=== PATIENT | female | born 1960 | race African-American/Black ===

== ENCOUNTER 2016-06-13 17:14 | Emergency (ER) | payer OTHER ==
[~2016-06-13] VITALS: Ht 172.7 cm; Wt 104.3 kg
[~2016-06-13 17:14] MED LIST: LEVE100020 PO; MECL25TA PO; PHEN100C PO; SULF1TAB24 PO
[2016-06-13 17:42] VITALS: BP 180/91
[2016-06-13] MEDS ORDERED: LEVE500T6 PO (17:45)
--- NOTE | 2016-06-13 17:45 | PHYS DOC ---
Past Medical History Past Medical History: Cancer, Seizure Additional Past Medical Histor: RENAL CELL Past Surgical History: No Surgical History Alcohol Use: None Drug Use: None Adult General Chief Complaint Chief Complaint: SEIZURE HPI HPI Patient is a 55 year old female brought to the ED by her daughter with the complaint of a seizure. Patient states she had a seizure at about 3:00 this morning which lasted about 2 minutes. Before this, her last seizure was May 07 and she states was secondary to stress, she had had a in the family. Today, she also is under stress, she recently had the of her brother. The patient does have a diagnoses her disorder and she is prescribed Levetiracetam 500 mg, she takes 2-1/2 twice a day for a total of 5 pills daily. She has been taking this for about 4 or 5 years. She's had before that she had been tried on phenobarbital and on Dilantin, both of those had some side effects for her. Patient has not run out of her medication but she states that when she takes her dose tonight that we'll be her last dose. She had been seeing a doctor at [facility] who was prescribing the medication for her but that doctor left and the patient was told that she needs to go see a neurologist. She had an appointment at neurology but she missed it being out of town with a in the family. Also, she can go to , she doesn't have transportation. She wants to know if she can see a neurologist here at [place]. Typically she does have a seizure about every 2 or [address] months[address] not drive and she does not work. She feels that her seizures are stable and have not been worsening. At this time, she has no complaints. She believe she is back to normal and has no headache. Patient denies other medical problems including hypertension or diabetes. Review of Systems Review of Systems Constitutional: Denies fever or chills [] Eyes: Denies change in visual acuity, redness, or eye pain [] HENT: Denies nasal congestion or sore throat [] Respiratory: Denies cough or shortness of breath [] Cardiovascular: Denies chest pain GI: Denies abdominal pain, nausea, vomiting, bloody stools or diarrhea [] : Denies dysuria or hematuria [] Musculoskeletal: Denies back pain or joint pain [] Integument: Denies rash or skin lesions [] Neurologic: As in history of present illness Allergies Allergies Allergies Coded Allergies Type Severity Reaction Last Updated Verified Penicillins Allergy Severe ANAPHYLAXIS 03/21/13 Yes aspirin Allergy Severe SEIZURES 03/21/13 Yes Physical Exam Physical Exam Constitutional: Well developed, well nourished, no acute distress, non-toxic appearance. Alert, mentating normally, normal speech. HENT: Normocephalic, atraumatic, bilateral external ears normal, nose normal. [ ] Eyes: PERRLA, EOMI, conjunctiva normal, no discharge. [] Neck: Normal range of motion, no stridor. [] Cardiovascular:Heart rate regular rhythm, no murmur [] Lungs & Thorax: Bilateral breath sounds clear to auscultation [] Abdomen: Bowel sounds normal, soft, no tenderness, no masses, no pulsatile masses. [] Skin: Warm, dry, no erythema, no rash. [] Extremities: No tenderness, no cyanosis, no clubbing, ROM intact, no edema. [] Neurologic: Alert and oriented X 3, normal motor function, normal sensory function, no focal deficits noted. Normal speech. No facial asymmetry. Hand Trucker 5 over 5 and equal bilaterally. Lower extremity strength 5 over 5 and equal bilaterally. Current Patient Data Vital Signs Vital Signs Date Time Temp Pulse Resp B/P Pulse Ox O2 Delivery O2 Flow Rate FiO2 06/13/16 17:42 97.8 84 18 180/91 98 Room Air 97.8 EKG EKG [] Radiology/Procedures Radiology/Procedures [] Course & Med Decision Making Course & Med Decision Making Pertinent Labs and Imaging studies reviewed. (See chart for details) 55-year-old female who reports a history of a seizure disorder, presents with the report of a brief seizure several hours prior to ED arrival which was brief and short-lived. Her concern at this time is that she has only one dose of her Levetiracetam remaining and she needs a refill. I gave the patient a referral to neurology here at [place] and I gave her prescription for a 10 day supply and urged her to call tomorrow for an appointment as soon as possible. She is stable for discharge. [] Dragon Disclaimer Dragon Disclaimer This electronic medical record was generated, in whole or in part, using a voice recognition dictation system. Departure Departure Impression: Primary Impression: Seizure Disposition: 01 HOME, SELF-CARE Condition: STABLE Referrals: NO PCP (PCP) DAVIAN WAITE MD Patient Instructions: Seizure, Adult Additional Instructions: As we discussed, call tomorrow to make an appointment with the neurology clinic. I gave you the name and phone number. As we discussed, be sure that you are taking your seizure medicine as directed on time every day. Scripts Levetiracetam 500 Mg Tablet2.5 Tab PO BID #60 TAB Ref 0 Take as directed for prevention of seizures Prov:ADITHYA CUELLO MD 06/13/16 ADITHYA CUELLO MD June 13, 2016 17:45
== END 2016-06-13 17:55 | disposition home or self-care (01) ==
LOC: ER 17:14
DX: G40.909 Epilepsy, unspecified, not intractable, without status epilepticus (principal); Z88.0 Allergy status to penicillin; Z88.6 Allergy status to analgesic agent
CPT/HCPCS: 99283

== ENCOUNTER 2016-06-26 14:36 | Emergency (ER) | payer OTHER ==
[~2016-06-26] VITALS: Ht 172.7 cm; Wt 108.9 kg
[~2016-06-26 14:36] MED LIST changes: +LEVE500T6 PO
[2016-06-26 14:45] VITALS: BP 175/97
[2016-06-26] MEDS ORDERED: LEVE500T56 PO (14:56)
--- NOTE | 2016-06-26 14:57 | PHYS DOC ---
Past Medical History Past Medical History: Cancer, Seizure Additional Past Medical Histor: RENAL CELL Past Surgical History: No Surgical History Alcohol Use: None Drug Use: None Adult General Chief Complaint Chief Complaint: MEDICATION REFILL [facility] HPI Patient is a 55 year old female who presents with questor medication refill. She reports that she takes 1250 mg a Keppra twice a day. She states she took her elastosis morning. She is an appointment scheduled with neurology in August but her current medicine clinic will not refill her Keppra pending appointment. Patient reports that she has been using Keppra for "a really long time". Patient states she's had no seizure, she has no headache. Review of Systems Review of Systems Constitutional: Denies fever or chills Eyes: Denies change in visual acuity, redness, or eye pain HENT: Denies nasal congestion or sore throat Respiratory: Denies cough or shortness of breath [] Cardiovascular: No additional information not addressed in HPI [] GI: Denies abdominal pain, nausea, vomiting, bloody stools or diarrhea [] : Denies dysuria or hematuria [] Musculoskeletal: Denies back pain or joint pain [] Integument: Denies rash or skin lesions [] Neurologic: Denies headache, focal weakness or sensory changes [] Endocrine: Denies polyuria or polydipsia [] Allergies Allergies Allergies Coded Allergies Type Severity Reaction Last Updated Verified Penicillins Allergy Severe ANAPHYLAXIS 03/21/13 Yes aspirin Allergy Severe SEIZURES 03/21/13 Yes Physical Exam Physical Exam Constitutional: Well developed, well nourished, no acute distress, non-toxic appearance. [] HENT: Normocephalic, atraumatic, bilateral external ears normal, oropharynx moist, no oral exudates, nose normal. [] Eyes: PERRLA, EOMI, conjunctiva normal, no discharge. [] Neck: Normal range of motion, no tenderness, supple, no stridor. [] Cardiovascular:Heart rate regular rhythm, no murmur [] Lungs & Thorax: Bilateral breath sounds clear to auscultation [] Skin: Warm, dry, no erythema, no rash. [] Neurologic: Alert and oriented X 3, normal motor function, normal sensory function, no focal deficits noted. [] Psychologic: Affect normal, judgement normal, mood normal. [] Current Patient Data Vital Signs Vital Signs Date Time Temp Pulse Resp B/P (MAP) Pulse Ox O2 Delivery O2 Flow Rate FiO2 06/26/16 14:45 97.7 90 20 96 Room Air 97.7 EKG EKG [] Radiology/Procedures Radiology/Procedures [] Course & Med Decision Making Course & Med Decision Making Pertinent Labs and Imaging studies reviewed. (See chart for details) [] Dragon Disclaimer Dragon Disclaimer This electronic medical record was generated, in whole or in part, using a voice recognition dictation system. Departure Departure Impression: Primary Impression: Medication refill Disposition: HOME, SELF-CARE Condition: STABLE Referrals: UNKNOWN PCP NAME (PCP) Patient Instructions: Medication Refill, Emergency Department Scripts Levetiracetam (KEPPRA) 500 Mg Tablet 2.5 TAB PO BID for 30 Days, #150 TAB 1 Refill Prov: PARVIZ PAINTING APRN 06/26/16 PARVIZ PAINTING APRN June 26, 2016 14:57
== END 2016-06-26 15:03 | disposition home or self-care (01) ==
LOC: ER 14:39
DX: Z76.0 Encounter for issue of repeat prescription (principal); Z88.0 Allergy status to penicillin; Z88.6 Allergy status to analgesic agent
CPT/HCPCS: 99283

== ENCOUNTER 2016-11-03 12:06 | Emergency (ER) | payer OTHER ==
[~2016-11-03] VITALS: Ht 172.7 cm; Wt 117.9 kg
[~2016-11-03 12:06] MED LIST changes: +LEVE500T56 PO
--- NOTE | 2016-11-03 13:08 | PHYS DOC ---
Past Medical History Past Medical History: Cancer, Seizure Additional Past Medical Histor: RENAL CELL Past Surgical History: No Surgical History Alcohol Use: None Drug Use: None Adult General Chief Complaint Chief Complaint: ABDOMINAL PAIN HPI HPI Patient is a 55 year old F who presents with abdominal pain. Patient states she started having abdominal pain and burning with urination this morning. Patient complains the pain radiates to her back. Patient states she is nauseous with no vomiting. Patient denies any vaginal discharge. Patient denies any fevers. Patient has no other complaints. Review of Systems Review of Systems GEN: Denies fevers, chills, sweats HEENT: Denies blurred vision, sore throat CV: Denies chest pain RESP: Denies shortness of air, cough GI: Suprapubic pain NEURO: Denies confusion, dizziness MSK: Denies weakness, joint pain/swelling Current Medications Current Medications Current Medications Medications (Trade) Dose Ordered Sig/Vania Start Time Stop Time Status Last Admin Dose Admin Ceftriaxone Sodium 50 ml @ 100 mls/hr 1X ONCE 11/03/16 16:00 11/03/16 16:00 DC Iohexol (Omnipaque 300 Mg/ml) 75 ml 1X ONCE 11/03/16 13:30 11/03/16 13:31 DC 11/03/16 14:26 75 ML Ketorolac Tromethamine (Toradol) 30 mg 1X ONCE 11/03/16 13:30 11/03/16 13:31 DC 11/03/16 13:27 30 MG Levofloxacin/ Dextrose 150 ml @ 100 mls/hr 1X ONCE 11/03/16 16:00 11/03/16 17:29 Sodium Chloride 1,000 ml @ 1,000 mls/hr 1X ONCE 11/03/16 13:30 11/03/16 14:29 DC 11/03/16 13:27 1,000 MLS/HR Allergies Allergies Allergies Coded Allergies Type Severity Reaction Last Updated Verified Penicillins Allergy Severe ANAPHYLAXIS 03/21/13 Yes aspirin Allergy Severe SEIZURES, TORADOL OK 11/03/16 Yes Physical Exam Physical Exam GEN.: No apparent distress. Alert and oriented. HEENT: Head is normocephalic, atraumatic NECK: Supple. LUNGS: CTAB. HEART: RRR, S1, S2 present. Peripheral pulses intact ABDOMEN: Soft, tenderness palpation to the suprapubic area, rebound tenderness, no abdominal distention. Positive bowel sounds. EXTREMITIES: Without any cyanosis. NEUROLOGIC: Normal speech, normal tone PSYCHIATRIC: Normal affect, normal mood. SKIN: No ulcerations Current Patient Data Vital Signs Vital Signs Date Time Temp Pulse Resp B/P (MAP) Pulse Ox O2 Delivery O2 Flow Rate FiO2 11/03/16 12:42 97.7 105 18 184/106 (132) 97 Room Air 97.7 Lab Values Laboratory Tests Test 11/03/16 12:41 11/03/16 13:50 Urine Collection Type Void Urine Color Red Urine Clarity Turbid Urine pH 6.0 Urine Specific [place] >=1.030 Urine Protein >=300 mg/dL (NEG-TRACE) Urine Glucose (UA) Negative mg/dL (NEG) Urine Ketones (Stick) Negative mg/dL (NEG) Urine Blood Large (NEG) Urine Nitrite Negative (NEG) Urine Bilirubin Negative (NEG) Urine Urobilinogen Dipstick 0.2 mg/dL (0.2 mg/dL) Urine Leukocyte Esterase Large (NEG) Urine RBC >40 /HPF (0-2) Urine WBC Tntc /HPF (0-4) Urine Squamous Epithelial Cells Many /LPF Urine Bacteria Many /HPF (0-FEW) Urine Mucus Mod /LPF White Blood Count 4.8 x10^3/uL (4.0-11.0) Red Blood Count 3.55 x10^6/uL (3.50-5.40) Hemoglobin 11.0 g/dL (12.0-15.5) L Hematocrit 33.1 % (36.0-47.0) L Mean Corpuscular Volume 93 fL (79-100) Mean Corpuscular Hemoglobin 31 pg (25-35) Mean Corpuscular Hemoglobin Concent 33 g/dL (31-37) Red Cell Distribution Width 15.1 % (11.5-14.5) H Platelet Count 169 x10^3/uL (140-400) Neutrophils (%) (Auto) 73 % (31-73) Lymphocytes (%) (Auto) 13 % (24-48) L Monocytes (%) (Auto) 11 % (0-9) H Eosinophils (%) (Auto) 2 % (0-3) Basophils (%) (Auto) 1 % (0-3) Neutrophils # (Auto) 3.5 x10^3uL (1.8-7.7) Lymphocytes # (Auto) 0.6 x10^3/uL (1.0-4.8) L Monocytes # (Auto) 0.5 x10^3/uL (0.0-1.1) Eosinophils # (Auto) 0.1 x10^3/uL (0.0-0.7) Basophils # (Auto) 0.0 x10^3/uL (0.0-0.2) Sodium Level 143 mmol/L (136-145) Potassium Level 3.7 mmol/L (3.5-5.1) Chloride Level 109 mmol/L (98-107) H Carbon Dioxide Level 24 mmol/L (21-32) Anion Gap 10 (6-14) Blood Urea Nitrogen 23 mg/dL (7-20) H Creatinine 1.3 mg/dL (0.6-1.0) H Estimated GFR (Cockcroft-Gault) 51.6 BUN/Creatinine Ratio 18 (6-20) Glucose Level 119 mg/dL (70-99) H Calcium Level 8.5 mg/dL (8.5-10.1) Total Bilirubin 0.4 mg/dL (0.2-1.0) Aspartate Amino Transferase (AST) 16 U/L (15-37) Alanine Aminotransferase (ALT) 20 U/L (14-59) Alkaline Phosphatase 103 U/L (46-116) Total Protein 7.0 g/dL (6.4-8.2) Albumin 3.1 g/dL (3.4-5.0) L Albumin/Globulin Ratio 0.8 (1.0-1.7) L Lipase 63 U/L (73-393) L Laboratory Tests 11/03/16 13:50 Laboratory Tests 11/03/16 13:50 EKG EKG [] Radiology/Procedures Radiology/Procedures CT: IMPRESSION: Bilateral ureteral stents are noted. The right ureteral stent is located within the mid right ureter and is coiled more inferiorly within the urinary bladder. Mild to moderate hydronephrosis and hydroureter is seen which could reflect stent malfunction. Clinical correlation is recommended.[] Course & Med Decision Making Course & Med Decision Making Pertinent Labs and Imaging studies reviewed. (See chart for details) Patient seen and evaluated abdominal workup with a CT scan abdomen pelvis was ordered 1558: Patient was updated on CT findings and she stated that the stents replaced approximately [address] [facility] for an unknown reason. Patient states she has been on dialysis before. Patient has not followed up with urologist since the stent placement. 1625: Discussed CC/HP/PMH with Dr. Leblanc who will talk to urologist and see the patient needs to be admitted or can follow up as an outpatient 1640: Dr. Leblanc called back and patient can follow up urology as an outpatient with Dr. Martinez an [facility] faxed over the office information for the urologist and will see her next week. Patient will be discharged on antibiotics. Patient would also like a prescription for her Keppra she takes 1500 mg twice a day MDM: After reviewing the chart, CC/HPI/PMH, physical exam, [lab results], [ radiological results], I do not believe the patient has emergent medical condition warranting further workup and/or admission at this time. I do not believe the patient is septic and has a non-Ma stated UTI that we treated with oral antibiotics as an outpatient. Patient has ureteral stents in place that are malfunctioned and will follow-up with urologist from [facility]. Patient was provided with the follow-up information and told to call and make an appointment. Patient is stable for discharge. Additional verbal discharge instructions were provided to the patient and that if symptoms get worse or any new symptoms arise that are worrisome to the patient [he/she] is to return to the emergency room immediately [] Dragon Disclaimer Dragon Disclaimer This electronic medical record was generated, in whole or in part, using a voice recognition dictation system. Departure Departure Impression: Primary Impression: UTI (urinary tract infection) Additional Impression: History of seizures Disposition: 01 HOME, SELF-CARE Condition: IMPROVED Referrals: UNKNOWN PCP NAME (PCP) Patient Instructions: Urinary Tract Infection Additional Instructions: Please follow up with urology at [facility] and noted to call and make an appointment Scripts Levetiracetam (KEPPRA) 750 Mg Tablet 1500 MG PO BID for 30 Days, #120 TAB Prov: SHANEL SHILREY DO 11/03/16 Levofloxacin (LEVAQUIN) 750 Mg Tablet 1 TAB PO DAILY, #7 TAB Prov: SHANEL SHIRLEY DO 11/03/16 Problem Qualifiers SHANEL SHIRLEY DO Nov 03, 2016 13:08
[2016-11-03 13:28] LABS: GLUCOSE,URINE NEGATIVE (NEG); UROBILINOGEN,URINE 0.2 mg/dL (0.2 mg/dL)
[2016-11-03] MEDS ORDERED: IOHEXOL 300 MG/ML 75 ML VIAL IV ONE (13:30)
[2016-11-03] MEDS ORDERED: KETOROLAC 30 MG/ML INJ. IV ONE (13:30)
[2016-11-03] MEDS ORDERED: IV NORMAL SALINE 1000ML BAG 1,000 ML IV ONE (13:30)
[2016-11-03 13:42] LABS: BILIRUBIN,URINE NEGATIVE (NEG)
[2016-11-03 13:43] LABS: NITRITE,URINE NEGATIVE (NEG); PROTEIN,URINE >=300 mg/dL (NEG-TRACE)
[2016-11-03 13:47] LABS: RBC,URINE >40 /HPF (0-2); WBC,URINE TNTC /HPF (0-4)
[2016-11-03 13:49] LABS: BACTERIA,URINE MANY /HPF (0-FEW)
[2016-11-03 13:50] LABS: SQUAMOUS EPITHELIAL CELL,UR MANY /LPF
[2016-11-03 13:58] LABS: BASO % 1 % (0-3); EOS % 2 % (0-3); HEMATOCRIT 33.1 % (36.0-47.0); LYMPH # 0.6 x10^3/uL (1.0-4.8); LYMPH % 13 % (24-48); MEAN CORPUSCULAR HEMOGLOBIN 31 pg (25-35); MEAN CORPUSCULAR HGB CONC 33 g/dL (31-37); MEAN CORPUSCULAR VOLUME 93 fL (79-100); MONO % 11 % (0-9); NEUT % 73 % (31-73); PLATELET COUNT 169 x10^3/uL (140-400); RED BLOOD COUNT 3.55 x10^6/uL (3.50-5.40); RED CELL DISTRIBUTION WIDTH 15.1 % (11.5-14.5); WHITE BLOOD COUNT 4.8 x10^3/uL (4.0-11.0)
[2016-11-03 14:05] LABS: CALCIUM 8.5 mg/dL (8.5-10.1); CREATININE 1.3 mg/dL (0.6-1.0); GFR 51.6; POTASSIUM 3.7 mmol/L (3.5-5.1)
[2016-11-03 14:11] LABS: ALBUMIN 3.1 g/dL (3.4-5.0); ALBUMIN/GLOBULIN RATIO 0.8 (1.0-1.7); TOTAL BILIRUBIN 0.4 mg/dL (0.2-1.0)
--- NOTE | 2016-11-03 15:19 | RAD ---
CT scan of the abdomen and pelvis with contrast 11/03/2016 CLINICAL HISTORY: Suprapubic abdominal pain. TECHNIQUE: After the intravenous administration of 60 cc of Omnipaque 300, contiguous, 5 mm axial sections were obtained through the abdomen and pelvis. One or more of the following individualized dose reduction techniques were utilized for this study: 1. Automated exposure control. 2. Adjustment of the mA and/or kV according to patient size. 3. Use of iterative reconstruction technique. FINDINGS: No previous imaging studies are available for comparison. Images through the lung bases demonstrate minimal dependent subsegmental atelectasis bilaterally. The liver, spleen, pancreas and adrenal glands are within normal limits. A double-J ureteral stent is seen extending from the left renal pelvis to the left urinary bladder. A double-J ureteral stent is seen extending from the mid right ureter into the urinary bladder. Mild to moderate hydronephrosis and hydroureter is seen bilaterally. Nonobstructing calculi are seen within the lower pole of the left kidney. These measure 3 to 8 mm in size. Moderate atherosclerotic calcification of the abdominal aorta is seen. The abdominal aorta tapers normally. The gallbladder is well-distended. No free fluid or free air is abdomen. The appendix is well-visualized and is within normal limits. Air and stool is seen throughout the colon. There is no evidence of bowel obstruction. Images through the pelvis demonstrate the urinary bladder distended with urine. The inferior aspect of the right ureteral stent is coiled multiple times within the urinary bladder. Calcifications are seen within the pelvis consistent with phleboliths. No free fluid is seen. No adnexal mass is noted. Degenerative changes are seen involving the lower thoracic and throughout the lumbar spine and both hips. IMPRESSION: Bilateral ureteral stents are noted. The right ureteral stent is located within the mid right ureter and is coiled more inferiorly within the urinary bladder. Mild to moderate hydronephrosis and hydroureter is seen which could reflect stent malfunction. Clinical correlation is recommended. Electronically signed by: Ton Ndiaye MD (11/03/2016 3:16 PM) [facility]
[2016-11-03] MEDS ORDERED: LEVO750T31 PO (16:58)
[2016-11-03] MEDS ORDERED: LEVE750T41 PO (16:58)
[2016-11-03 17:18] VITALS: BP 135/76
== END 2016-11-03 18:40 | disposition home or self-care (01) ==
LOC: ER 12:06
DX: N39.0 Urinary tract infection, site not specified (principal); Z88.0 Allergy status to penicillin; Z88.6 Allergy status to analgesic agent; Z99.2 Dependence on renal dialysis; Z96.0 Presence of urogenital implants
CPT/HCPCS: 36415; 74177; 80053; 81001; 83690; 85025; 87086; 96361; 96365; 96375; 99285; J1885; J1956; J7030; Q9967

== ENCOUNTER 2017-03-26 03:17 | Emergency (ER) | payer OTHER ==
[2017-03-26 04:46] LABS: ADD MAN DIFF? NO
[2017-03-26 04:49] LABS: BASO % 1 % (0-3); EOS % 1 % (0-3); HEMATOCRIT 36.1 % (36.0-47.0); HEMOGLOBIN 11.9 g/dL (12.0-15.5); LYMPH # 0.5 x10^3/uL (1.0-4.8); LYMPH % 10 % (24-48); MEAN CORPUSCULAR HEMOGLOBIN 29 pg (25-35); MEAN CORPUSCULAR HGB CONC 33 g/dL (31-37); MEAN CORPUSCULAR VOLUME 89 fL (79-100); MONO # 0.5 x10^3/uL (0.0-1.1); MONO % 10 % (0-9); NEUT % 78 % (31-73); PLATELET COUNT 209 x10^3/uL (140-400); RED BLOOD COUNT 4.04 x10^6/uL (3.50-5.40); RED CELL DISTRIBUTION WIDTH 14.6 % (11.5-14.5); WHITE BLOOD COUNT 5.1 x10^3/uL (4.0-11.0)
[2017-03-26 05:02] LABS: ANION GAP 9 (6-14); BLOOD UREA NITROGEN 13 mg/dL (7-20); BUN/CREATININE RATIO 11 (6-20); CALCIUM 9.4 mg/dL (8.5-10.1); CARBON DIOXIDE 30 mmol/L (21-32); CHLORIDE 101 mmol/L (98-107); CREATININE 1.2 mg/dL (0.6-1.0); GFR 56.4; GLUCOSE 124 mg/dL (70-99); POTASSIUM 3.1 mmol/L (3.5-5.1); SODIUM 140 mmol/L (136-145)
[2017-03-26 05:04] LABS: ETHANOL < 10 mg/dL (0-10)
[2017-03-26 05:07] LABS: ALBUMIN 3.1 g/dL (3.4-5.0); ALBUMIN/GLOBULIN RATIO 0.6 (1.0-1.7); ALK PHOS 136 U/L (46-116); ALT (SGPT) 23 U/L (14-59); AST (SGOT) 20 U/L (15-37); LIPASE 55 U/L (73-393); TOTAL BILIRUBIN 0.4 mg/dL (0.2-1.0); TOTAL PROTEIN 8.2 g/dL (6.4-8.2)
[2017-03-26 05:11] LABS: TROPONINI < 0.017 ng/mL (0.000-0.055)
[2017-03-26] MEDS: POTASSIUM CHLORIDE 20 MEQ TABLET.ER. PO ×2 (05:30)
[2017-03-26] MEDS: levETIRAcetam 1,000 MG in IV DEXTROSE 5% 100 ML IV (05:31)
[2017-03-29 10:24] LABS: LEVETIRACETAM 49.2 ug/mL (10.0-40.0)
== END 2017-03-26 06:31 | disposition home or self-care (01) ==
LOC: ER 06:31
DX: R56.9 Unspecified convulsions (principal); E87.6 Hypokalemia; Z88.0 Allergy status to penicillin; Z88.6 Allergy status to analgesic agent; Z85.41 Personal history of malignant neoplasm of cervix uteri
CPT/HCPCS: 36415; 70450; 72125; 80053; 80177; 83690; 83735; 84484; 85025; 93005; 96365; 96375; 99285-25; G0480; J1953; J2060

== ENCOUNTER 2017-05-24 09:43 | Emergency (ER) | payer OTHER ==
[2017-05-24 10:14] LABS: POC GLUCOSE 119 mg/dL (70-99)
== END 2017-05-24 10:45 | disposition home or self-care (01) ==
LOC: ER 09:43
DX: R56.9 Unspecified convulsions (principal); G47.00 Insomnia, unspecified; I10 Essential (primary) hypertension; G40.909 Epilepsy, unspecified, not intractable, without status epilepticus; Z88.0 Allergy status to penicillin; Z88.6 Allergy status to analgesic agent
CPT/HCPCS: 82962; 99284

== ENCOUNTER 2017-07-01 15:19 | Emergency (ER) | payer OTHER | END 2017-07-01 16:20 | disposition home or self-care (01) | LOC: ER 16:20 | DX: R56.9 Unspecified convulsions (principal); Z76.0 Encounter for issue of repeat prescription; Z88.0 Allergy status to penicillin; Z88.6 Allergy status to analgesic agent | CPT/HCPCS: 99283 ==

== ENCOUNTER 2017-07-19 16:13 | Emergency (ER) | payer OTHER ==
[2017-07-19] MEDS: IV NORMAL SALINE 1000ML BAG 1,000 ML IV (17:13)
[2017-07-19 17:16] LABS: ADD MAN DIFF? NO
[2017-07-19 17:18] LABS: BASO % 0 % (0-3); EOS % 1 % (0-3); HEMATOCRIT 37.5 % (36.0-47.0); HEMOGLOBIN 12.6 g/dL (12.0-15.5); LYMPH # 0.4 x10^3/uL (1.0-4.8); LYMPH % 10 % (24-48); MEAN CORPUSCULAR HEMOGLOBIN 31 pg (25-35); MEAN CORPUSCULAR HGB CONC 34 g/dL (31-37); MEAN CORPUSCULAR VOLUME 91 fL (79-100); MONO # 0.3 x10^3/uL (0.0-1.1); MONO % 6 % (0-9); NEUT # 3.9 x10^3uL (1.8-7.7); NEUT % 83 % (31-73); PLATELET COUNT 197 x10^3/uL (140-400); RED CELL DISTRIBUTION WIDTH 14.4 % (11.5-14.5); WHITE BLOOD COUNT 4.7 x10^3/uL (4.0-11.0)
[2017-07-19 17:20] LABS: BILIRUBIN,URINE NEGATIVE (NEG); CLARITY,URINE CLEAR; COLOR,URINE YELLOW; GLUCOSE,URINE NEGATIVE (NEG); NITRITE,URINE NEGATIVE (NEG); PH,URINE 6.5; PROTEIN,URINE 30 mg/dL (NEG-TRACE); UROBILINOGEN,URINE 0.2 mg/dL (0.2 mg/dL)
[2017-07-19 17:31] LABS: ANION GAP 11 (6-14); BLOOD UREA NITROGEN 13 mg/dL (7-20); CALCIUM 9.1 mg/dL (8.5-10.1); CARBON DIOXIDE 27 mmol/L (21-32); CHLORIDE 104 mmol/L (98-107); GFR 69.7; GLUCOSE 136 mg/dL (70-99); MAGNESIUM 2.1 mg/dL (1.8-2.4); POTASSIUM 3.1 mmol/L (3.5-5.1); SODIUM 142 mmol/L (136-145)
[2017-07-19 17:41] LABS: BACTERIA,URINE MANY /HPF (0-FEW); SQUAMOUS EPITHELIAL CELL,UR FEW /LPF; TRICHOMONAS,URINE PRESENT; WBC,URINE >40 /HPF (0-4)
[2017-07-19] MEDS: NITROFURANTOIN MONOHYD/M-CRYST 100 MG CAPSULE. PO (18:51)
[2017-07-19] MEDS: POTASSIUM CHLORIDE 20 MEQ/15 ML ORAL LIQUID. PO (18:52)
[2017-07-23 02:17] LABS: LEVETIRACETAM 43.8 ug/mL (10.0-40.0)
== END 2017-07-19 19:01 | disposition home or self-care (01) ==
LOC: ER 16:13
DX: R56.9 Unspecified convulsions (principal); N39.0 Urinary tract infection, site not specified; G40.909 Epilepsy, unspecified, not intractable, without status epilepticus; Z85.41 Personal history of malignant neoplasm of cervix uteri; Z88.0 Allergy status to penicillin; Z88.6 Allergy status to analgesic agent
CPT/HCPCS: 70450; 80048; 81001; 83735; 85025; 93005; 99285-25; J7030

== ENCOUNTER 2017-12-12 23:50 | Emergency (ER) | payer OTHER ==
[~2017-12-12] VITALS: Ht 172.7 cm; Wt 108.9 kg
[~2017-12-12 23:50] MED LIST changes: +ERGO500027 PO; +LEVE750T41 PO; +LEVO750T31 PO; +NITR100C62 PO; +ZOLP5TAB PO
[2017-12-13] MEDS ORDERED: IV NORMAL SALINE 1000ML BAG 1,000 ML IV ONE (00:15)
[2017-12-13] MEDS ORDERED: levETIRAcetam 1,000 MG in IV DEXTROSE 5% 100ML 100 ML IV ONE (00:30)
[2017-12-13 00:40] LABS: BASO # 0.1 x10^3/uL (0.0-0.2); BASO % 1 % (0-3); EOS # 0.1 x10^3/uL (0.0-0.7); EOS % 1 % (0-3); HEMATOCRIT 30.7 % (36.0-47.0); HEMOGLOBIN 10.5 g/dL (12.0-15.5); LYMPH # 0.7 x10^3/uL (1.0-4.8); LYMPH % 11 % (24-48); MEAN CORPUSCULAR HEMOGLOBIN 32 pg (25-35); MEAN CORPUSCULAR HGB CONC 34 g/dL (31-37); MEAN CORPUSCULAR VOLUME 94 fL (79-100); MONO # 0.4 x10^3/uL (0.0-1.1); MONO % 6 % (0-9); NEUT # 5.1 x10^3uL (1.8-7.7); NEUT % 81 % (31-73); PLATELET COUNT 256 x10^3/uL (140-400); RED BLOOD COUNT 3.27 x10^6/uL (3.50-5.40); RED CELL DISTRIBUTION WIDTH 15.1 % (11.5-14.5); WHITE BLOOD COUNT 6.3 x10^3/uL (4.0-11.0)
[2017-12-13 00:52] LABS: CREATININE 1.3 mg/dL (0.6-1.0); GFR 51.3; MAGNESIUM 1.7 mg/dL (1.8-2.4); POTASSIUM 3.4 mmol/L (3.5-5.1)
[2017-12-13 01:23] VITALS: BP 181/84
--- NOTE | 2017-12-13 01:24 | PHYS DOC ---
Past Medical History Past Medical History: Cancer, High Cholesterol, Renal Disease, Seizure Additional Past Medical Histor: BORDERLINE DIABETIC Past Surgical History: No Surgical History Additional Past Surgical Histo: RENAL STENT Alcohol Use: None Drug Use: None Adult General Chief Complaint Chief Complaint: SEIZURE HPI HPI Patient is a 57 year old female who presents with seizure disorder. Patient has known history of seizure disorder. She states she ran out of her medications yesterday morning. Her normal medicines are Keppra 750 mg twice daily. This evening, she presents to the ER primarily requesting a refill but she did have a witnessed tonic-clonic seizure in the waiting room as she was checking in. The seizure lasted about 1 minute. She was assisted to the floor and did not sustain any injury. The patient had a brief postictal period and awoke to her baseline mental status. She is accompanied by her son who states she is at baseline mental status as well. After awakening, the patient states she just needs a refill of her medicine. She denies recent illness. No fever or chills or cough. No chest pain or palpitations. She does not currently have a neurologist and is asking for referral Review of Systems Review of Systems Constitutional: Denies fever or chills Eyes: Denies change in visual acuity HENT: Denies Respiratory: Denies cough or shortness of breath Cardiovascular: No additional information GI: Denies abdominal pain, nausea : Denies dysuria Musculoskeletal: Denies back pain Integument: Denies rash Neurologic: Denies headache, or focal neuro complaints Endocrine: Denies polyuria All other systems were reviewed and found to be within normal limits, except as documented in this note. Current Medications Current Medications Current Medications Medications (Trade) Dose Ordered Sig/Vania Start Time Stop Time Status Last Admin Dose Admin Levetiracetam 1000 mg/Dextrose 110 ml @ 440 mls/hr 1X ONCE 12/13/17 00:30 12/13/17 00:44 DC 12/13/17 00:47 440 MLS/HR Lorazepam (Ativan) 0.5 mg 1X ONCE 12/13/17 01:00 12/13/17 01:01 DC 12/13/17 01:12 0.5 MG Sodium Chloride 1,000 ml @ 1,000 mls/hr 1X ONCE 12/13/17 00:15 12/13/17 01:14 DC 12/13/17 00:47 1,000 MLS/HR Allergies Allergies Allergies Coded Allergies Type Severity Reaction Last Updated Verified Penicillins Allergy Severe ANAPHYLAXIS 06/02/17 Yes aspirin Allergy Severe SEIZURES, TORADOL OK 11/03/16 Yes Physical Exam Physical Exam Constitutional: Well developed, well nourished, no acute distress HENT: Normocephalic, atraumatic, bilateral external ears normal, oropharynx moist Eyes: PERRLA, EOMI, conjunctiva normal Neck: Normal range of motion Cardiovascular:Heart rate regular rhythm Lungs & Thorax: Bilateral breath sounds clear Abdomen: Bowel sounds normal, soft, no tenderness Skin: Warm, dry, no erythema Extremities: No edema Neurologic: Alert and oriented X 3 Psychologic: Affect normal Current Patient Data Vital Signs Vital Signs Date Time Temp Pulse Resp B/P (MAP) Pulse Ox O2 Delivery O2 Flow Rate FiO2 12/12/17 23:55 98.2 99 16 187/93 (124) 94 Room Air 98.2 Lab Values Laboratory Tests Test 12/13/17 00:20 White Blood Count 6.3 x10^3/uL (4.0-11.0) Red Blood Count 3.27 x10^6/uL (3.50-5.40) L Hemoglobin 10.5 g/dL (12.0-15.5) L Hematocrit 30.7 % (36.0-47.0) L Mean Corpuscular Volume 94 fL (79-100) Mean Corpuscular Hemoglobin 32 pg (25-35) Mean Corpuscular Hemoglobin Concent 34 g/dL (31-37) Red Cell Distribution Width 15.1 % (11.5-14.5) H Platelet Count 256 x10^3/uL (140-400) Neutrophils (%) (Auto) 81 % (31-73) H Lymphocytes (%) (Auto) 11 % (24-48) L Monocytes (%) (Auto) 6 % (0-9) Eosinophils (%) (Auto) 1 % (0-3) Basophils (%) (Auto) 1 % (0-3) Neutrophils # (Auto) 5.1 x10^3uL (1.8-7.7) Lymphocytes # (Auto) 0.7 x10^3/uL (1.0-4.8) L Monocytes # (Auto) 0.4 x10^3/uL (0.0-1.1) Eosinophils # (Auto) 0.1 x10^3/uL (0.0-0.7) Basophils # (Auto) 0.1 x10^3/uL (0.0-0.2) Sodium Level 140 mmol/L (136-145) Potassium Level 3.4 mmol/L (3.5-5.1) L Chloride Level 102 mmol/L (98-107) Carbon Dioxide Level 28 mmol/L (21-32) Anion Gap 10 (6-14) Blood Urea Nitrogen 12 mg/dL (7-20) Creatinine 1.3 mg/dL (0.6-1.0) H Estimated GFR (Cockcroft-Gault) 51.3 Glucose Level 171 mg/dL (70-99) H Calcium Level 9.0 mg/dL (8.5-10.1) Magnesium Level 1.7 mg/dL (1.8-2.4) L Laboratory Tests 12/13/17 00:20 Laboratory Tests 12/13/17 00:20 EKG EKG [] Radiology/Procedures Radiology/Procedures [] Course & Med Decision Making Course & Med Decision Making Pertinent Labs and Imaging studies reviewed. (See chart for details) It is evaluated in the emergency department after a seizure. She does have some medication noncompliance, primarily because she does not have a neurologist. She does have insurance and the means to afford her medications. In the emergency department, she was given a half milligram of Ativan. She was given a Keppra load by IV along with some IV fluids. Her labs were normal except for very mild elevation of creatinine which was collected prior to IV fluid hydration. Patient is discharged to home. Her son is present and driving her home. She is provided a refill of her medications. She is also provided a referral to Dr. Sierra for routine surveillance of seizure disorder. Dragon Disclaimer Dragon Disclaimer This electronic medical record was generated, in whole or in part, using a voice recognition dictation system. Departure Departure Referrals: UNKNOWN PCP NAME (PCP) CLAUS CHARLES DO Dec 13, 2017 01:24
[2017-12-13] MEDS ORDERED: LEVE100020 PO (01:28)
[2017-12-13] MEDS ORDERED: LEVE500T56 PO (01:28)
== END 2017-12-13 01:50 | disposition home or self-care (01) ==
LOC: ER 23:50
DX: G40.909 Epilepsy, unspecified, not intractable, without status epilepticus (principal); E78.00 Pure hypercholesterolemia, unspecified; Z88.0 Allergy status to penicillin; Z88.6 Allergy status to analgesic agent
CPT/HCPCS: 36415; 80048; 83735; 85025; 96365; 96375; 99284; J1953; J2060; J7030

== ENCOUNTER 2018-01-16 05:04 | Emergency (ER) | payer OTHER ==
[~2018-01-16] VITALS: Ht 167.6 cm; Wt 108.9 kg
--- NOTE | 2018-01-16 05:28 | PHYS DOC ---
Past Medical History Past Medical History: Cancer, High Cholesterol, Renal Disease, Seizure Additional Past Medical Histor: BORDERLINE DIABETIC Past Surgical History: No Surgical History Additional Past Surgical Histo: RENAL STENT Alcohol Use: None Drug Use: None Adult General Chief Complaint Chief Complaint: SEIZURE HPI HPI Patient is a 57-year-old female who presents with report of having had a total of 5 seizures over the last 24 hours. Patient has had seizures ever since her 20s. She indicates that she is on Keppra intakes 1500 mg twice daily. She does admit to a headache that she rates as moderate. She denies any chest pain, shortness of breath, fever, nausea or vomiting. Review of Systems Review of Systems Constitutional: Denies fever or chills [] Respiratory: Denies cough or shortness of breath [] Cardiovascular: No additional information not addressed in HPI [] Musculoskeletal: Denies back pain or joint pain [] Integument: Denies rash or skin lesions [] Neurologic: Positive seizure and headache[] All other systems were reviewed and found to be within normal limits, except as documented in this note. Current Medications Current Medications Current Medications Medications (Trade) Dose Ordered Sig/Vania Start Time Stop Time Status Last Admin Dose Admin Ketorolac Tromethamine (Toradol 15mg Vial) 15 mg 1X ONCE 01/16/18 06:00 01/16/18 06:01 DC 01/16/18 06:45 15 MG Levetiracetam (Keppra) 1,500 mg 1X ONCE 01/16/18 07:45 01/16/18 07:50 DC 01/16/18 07:58 1,500 MG Lorazepam (Ativan) 1 mg 1X ONCE 01/16/18 06:00 01/16/18 06:01 DC 01/16/18 06:45 1 MG Potassium Chloride (Klor-Con) 40 meq 1X ONCE 01/16/18 07:45 01/16/18 07:50 DC 01/16/18 07:56 40 MEQ Trimethoprim/ Sulfamethoxazole (Bactrim Ds) 1 tab 1X ONCE 01/16/18 08:00 01/16/18 08:01 DC 01/16/18 07:56 1 TAB Allergies Allergies Allergies Coded Allergies Type Severity Reaction Last Updated Verified Penicillins Allergy Severe ANAPHYLAXIS 06/02/17 Yes aspirin Allergy Severe SEIZURES, TORADOL OK 11/03/16 Yes Physical Exam Physical Exam Constitutional: Well developed, well nourished, no acute distress, non-toxic appearance. [] HENT: Normocephalic, atraumatic, bilateral external ears normal, oropharynx moist, no oral exudates, nose normal. [] Eyes: PERRLA, EOMI, conjunctiva normal, no discharge. [] Neck: Normal range of motion, no tenderness, supple, no stridor. [] Cardiovascular: Regular rate and rhythm[] Lungs & Thorax: Bilateral breath sounds clear to auscultation [] Abdomen: Bowel sounds normal, soft, no tenderness. [] Skin: Warm, dry, no erythema, no rash. [] Extremities: No tenderness, no cyanosis, no clubbing, ROM intact, no edema. [] Neurologic: Alert and oriented X 3, normal motor function, normal sensory function, no focal deficits noted. [] Current Patient Data Vital Signs Vital Signs Date Time Temp Pulse Resp B/P (MAP) Pulse Ox O2 Delivery O2 Flow Rate FiO2 01/16/18 08:00 84 18 97 01/16/18 05:05 98.8 161/81 (107) 98.8 Lab Values Laboratory Tests Test 01/16/18 06:38 01/16/18 07:13 White Blood Count 4.4 x10^3/uL (4.0-11.0) Red Blood Count 3.60 x10^6/uL (3.50-5.40) Hemoglobin 11.4 g/dL (12.0-15.5) L Hematocrit 33.7 % (36.0-47.0) L Mean Corpuscular Volume 94 fL (79-100) Mean Corpuscular Hemoglobin 32 pg (25-35) Mean Corpuscular Hemoglobin Concent 34 g/dL (31-37) Red Cell Distribution Width 13.7 % (11.5-14.5) Platelet Count 249 x10^3/uL (140-400) Neutrophils (%) (Auto) 75 % (31-73) H Lymphocytes (%) (Auto) 16 % (24-48) L Monocytes (%) (Auto) 8 % (0-9) Eosinophils (%) (Auto) 1 % (0-3) Basophils (%) (Auto) 1 % (0-3) Neutrophils # (Auto) 3.3 x10^3uL (1.8-7.7) Lymphocytes # (Auto) 0.7 x10^3/uL (1.0-4.8) L Monocytes # (Auto) 0.3 x10^3/uL (0.0-1.1) Eosinophils # (Auto) 0.0 x10^3/uL (0.0-0.7) Basophils # (Auto) 0.1 x10^3/uL (0.0-0.2) Sodium Level 143 mmol/L (136-145) Potassium Level 3.1 mmol/L (3.5-5.1) L Chloride Level 103 mmol/L (98-107) Carbon Dioxide Level 31 mmol/L (21-32) Anion Gap 9 (6-14) Blood Urea Nitrogen 7 mg/dL (7-20) Creatinine 1.4 mg/dL (0.6-1.0) H Estimated GFR (Cockcroft-Gault) 47.1 BUN/Creatinine Ratio 5 (6-20) L Glucose Level 120 mg/dL (70-99) H Calcium Level 9.1 mg/dL (8.5-10.1) Magnesium Level 1.8 mg/dL (1.8-2.4) Total Bilirubin 0.3 mg/dL (0.2-1.0) Aspartate Amino Transferase (AST) 15 U/L (15-37) Alanine Aminotransferase (ALT) 12 U/L (14-59) L Alkaline Phosphatase 127 U/L (46-116) H Total Protein 8.6 g/dL (6.4-8.2) H Albumin 3.2 g/dL (3.4-5.0) L Albumin/Globulin Ratio 0.6 (1.0-1.7) L Urine Collection Type Unknown Urine Color Yellow Urine Clarity Cloudy Urine pH 7.0 Urine Specific [place] 1.010 Urine Protein 30 mg/dL (NEG-TRACE) Urine Glucose (UA) Negative mg/dL (NEG) Urine Ketones (Stick) Negative mg/dL (NEG) Urine Blood Large (NEG) Urine Nitrite Negative (NEG) Urine Bilirubin Negative (NEG) Urine Urobilinogen Dipstick 0.2 mg/dL (0.2 mg/dL) Urine Leukocyte Esterase Large (NEG) Urine RBC Tntc /HPF (0-2) Urine WBC Tntc /HPF (0-4) Urine Squamous Epithelial Cells Mod /LPF Urine Bacteria Many /HPF (0-FEW) Urine Mucus Mod /LPF Laboratory Tests 01/16/18 06:38 Laboratory Tests 01/16/18 06:38 EKG EKG [] Radiology/Procedures Radiology/Procedures [] Course & Med Decision Making Course & Med Decision Making Pertinent Labs and Imaging studies reviewed. (See chart for details) Patient moved to room upon arrival was evaluated by your medical staff after where she a workup has been initiated to include blood work and a UA. Patient has been given an IV dose of lorazepam as well as Toradol for headache. At this time, workup is pending and patient is being signed out to Dr. Almaguer at 6: 00 AM. 8:20 AM: The patient's care was assumed from Dr. Corea at 6 AM shift change. Patient has a seizure history, and states that she has had several partial seizures, primarily resulting in contractures of her right arm, and difficulty swallowing, over the past 24 hours. She has not had a generalized tonic-clonic seizure and has not lost consciousness. She states that she is not currently under the care of a neurologist, but faithfully takes her Keppra 1500 mg twice daily. She states that she gets her prescriptions prescribed from emergency departments around the city. She does admit to having some dysuria, and her urine reflects a urinary tract infection. The patient's labs have been reviewed and they're not significantly different than prior value she has had. I had an extensive discussion with the patient about the need for establishing care with a neurologist, something she expresses her intention to do. I also spoke with Dr. Deutsch, neurologist data control clerk, who recommended no medication changes, at this time, but will follow-up with the patient in the office for further evaluation. The patient has not yet taken her morning Keppra and will be given a dose prior to leaving. She states she is almost out of her medication will be given a refill until she can see neurology. I discussed test results with the patient in detail, the need for close follow-up and return precautions. Dragon Disclaimer Dragon Disclaimer This electronic medical record was generated, in whole or in part, using a voice recognition dictation system. Departure Departure Impression: Primary Impression: Seizure Additional Impression: UTI (urinary tract infection) Disposition: 01 HOME, SELF-CARE Condition: STABLE Referrals: ESTHER DEUTSCH MD Patient Instructions: Seizure, Adult, Urinary Tract Infection Scripts Levetiracetam (KEPPRA) 1,000 Mg Tablet 1500 MG PO BID for 30 Days, TAB Prov: ARLYN ALMAGUER MD 01/16/18 Sulfamethoxazole/Trimethoprim (BACTRIM DS TABLET) 1 Each Tablet 1 TAB PO BID, #14 TAB Prov: ARLYN ALMAGUER MD 01/16/18 Problem Qualifiers PRANAV COREA Jr., DO Jan 16, 2018 05:28 ARLYN ALMAGUER MD Jan 16, 2018 08:26
[2018-01-16] MEDS ORDERED: KETOROLAC 15 MG/ML VIAL. IV ONE (06:00)
[2018-01-16 06:54] LABS: BASO # 0.1 x10^3/uL (0.0-0.2); BASO % 1 % (0-3); EOS % 1 % (0-3); HEMATOCRIT 33.7 % (36.0-47.0); HEMOGLOBIN 11.4 g/dL (12.0-15.5); LYMPH # 0.7 x10^3/uL (1.0-4.8); LYMPH % 16 % (24-48); MEAN CORPUSCULAR HEMOGLOBIN 32 pg (25-35); MEAN CORPUSCULAR HGB CONC 34 g/dL (31-37); MEAN CORPUSCULAR VOLUME 94 fL (79-100); MONO # 0.3 x10^3/uL (0.0-1.1); MONO % 8 % (0-9); NEUT # 3.3 x10^3uL (1.8-7.7); NEUT % 75 % (31-73); PLATELET COUNT 249 x10^3/uL (140-400); RED CELL DISTRIBUTION WIDTH 13.7 % (11.5-14.5); WHITE BLOOD COUNT 4.4 x10^3/uL (4.0-11.0)
[2018-01-16 07:05] LABS: CALCIUM 9.1 mg/dL (8.5-10.1); CREATININE 1.4 mg/dL (0.6-1.0); GFR 47.1; POTASSIUM 3.1 mmol/L (3.5-5.1)
[2018-01-16 07:11] LABS: ALBUMIN 3.2 g/dL (3.4-5.0); ALBUMIN/GLOBULIN RATIO 0.6 (1.0-1.7); MAGNESIUM 1.8 mg/dL (1.8-2.4); TOTAL BILIRUBIN 0.3 mg/dL (0.2-1.0); TOTAL PROTEIN 8.6 g/dL (6.4-8.2)
[2018-01-16 07:23] LABS: BILIRUBIN,URINE NEGATIVE (NEG); CLARITY,URINE CLOUDY; COLOR,URINE YELLOW; NITRITE,URINE NEGATIVE (NEG); PROTEIN,URINE 30 mg/dL (NEG-TRACE); UROBILINOGEN,URINE 0.2 mg/dL (0.2 mg/dL)
[2018-01-16 07:45] LABS: SQUAMOUS EPITHELIAL CELL,UR MOD /LPF
[2018-01-16] MEDS ORDERED: POTASSIUM CHLORIDE 20 MEQ TABLET.ER. PO ONE (07:45)
[2018-01-16] MEDS ORDERED: levETIRAcetam 500 MG TABLET PO ONE (07:45)
[2018-01-16 07:46] LABS: BACTERIA,URINE MANY /HPF (0-FEW); RBC,URINE TNTC /HPF (0-2); WBC,URINE TNTC /HPF (0-4)
[2018-01-16 08:00] VITALS: BP 162/75
[2018-01-16] MEDS ORDERED: SMZ/TMP 800/160MG TABLET. PO ONE (08:00)
[2018-01-16] MEDS ORDERED: SULF1TAB24 PO (08:26)
[2018-01-16] MEDS ORDERED: LEVE100020 PO (08:26)
[2018-03-09] MEDS ORDERED: LEVE100020 PO (08:41)
[2018-03-09] MEDS ORDERED: POTA20TA4 PO (08:41)
== END 2018-01-16 08:44 | disposition home or self-care (01) ==
LOC: ER 05:04
DX: R56.9 Unspecified convulsions (principal); N39.0 Urinary tract infection, site not specified; R51 Headache; E78.00 Pure hypercholesterolemia, unspecified; Z88.0 Allergy status to penicillin; Z88.6 Allergy status to analgesic agent
CPT/HCPCS: 36415; 80053; 80177; 81001; 83735; 85025; 87086; 96374; 96375; 99284; J1885; J2060; 99283

== ENCOUNTER 2018-04-09 17:53 | Emergency (ER) | payer OTHER ==
[~2018-04-09] VITALS: Ht 172.7 cm; Wt 121.6 kg
[~2018-04-09 17:53] MED LIST changes: +POTA20TA4 PO
[2018-04-09 17:59] VITALS: BP 163/104
[2018-04-09] MEDS ORDERED: LEVE500T56 PO (18:25)
--- NOTE | 2018-04-09 18:26 | PHYS DOC ---
Past Medical History Past Medical History: Cancer, High Cholesterol, Renal Disease, Seizure Additional Past Medical Histor: BORDERLINE DIABETIC Past Surgical History: No Surgical History Additional Past Surgical Histo: RENAL STENT Alcohol Use: None Drug Use: None Adult General Chief Complaint Chief Complaint: MEDICATION REFILL [facility] HPI Patient is a 57 year old female who presents with a need for a refill on her Keppra. The patient states that due to the bad weather she was unable to get to her appointment. She states that she has run out of her Keppra and will not be seeing her provider for another month. The patient states that she takes 3000 mg of Keppra daily. She denies any current seizure activity. Review of Systems Review of Systems Constitutional: Denies fever or chills [] Eyes: Denies change in visual acuity, redness, or eye pain [] HENT: Denies nasal congestion or sore throat [] Respiratory: Denies cough or shortness of breath [] Cardiovascular: No additional information not addressed in HPI [] GI: Denies abdominal pain, nausea, vomiting, bloody stools or diarrhea [] : Denies dysuria or hematuria [] Musculoskeletal: Denies back pain or joint pain [] Integument: Denies rash or skin lesions [] Neurologic: Denies headache, focal weakness or sensory changes [] Endocrine: Denies polyuria or polydipsia [] All other systems were reviewed and found to be within normal limits, except as documented in this note. Allergies Allergies Allergies Coded Allergies Type Severity Reaction Last Updated Verified Penicillins Allergy Severe ANAPHYLAXIS 06/02/17 Yes aspirin Allergy Severe SEIZURES, TORADOL OK 11/03/16 Yes Physical Exam Physical Exam Constitutional: Well developed, well nourished, no acute distress, non-toxic appearance. [] HENT: Normocephalic, atraumatic, bilateral external ears normal, oropharynx moist, no oral exudates, nose normal. [] Eyes: PERRLA, EOMI, conjunctiva normal, no discharge. [] Neck: Normal range of motion, no tenderness, supple, no stridor. [] Cardiovascular:Heart rate regular rhythm, no murmur [] Lungs & Thorax: Bilateral breath sounds clear to auscultation [] Abdomen: Bowel sounds normal, soft, no tenderness, no masses, no pulsatile masses. [] Skin: Warm, dry, no erythema, no rash. [] Back: No tenderness, no CVA tenderness. [] Extremities: No tenderness, no cyanosis, no clubbing, ROM intact, no edema. [] Neurologic: Alert and oriented X 3, normal motor function, normal sensory function, no focal deficits noted. [] Psychologic: Affect normal, judgement normal, mood normal. [] Current Patient Data Vital Signs Vital Signs Date Time Temp Pulse Resp B/P (MAP) Pulse Ox O2 Delivery O2 Flow Rate FiO2 04/09/18 17:59 97.7 70 16 163/104 (123) 97 Room Air 97.7 EKG EKG [] Radiology/Procedures Radiology/Procedures [] Course & Med Decision Making Course & Med Decision Making Pertinent Labs and Imaging studies reviewed. (See chart for details) [] Dragon Disclaimer Dragon Disclaimer This electronic medical record was generated, in whole or in part, using a voice recognition dictation system. Departure Departure Impression: Primary Impression: Medication refill Disposition: HOME, SELF-CARE Condition: STABLE Referrals: UNKNOWN PCP NAME (PCP) Patient Instructions: Medication Refill, Emergency Department Additional Instructions: Take the medication as directed. Follow-up with your primary care provider if her next scheduled appointment for refills of your medication. Scripts Levetiracetam (KEPPRA) 500 Mg Tablet 1500 MG PO BID for seiure for 30 Days, #180 TAB Prov: SIVAN DALAL APRN 04/09/18 SIVAN DALAL APRN Apr 09, 2018 18:26
== END 2018-04-09 18:30 | disposition home or self-care (01) ==
LOC: ER 17:53
DX: R56.9 Unspecified convulsions (principal); Z76.0 Encounter for issue of repeat prescription; E78.00 Pure hypercholesterolemia, unspecified; Z88.0 Allergy status to penicillin; Z88.6 Allergy status to analgesic agent
CPT/HCPCS: 99283

== ENCOUNTER 2018-05-05 02:37 | Emergency (ER) | payer OTHER ==
[~2018-05-05] VITALS: Ht 172.7 cm; Wt 127.0 kg
[2018-05-05 02:40] VITALS: BP 155/96
--- NOTE | 2018-05-05 03:14 | PHYS DOC ---
Past Medical History Past Medical History: Seizure Additional Past Medical Histor: BORDERLINE DIABETIC Past Surgical History: No Surgical History Additional Past Surgical Histo: RENAL STENT Alcohol Use: None Drug Use: None Adult General Chief Complaint Chief Complaint: HEADACHE HPI HPI Patient is a 57 year old female who presents with a headache for the past 2 days. No significant relief with Tylenol. Notes that she's had decreased sleep. Denies worse headache of life. With the decreased sleep she has had several seizures, she does have a history of seizure disorder for which she takes Keppra. No recent adjustments in Her dosage. Patient is unable to take NSAIDs due to an aspirin allergy where her lips swell. Patient does have photophobia, no nausea or vomiting. No fever. Pain is moderate in intensity. Nothing really seems to make the headache better or worse.[] Review of Systems Review of Systems Constitutional: Denies fever or chills [] Eyes: Denies change in visual acuity, redness, or eye pain [] HENT: Denies nasal congestion or sore throat [] Respiratory: Denies cough or shortness of breath [] Cardiovascular: No chest pain or palpitations[] GI: Denies abdominal pain, nausea, vomiting, bloody stools or diarrhea [] : Denies dysuria or hematuria [] Musculoskeletal: Denies back pain or joint pain [] Integument: Denies rash or skin lesions [] Neurologic: Denies focal weakness or sensory changes, see history of present illness [] Endocrine: Denies polyuria or polydipsia [] All other systems were reviewed and found to be within normal limits, except as documented in this note. Current Medications Current Medications Current Medications Medications (Trade) Dose Ordered Sig/Vania Start Time Stop Time Status Last Admin Dose Admin Diphenhydramine HCl (Benadryl) 50 mg 1X ONCE 05/05/18 03:15 05/05/18 03:16 DC 05/05/18 03:29 50 MG Metoclopramide HCl (Reglan Vial) 10 mg 1X ONCE 05/05/18 03:15 05/05/18 03:16 DC 05/05/18 03:28 10 MG Allergies Allergies Allergies Coded Allergies Type Severity Reaction Last Updated Verified Penicillins Allergy Severe ANAPHYLAXIS 06/02/17 Yes aspirin Allergy Severe SEIZURES, TORADOL OK 11/03/16 Yes Physical Exam Physical Exam Constitutional: Well developed, well nourished, no acute distress, non-toxic appearance. [] HENT: Normocephalic, atraumatic, bilateral external ears normal, oropharynx moist, no oral exudates, nose normal. [] Eyes: PERRLA, EOMI, conjunctiva normal, no discharge. [] Neck: Normal range of motion, no tenderness, supple, no stridor. [] Cardiovascular:Heart rate regular rhythm, no murmur [] Lungs & Thorax: Bilateral breath sounds clear to auscultation [] Abdomen: Bowel sounds normal, soft, no tenderness, no masses, no pulsatile masses. [] Skin: Warm, dry, no erythema, no rash. [] Back: No tenderness, no CVA tenderness. [] Extremities: No tenderness, no cyanosis, no clubbing, ROM intact, no edema. [] Neurologic: Alert and oriented X 3, normal motor function, normal sensory function, no focal deficits noted. [] Psychologic: Affect normal, judgement normal, mood normal. [] Current Patient Data Vital Signs Vital Signs Date Time Temp Pulse Resp B/P (MAP) Pulse Ox O2 Delivery O2 Flow Rate FiO2 05/05/18 02:40 98.3 94 20 155/96 (115) Room Air 98.3 EKG EKG [] Radiology/Procedures Radiology/Procedures [] Course & Med Decision Making Course & Med Decision Making Pertinent Labs and Imaging studies reviewed. (See chart for details) ED course: Patient arrived, was placed in bed, and tolerated exam well. She was given IV medication which significantly improved her discomfort. She was discharged in improved condition. Medical decision making: Patient does not appear to have a stroke syndrome, no intractable headache, no meningitis or encephalitis, no evidence of intracranial bleeding.[] Dragon Disclaimer Dragon Disclaimer This electronic medical record was generated, in whole or in part, using a voice recognition dictation system. Departure Departure Impression: Primary Impression: Headache Condition: IMPROVED Referrals: UNKNOWN PCP NAME (PCP) Patient Instructions: General Headache Without Cause Additional Instructions: Follow-up with your regular doctor in 2 days and keep your currently scheduled appointment. Return to the ER if worsening headache or any other concerns. Scripts Levetiracetam (KEPPRA) 500 Mg Tablet 3 TAB PO BID, #90 TAB 0 Refills Prov: DANIELLE GRULLON DO 05/05/18 Diphenhydramine Hcl (BENADRYL) 25 Mg Capsule 25-50 MG PO Q6HRS, #40 CAP Prov: DANIELLE GRULLON DO 05/05/18 Metoclopramide Hcl (REGLAN) 10 Mg Tablet 10 MG PO QIDACHS, #30 TAB 0 Refills Prov: DANIELLE GRULLON DO 05/05/18 Problem Qualifiers Primary Impression: Headache Headache type: unspecified Headache chronicity pattern: unspecified pattern Intractability: not intractable Qualified Codes: R51 - Headache DANIELLE GRULLON DO May 05, 2018 03:14
[2018-05-05] MEDS ORDERED: diphenhydrAMINE 50 MG/ML VIAL IVP ONE (03:15)
[2018-05-05] MEDS ORDERED: METOCLOPRAMIDE HCL 10 MG/2 ML VIAL. IV ONE (03:15)
[2018-05-05] MEDS ORDERED: DIPH25CA58 PO (04:17)
[2018-05-05] MEDS ORDERED: LEVE500T56 PO (04:17)
[2018-05-05] MEDS ORDERED: METO10TA81 PO (04:17)
== END 2018-05-05 04:22 | disposition home or self-care (01) ==
LOC: ER 02:37
DX: R51 Headache (principal); G40.909 Epilepsy, unspecified, not intractable, without status epilepticus; Z88.0 Allergy status to penicillin; Z88.6 Allergy status to analgesic agent
CPT/HCPCS: 36415; 80177; 96374; 96375; 99283; J1200; J2765

== ENCOUNTER 2018-05-14 04:59 | Emergency (ER) | payer OTHER ==
[~2018-05-14] VITALS: Ht 172.7 cm; Wt 99.8 kg
[~2018-05-14 04:59] MED LIST changes: +DIPH25CA58 PO; +METO10TA81 PO
--- NOTE | 2018-05-14 05:28 | PHYS DOC ---
Past Medical History Past Medical History: Seizure Additional Past Medical Histor: BORDERLINE DIABETIC (BHARATH MABRY DO) Past Surgical History: No Surgical History Additional Past Surgical Histo: RENAL STENT (BHARATH MABRY DO) Alcohol Use: None Drug Use: None (BHARATH MABRY DO) Adult General Chief Complaint Chief Complaint: SEIZURE HPI HPI Patient is a 57 year old female who presented today via EMS for seizures. Patient states at 3:30 this morning she woke up due to having a seizure of her right arm and right leg. Seizure was so intense that she fell out of bed and hit her head on the table and lost consciousness. Patient then proceeded to have 5 other similar seizure events until she finally called EMS. Patient reports a history of previous seizure and she says she has been taking her Keppra as prescribed. Patient is experiencing sharp stabbing pain in her right arm and right leg. Pain does not radiate from either extremity. Pain is a 10 out of 10 and nothing has helped improve her pain. No specific movement makes her pain worse. Denies any chest pain, shortness of breath, nausea, vomiting, lightheadedness, or dizziness. (BHARATH MABRY DO) Review of Systems Review of Systems Constitutional: Denies fever or chills [] Eyes: Denies redness, or eye pain [] HENT: Denies nasal congestion or sore throat [] Respiratory: Denies cough or shortness of breath [] Cardiovascular: Denies chest pain or palpitations.[] GI: Denies abdominal pain, nausea, vomiting [] : Denies dysuria or hematuria [] Musculoskeletal: Reports right arm and right leg pain, denies back pain [] Integument: Denies rash or skin lesions [] Neurologic: Reports 6 seizures, denies headache [] Complete systems were reviewed and found to be within normal limits, except as documented in this note. (BHARATH MABRY DO) Current Medications Current Medications Current Medications Medications (Trade) Dose Ordered Sig/Vania Start Time Stop Time Status Last Admin Dose Admin Lorazepam (Ativan) 1 mg 1X ONCE 05/14/18 05:30 05/14/18 05:31 DC 05/14/18 05:25 1 MG Potassium Chloride (KCl Oral Soln) 40 meq 1X ONCE 05/14/18 07:00 05/14/18 07:01 Sodium Chloride 1,000 ml @ 1,000 mls/hr 1X ONCE 05/14/18 05:30 05/14/18 06:29 DC 05/14/18 05:25 1,000 MLS/HR (MARCY LORENZ MD) Allergies Allergies Allergies Coded Allergies Type Severity Reaction Last Updated Verified Penicillins Allergy Severe ANAPHYLAXIS 06/02/17 Yes aspirin Allergy Severe SEIZURES, TORADOL OK 11/03/16 Yes (MARCY LORENZ MD) Physical Exam Physical Exam Constitutional: No acute distress, non-toxic appearance. [] HENT: Normocephalic, atraumatic [] Eyes: PERRL, EOMI, no nystagmus Neck: Normal range of motion, no midline tenderness, supple [] Cardiovascular: Heart rate regular rhythm, no murmur [] Lungs & Thorax: Bilateral breath sounds clear to auscultation [] Abdomen: Soft, no tenderness. [] Skin: Warm, dry, no erythema, no rash. [] Back: No tenderness, no CVA tenderness. [] Extremities: No tenderness, no deformity, ROM intact, no edema. [] Neurologic: Alert and oriented X 3, no focal deficits noted. [] Psychologic: Affect normal, mood normal. [] (BHARATH MABRY DO) Current Patient Data Vital Signs Vital Signs Date Time Temp Pulse Resp B/P (MAP) Pulse Ox O2 Delivery O2 Flow Rate FiO2 05/14/18 05:09 97.9 108 20 218/109 (145) 94 Room Air 97.9 (MARCY LORENZ MD) Lab Values Laboratory Tests Test 05/14/18 05:25 White Blood Count 4.0 x10^3/uL (4.0-11.0) Red Blood Count 3.18 x10^6/uL (3.50-5.40) L Hemoglobin 9.9 g/dL (12.0-15.5) L Hematocrit 29.9 % (36.0-47.0) L Mean Corpuscular Volume 94 fL (79-100) Mean Corpuscular Hemoglobin 31 pg (25-35) Mean Corpuscular Hemoglobin Concent 33 g/dL (31-37) Red Cell Distribution Width 16.5 % (11.5-14.5) H Platelet Count 196 x10^3/uL (140-400) Neutrophils (%) (Auto) 75 % (31-73) H Lymphocytes (%) (Auto) 15 % (24-48) L Monocytes (%) (Auto) 6 % (0-9) Eosinophils (%) (Auto) 2 % (0-3) Basophils (%) (Auto) 1 % (0-3) Neutrophils # (Auto) 3.0 x10^3uL (1.8-7.7) Lymphocytes # (Auto) 0.6 x10^3/uL (1.0-4.8) L Monocytes # (Auto) 0.3 x10^3/uL (0.0-1.1) Eosinophils # (Auto) 0.1 x10^3/uL (0.0-0.7) Basophils # (Auto) 0.0 x10^3/uL (0.0-0.2) Sodium Level 143 mmol/L (136-145) Potassium Level 2.8 mmol/L (3.5-5.1) *L Chloride Level 104 mmol/L (98-107) Carbon Dioxide Level 24 mmol/L (21-32) Anion Gap 15 (6-14) H Blood Urea Nitrogen 16 mg/dL (7-20) Creatinine 1.5 mg/dL (0.6-1.0) H Estimated GFR (Cockcroft-Gault) 43.5 BUN/Creatinine Ratio 11 (6-20) Glucose Level 125 mg/dL (70-99) H Lactic Acid Level 1.9 mmol/L (0.4-2.0) Calcium Level 8.9 mg/dL (8.5-10.1) Magnesium Level 1.9 mg/dL (1.8-2.4) Total Bilirubin 0.3 mg/dL (0.2-1.0) Aspartate Amino Transferase (AST) 16 U/L (15-37) Alanine Aminotransferase (ALT) 13 U/L (14-59) L Alkaline Phosphatase 129 U/L (46-116) H Creatine Kinase 108 U/L (26-192) Total Protein 7.9 g/dL (6.4-8.2) Albumin 3.0 g/dL (3.4-5.0) L Albumin/Globulin Ratio 0.6 (1.0-1.7) L Laboratory Tests 05/14/18 05:25 Laboratory Tests 05/14/18 05:25 (MARCY LORENZ MD) Lab Values Laboratory Tests Test 05/14/18 05:25 White Blood Count 4.0 x10^3/uL (4.0-11.0) Red Blood Count 3.18 x10^6/uL (3.50-5.40) L Hemoglobin 9.9 g/dL (12.0-15.5) L Hematocrit 29.9 % (36.0-47.0) L Mean Corpuscular Volume 94 fL (79-100) Mean Corpuscular Hemoglobin 31 pg (25-35) Mean Corpuscular Hemoglobin Concent 33 g/dL (31-37) Red Cell Distribution Width 16.5 % (11.5-14.5) H Platelet Count 196 x10^3/uL (140-400) Neutrophils (%) (Auto) 75 % (31-73) H Lymphocytes (%) (Auto) 15 % (24-48) L Monocytes (%) (Auto) 6 % (0-9) Eosinophils (%) (Auto) 2 % (0-3) Basophils (%) (Auto) 1 % (0-3) Neutrophils # (Auto) 3.0 x10^3uL (1.8-7.7) Lymphocytes # (Auto) 0.6 x10^3/uL (1.0-4.8) L Monocytes # (Auto) 0.3 x10^3/uL (0.0-1.1) Eosinophils # (Auto) 0.1 x10^3/uL (0.0-0.7) Basophils # (Auto) 0.0 x10^3/uL (0.0-0.2) Sodium Level 143 mmol/L (136-145) Potassium Level 2.8 mmol/L (3.5-5.1) *L Chloride Level 104 mmol/L (98-107) Carbon Dioxide Level 24 mmol/L (21-32) Anion Gap 15 (6-14) H Blood Urea Nitrogen 16 mg/dL (7-20) Creatinine 1.5 mg/dL (0.6-1.0) H Estimated GFR (Cockcroft-Gault) 43.5 BUN/Creatinine Ratio 11 (6-20) Glucose Level 125 mg/dL (70-99) H Calcium Level 8.9 mg/dL (8.5-10.1) Magnesium Level 1.9 mg/dL (1.8-2.4) Total Bilirubin 0.3 mg/dL (0.2-1.0) Aspartate Amino Transferase (AST) 16 U/L (15-37) Alanine Aminotransferase (ALT) 13 U/L (14-59) L Alkaline Phosphatase 129 U/L (46-116) H Creatine Kinase 108 U/L (26-192) Total Protein 7.9 g/dL (6.4-8.2) Albumin 3.0 g/dL (3.4-5.0) L Albumin/Globulin Ratio 0.6 (1.0-1.7) L Laboratory Tests 05/14/18 05:25 Laboratory Tests 05/14/18 05:25 (BHARATH MABRY DO) EKG EKG [] (BHARATH MABRY DO) Radiology/Procedures Radiology/Procedures [] (BHARATH MABRY DO) Course & Med Decision Making Course & Med Decision Making Patient presented to the ER for unwitnessed seizures. Patient does has a seizure disorder for which she reports compliance with Keppra. Labs obtained and pending at this time. CT head and neck pending. Symptomatic treatment provided with interval improvement. Sign out given to Dr. Lorenz for further evaluation and final disposition. Discussed current findings and plan with patient, who acknowledges understanding and agreement. [] (BHARATH MABRY DO) Course & Med Decision Making shavon: Noted signout from Dr. Mabry at [address] head and C-spine were negative acute labs did show potassium 2.8 I gave her supplementation in the ER and advised increased dietary potassium at home. Refill of her Keppra as well as follow-up instructions for primary care were provided. Blood pressure on repeat was 152/77 patient's feeling much better and will be discharged in stable condition (MARCY LORENZ MD) Dragon Disclaimer Dragon Disclaimer This electronic medical record was generated, in whole or in part, using a voice recognition dictation system. (BHARATH MABRY DO) Departure Departure Impression: Primary Impression: Seizure disorder Disposition: HOME, SELF-CARE Condition: STABLE Referrals: UNKNOWN PCP NAME (PCP) Scripts Levetiracetam (KEPPRA) 500 Mg Tablet 3 TAB PO BID, #90 TAB 3 Refills Prov: MARCY LORENZ MD 05/14/18 BHARATH MABRY DO May 14, 2018 05:28 MARCY LORENZ MD May 14, 2018 06:50
[2018-05-14] MEDS ORDERED: IV NORMAL SALINE 1000ML BAG 1,000 ML IV ONE (05:30)
[2018-05-14 05:49] LABS: BASO % 1 % (0-3); EOS # 0.1 x10^3/uL (0.0-0.7); EOS % 2 % (0-3); HEMATOCRIT 29.9 % (36.0-47.0); HEMOGLOBIN 9.9 g/dL (12.0-15.5); LYMPH # 0.6 x10^3/uL (1.0-4.8); LYMPH % 15 % (24-48); MEAN CORPUSCULAR HEMOGLOBIN 31 pg (25-35); MEAN CORPUSCULAR HGB CONC 33 g/dL (31-37); MEAN CORPUSCULAR VOLUME 94 fL (79-100); MONO # 0.3 x10^3/uL (0.0-1.1); MONO % 6 % (0-9); NEUT % 75 % (31-73); PLATELET COUNT 196 x10^3/uL (140-400); RED BLOOD COUNT 3.18 x10^6/uL (3.50-5.40); RED CELL DISTRIBUTION WIDTH 16.5 % (11.5-14.5)
[2018-05-14 06:15] LABS: ALBUMIN/GLOBULIN RATIO 0.6 (1.0-1.7); CALCIUM 8.9 mg/dL (8.5-10.1); CREATININE 1.5 mg/dL (0.6-1.0); GFR 43.5; MAGNESIUM 1.9 mg/dL (1.8-2.4); TOTAL BILIRUBIN 0.3 mg/dL (0.2-1.0); TOTAL PROTEIN 7.9 g/dL (6.4-8.2)
--- NOTE | 2018-05-14 06:15 | RAD ---
CT Head W/O Contrast: History: seizure; head injury and pain Comparison: none Axial images were obtained without contrast. The iqbal and white matter appears normal and symmetrical for the patients age. There is no mass effect, extraaxial fluid collections or hydrocephalus. There is no gross bleed. There is no focal loss of iqbal-white matter distinction to suggest acute ischemia, i.e. stroke. Impression: No acute findings. End impression CT C-Spine without contrast: Clinical History: seizure; head injury and pain Technique: Axial helical images of the cervical spine were obtained without contrast, axial coronal and sagittal reconstruction was performed. Findings: There is no loss of vertebral body stature. There is no prevertebral soft tissue swelling. The vertebral bodies are well aligned. The C1-C2 relationship is normal. The visualized osseous structures appear normal. Impression: No acute findings. Clinical correlation suggested. PQRS Compliance Statement: One or more of the following individualized dose reduction techniques were utilized for this examination: 1. Automated exposure control 2. Adjustment of the mA and/or kV according to patient size 3. Use of iterative reconstruction technique Electronically signed by: Dino Meza III, MD (05/14/2018 6:12 AM) [facility]
[2018-05-14 06:17] LABS: POTASSIUM 2.8 mmol/L (3.5-5.1)
[2018-05-14 06:22] VITALS: BP 152/77
[2018-05-14] MEDS ORDERED: LEVE500T56 PO (06:26)
[2018-05-14] MEDS ORDERED: POTASSIUM CHLORIDE 20 MEQ/15 ML ORAL LIQUID. PO ONE (07:00)
== END 2018-05-14 07:15 | disposition home or self-care (01) ==
LOC: ER 04:59
DX: G40.909 Epilepsy, unspecified, not intractable, without status epilepticus (principal); Z88.0 Allergy status to penicillin; Z88.6 Allergy status to analgesic agent
CPT/HCPCS: 36415; 70450; 72125; 80053; 82550; 83605; 83735; 85025; 96374; 99284; J2060; J7030; 96361

== ENCOUNTER 2018-05-20 05:55 | Emergency (ER) | payer OTHER ==
[~2018-05-20] VITALS: Ht 172.7 cm; Wt 99.8 kg
--- NOTE | 2018-05-20 06:23 | PHYS DOC ---
Past Medical History Past Medical History: Seizure Additional Past Medical Histor: BORDERLINE DIABETIC Past Surgical History: No Surgical History Additional Past Surgical Histo: RENAL STENT Smoking: Quit Greater Than 1 Year Alcohol Use: None Drug Use: None Adult General Chief Complaint Chief Complaint: MUSCLE SPASM/[facility] HPI Patient is a 57 year old female who brought in by EMS because of muscle spasm. Patient complaining of right upper and lower extremity muscle spasm since 0200 today as a constant pain and rated her pain 10 over 10. Patient states she was seen in this emergency room one week ago with the same problem after she seizure but did not have any seizures today. Patient states she had low potassium in her previous emergency room visit and it started potassium supplement couple days ago. Patient denies nausea and vomiting, diarrhea, urinary symptoms, chest pain, shortness of breath, new focal neuro deficit, fever and chills. Review of Systems Review of Systems Constitutional: Denies fever or chills [] Eyes: Denies change in visual acuity, redness, or eye pain [] HENT: Denies nasal congestion or sore throat [] Respiratory: Denies cough or shortness of breath [] Cardiovascular: No additional information not addressed in HPI [] GI: Denies abdominal pain, nausea, vomiting, bloody stools or diarrhea [] : Denies dysuria or hematuria [] Musculoskeletal: Denies back pain or joint pain [] Integument: Denies rash or skin lesions [] Neurologic: Denies headache, focal weakness or sensory changes [] Endocrine: Denies polyuria or polydipsia [] All other systems were reviewed and found to be within normal limits, except as documented in this note. Current Medications Current Medications Current Medications Medications (Trade) Dose Ordered Sig/Vania Start Time Stop Time Status Last Admin Dose Admin Acetaminophen/ Hydrocodone Bitart (Lortab 5/325) 1 tab 1X ONCE 05/20/18 07:15 05/20/18 07:16 DC Cyclobenzaprine HCl (Flexeril) 10 mg 1X ONCE 05/20/18 06:45 05/20/18 06:46 DC 05/20/18 06:39 10 MG Sodium Chloride 500 ml @ 500 mls/hr 1X ONCE 05/20/18 06:45 05/20/18 07:44 05/20/18 06:40 500 MLS/HR Allergies Allergies Allergies Coded Allergies Type Severity Reaction Last Updated Verified Penicillins Allergy Severe ANAPHYLAXIS 06/02/17 Yes aspirin Allergy Severe SEIZURES, TORADOL OK 11/03/16 Yes Physical Exam Physical Exam Constitutional: Well developed, well nourished, mild distress, non-toxic appearance. [] HENT: Normocephalic, atraumatic, oropharynx moist. Eyes: PERRLA, EOMI, conjunctiva normal, no discharge. [] Neck: Normal range of motion, no tenderness, supple, no stridor. [] Cardiovascular:Heart rate regular rhythm, no murmur [] Lungs & Thorax: Bilateral breath sounds clear to auscultation [] Abdomen: Bowel sounds normal, soft, no tenderness, no masses, no pulsatile masses. [] Skin: Warm, dry, no erythema, no rash. [] Back: No tenderness, no CVA tenderness. [] Extremities: No tenderness, no cyanosis, no clubbing, ROM intact, no edema. [] Neurologic: Alert and oriented X 3, normal motor function, subjective decreased sensation of right upper and lower extremity as a chronic problem for years, no focal deficits noted. [] Psychologic: Affect normal, judgement normal, mood normal. [] Current Patient Data Vital Signs Vital Signs Date Time Temp Pulse Resp B/P (MAP) Pulse Ox O2 Delivery O2 Flow Rate FiO2 05/20/18 06:00 98.7 95 19 174/89 (117) 100 Room Air 98.7 Lab Values Laboratory Tests Test 05/20/18 06:12 05/20/18 06:24 Urine Collection Type Unknown Urine Color [place] Urine Clarity Turbid Urine pH 7.0 Urine Specific [place] 1.015 Urine Protein 100 mg/dL (NEG-TRACE) Urine Glucose (UA) Negative mg/dL (NEG) Urine Ketones (Stick) Negative mg/dL (NEG) Urine Blood Large (NEG) Urine Nitrite Negative (NEG) Urine Bilirubin Negative (NEG) Urine Urobilinogen Dipstick 0.2 mg/dL (0.2 mg/dL) Urine Leukocyte Esterase Large (NEG) Urine RBC Tntc /HPF (0-2) Urine WBC Tntc /HPF (0-4) Urine Squamous Epithelial Cells Occ /LPF Urine Transitional Epithelial Cells Occ /LPF Urine Bacteria Many /HPF (0-FEW) Urine Opiates Screen Neg (NEG) Urine Methadone Screen Neg (NEG) Urine Barbiturates Neg (NEG) Urine Phencyclidine Screen Neg (NEG) Urine Amphetamine/Methamphetamine Neg (NEG) Urine Benzodiazepines Screen Neg (NEG) Urine Cocaine Screen Neg (NEG) Urine Cannabinoids Screen Neg (NEG) Urine Ethyl Alcohol Neg (NEG) White Blood Count 5.8 x10^3/uL (4.0-11.0) Red Blood Count 3.15 x10^6/uL (3.50-5.40) L Hemoglobin 9.8 g/dL (12.0-15.5) L Hematocrit 29.8 % (36.0-47.0) L Mean Corpuscular Volume 95 fL (79-100) Mean Corpuscular Hemoglobin 31 pg (25-35) Mean Corpuscular Hemoglobin Concent 33 g/dL (31-37) Red Cell Distribution Width 15.7 % (11.5-14.5) H Platelet Count 196 x10^3/uL (140-400) Neutrophils (%) (Auto) 80 % (31-73) H Lymphocytes (%) (Auto) 10 % (24-48) L Monocytes (%) (Auto) 7 % (0-9) Eosinophils (%) (Auto) 2 % (0-3) Basophils (%) (Auto) 1 % (0-3) Neutrophils # (Auto) 4.6 x10^3uL (1.8-7.7) Lymphocytes # (Auto) 0.6 x10^3/uL (1.0-4.8) L Monocytes # (Auto) 0.4 x10^3/uL (0.0-1.1) Eosinophils # (Auto) 0.1 x10^3/uL (0.0-0.7) Basophils # (Auto) 0.0 x10^3/uL (0.0-0.2) Sodium Level 138 mmol/L (136-145) Potassium Level 3.7 mmol/L (3.5-5.1) Chloride Level 101 mmol/L (98-107) Carbon Dioxide Level 25 mmol/L (21-32) Anion Gap 12 (6-14) Blood Urea Nitrogen 15 mg/dL (7-20) Creatinine 1.5 mg/dL (0.6-1.0) H Estimated GFR (Cockcroft-Gault) 43.5 BUN/Creatinine Ratio 10 (6-20) Glucose Level 147 mg/dL (70-99) H Calcium Level 8.7 mg/dL (8.5-10.1) Magnesium Level 1.8 mg/dL (1.8-2.4) Total Bilirubin 0.2 mg/dL (0.2-1.0) Aspartate Amino Transferase (AST) 21 U/L (15-37) Alanine Aminotransferase (ALT) 13 U/L (14-59) L Alkaline Phosphatase 111 U/L (46-116) Creatine Kinase 193 U/L (26-192) H Total Protein 8.0 g/dL (6.4-8.2) Albumin 2.9 g/dL (3.4-5.0) L Albumin/Globulin Ratio 0.6 (1.0-1.7) L Laboratory Tests 05/20/18 06:24 Laboratory Tests 05/20/18 06:24 EKG EKG [] Radiology/Procedures Radiology/Procedures [] Course & Med Decision Making Course & Med Decision Making Pertinent Labs reviewed. (See chart for details) Evaluation of patient in ER showed 57-year-old female patient with history of frequent emergency room visits brought in by EMS because of right upper and lower extremity muscle spasm for several hours. Patient had unremarkable physical exam. Labs showed chronic renal insufficiency and anemia and electrolyte problem. Patient treated with Flexeril, IV fluid and hydrocodone and felt better. UA showed UTI. Plan to discharge patient home with instruction to drink plenty of fluids and continue her home medication. Dragon Disclaimer Dragon Disclaimer This electronic medical record was generated, in whole or in part, using a voice recognition dictation system. Departure Departure Impression: Primary Impression: Muscle spasm Additional Impressions: UTI (urinary tract infection) CKD (chronic kidney disease) Anemia History of seizures Disposition: HOME, SELF-CARE (at 0723) Condition: IMPROVED Referrals: UNKNOWN PCP NAME (PCP) Patient Instructions: Muscle Cramps, [id number], Urinary Tract Infection Additional Instructions: Drink plenty of liquids Follow-up with your primary care physician in 3-5 days Return to ER if not getting better Scripts Cyclobenzaprine Hcl (CYCLOBENZAPRINE HCL) 10 Mg Tablet 1 TAB PO TID for muscle pain, #30 TAB Prov: ASHER JUAN MD 05/20/18 Sulfamethoxazole/Trimethoprim (BACTRIM DS TABLET) 1 Each Tablet 1 TAB PO BID for infection, #14 TAB Prov: ASHER JUAN MD 05/20/18 Problem Qualifiers Additional Impressions: UTI (urinary tract infection) Urinary tract infection type: acute cystitis Hematuria presence: with hematuria Qualified Codes: N30.01 - Acute cystitis with hematuria CKD (chronic kidney disease) Chronic kidney disease stage: unspecified stage Qualified Codes: N18.9 - Chronic kidney disease, unspecified Anemia Anemia type: unspecified type Qualified Codes: D64.9 - Anemia, unspecified ASHER JUAN MD May 20, 2018 06:23
[2018-05-20 06:39] LABS: BILIRUBIN,URINE NEGATIVE (NEG); CLARITY,URINE TURBID; NITRITE,URINE NEGATIVE (NEG); PROTEIN,URINE 100 mg/dL (NEG-TRACE); UROBILINOGEN,URINE 0.2 mg/dL (0.2 mg/dL)
[2018-05-20 06:40] LABS: BASO % 1 % (0-3); EOS # 0.1 x10^3/uL (0.0-0.7); EOS % 2 % (0-3); HEMATOCRIT 29.8 % (36.0-47.0); HEMOGLOBIN 9.8 g/dL (12.0-15.5); LYMPH # 0.6 x10^3/uL (1.0-4.8); LYMPH % 10 % (24-48); MEAN CORPUSCULAR HEMOGLOBIN 31 pg (25-35); MEAN CORPUSCULAR HGB CONC 33 g/dL (31-37); MEAN CORPUSCULAR VOLUME 95 fL (79-100); MONO # 0.4 x10^3/uL (0.0-1.1); MONO % 7 % (0-9); NEUT # 4.6 x10^3uL (1.8-7.7); NEUT % 80 % (31-73); PLATELET COUNT 196 x10^3/uL (140-400); RED BLOOD COUNT 3.15 x10^6/uL (3.50-5.40); RED CELL DISTRIBUTION WIDTH 15.7 % (11.5-14.5); WHITE BLOOD COUNT 5.8 x10^3/uL (4.0-11.0)
[2018-05-20] MEDS ORDERED: IV NORMAL SALINE 500ML BAG 500 ML IV ONE (06:45)
[2018-05-20] MEDS ORDERED: CYCLOBENZAPRINE 10 MG TABLET. PO ONE (06:45)
[2018-05-20 06:46] LABS: BARBITURATES NEG (NEG); BENZODIAZEPINES NEG (NEG); CANNABINOIDS NEG (NEG); COCAINE NEG (NEG); METHADONE NEG (NEG); OPIATES NEG (NEG); PHENCYCLIDINE NEG (NEG)
[2018-05-20 06:53] LABS: ALBUMIN 2.9 g/dL (3.4-5.0); ALBUMIN/GLOBULIN RATIO 0.6 (1.0-1.7); CALCIUM 8.7 mg/dL (8.5-10.1); CREATININE 1.5 mg/dL (0.6-1.0); GFR 43.5; MAGNESIUM 1.8 mg/dL (1.8-2.4); TOTAL BILIRUBIN 0.2 mg/dL (0.2-1.0)
[2018-05-20 06:53] LABS: AMPHETAMINE/METHAMPHETAMINE NEG (NEG)
[2018-05-20 07:01] LABS: POTASSIUM 3.7 mmol/L (3.5-5.1)
[2018-05-20 07:10] LABS: COLOR,URINE PINK
[2018-05-20 07:12] LABS: BACTERIA,URINE MANY /HPF (0-FEW); RBC,URINE TNTC /HPF (0-2); SQUAMOUS EPITHELIAL CELL,UR OCC /LPF; WBC,URINE TNTC /HPF (0-4)
[2018-05-20] MEDS ORDERED: HYDROcodone/APAP 5/325MG 1 TAB TABLET PO ONE (07:15)
[2018-05-20] MEDS ORDERED: CYCL10TA2 PO (07:25)
[2018-05-20] MEDS ORDERED: SULF1TAB24 PO (07:25)
[2018-05-20 08:57] VITALS: BP 181/84
== END 2018-05-20 07:40 | disposition home or self-care (01) ==
LOC: ER 05:55
DX: N30.01 Acute cystitis with hematuria (principal); M62.838 Other muscle spasm; N18.9 Chronic kidney disease, unspecified; D63.1 Anemia in chronic kidney disease; Z87.891 Personal history of nicotine dependence; Z88.0 Allergy status to penicillin; Z88.6 Allergy status to analgesic agent
CPT/HCPCS: 36415; 80053; 80307; 81001; 82550; 83735; 85025; 87086; 99283; J7040

== ENCOUNTER 2018-07-13 09:23 | Emergency (ER) | payer OTHER ==
[~2018-07-13] VITALS: Ht 172.7 cm; Wt 108.9 kg
[~2018-07-13 09:23] MED LIST changes: +CYCL10TA2 PO
--- NOTE | 2018-07-13 09:43 | PHYS DOC ---
Past Medical History Past Medical History: Seizure Additional Past Medical Histor: BORDERLINE DIABETIC Past Surgical History: No Surgical History Additional Past Surgical Histo: RENAL STENT Alcohol Use: None Drug Use: None Adult General Chief Complaint Chief Complaint: SEIZURE HPI HPI Patient is a 57 year old female with history of seizures who presents today stating she had a seizure. Patient stated this was unwitnessed. She states she woke up this morning around 8 AM and she had spasms on the right upper and lower extremity. Patient states she believes this happens whenever she has is she has a seizure. Patient denies voiding on herself when she woke up. Denies any chest pain or shortness of breath. She states she has a slight headache. She states she is on Trileptal for her seizures though i looked back in the chart, it is documented she is on Keppra. Review of Systems Review of Systems Constitutional: Denies fever or chills [] Eyes: Denies change in visual acuity, redness, or eye pain [] HENT: Denies nasal congestion or sore throat [] Respiratory: Denies cough or shortness of breath [] Cardiovascular: No additional information not addressed in HPI [] GI: Denies abdominal pain, nausea, vomiting, bloody stools or diarrhea [] : Denies dysuria or hematuria [] Musculoskeletal: Reports muscle spasms of the right upper and right lower extremity. Denies back pain or joint pain [] Integument: Denies rash or skin lesions [] Neurologic: Reports seizure. Reports headache, denies focal weakness or sensory changes [] All other systems were reviewed and found to be within normal limits, except as documented in this note. Current Medications Current Medications Current Medications Medications (Trade) Dose Ordered Sig/[facility] Start Time Stop Time Status Last Admin Dose Admin Acetaminophen (Tylenol) 1,000 mg 1X ONCE 07/13/18 09:45 07/13/18 09:46 DC 07/13/18 09:45 1,000 MG Ciprofloxacin/ Dextrose 200 ml @ 200 mls/hr 1X ONCE 07/13/18 11:15 07/13/18 12:14 07/13/18 11:37 200 MLS/HR Cyclobenzaprine HCl (Flexeril) 10 mg 1X ONCE 07/13/18 09:45 07/13/18 09:46 DC 07/13/18 10:06 10 MG Dexamethasone Sodium Phosphate (Decadron) 10 mg 1X ONCE 07/13/18 11:15 07/13/18 11:19 DC 07/13/18 11:35 10 MG Ketorolac Tromethamine (Toradol 30mg Vial) 30 mg 1X ONCE 07/13/18 11:15 07/13/18 11:19 DC 07/13/18 11:32 30 MG Sodium Chloride 1,000 ml @ 1,000 mls/hr 1X ONCE 07/13/18 09:45 07/13/18 10:44 DC 07/13/18 10:22 1,000 MLS/HR Allergies Allergies Allergies Coded Allergies Type Severity Reaction Last Updated Verified Penicillins Allergy Severe ANAPHYLAXIS 06/02/17 Yes aspirin Allergy Severe SEIZURES, TORADOL OK 11/03/16 Yes Physical Exam Physical Exam Constitutional: Well developed, well nourished, no acute distress, non-toxic appearance. [] HENT: Normocephalic, atraumatic, bilateral external ears normal, oropharynx moist, no oral exudates, nose normal. [] Eyes: PERRLA, EOMI, conjunctiva normal, no discharge. [] Neck: Normal range of motion, no tenderness, supple, no stridor. [] Cardiovascular:Heart rate regular rhythm, no murmur [] Lungs & Thorax: Bilateral breath sounds clear to auscultation [] Abdomen: Bowel sounds normal, soft, no tenderness, no masses, no pulsatile masses. [] Skin: Warm, dry, no erythema, no rash. [] Back: No tenderness, no CVA tenderness. [] Extremities: No tenderness, no cyanosis, no clubbing, ROM intact, no edema. [] Neurologic: Alert and oriented X 3, normal motor function, normal sensory function, no focal deficits noted. Cranial nerves II through XII intact Psychologic: Affect normal, judgement normal, mood normal. [] Current Patient Data Vital Signs Vital Signs Date Time Temp Pulse Resp B/P (MAP) Pulse Ox O2 Delivery O2 Flow Rate FiO2 07/13/18 09:30 98.4 80 16 120/83 (95) 96 Room Air 98.4 Lab Values Laboratory Tests Test 07/13/18 09:45 07/13/18 10:16 07/13/18 10:55 Urine Collection Type Unknown Urine Color Yellow Urine Clarity Cloudy Urine pH 7.0 Urine Specific [place] <=1.005 Urine Protein Negative mg/dL (NEG-TRACE) Urine Glucose (UA) Negative mg/dL (NEG) Urine Ketones (Stick) Negative mg/dL (NEG) Urine Blood Large (NEG) Urine Nitrite Negative (NEG) Urine Bilirubin Negative (NEG) Urine Urobilinogen Dipstick 0.2 mg/dL (0.2 mg/dL) Urine Leukocyte Esterase Large (NEG) Urine RBC 11-20 /HPF (0-2) Urine WBC >40 /HPF (0-4) Urine Bacteria Many /HPF (0-FEW) Urine Opiates Screen Neg (NEG) Urine Methadone Screen Neg (NEG) Urine Barbiturates Neg (NEG) Urine Phencyclidine Screen Neg (NEG) Urine Amphetamine/Methamphetamine Neg (NEG) Urine Benzodiazepines Screen Neg (NEG) Urine Cocaine Screen Neg (NEG) Urine Cannabinoids Screen Neg (NEG) Urine Ethyl Alcohol Neg (NEG) White Blood Count 5.6 x10^3/uL (4.0-11.0) Red Blood Count 3.57 x10^6/uL (3.50-5.40) Hemoglobin 10.7 g/dL (12.0-15.5) L Hematocrit 32.9 % (36.0-47.0) L Mean Corpuscular Volume 92 fL (79-100) Mean Corpuscular Hemoglobin 30 pg (25-35) Mean Corpuscular Hemoglobin Concent 33 g/dL (31-37) Red Cell Distribution Width 13.8 % (11.5-14.5) Platelet Count 221 x10^3/uL (140-400) Neutrophils (%) (Auto) 80 % (31-73) H Lymphocytes (%) (Auto) 11 % (24-48) L Monocytes (%) (Auto) 7 % (0-9) Eosinophils (%) (Auto) 2 % (0-3) Basophils (%) (Auto) 1 % (0-3) Neutrophils # (Auto) 4.5 x10^3uL (1.8-7.7) Lymphocytes # (Auto) 0.6 x10^3/uL (1.0-4.8) L Monocytes # (Auto) 0.4 x10^3/uL (0.0-1.1) Eosinophils # (Auto) 0.1 x10^3/uL (0.0-0.7) Basophils # (Auto) 0.0 x10^3/uL (0.0-0.2) Sodium Level 145 mmol/L (136-145) Potassium Level 3.5 mmol/L (3.5-5.1) Chloride Level 106 mmol/L (98-107) Carbon Dioxide Level 29 mmol/L (21-32) Anion Gap 10 (6-14) Blood Urea Nitrogen 10 mg/dL (7-20) Creatinine 1.5 mg/dL (0.6-1.0) H Estimated GFR (Cockcroft-Gault) 43.5 BUN/Creatinine Ratio 7 (6-20) Glucose Level 146 mg/dL (70-99) H Calcium Level 9.1 mg/dL (8.5-10.1) Total Bilirubin 0.2 mg/dL (0.2-1.0) Aspartate Amino Transferase (AST) 21 U/L (15-37) Alanine Aminotransferase (ALT) 18 U/L (14-59) Alkaline Phosphatase 137 U/L (46-116) H Total Protein 7.9 g/dL (6.4-8.2) Albumin 3.0 g/dL (3.4-5.0) L Albumin/Globulin Ratio 0.6 (1.0-1.7) L Ethyl Alcohol Level < 10 mg/dL (0-10) Lactic Acid Level 1.3 mmol/L (0.4-2.0) Laboratory Tests 07/13/18 10:16 Laboratory Tests 07/13/18 10:16 EKG EKG [] Radiology/Procedures Radiology/Procedures [] Course & Med Decision Making Course & Med Decision Making Pertinent Labs and Imaging studies reviewed. (See chart for details) This is a 57-year-old female patient with history of seizures presenting this morning stating she had a seizure. This was unwitnessed. She states she woke up with muscle spasm on the right upper and right lower extremity and this occurs whenever she has a seizure. She has been seen in the ED before for muscle spasms. She has also been seen for seizures in the Ed several times. Currently on Keppra 1500 mg BID. CBC with normal WBC, hemoglobin 10.7, hematocrit 32.9, CMP with creatinine of 1.5, BUN is normal. Lactic 1.3, informed patient she did not have a seizure, this is her normal spasms. Urine analysis is noted for large amount of leukocytes and WBCs. Patient seemed to have UTI whenever she comes to the ED, we inquired whether she takes her medications, she states she does not usually complete any of the antibiotics she is given. She is allergic to penicillin. We gave her Cipro in the ED. Send her home with Cipro. I also gave her a refill for Keppra which she stated she is running low. Follow up with her own PCP in the course of this week or next week. Also e ncouraged that follow-up with neurologist. Lois Disclaimer Dragon Disclaimer This electronic medical record was generated, in whole or in part, using a voice recognition dictation system. Departure Departure Impression: Primary Impression: History of seizures Additional Impressions: UTI (urinary tract infection) CKD (chronic kidney disease) Disposition: HOME, SELF-CARE Condition: STABLE Referrals: UNKNOWN PCP NAME (PCP) WING PORTER MD follow up in the next 7 days Patient Instructions: Seizure, Adult, Urinary Tract Infection Additional Instructions: You were evaluated in the emergency room, and noted to have spasms. Keep taking your seizure medications as prescribed. You also have urinary tract infection, ensure you complete the prescribed antibiotics. Scripts Levetiracetam (LEVETIRACETAM) 500 Mg Tablet 3 TAB PO BID, #540 TAB 0 Refills Prov: LAKISHA EMMANUEL APRN 07/13/18 Ciprofloxacin Hcl (CIPRO) 500 Mg Tablet 1 TAB PO BID, #14 TAB Prov: LAKISHA EMMANUEL APRN 07/13/18 Problem Qualifiers Additional Impressions: UTI (urinary tract infection) Urinary tract infection type: site unspecified Hematuria presence: without hematuria Qualified Codes: N39.0 - Urinary tract infection, site not specified CKD (chronic kidney disease) Chronic kidney disease stage: unspecified stage Qualified Codes: N18.9 - Chronic kidney disease, unspecified LAKISHA EMMANUEL APRN Jul 13, 2018 09:43
[2018-07-13] MEDS ORDERED: CYCLOBENZAPRINE 10 MG TABLET. PO ONE (09:45)
[2018-07-13] MEDS ORDERED: IV NORMAL SALINE 1000ML BAG 1,000 ML IV ONE (09:45)
[2018-07-13] MEDS ORDERED: ACETAMINOPHEN 500 MG TABLET PO ONE (09:45)
[2018-07-13 10:12] LABS: BILIRUBIN,URINE NEGATIVE (NEG); CLARITY,URINE CLOUDY; COLOR,URINE YELLOW; NITRITE,URINE NEGATIVE (NEG); PROTEIN,URINE NEGATIVE (NEG-TRACE); UROBILINOGEN,URINE 0.2 mg/dL (0.2 mg/dL)
[2018-07-13 10:20] LABS: BARBITURATES NEG (NEG); BENZODIAZEPINES NEG (NEG); CANNABINOIDS NEG (NEG); COCAINE NEG (NEG); METHADONE NEG (NEG); OPIATES NEG (NEG); PHENCYCLIDINE NEG (NEG)
[2018-07-13 10:27] LABS: AMPHETAMINE/METHAMPHETAMINE NEG (NEG)
[2018-07-13 10:43] LABS: CALCIUM 9.1 mg/dL (8.5-10.1); CREATININE 1.5 mg/dL (0.6-1.0); GFR 43.5; POTASSIUM 3.5 mmol/L (3.5-5.1)
[2018-07-13 10:45] LABS: BASO % 1 % (0-3); EOS # 0.1 x10^3/uL (0.0-0.7); EOS % 2 % (0-3); HEMATOCRIT 32.9 % (36.0-47.0); HEMOGLOBIN 10.7 g/dL (12.0-15.5); LYMPH # 0.6 x10^3/uL (1.0-4.8); LYMPH % 11 % (24-48); MEAN CORPUSCULAR HEMOGLOBIN 30 pg (25-35); MEAN CORPUSCULAR HGB CONC 33 g/dL (31-37); MEAN CORPUSCULAR VOLUME 92 fL (79-100); MONO # 0.4 x10^3/uL (0.0-1.1); MONO % 7 % (0-9); NEUT # 4.5 x10^3uL (1.8-7.7); NEUT % 80 % (31-73); PLATELET COUNT 221 x10^3/uL (140-400); RED BLOOD COUNT 3.57 x10^6/uL (3.50-5.40); RED CELL DISTRIBUTION WIDTH 13.8 % (11.5-14.5); WHITE BLOOD COUNT 5.6 x10^3/uL (4.0-11.0)
[2018-07-13 10:49] LABS: ALBUMIN/GLOBULIN RATIO 0.6 (1.0-1.7); TOTAL BILIRUBIN 0.2 mg/dL (0.2-1.0); TOTAL PROTEIN 7.9 g/dL (6.4-8.2)
[2018-07-13 10:49] LABS: BACTERIA,URINE MANY /HPF (0-FEW); WBC,URINE >40 /HPF (0-4)
[2018-07-13] MEDS ORDERED: CIPROFLOXACIN 400MG PREMIX 200 ML IV ONE (11:15)
[2018-07-13] MEDS ORDERED: DEXAMETHASONE SOD PHOS 20 MG/5 ML VIAL. IV ONE (11:15)
[2018-07-13] MEDS ORDERED: KETOROLAC 30 MG/ML VIAL. IV ONE (11:15)
[2018-07-13] MEDS ORDERED: CIPR500T94 PO (11:54)
[2018-07-13] MEDS ORDERED: LEVE500T6 PO (11:54)
[2018-07-13 12:00] VITALS: BP 162/74
== END 2018-07-13 12:44 | disposition home or self-care (01) ==
LOC: ER 09:23
DX: N18.9 Chronic kidney disease, unspecified (principal); N39.0 Urinary tract infection, site not specified; R56.9 Unspecified convulsions; R51 Headache; Z88.0 Allergy status to penicillin; Z88.6 Allergy status to analgesic agent
CPT/HCPCS: 36415; 80053; 80177; 80307; 81001; 83605; 85025; 96365; 96375; 99284; G0480; J0744; J1100; J1885; J7030; 96361

== ENCOUNTER 2018-10-18 08:07 | Emergency (ER) | payer OTHER ==
[~2018-10-18] VITALS: Ht 172.7 cm; Wt 111.1 kg
[~2018-10-18 08:07] MED LIST changes: +CIPR500T94 PO
[2018-10-18 08:15] VITALS: BP 151/73
[2018-10-18] MEDS ORDERED: LEVE500T6 PO ×3 (08:28→08:34)
--- NOTE | 2018-10-18 08:33 | PHYS DOC ---
Past Medical History Past Medical History: Seizure Additional Past Medical Histor: BORDERLINE DIABETIC Past Surgical History: No Surgical History Additional Past Surgical Histo: RENAL STENT Alcohol Use: None Drug Use: None Adult General Chief Complaint Chief Complaint: MEDICATION REFILL [facility] HPI Patient is a 57 year old female that presents for medication refill. The patient has a history of seizures. The patient had a seizure at 3 AM this morning. She states she ran out of her seizure medicine yesterday. No other complaints at this time. She states that she is switching doctors and has a new doctor that she is supposed to see on November 24. Review of Systems Review of Systems Constitutional: Denies fever or chills [] Eyes: Denies change in visual acuity, redness, or eye pain [] HENT: Denies nasal congestion or sore throat [] Respiratory: Denies cough or shortness of breath [] Cardiovascular: No additional information not addressed in HPI [] GI: Denies abdominal pain, nausea, vomiting, bloody stools or diarrhea [] : Denies dysuria or hematuria [] Musculoskeletal: Denies back pain or joint pain [] Integument: Denies rash or skin lesions [] Neurologic: Mild headache Denies focal weakness or sensory changes [] Endocrine: Denies polyuria or polydipsia [] Complete systems were reviewed and found to be within normal limits, except as documented in this note. Allergies Allergies Allergies Coded Allergies Type Severity Reaction Last Updated Verified Penicillins Allergy Severe ANAPHYLAXIS 06/02/17 Yes aspirin Allergy Severe SEIZURES, TORADOL OK 11/03/16 Yes Physical Exam Physical Exam Constitutional: Well developed, well nourished, no acute distress, non-toxic appearance. [] HENT: Normocephalic, atraumatic, bilateral external ears normal, oropharynx moist, no oral exudates, nose normal. [] Eyes: PERRLA, EOMI, conjunctiva normal, no discharge. [] Neck: Normal range of motion Skin: Warm, dry, no erythema, no rash. [] Back: No tenderness, no CVA tenderness. [] Extremities: No tenderness, no cyanosis, no clubbing, ROM intact, no edema. [] Neurologic: Alert and oriented X 3, normal motor function, normal sensory function, no focal deficits noted. [] Psychologic: Affect normal, judgement normal, mood normal. [] Current Patient Data Vital Signs Vital Signs Date Time Temp Pulse Resp B/P (MAP) Pulse Ox O2 Delivery O2 Flow Rate FiO2 10/18/18 08:15 98.4 83 16 151/73 (99) 97 Room Air 98.4 EKG EKG [] Radiology/Procedures Radiology/Procedures [] Course & Med Decision Making Course & Med Decision Making Pertinent Labs and Imaging studies reviewed. (See chart for details) Discussed with patient the importance of going to her appointment as using the ED to get seizure medicine is not a good half-way plan. She agreed and states she will go to appointment on November 24. Will give her seizure medication until that point. Her seizure last night appears to be related to not taking her medication. The patient denies falling or trauma with the seizure. She states it happened on her couch. Dragon Disclaimer Dragon Disclaimer This electronic medical record was generated, in whole or in part, using a voice recognition dictation system. Departure Departure Impression: Primary Impression: Medication refill Disposition: HOME, SELF-CARE Condition: STABLE Referrals: UNKNOWN PCP NAME (PCP) Patient Instructions: Medication Refill, Emergency Department Additional Instructions: Thank you for visiting [facility]. We appreciate you trusting us with your care. If any additional problems come up don't hesitate to return to visit us. Please follow up with your primary care provider so they can plan additional care if needed and know about the problem that you had. If symptoms worsen come back to the Emergency Department. Any concerning symptoms that start such as chest pain, shortness of air, weakness or numbness on one side of the body, running high fevers or any other concerning symptoms return to the ER. Scripts Levetiracetam (LEVETIRACETAM) 500 Mg Tablet 3 TAB PO BID for 45 Days, #270 TAB 0 Refills Prov: BHARATH MATTHEW APRN 10/18/18 BHARATH MATTHEW APRN Oct 18, 2018 08:33
== END 2018-10-18 08:43 | disposition home or self-care (01) ==
LOC: ER 08:07
DX: R56.9 Unspecified convulsions (principal); Z76.0 Encounter for issue of repeat prescription; Z88.0 Allergy status to penicillin; Z88.6 Allergy status to analgesic agent
CPT/HCPCS: 99283

== ENCOUNTER 2018-12-02 18:16 | Emergency (ER) | payer OTHER ==
[~2018-12-02] VITALS: Ht 172.7 cm; Wt 108.9 kg
[2018-12-02 18:58] VITALS: BP 163/77
--- NOTE | 2018-12-02 19:24 | PHYS DOC ---
Past Medical History Past Medical History: Seizure Additional Past Medical Histor: BORDERLINE DIABETIC Past Surgical History: No Surgical History Additional Past Surgical Histo: RENAL STENT Alcohol Use: None Drug Use: None Adult General Chief Complaint Chief Complaint: MEDICATION REFILL HPI HPI Patient is a 58 year old female who presents to the ED with the chief complaint of medication refill. Patient states that she missed her appointment today with week. Patient states that she is out of her medication for seizures. Patient states that she takes Keppra 1500 mg twice a day. Patient states she called her doctor's office today and was told that the next appointment available would be January. Patient has no other complaints currently. Review of Systems Review of Systems Constitutional: Denies fever or chills [] Eyes: Denies change in visual acuity, redness, or eye pain [] HENT: Denies nasal congestion or sore throat [] Respiratory: Denies cough or shortness of breath [] Cardiovascular: No additional information not addressed in HPI [] GI: Denies abdominal pain, nausea, vomiting, bloody stools or diarrhea [] : Denies dysuria or hematuria [] Musculoskeletal: Denies back pain or joint pain [] Integument: Denies rash or skin lesions [] Neurologic: Denies headache, focal weakness or sensory changes [] All other systems were reviewed and found to be within normal limits, except as documented in this note. Allergies Allergies Allergies Coded Allergies Type Severity Reaction Last Updated Verified Penicillins Allergy Severe ANAPHYLAXIS 06/02/17 Yes aspirin Allergy Severe SEIZURES, TORADOL OK 11/03/16 Yes Physical Exam Physical Exam Constitutional: Well developed, well nourished, no acute distress, non-toxic appearance. [] HENT: Normocephalic, atraumatic Eyes: PERRLA, EOMI, conjunctiva normal, no discharge. [] Neck: Normal range of motion, no tenderness, supple, Lungs & Thorax: No respiratory distress Extremities: No tenderness, ROM intact Neurologic: Alert and oriented X 3 Current Patient Data Vital Signs Vital Signs Date Time Temp Pulse Resp B/P (MAP) Pulse Ox O2 Delivery O2 Flow Rate FiO2 12/02/18 18:58 97.8 90 20 163/77 (105) 96 Room Air 97.8 EKG EKG [] Radiology/Procedures Radiology/Procedures [] Course & Med Decision Making Course & Med Decision Making Prescription for Keppra as given. Patient has no other complaints and so will be discharged home. Patient is instructed to follow up with PCP in one to 2 days. Appropriate discharge instructions given to patient to return to the ED or to seek immediate medical evaluation. Lois Disclaimer Lois Disclaimer This electronic medical record was generated, in whole or in part, using a voice recognition dictation system. Departure Departure Impression: Primary Impression: Medication refill Disposition: HOME, SELF-CARE Condition: STABLE Referrals: UNKNOWN PCP NAME (PCP) Patient Instructions: Seizure, Adult Scripts Levetiracetam (KEPPRA) 1,000 Mg Tablet 1500 MG PO BID for 60 Days, #180 TAB Prov: ROMARIO ALSTON DO 12/02/18 ROMARIO ASLTON DO Dec 02, 2018 19:24
[2018-12-02] MEDS ORDERED: LEVE100020 PO (19:30)
== END 2018-12-02 19:35 | disposition home or self-care (01) ==
LOC: ER 18:16
DX: R56.9 Unspecified convulsions (principal); Z76.0 Encounter for issue of repeat prescription; Z88.0 Allergy status to penicillin; Z88.6 Allergy status to analgesic agent
CPT/HCPCS: 99283

== ENCOUNTER 2019-01-31 19:54 | Emergency (ER) | payer OTHER ==
[~2019-01-31] VITALS: Ht 172.7 cm; Wt 108.9 kg
[2019-01-31 20:00] VITALS: BP 155/70
[2019-01-31] MEDS ORDERED: levETIRAcetam 500 MG TABLET PO STA (20:34)
--- NOTE | 2019-01-31 20:34 | PHYS DOC ---
Past Medical History Past Medical History: Seizure Additional Past Medical Histor: BORDERLINE DIABETIC Past Surgical History: No Surgical History Additional Past Surgical Histo: RENAL STENT Alcohol Use: None Drug Use: None Adult General Chief Complaint Chief Complaint: MEDICATION REFILL [facility] HPI Patient is a 58-year-old female with a history of a seizure disorder who is out of her Keppra. She states she missed her doctor's appointment recently and has not had her Keppra in a day or so. She is very worried that she's can have a seizure. She has not had a seizure since she stopped taking her medicine. She denies any headache. She's had no aura. She denies any fever or neck pain. She states her typical doses 1500 mg of Keppra twice daily.[] Review of Systems Review of Systems Constitutional: Denies fever or chills [] Eyes: Denies change in visual acuity, redness, or eye pain [] HENT: Denies nasal congestion or sore throat [] Respiratory: Denies cough or shortness of breath [] Cardiovascular: No additional information not addressed in HPI [] GI: Denies abdominal pain, nausea, vomiting, bloody stools or diarrhea [] : Denies dysuria or hematuria [] Musculoskeletal: Denies back pain or joint pain [] Integument: Denies rash or skin lesions [] Neurologic: Denies headache, focal weakness or sensory changes [] Endocrine: Denies polyuria or polydipsia [] All other systems were reviewed and found to be within normal limits, except as documented in this note. Allergies Allergies Allergies Coded Allergies Type Severity Reaction Last Updated Verified Penicillins Allergy Severe ANAPHYLAXIS 06/02/17 Yes aspirin Allergy Severe SEIZURES, TORADOL OK 11/03/16 Yes Physical Exam Physical Exam Constitutional: Well developed, well nourished, no acute distress, non-toxic appearance. [] HENT: Normocephalic, atraumatic, bilateral external ears normal, oropharynx moist, no oral exudates, nose normal. [] Eyes: PERRLA, EOMI, conjunctiva normal, no discharge. [] Neck: Normal range of motion, no tenderness, supple, no stridor. [] Cardiovascular:Heart rate regular rhythm, no murmur [] Lungs & Thorax: Bilateral breath sounds clear to auscultation [] Abdomen: Bowel sounds normal, soft, no tenderness, no masses, no pulsatile masses. [] Skin: Warm, dry, no erythema, no rash. [] Back: No tenderness, no CVA tenderness. [] Extremities: No tenderness, no cyanosis, no clubbing, ROM intact, no edema. [] Neurologic: Alert and oriented X 3, normal motor function, normal sensory function, no focal deficits noted. [] Psychologic: Anxious. [] Current Patient Data Vital Signs Vital Signs Date Time Temp Pulse Resp B/P (MAP) Pulse Ox O2 Delivery O2 Flow Rate FiO2 01/31/19 20:00 98.6 90 16 155/70 (98) 96 Room Air 98.6 EKG EKG [] Radiology/Procedures Radiology/Procedures [] Course & Med Decision Making Course & Med Decision Making Pertinent Labs and Imaging studies reviewed. (See chart for details) [] Dragon Disclaimer Dragon Disclaimer This electronic medical record was generated, in whole or in part, using a voice recognition dictation system. Departure Departure Impression: Primary Impression: Seizure Additional Impression: Medication refill Disposition: 01 HOME, SELF-CARE Condition: STABLE Referrals: UNKNOWN PCP NAME (PCP) Patient Instructions: Seizure, Adult Scripts Levetiracetam (KEPPRA) 750 Mg Tablet 2 TAB PO BID for 30 Days, #120 TAB 2 Refills Prov: KEIRA FUNG DO 01/31/19 Problem Qualifiers KEIRA FUNG DO Jan 31, 2019 20:34
[2019-01-31] MEDS ORDERED: LEVE750T41 PO (20:38)
== END 2019-01-31 20:50 | disposition home or self-care (01) ==
LOC: ER 19:54
DX: G40.909 Epilepsy, unspecified, not intractable, without status epilepticus (principal); Z76.0 Encounter for issue of repeat prescription; Z88.0 Allergy status to penicillin; Z88.6 Allergy status to analgesic agent
CPT/HCPCS: 99283

== ENCOUNTER 2019-04-30 13:19 | Emergency (ER) | payer OTHER ==
[~2019-04-30] VITALS: Ht 172.7 cm; Wt 100.0 kg
[2019-04-30 13:20] VITALS: BP 152/82
[2019-04-30] MEDS ORDERED: LEVE250T30 PO (14:28)
--- NOTE | 2019-04-30 14:29 | PHYS DOC ---
Past Medical History Past Medical History: Seizure Additional Past Medical Histor: BORDERLINE DIABETIC (LAKISHA EMMANUEL APRN) Past Surgical History: No Surgical History Additional Past Surgical Histo: RENAL STENT (LAKISHA EMMANUEL APRN) Smoking Status: Former Smoker Alcohol Use: None Drug Use: None (LAKISHA EMMANUEL APRN) Adult General Chief Complaint Chief Complaint: MEDICATION REFILL [facility] HPI Patient is a 58 year old female with history of seizure presenting to the ED today requesting medication refill for Keppra, she ran out of the medications this morning. She states she has plans to see her doctor at some point for refills. Denies any recent seizures. (LAKISHA EMMANUEL APRN) Review of Systems Review of Systems Constitutional: Denies fever or chills [] Eyes: Denies change in visual acuity, redness, or eye pain [] HENT: Denies nasal congestion or sore throat [] Respiratory: Denies cough or shortness of breath [] Cardiovascular: No additional information not addressed in HPI [] GI: Denies abdominal pain, nausea, vomiting, bloody stools or diarrhea [] : Denies dysuria or hematuria [] Musculoskeletal: Denies back pain or joint pain [] Integument: Denies rash or skin lesions [] Neurologic: Request for seizure medication refill. Denies headache, focal weakness or sensory changes [] All other systems were reviewed and found to be within normal limits, except as documented in this note. (LAKISHA EMMANUEL APRN) Allergies Allergies Allergies Coded Allergies Type Severity Reaction Last Updated Verified Penicillins Allergy Severe ANAPHYLAXIS 06/02/17 Yes aspirin Allergy Severe SEIZURES, TORADOL OK 11/03/16 Yes (MARCY LORENZ MD) Physical Exam Physical Exam Constitutional: Well developed, well nourished, no acute distress, non-toxic arlene earance. [] HENT: Normocephalic, atraumatic, bilateral external ears normal, oropharynx moist, no oral exudates, nose normal. [] Eyes: PERRLA, EOMI, conjunctiva normal, no discharge. [] Neck: Normal range of motion, no tenderness, supple, no stridor. [] Cardiovascular:Heart rate regular rhythm, no murmur [] Lungs & Thorax: Bilateral breath sounds clear to auscultation [] Abdomen: Bowel sounds normal, soft, no tenderness, no masses, no pulsatile masses. [] Skin: Warm, dry, no erythema, no rash. [] Back: No tenderness, no CVA tenderness. [] Extremities: No tenderness, no cyanosis, no clubbing, ROM intact, no edema. [] Neurologic: Alert and oriented X 3, normal motor function, normal sensory function, no focal deficits noted. [] Psychologic: Affect normal, judgement normal, mood normal. [] (LAKISHA EMMANUEL APRN) Current Patient Data Vital Signs Vital Signs Date Time Temp Pulse Resp B/P (MAP) Pulse Ox O2 Delivery O2 Flow Rate FiO2 04/30/19 13:20 97.9 88 17 152/82 (105) 95 Room Air 97.9 (MARCY LORENZ MD) EKG EKG [] (LAKISHA EMMANUEL APRN) Radiology/Procedures Radiology/Procedures [] (LAKISHA EMMANUEL APRN) Course & Med Decision Making Course & Med Decision Making Pertinent Labs and Imaging studies reviewed. (See chart for details) This is a 58-year-old female patient presenting to the ED today requesting a refill for Keppra for her seizures. Prescription given. Patient will follow-up with her own PCP or neurologist in the next 1 to 2 weeks. (LAKISHA EMMANUEL APRN) Course & Med Decision Making Staff Physician Addendum: I was working in the ER during the course of this patient's visit. I was available for consultation as needed, but I was not directly involved in the care of this patient. (MARCY LORENZ MD) Dragon Disclaimer Dragon Disclaimer This electronic medical record was generated, in whole or in part, using a voice recognition dictation system. (LAKISHA EMMANUEL APRN) Departure Departure Impression: Primary Impression: Medication refill Disposition: HOME, SELF-CARE Condition: STABLE Referrals: UNKNOWN PCP NAME (PCP) DAVIAN WAITE MD Follow-up with your own doctor in 1 to 2 weeks Patient Instructions: Medication Refill, Emergency Department Additional Instructions: Please take the medication as prescribed and follow-up with your own doctor as soon as you can Scripts Levetiracetam (KEPPRA) 250 Mg Tablet 6 TAB PO BID for 30 Days, #360 TAB 0 Refills Prov: LAKISHA EMMANUEL APRN 04/30/19 LAKISHA EMMANUEL APRN Apr 30, 2019 14:29 MARCY LORENZ MD May 01, 2019 06:37
== END 2019-04-30 14:49 | disposition home or self-care (01) ==
LOC: ER 13:19
DX: R56.9 Unspecified convulsions (principal); Z87.891 Personal history of nicotine dependence; Z98.890 Other specified postprocedural states; Z88.0 Allergy status to penicillin; Z88.6 Allergy status to analgesic agent; Z76.0 Encounter for issue of repeat prescription
CPT/HCPCS: 99281

== ENCOUNTER 2019-06-05 08:55 | Emergency (ER) | payer OTHER ==
[~2019-06-05] VITALS: Ht 172.7 cm; Wt 104.5 kg
[~2019-06-05 08:55] MED LIST changes: +LEVE250T30 PO
--- NOTE | 2019-06-05 09:27 | PHYS DOC ---
Past Medical History Past Medical History: Seizure Additional Past Medical Histor: BORDERLINE DIABETIC Past Surgical History: Other Additional Past Surgical Histo: RENAL STENT Smoking Status: Former Smoker Alcohol Use: None Drug Use: None General Adult EDM: Chief Complaint: SEIZURE HPI: HPI: 58-year-old female presenting to the emergency department today with a history of seizure for about 30 years. She takes Keppra 1.5 g twice daily, but ran out and hasnt had keppra for about 48 hour. Today she had 2 seizures this morning at 4 AM. They were brief and lasted about a minute each, and has returned back to normal neurologic function. She denies head injury. She denies any symptoms at this time. Review of systems negative for chest pain shortness of breath vomiting fevers chills vision changes focal neurologic deficits neck stiffness dysuria. All other review of systems negative. ED course: 58-year-old female with known chronic seizure disorder who was unable to take her medications for the past 2 days because she ran out. Here the patient is neurologically intact with a normal neurologic exam. Urine analysis shows probable urinary tract infection. Patient's creatinine is elevated mildly approximately at baseline. She was monitored here in the emergency department without any symptoms. She was given a loading dose of Keppra and oral Keppra to go home with along with Macrobid for treatment for urinary tract infection.. She should follow-up with her doctor in 1 to 2 days. The patient has been examined and was not found to have an emergency medical condition. The patient was then discharged home in stable condition to follow up with their primary care physician over the next 1-2 days. They were to return if their symptoms worsened or if they were concerned for any reason. They were also instructed to return to the emergency department if they were unable to get the recommended and appropriate follow-up. [id number] discharge instructions and return precautions were given. Patient's questions were answered to their satisfaction. Patient is comfortable with plan. Heart Score: Risk Factors: Risk Factors: DM, Current or recent (<one month) smoker, HTN, HLP, family history of CAD, obesity. Risk Scores: Score 0 - 3: 2.5% MACE over next 6 weeks - Discharge Home Score 4 - 6: 20.3% MACE over next 6 weeks - Admit for Clinical Observation Score 7 - 10: 72.7% MACE over next 6 weeks - Early Invasive Strategies Allergies: Allergies: Allergies Coded Allergies Type Severity Reaction Last Updated Verified Penicillins Allergy Severe ANAPHYLAXIS 06/02/17 Yes aspirin Allergy Severe SEIZURES, TORADOL OK 11/03/16 Yes Physical Exam: PE: Constitutional: Well developed, well nourished, no acute distress, non-toxic appearance. [] HENT: Normocephalic, atraumatic, bilateral external ears normal, oropharynx moist, no oral exudates, nose normal. [] Eyes: PERRLA, EOMI, conjunctiva normal, no discharge. [] Neck: Normal range of motion, no tenderness, supple, no stridor. [] Cardiovascular:Heart rate regular rhythm, no murmur [] Lungs & Thorax: Bilateral breath sounds clear to auscultation [] Abdomen: Bowel sounds normal, soft, no tenderness, no masses, no pulsatile masses. [] Skin: Warm, dry, no erythema, no rash. [] Back: No tenderness, no CVA tenderness. [] Extremities: No tenderness, no cyanosis, no clubbing, ROM intact, no edema. [] Neurologic: Mental status: Awake oriented and alert x3 Cranial nerves: Extraocular movements intact, eyebrows ludin bilaterally, smile symmetric, uvula elevation nl, shoulder shrug intact bilaterally, tongue protrusion normal DTRs: 2+ Sensation: equal and normal in all extremities Strength: 5/5 in upper and lower extremities bilaterally Psychologic: Affect normal, judgement normal, mood normal. [] Current Patient Data: Vital Signs: Vital Signs Date Time Temp Pulse Resp B/P (MAP) Pulse Ox O2 Delivery O2 Flow Rate FiO2 06/05/19 09:02 98.0 92 20 145/88 (107) 98 Room Air 98.0 EKG: EKG: [] Radiology/Procedures: Radiology/Procedures: [] Course & Med Decision Making: Course & Med Decision Making Pertinent Labs and Imaging studies reviewed. (See chart for details) [] Dragon Disclaimer: Lois Disclaimer: This electronic medical record was generated, in whole or in part, using a voice recognition dictation system. Departure Departure Impression: Primary Impression: Seizure Additional Impression: UTI (urinary tract infection) Disposition: 01 HOME, SELF-CARE Condition: STABLE Referrals: UNKNOWN PCP NAME (PCP) DAVIAN WAITE MD Patient Instructions: Seizure, Adult, Urinary Tract Infection Scripts Levetiracetam (KEPPRA) 500 Mg Tablet 1500 MG PO BID for 7 Days, #42 TAB Prov: JANA PICKERING MD 06/05/19 Nitrofurantoin Monohyd/M-Cryst (MACROBID 100 MG CAPSULE) 100 Mg Capsule 1 CAP PO BID, #10 CAP Prov: JANA PICKERING MD 06/05/19 JANA PICKERING MD Jun 05, 2019 09:26
[2019-06-05] MEDS: levETIRAcetam 1,000 MG in IV DEXTROSE 5% 100ML 100 ML IV ONE (09:32)
[2019-06-05 09:36] LABS: BASO # 0.1 x10^3/uL (0.0-0.2); BASO % 1 % (0-3); EOS # 0.3 x10^3/uL (0.0-0.7); EOS % 7 % (0-3); HEMATOCRIT 31.1 % (36.0-47.0); HEMOGLOBIN 10.3 g/dL (12.0-15.5); LYMPH # 1.2 x10^3/uL (1.0-4.8); LYMPH % 27 % (24-48); MEAN CORPUSCULAR HEMOGLOBIN 30 pg (25-35); MEAN CORPUSCULAR HGB CONC 33 g/dL (31-37); MEAN CORPUSCULAR VOLUME 92 fL (79-100); MONO # 0.6 x10^3/uL (0.0-1.1); MONO % 13 % (0-9); NEUT # 2.2 x10^3/uL (1.8-7.7); NEUT % 52 % (31-73); PLATELET COUNT 196 x10^3/uL (140-400); RED BLOOD COUNT 3.38 x10^6/uL (3.50-5.40); WHITE BLOOD COUNT 4.3 x10^3/uL (4.0-11.0)
[2019-06-05 09:38] LABS: CALCIUM 8.4 mg/dL (8.5-10.1); CREATININE 1.9 mg/dL (0.6-1.0); POTASSIUM 3.7 mmol/L (3.5-5.1)
[2019-06-05 09:44] LABS: ALBUMIN 3.2 g/dL (3.4-5.0); ALBUMIN/GLOBULIN RATIO 0.8 (1.0-1.7); TOTAL BILIRUBIN 0.2 mg/dL (0.2-1.0); TOTAL PROTEIN 7.2 g/dL (6.4-8.2)
[2019-06-05 09:51] LABS: BILIRUBIN,URINE NEGATIVE (NEG); CLARITY,URINE TURBID; COLOR,URINE YELLOW; NITRITE,URINE NEGATIVE (NEG); PROTEIN,URINE 100 mg/dL (NEG-TRACE); UROBILINOGEN,URINE 0.2 mg/dL (0.2 mg/dL)
[2019-06-05 10:07] LABS: BACTERIA,URINE MODERATE /HPF (0-FEW); SQUAMOUS EPITHELIAL CELL,UR MOD /LPF; WBC,URINE >40 /HPF (0-4)
[2019-06-05 10:08] LABS: AMORPHOUS SEDIMENT,UR PRESENT /HPF
--- NOTE | 2019-06-05 10:54 | RAD ---
CT HEAD WO CONTRAST Indication: Seizure. Exposure: One or more of the following individualized dose reduction techniques were utilized for this examination: 1. Automated exposure control 2. Adjustment of the mA and/or kV according to patient size 3. Use of iterative reconstruction technique. Technique: Standard imaging without intravenous contrast. Comparison: 05/14/2018 No evidence of acute intracranial hemorrhage, mass effect, midline shift or abnormal extra-axial fluid collection. Ventricles and sulci are symmetric. Mccallum-white matter distinction is intact. The visualized sinuses appear clear. No evidence of acute skull abnormality. The visualized orbits appear symmetric. No significant scalp swelling. IMPRESSION: No evidence of acute intracranial hemorrhage. Electronically signed by: Viktor Tran MD (06/05/2019 10:51 AM) [id number]
[2019-06-05 11:10] VITALS: BP 137/67
[2019-06-05] MEDS ORDERED: NITR100C62 PO (11:17)
[2019-06-05] MEDS ORDERED: LEVE500T56 PO (11:17)
--- NOTE | 2019-06-05 11:30 | EKG ---
[facility] [address] [place] [address] Test Date: 2019-06-05 Test Time: 09:37:47 Pat Name: LILO PALACIO Department: Room: Gender: F Clerk Of Scales: : 1960 Requested By: JANA PICKERING Order Number: [id number] Reading MD: Jhoan Ramos Measurements Intervals [place] Rate: 83 P: 43 CA: 128 QRS: 60 QRSD: 94 T: 20 QT: 372 QTc: 443 Interpretive Statements SINUS RHYTHM LEFT ATRIAL ABNORMALITY INCOMPLETE RIGHT BUNDLE BRANCH BLOCK SMALL Q WAVE IN LEAD III Electronically Signed On 06-05-2019 13:04:25 CDT by Jhoan Ramos
== END 2019-06-05 11:40 | disposition home or self-care (01) ==
LOC: ER 08:55
DX: R56.9 Unspecified convulsions (principal); N39.0 Urinary tract infection, site not specified; Z87.891 Personal history of nicotine dependence; Z88.0 Allergy status to penicillin; Z88.6 Allergy status to analgesic agent
CPT/HCPCS: 36415; 70450; 80053; 81001; 85025; 87086; 93005; 96365; 99285; J1953; J7060

== ENCOUNTER 2019-06-12 19:01 | Emergency (ER) | payer OTHER ==
[~2019-06-12] VITALS: Ht 172.7 cm; Wt 109.1 kg
[2019-06-12 19:07] VITALS: BP 170/77
[2019-06-12] MEDS ORDERED: LEVE750T41 PO (19:16)
--- NOTE | 2019-06-12 19:16 | PHYS DOC ---
Past Medical History Past Medical History: Seizure Additional Past Medical Histor: BORDERLINE DIABETIC Past Surgical History: Other Additional Past Surgical Histo: RENAL STENT Smoking Status: Former Smoker Alcohol Use: None Drug Use: None General Adult EDM: Chief Complaint: MEDICATION REFILL HPI: HPI: Patient is a 58 year old female who presents with request for refill of her Keppra. Patient states that she went to her doctor's clinic today for refill but she was informed that they no longer do neurology there. Patient states that her last seizure was about a week ago and she just took her last dose of Keppra this morning.[] Review of Systems: Review of Systems: Constitutional: Denies fever or chills. [] Respiratory: Denies cough or shortness of breath. [] Cardiovascular: Denies chest pain or edema. [] Integument: Denies rash. [] Neurologic: Denies headache, focal weakness or sensory changes. [] Heart Score: Risk Factors: Risk Factors: DM, Current or recent (<one month) smoker, HTN, HLP, family history of CAD, obesity. Risk Scores: Score 0 - 3: 2.5% MACE over next 6 weeks - Discharge Home Score 4 - 6: 20.3% MACE over next 6 weeks - Admit for Clinical Observation Score 7 - 10: 72.7% MACE over next 6 weeks - Early Invasive Strategies Allergies: Allergies: Allergies Coded Allergies Type Severity Reaction Last Updated Verified Penicillins Allergy Severe ANAPHYLAXIS 06/02/17 Yes aspirin Allergy Severe SEIZURES, TORADOL OK 11/03/16 Yes Physical Exam: PE: Constitutional: Well developed, well nourished, no acute distress, non-toxic appearance. [] Cardiovascular:Heart rate regular rhythm, no murmur [] Lungs & Thorax: Bilateral breath sounds clear to auscultation [] Skin: Warm, dry, no erythema, no rash. [] Neurologic: Alert and oriented X 3, no focal deficits noted. [] EKG: EKG: [] Radiology/Procedures: Radiology/Procedures: [] Course & Med Decision Making: Course & Med Decision Making Pertinent Labs and Imaging studies reviewed. (See chart for details) [] Dragon Disclaimer: Dragon Disclaimer: This electronic medical record was generated, in whole or in part, using a voice recognition dictation system. Departure Departure Impression: Primary Impression: Medication refill Disposition: 01 HOME, SELF-CARE Condition: STABLE Referrals: UNKNOWN PCP NAME (PCP) Patient Instructions: Medication Refill, Emergency Department Scripts Levetiracetam (KEPPRA) 750 Mg Tablet 2 TAB PO BID for 30 Days, #120 TAB 0 Refills Prov: PRANAV ARORA Jr., DO 06/12/19 PRANAV ARORA Jr. DO June 12, 2019 19:16
== END 2019-06-12 19:25 | disposition home or self-care (01) ==
LOC: ER 19:01
DX: R56.9 Unspecified convulsions (principal); Z76.0 Encounter for issue of repeat prescription; Z87.891 Personal history of nicotine dependence; Z88.0 Allergy status to penicillin; Z88.6 Allergy status to analgesic agent
CPT/HCPCS: 99281; 99283

== ENCOUNTER 2019-07-12 18:24 | Emergency (ER) | payer OTHER ==
[~2019-07-12] VITALS: Ht 167.6 cm; Wt 240.0 kg
[2019-07-12 18:48] LABS: BASO % 0 % (0-3); EOS # 0.2 x10^3/uL (0.0-0.7); EOS % 3 % (0-3); HEMATOCRIT 29.5 % (36.0-47.0); HEMOGLOBIN 9.9 g/dL (12.0-15.5); LYMPH # 0.8 x10^3/uL (1.0-4.8); LYMPH % 12 % (24-48); MEAN CORPUSCULAR HEMOGLOBIN 31 pg (25-35); MEAN CORPUSCULAR HGB CONC 33 g/dL (31-37); MEAN CORPUSCULAR VOLUME 92 fL (79-100); MONO # 0.6 x10^3/uL (0.0-1.1); MONO % 10 % (0-9); NEUT # 4.9 x10^3/uL (1.8-7.7); NEUT % 76 % (31-73); PLATELET COUNT 219 x10^3/uL (140-400); RED BLOOD COUNT 3.22 x10^6/uL (3.50-5.40); RED CELL DISTRIBUTION WIDTH 13.4 % (11.5-14.5); WHITE BLOOD COUNT 6.5 x10^3/uL (4.0-11.0)
--- NOTE | 2019-07-12 18:49 | PHYS DOC ---
Past Medical History Past Medical History: Seizure Additional Past Medical Histor: BORDERLINE DIABETIC Past Surgical History: Other Additional Past Surgical Histo: RENAL STENT Smoking Status: Former Smoker Alcohol Use: None Drug Use: None General Adult EDM: Chief Complaint: SEIZURE HPI: HPI: Patient is a 58 year old female who presents via EMS after reportedly having had multiple seizures. Patient states that she has had a total of 6 seizures in the last 24 hours. Patient is out of her Keppra and states that she takes 1500 mg twice daily. EMS reports that patient was a little bit postictal when they first arrived on the scene. Patient denies any headache or fever. She denies any chest pain or shortness of breath. [] Review of Systems: Review of Systems: Constitutional: Denies fever or chills. [] Respiratory: Denies cough or shortness of breath. [] Cardiovascular: Denies chest pain or edema. [] GI: Denies abdominal pain, nausea, vomiting or diarrhea. [] Neurologic: Denies headache, focal weakness or sensory changes. Positive seizures. [] A full 10 point review of systems has been reviewed and is otherwise negative. Heart Score: Risk Factors: Risk Factors: DM, Current or recent (<one month) smoker, HTN, HLP, family history of CAD, obesity. Risk Scores: Score 0 - 3: 2.5% MACE over next 6 weeks - Discharge Home Score 4 - 6: 20.3% MACE over next 6 weeks - Admit for Clinical Observation Score 7 - 10: 72.7% MACE over next 6 weeks - Early Invasive Strategies Current Medications: Current Medications Medications (Trade) Dose Ordered Sig/[facility] Start Time Stop Time Status Last Admin Dose Admin Levetiracetam 1000 mg/Dextrose 110 ml @ 440 mls/hr 1X ONCE 07/12/19 19:00 07/12/19 19:14 Allergies: Allergies: Allergies Coded Allergies Type Severity Reaction Last Updated Verified Penicillins Allergy Severe ANAPHYLAXIS 06/02/17 Yes aspirin Allergy Severe SEIZURES, TORADOL OK 11/03/16 Yes Physical Exam: PE: Constitutional: Well developed, well nourished, no acute distress, non-toxic appearance. [] HENT: Normocephalic, atraumatic, bilateral external ears normal, oropharynx moist, no oral exudates, nose normal. [] Eyes: PERRLA, EOMI, conjunctiva normal, no discharge. [] Neck: Normal range of motion, no tenderness, supple. [] Cardiovascular: Regular rate and rhythm [] Lungs & Thorax: Bilateral breath sounds clear to auscultation [] Abdomen: Bowel sounds normal, soft, no tenderness. [] Skin: Warm, dry, no erythema, no rash. [] Extremities: No tenderness, no cyanosis, no clubbing, ROM intact, no edema. [] Neurologic: Alert and oriented X 3, no focal deficits noted. [] EKG: EKG: [] Radiology/Procedures: Radiology/Procedures: [] Course & Med Decision Making: Course & Med Decision Making Pertinent Labs and Imaging studies reviewed. (See chart for details) [] Dragon Disclaimer: Dragon Disclaimer: This electronic medical record was generated, in whole or in part, using a voice recognition dictation system. Departure Departure Impression: Primary Impression: CKD (chronic kidney disease) Qualified Codes: N18.9 - Chronic kidney disease, unspecified Additional Impression: Seizure Disposition: 01 HOME, SELF-CARE Condition: STABLE Referrals: UNKNOWN PCP NAME (PCP) Patient Instructions: Kidney Failure, Seizure Disorder, Child, Generalized Tonic-Clonic Scripts Levetiracetam (KEPPRA) 750 Mg Tablet 2 TAB PO BID for 30 Days, #120 TAB 0 Refills Prov: PRANAV ARORA Jr. DO 07/12/19 PRANAV ARORA Jr. DO July 12, 2019 18:49
[2019-07-12 18:59] LABS: CALCIUM 8.4 mg/dL (8.5-10.1); CREATININE 2.5 mg/dL (0.6-1.0); POTASSIUM 3.3 mmol/L (3.5-5.1)
[2019-07-12] MEDS ORDERED: levETIRAcetam 1,000 MG in IV DEXTROSE 5% 100ML 100 ML IV ONE (19:00)
[2019-07-12 19:05] LABS: ALBUMIN 2.9 g/dL (3.4-5.0); ALBUMIN/GLOBULIN RATIO 0.6 (1.0-1.7); TOTAL BILIRUBIN 0.2 mg/dL (0.2-1.0); TOTAL PROTEIN 7.7 g/dL (6.4-8.2)
[2019-07-12] MEDS ORDERED: ACETAMINOPHEN 325 MG TABLET. PO ONE (19:15)
[2019-07-12] MEDS ORDERED: IV NORMAL SALINE 1000ML BAG 1,000 ML IV ONE (19:30)
[2019-07-12 19:51] VITALS: BP 152/77
[2019-07-12] MEDS ORDERED: LEVE750T41 PO (20:15)
== END 2019-07-12 20:23 | disposition home or self-care (01) ==
LOC: ER 18:24
DX: N18.9 Chronic kidney disease, unspecified (principal); R56.9 Unspecified convulsions; Z96.0 Presence of urogenital implants; F17.200 Nicotine dependence, unspecified, uncomplicated; Z88.0 Allergy status to penicillin; Z88.6 Allergy status to analgesic agent
CPT/HCPCS: 36415; 80053; 83605; 85025; 96365; 99284; J1953; J7030; J7060; 96361

== ENCOUNTER 2019-08-12 21:39 | Emergency (ER) | payer OTHER ==
[~2019-08-12] VITALS: Ht 172.7 cm; Wt 118.2 kg
[2019-08-12 21:42] VITALS: BP 158/69
[2019-08-12] MEDS ORDERED: LEVE500T56 PO (21:52)
--- NOTE | 2019-08-12 21:52 | PHYS DOC ---
Past Medical History Past Medical History: Seizure Additional Past Medical Histor: BORDERLINE DIABETIC Past Surgical History: Other Additional Past Surgical Histo: RENAL STENT Smoking Status: Former Smoker Alcohol Use: None Drug Use: None General Adult EDM: Chief Complaint: MEDICATION REFILL HPI: HPI: Patient is a 58 year old female presents requesting Rx refill for keppra. Last does this AM. Can not get into PCP. Patient has no complaints. Review of Systems: Review of Systems: Constitutional: Denies fever or chills. [] Eyes: Denies change in visual acuity. [] HENT: Denies nasal congestion or sore throat. [] Respiratory: Denies cough or shortness of breath. [] Cardiovascular: Denies chest pain or edema. [] GI: Denies abdominal pain, nausea, vomiting, bloody stools or diarrhea. [] : Denies dysuria. [] Musculoskeletal: Denies back pain or joint pain. [] Integument: Denies rash. [] Neurologic: Denies headache, focal weakness or sensory changes. [] Endocrine: Denies polyuria or polydipsia. [] Lymphatic: Denies swollen glands. [] Psychiatric: Denies depression or anxiety. [] Heart Score: Risk Factors: Risk Factors: DM, Current or recent (<one month) smoker, HTN, HLP, family history of CAD, obesity. Risk Scores: Score 0 - 3: 2.5% MACE over next 6 weeks - Discharge Home Score 4 - 6: 20.3% MACE over next 6 weeks - Admit for Clinical Observation Score 7 - 10: 72.7% MACE over next 6 weeks - Early Invasive Strategies Allergies: Allergies: Allergies Coded Allergies Type Severity Reaction Last Updated Verified Penicillins Allergy Severe ANAPHYLAXIS 06/02/17 Yes aspirin Allergy Severe SEIZURES, TORADOL OK 11/03/16 Yes Physical Exam: PE: Constitutional: Well developed, well nourished, no acute distress, non-toxic appearance. [] HENT: Normocephalic, atraumatic, bilateral external ears normal, oropharynx moist, no oral exudates, nose normal. [] Eyes: PERRLA, EOMI, conjunctiva normal, no discharge. [] Neck: Normal range of motion, no tenderness, supple, no stridor. [] Cardiovascular:Heart rate regular rhythm, no murmur [] Lungs & Thorax: Bilateral breath sounds clear to auscultation [] Abdomen: Bowel sounds normal, soft, no tenderness, no masses, no pulsatile masses. [] Skin: Warm, dry, no erythema, no rash. [] Back: No tenderness, no CVA tenderness. [] Extremities: No tenderness, no cyanosis, no clubbing, ROM intact, no edema. [] Neurologic: Alert and oriented X 3, normal motor function, normal sensory function, no focal deficits noted. [] Psychologic: Affect normal, judgement normal, mood normal. [] EKG: EKG: [] Radiology/Procedures: Radiology/Procedures: [] Course & Med Decision Making: Course & Med Decision Making Pertinent Labs and Imaging studies reviewed. (See chart for details) [] Dragon Disclaimer: Dragon Disclaimer: This electronic medical record was generated, in whole or in part, using a voice recognition dictation system. Departure Departure Impression: Primary Impression: Medication refill Disposition: HOME, SELF-CARE Condition: STABLE Referrals: GENOVEVA GONZALEZ RN, MS, FN (PCP) Patient Instructions: Medication Refill, Emergency Department Scripts Levetiracetam (KEPPRA) 500 Mg Tablet 3 TAB PO BID for 30 Days, #180 TAB 0 Refills Prov: WILLAM CUI DO 08/12/19 Justicifation of Admission Dx: Justifications for Admission: Justification of Admission Dx: N/A WILLAM CUI DO Aug 12, 2019 21:52
== END 2019-08-12 22:13 | disposition home or self-care (01) ==
LOC: ER 21:39
DX: R56.9 Unspecified convulsions (principal); Z76.0 Encounter for issue of repeat prescription; Z98.890 Other specified postprocedural states; Z87.891 Personal history of nicotine dependence; Z88.0 Allergy status to penicillin; Z88.6 Allergy status to analgesic agent
CPT/HCPCS: 99281

== ENCOUNTER 2019-09-12 21:11 | Emergency (ER) | payer OTHER ==
[~2019-09-12] VITALS: Ht 172.7 cm; Wt 109.1 kg
[2019-09-12] MEDS ORDERED: LEVE500T6 PO (22:45)
--- NOTE | 2019-09-12 22:46 | PHYS DOC ---
Past Medical History Past Medical History: Seizure Additional Past Medical Histor: BORDERLINE DIABETIC (LAKISHA EMMANUEL APRN) Past Surgical History: Other Additional Past Surgical Histo: RENAL STENT (LAKISHA EMMANUEL APRN) Smoking Status: Former Smoker Alcohol Use: None Drug Use: None (LAKISHA EMMANUEL APRN) General Adult EDM: Chief Complaint: MEDICATION REFILL HPI: HPI: Patient is a 58 year old female with history of seizures who presents to the ED today requesting medication refill for Keppra. Patient states she has been out of the medication for couple days. Denies any issues at today. (LAKISHA EMMANUEL APRN) Review of Systems: Review of Systems: Constitutional: Denies fever or chills. [] Musculoskeletal: Denies back pain or joint pain. [] Integument: Denies rash. [] Neurologic: Medication refill for Keppra. Denies headache, focal weakness or sensory changes. [] Endocrine: Denies polyuria or polydipsia. [] Lymphatic: Denies swollen glands. [] Psychiatric: Denies depression or anxiety. [] (LAKISHA EMMANUEL APRN) Heart Score: Risk Factors: Risk Factors: DM, Current or recent (<one month) smoker, HTN, HLP, family history of CAD, obesity. Risk Scores: Score 0 - 3: 2.5% MACE over next 6 weeks - Discharge Home Score 4 - 6: 20.3% MACE over next 6 weeks - Admit for Clinical Observation Score 7 - 10: 72.7% MACE over next 6 weeks - Early Invasive Strategies (LAKISHA EMMANUEL APRN) Allergies: Allergies: Allergies Coded Allergies Type Severity Reaction Last Updated Verified Penicillins Allergy Severe ANAPHYLAXIS 06/02/17 Yes aspirin Allergy Severe SEIZURES, TORADOL OK 11/03/16 Yes (LAKISHA EMMANUEL APRN) Physical Exam: PE: Constitutional: Well developed, well nourished, no acute distress, non-toxic appearance. [] Skin: Warm, dry, no erythema, no rash. [] Back: No tenderness, no CVA tenderness. [] Extremities: No tenderness, no cyanosis, no clubbing, ROM intact, no edema. [] Neurologic: Alert and oriented X 3, normal motor function, normal sensory function, no focal deficits noted. [] Psychologic: Affect normal, judgement normal, mood normal. [] (LAKISHA EMMANUEL APRN) EKG: EKG: [] (LAKISHA EMMANUEL APRN) Radiology/Procedures: Radiology/Procedures: [] (LAKISHA EMMANUEL APRN) Course & Med Decision Making: Course & Med Decision Making Pertinent Labs and Imaging studies reviewed. (See chart for details) This is a 58-year-old female patient presenting to the ED today for medication refill for Keppra. Prescription was given. Discharge to home. Follow-up with PCP/neurologist. (LAKISHA EMMANUEL APRN) Dragon Disclaimer: Dragon Disclaimer: This electronic medical record was generated, in whole or in part, using a voice recognition dictation system. (LAKISHA EMMANUEL APRN) Departure Departure Impression: Primary Impression: Medication refill Disposition: HOME, SELF-CARE Condition: STABLE Referrals: UNKNOWN PCP NAME (PCP) DAVIAN WAITE MD follow up in 1 week Patient Instructions: Medication Refill, Emergency Department Additional Instructions: Take the prescribed medication as ordered. Follow-up with your own doctor in the next 1 week Scripts Levetiracetam (LEVETIRACETAM) 500 Mg Tablet 3 TAB PO BID, #120 TAB Prov: LIENLAKISHA SPRINGER 09/12/19 Justicifation of Admission Dx: Justifications for Admission: Justification of Admission Dx: N/A (LAKISHA EMMANUEL APRN) Attending Signature Attending Signature I have reviewed the PA/STREET CAR INSPECTOR's note and plan of care. I was available for consultation as needed during the patient's visit in the emergency department. I agree with the clinical impression, plan, and disposition. (BHARATH MABRY DO) LAIKSHA EMMANUEL APRN Sep 12, 2019 22:46 BHARATH MABRY DO Sep 12, 2019 23:31
[2019-09-12 23:02] VITALS: BP 148/84
== END 2019-09-12 23:02 | disposition home or self-care (01) ==
LOC: ER 21:11
DX: R56.9 Unspecified convulsions (principal); Z76.0 Encounter for issue of repeat prescription; Z98.890 Other specified postprocedural states; Z87.891 Personal history of nicotine dependence; Z88.0 Allergy status to penicillin; Z88.6 Allergy status to analgesic agent
CPT/HCPCS: 99281

== ENCOUNTER 2019-10-07 23:30 | Emergency (ER) | payer OTHER ==
[~2019-10-07] VITALS: Ht 172.7 cm; Wt 109.9 kg
[2019-10-08 02:15] LABS: BILIRUBIN,URINE NEGATIVE (NEG); CLARITY,URINE TURBID; COLOR,URINE YELLOW; NITRITE,URINE NEGATIVE (NEG); PH,URINE 7.5 (<5.0-8.0); PROTEIN,URINE 100 mg/dL (NEG-TRACE); UROBILINOGEN,URINE 0.2 mg/dL (0.2 mg/dL)
[2019-10-08 02:24] LABS: BACTERIA,URINE MANY /HPF (0-FEW); SQUAMOUS EPITHELIAL CELL,UR FEW /LPF; WBC,URINE TNTC /HPF (0-4)
[2019-10-08] MEDS ORDERED: NITR100C62 PO (03:41)
[2019-10-08] MEDS ORDERED: LEVE500T56 PO (03:41)
--- NOTE | 2019-10-08 03:41 | PHYS DOC ---
Past Medical History Past Medical History: Seizure Additional Past Medical Histor: BORDERLINE DIABETIC Past Surgical History: Other Additional Past Surgical Histo: RENAL STENT Smoking Status: Former Smoker Alcohol Use: None Drug Use: None General Adult EDM: Chief Complaint: ABDOMINAL PAIN HPI: HPI: Patient is a 58 year old female who presents for evaluation of midline lower abdominal discomfort. Patient has significant urinary tract infection type symptoms. Symptoms have been progressing over the past couple of days. Patient has burning, urgency and frequency. Secondarily patient is out of her seizure medication. She normally takes Keppra 1500 mg p.o. twice daily. She is been off her meds for about a week. Patient has not had a recent seizure however. Patient is otherwise benign-appearing Review of Systems: Review of Systems: Constitutional: Denies fever or chills. [] Eyes: Denies change in visual acuity. [] HENT: Denies nasal congestion or sore throat. [] Respiratory: Denies cough or shortness of breath. [] Cardiovascular: Denies chest pain or edema. [] GI: lower abdominal pain, no nausea, vomiting, bloody stools or diarrhea. [] : has dysuria. [] Musculoskeletal: Denies back pain or joint pain. [] Integument: Denies rash. [] Neurologic: Denies headache, focal weakness or sensory changes. [] Endocrine: Denies polyuria or polydipsia. [] Lymphatic: Denies swollen glands. [] Psychiatric: Denies depression or anxiety. [] Heart Score: Risk Factors: Risk Factors: DM, Current or recent (<one month) smoker, HTN, HLP, family history of CAD, obesity. Risk Scores: Score 0 - 3: 2.5% MACE over next 6 weeks - Discharge Home Score 4 - 6: 20.3% MACE over next 6 weeks - Admit for Clinical Observation Score 7 - 10: 72.7% MACE over next 6 weeks - Early Invasive Strategies Allergies: Allergies: Allergies Coded Allergies Type Severity Reaction Last Updated Verified Penicillins Allergy Severe ANAPHYLAXIS 06/02/17 Yes aspirin Allergy Severe SEIZURES, TORADOL OK 11/03/16 Yes Physical Exam: PE: Constitutional: Well developed, well nourished, mild acute distress, non-toxic appearance. [] HENT: Normocephalic, atraumatic, bilateral external ears normal, oropharynx moist, no oral exudates, nose normal. [] Eyes: PERRL, EOMI, conjunctiva normal, no discharge. [] Neck: Normal range of motion, no tenderness. [] Cardiovascular:Heart rate regular rhythm, no murmur [] Lungs & Thorax: Bilateral breath sounds clear to auscultation [] Abdomen: Bowel sounds normal, soft, minimal suprapubic tenderness. [] Skin: Warm, dry, no erythema, no rash. [] Back: No tenderness, no CVA tenderness. [] Extremities: No tenderness, no cyanosis, ROM intact, no edema. [] Neurologic: Alert and oriented, normal motor function, normal sensory function, no focal deficits noted. [] Psychologic: Affect normal, judgement normal, mood normal. [] Current Patient Data: Labs: Laboratory Tests Test 10/08/19 00:21 Urine Collection Type Unknown Urine Color Yellow Urine Clarity Turbid Urine pH 7.5 (<5.0-8.0) Urine Specific [place] 1.015 (1.000-1.030) Urine Protein 100 mg/dL (NEG-TRACE) Urine Glucose (UA) Negative mg/dL (NEG) Urine Ketones (Stick) Negative mg/dL (NEG) Urine Blood Large (NEG) Urine Nitrite Negative (NEG) Urine Bilirubin Negative (NEG) Urine Urobilinogen Dipstick 0.2 mg/dL (0.2 mg/dL) Urine Leukocyte Esterase Large (NEG) Urine RBC 3-5 /HPF (0-2) Urine WBC Tntc /HPF (0-4) Urine Squamous Epithelial Cells Few /LPF Urine Bacteria Many /HPF (0-FEW) Urine Mucus Mod /LPF Vital Signs: Vital Signs Date Time Temp Pulse Resp B/P (MAP) Pulse Ox O2 Delivery O2 Flow Rate FiO2 10/08/19 00:22 98.7 75 18 132/88 (103) 98 Room Air 98.7 EKG: EKG: [] Radiology/Procedures: Radiology/Procedures: [] Course & Med Decision Making: Course & Med Decision Making Pertinent Labs and Imaging studies reviewed. (See chart for details) [] Dragon Disclaimer: Dragon Disclaimer: This electronic medical record was generated, in whole or in part, using a voice recognition dictation system. 0330 patient stable, reassessed. Patient has an obvious bladder infection. I checked patient's allergies and she has a strong allergy to penicillin so cephalosporin class antibiotics withheld. She has a prior history of low creatinine clearance so quinolone class held as well. Dose of Macrobid will be given as well as prescription. She also needs a refill on her Keppra 1500 mg p.o. twice daily. Patient is benign-appearing and stable for discharge Departure Departure Impression: Primary Impression: Acute UTI Additional Impression: Medication refill Disposition: HOME, SELF-CARE Condition: STABLE Referrals: UNKNOWN PCP NAME (PCP) Patient Instructions: Seizure, Adult, Urinary Tract Infection Additional Instructions: Drink plenty fluids, rest, take medication as directed. You have an obvious bladder infection. See your doctor right away and follow Scripts Levetiracetam (KEPPRA) 500 Mg Tablet 3 TAB PO BID for 15 Days, #90 TAB 0 Refills Prov: GRACIA SHARPE DO 10/08/19 Nitrofurantoin Monohyd/M-Cryst (MACROBID 100 MG CAPSULE) 100 Mg Capsule 1 CAP PO BID for 7 Days, #14 CAP 0 Refills Prov: GRACIA SHARPE DO 10/08/19 Justicifation of Admission Dx: Justifications for Admission: Justification of Admission Dx: N/A GRACIA SHARPE DO Oct 08, 2019 03:41
[2019-10-08 03:50] VITALS: BP 130/85
[2019-10-08] MEDS ORDERED: NITROFURANTOIN MONOHYD/M-CRYST 100 MG CAPSULE. PO ONE (04:00)
== END 2019-10-08 03:53 | disposition home or self-care (01) ==
LOC: ER 23:30
DX: N39.0 Urinary tract infection, site not specified (principal); Z76.0 Encounter for issue of repeat prescription; Z87.891 Personal history of nicotine dependence; Z96.0 Presence of urogenital implants; Z88.0 Allergy status to penicillin; Z88.6 Allergy status to analgesic agent
CPT/HCPCS: 81001; 87086; 99283

== ENCOUNTER 2019-10-15 20:27 | Inpatient (IN) | payer OTHER ==
[~2019-10-15] VITALS: Ht 172.7 cm; Wt 99.6 kg
[2019-10-15 21:25] LABS: BILIRUBIN,URINE NEGATIVE (NEG); CLARITY,URINE CLOUDY; COLOR,URINE YELLOW; NITRITE,URINE NEGATIVE (NEG); PROTEIN,URINE 30 mg/dL (NEG-TRACE); UROBILINOGEN,URINE 0.2 mg/dL (0.2 mg/dL)
[2019-10-15 21:31] LABS: BACTERIA,URINE MANY /HPF (0-FEW); RBC,URINE >40 /HPF (0-2); SQUAMOUS EPITHELIAL CELL,UR MANY /LPF; WBC,URINE >40 /HPF (0-4)
--- NOTE | 2019-10-15 21:38 | PHYS DOC ---
Past Medical History Past Medical History: Renal Disease, Seizure Additional Past Medical Histor: BORDERLINE DIABETIC, OVARIAN CA Past Surgical History: Other Additional Past Surgical Histo: RENAL STENT Smoking Status: Former Smoker Alcohol Use: None Drug Use: None General Adult EDM: Chief Complaint: SEIZURE HPI: HPI: Patient is a 58 year old AA female, brought to the emergency department by her daughter, who presents to the emergency room with multiple complaints this evening. Patient states that she has had multiple syncopal episodes today and has had at least 2 seizures. Patient states the first seizure happened at approximately 1300 this afternoon. She states since then every time she is tried to get up after she walks about 10 steps she passes out. Patient states she has passed out multiple times today. She reports that she had another seizure later this evening both seizures lasted less than 1 minute and were witnessed by her children. She denies any nausea, vomiting, diarrhea, chest pain, shortness of breath, sore throat, loss of smell/taste, fever, cough, abdominal pain, dysuria, or increased urinary frequency. Patient states she just finished a round of antibiotics for urinary tract infection that was diagnosed last week at this facility. Patient reports she has been taking her Keppra as prescribed and has not missed any doses. She denies any photosensitivity, she currently complains of a dull headache. She denies any dizziness. Currently she rates her pain a 8 out of 10 on the pain scale, she denies any alleviating or exacerbating factors she describes her headache as a throbbing sensation. Review of Systems: Review of Systems: Constitutional: Denies fever or chills. [] Eyes: Denies change in visual acuity. [] HENT: Denies nasal congestion or sore throat. [] Respiratory: Denies cough or shortness of breath. [] Cardiovascular: Denies chest pain or edema. [] GI: Denies abdominal pain, nausea, vomiting, bloody stools or diarrhea. [] : Denies dysuria. [] Musculoskeletal: Denies back pain or joint pain. [] Integument: Denies rash. [] Neurologic: Denies headache, focal weakness or sensory changes. [] Endocrine: Denies polyuria or polydipsia. [] Lymphatic: Denies swollen glands. [] Psychiatric: Denies depression or anxiety. [] Heart Score: Risk Factors: Risk Factors: DM, Current or recent (<one month) smoker, HTN, HLP, family history of CAD, obesity. Risk Scores: Score 0 - 3: 2.5% MACE over next 6 weeks - Discharge Home Score 4 - 6: 20.3% MACE over next 6 weeks - Admit for Clinical Observation Score 7 - 10: 72.7% MACE over next 6 weeks - Early Invasive Strategies Allergies: Allergies: Allergies Coded Allergies Type Severity Reaction Last Updated Verified Penicillins Allergy Severe ANAPHYLAXIS 06/02/17 Yes aspirin Allergy Severe SEIZURES, TORADOL OK 11/03/16 Yes Physical Exam: PE: Constitutional: Well developed, well nourished, no acute distress, non-toxic appearance. [] HENT: Normocephalic, atraumatic, bilateral external ears normal, oropharynx moist, no oral exudates, nose normal. [] Eyes: PERRLA, EOMI, conjunctiva normal, no discharge. [] Neck: Normal range of motion, no tenderness, supple, no stridor. [] Cardiovascular:Heart rate irregular rhythm, no murmur [] Lungs & Thorax: Bilateral breath sounds clear to auscultation, Respirations even and unlabored, no retractions, no respiratory distress[] Abdomen: soft, no tenderness, no masses, no pulsatile masses. [] Skin: Warm, dry, no erythema, no rash. [] Back: No tenderness, no CVA tenderness. [] Extremities: No cyanosis, ROM intact, no edema. [] Neurologic: Alert and oriented X 3, normal motor function, normal sensory function, no focal deficits noted. [] Psychologic: Affect normal, judgement normal, mood normal. [] Current Patient Data: Vital Signs: Vital Signs Date Time Temp Pulse Resp B/P (MAP) Pulse Ox O2 Delivery O2 Flow Rate FiO2 10/15/19 20:50 99.2 96 18 155/116 (129) 99 Room Air 99.2 EKG: EK: Sinus rhythm rate of 99 with PACs, trigeminy, no STEMI read by Dr. Zabala [] Radiology/Procedures: Radiology/Procedures: No acute findings on the chest x-ray as read by Dr. Zabala [] PROCEDURE: CT HEAD WO CONTRAST Exam: CT head INDICATION: Syncope and seizures TECHNIQUE: Sequential axial images through the head were obtained without the administration of IV contrast. Comparisons: 06/05/2019 FINDINGS: No focal parenchymal lesion or hemorrhage is identified. There is no midline shift or sulcal effacement. Mild patchy hypodensity in the periventricular white matter, not significant changed from prior exam. No acute vascular territory infarction is identified. Mccallum-white distinction is preserved. The ventricular system is within normal limits without compression hydrocephalus. The basal cisterns are well maintained. The visualized portions of the paranasal sinuses and mastoid air cells are well-pneumatized. No acute fractures. IMPRESSION: No acute intracranial abnormality. Exposure: One or more of the following in the visualized dose reduction techniques were utilized for this examination: 1. Automated exposure control 2. Adjustment of the MA and/or KV according to patient size Use of iterative of reconstructive technique Electronically signed by: Lionel Mccollum MD (10/15/2019 10:27 PM) [id number] Course & Med Decision Making: Course & Med Decision Making Pertinent Labs and Imaging studies reviewed. (See chart for details) [id number]-spoke with Dr. Garcia who is the admitting physician, and care was assumed following discussion of patient. Advised of pending labs and radiology reports. I will consult neurology per his request. Patient's vital signs stable. Patient remains afebrile, appears nontoxic, respirations even and unlabored. Patient will be admitted to the telemetry floor. Patient's case and plan of care also discussed with Dr. Zabala [] Lois Disclaimer: Lois Disclaimer: This electronic medical record was generated, in whole or in part, using a voice recognition dictation system. Departure Departure Impression: Primary Impression: Seizure Additional Impressions: Syncope Qualified Codes: R55 - Syncope and collapse Abnormal EKG Disposition: ADMITTED INPATIENT Admitting Physician: DIAMOND ocasio) Condition: STABLE Referrals: UNKNOWN PCP NAME (PCP) Justicifation of Admission Dx: Justifications for Admission: Justification of Admission Dx: N/A BLAYNE LONDONO [employer]BOUND TELEMARKETING REPRESENTATIVE Oct 15, 2019 21:38
[2019-10-15 21:47] LABS: BASO # 0.1 x10^3/uL (0.0-0.2); BASO % 1 % (0-3); EOS # 0.2 x10^3/uL (0.0-0.7); EOS % 3 % (0-3); HEMATOCRIT 32.1 % (36.0-47.0); HEMOGLOBIN 10.7 g/dL (12.0-15.5); LYMPH # 0.8 x10^3/uL (1.0-4.8); LYMPH % 10 % (24-48); MEAN CORPUSCULAR HEMOGLOBIN 32 pg (25-35); MEAN CORPUSCULAR HGB CONC 33 g/dL (31-37); MEAN CORPUSCULAR VOLUME 95 fL (79-100); MONO # 0.5 x10^3/uL (0.0-1.1); MONO % 7 % (0-9); NEUT % 79 % (31-73); PLATELET COUNT 279 x10^3/uL (140-400); RED BLOOD COUNT 3.36 x10^6/uL (3.50-5.40); RED CELL DISTRIBUTION WIDTH 15.1 % (11.5-14.5); WHITE BLOOD COUNT 7.6 x10^3/uL (4.0-11.0)
[2019-10-15 21:57] LABS: PROTHROMBIN TIME PATIENT 13.8 SEC (11.7-14.0)
[2019-10-15 21:59] LABS: CALCIUM 8.8 mg/dL (8.5-10.1); CREATININE 2.3 mg/dL (0.6-1.0); GFR 26.4; POTASSIUM 3.9 mmol/L (3.5-5.1)
[2019-10-15] MEDS ORDERED: hydrOXYzine 25 MG TABLET PO PRN (22:00)
[2019-10-15 22:03] LABS: BARBITURATES NEG (NEG); BENZODIAZEPINES NEG (NEG); CANNABINOIDS NEG (NEG); COCAINE NEG (NEG); METHADONE NEG (NEG); OPIATES NEG (NEG); PHENCYCLIDINE NEG (NEG)
[2019-10-15 22:03] LABS: ALBUMIN 3.2 g/dL (3.4-5.0); ALBUMIN/GLOBULIN RATIO 0.7 (1.0-1.7); MAGNESIUM 1.7 mg/dL (1.8-2.4); TOTAL BILIRUBIN 0.3 mg/dL (0.2-1.0); TOTAL PROTEIN 7.9 g/dL (6.4-8.2)
[2019-10-15] MEDS: HEPARIN for SUB-Q USE 5,000 UNIT/ML VIAL. SQ SCH (22:05)
[2019-10-15 22:07] LABS: AMPHETAMINE/METHAMPHETAMINE NEG (NEG)
[2019-10-15 22:13] LABS: CREATINE KINASE 40 U/L (26-192)
--- NOTE | 2019-10-15 22:30 | RAD ---
Exam: CT head INDICATION: Syncope and seizures TECHNIQUE: Sequential axial images through the head were obtained without the administration of IV contrast. Comparisons: 06/05/2019 FINDINGS: No focal parenchymal lesion or hemorrhage is identified. There is no midline shift or sulcal effacement. Mild patchy hypodensity in the periventricular white matter, not significant changed from prior exam. No acute vascular territory infarction is identified. Mccallum-white distinction is preserved. The ventricular system is within normal limits without compression hydrocephalus. The basal cisterns are well maintained. The visualized portions of the paranasal sinuses and mastoid air cells are well-pneumatized. No acute fractures. IMPRESSION: No acute intracranial abnormality. Exposure: One or more of the following in the visualized dose reduction techniques were utilized for this examination: 1. Automated exposure control 2. Adjustment of the MA and/or KV according to patient size Use of iterative of reconstructive technique Electronically signed by: Lionel Mccollum MD (10/15/2019 10:27 PM) [id number]
--- NOTE | 2019-10-15 22:43 | RAD ---
AP portable chest radiograph 10/15/2019 Clinical History: Chest pain. An AP erect portable digital radiograph of the chest was obtained. Comparison study is dated 02/20/2011. The cardiac silhouette is mildly enlarged. The thoracic aorta is tortuous. No acute pulmonary infiltrate is seen. No pleural effusion or pneumothorax is noted. Degenerative changes are seen involving the thoracic spine. Impression: No acute abnormality is seen. Electronically signed by: Ton Ndiaye MD (10/15/2019 10:40 PM) [id number]
[2019-10-15] MEDS ORDERED: ACET325T9 PO (23:43)
[2019-10-16] VITALS (7 sets, daily range): BP systolic 122–155; BP diastolic 63–81
[2019-10-16] MEDS: ACETAMINOPHEN 325 MG TABLET. PO PRN ×3 (00:42→14:28)
[2019-10-16 06:15] LABS: BASO % 0 % (0-3); EOS # 0.2 x10^3/uL (0.0-0.7); EOS % 3 % (0-3); HEMATOCRIT 30.4 % (36.0-47.0); LYMPH # 0.9 x10^3/uL (1.0-4.8); LYMPH % 11 % (24-48); MEAN CORPUSCULAR HEMOGLOBIN 31 pg (25-35); MEAN CORPUSCULAR HGB CONC 33 g/dL (31-37); MEAN CORPUSCULAR VOLUME 95 fL (79-100); MONO # 0.6 x10^3/uL (0.0-1.1); MONO % 8 % (0-9); NEUT # 5.9 x10^3/uL (1.8-7.7); NEUT % 77 % (31-73); PLATELET COUNT 241 x10^3/uL (140-400); RED BLOOD COUNT 3.19 x10^6/uL (3.50-5.40); WHITE BLOOD COUNT 7.7 x10^3/uL (4.0-11.0)
[2019-10-16 06:31] LABS: CALCIUM 8.1 mg/dL (8.5-10.1); CREATININE 2.5 mg/dL (0.6-1.0); POTASSIUM 3.8 mmol/L (3.5-5.1)
[2019-10-16] MEDS: HEPARIN for SUB-Q USE 5,000 UNIT/ML VIAL. SQ SCH ×3 (06:41→21:56)
--- NOTE | 2019-10-16 07:21 | EKG ---
[facility] [address] [place] [address] Test Date: 2019-10-15 Test Time: 21:01:01 Pat Name: LILO PALACIO Department: Room: Gender: F Bail Attacher: : [id number] Requested By: BLAYNE LONDONO Order Number: [id number] Reading MD: Measurements Intervals [place] Rate: 99 P: 90 TX: 126 QRS: 54 QRSD: 90 T: 22 QT: 336 QTc: 436 Interpretive Statements SINUS RHYTHM ATRIAL PREMATURE COMPLEX(ES), TRIGEMINY ABNORMAL ECG RI6.02 No previous ECG available for comparison
--- NOTE | 2019-10-16 07:53 | PDOC1 ---
History and Physical Date of Admission Date of Admission DATE: 10/16/19 TIME: 07:41 Identification/Chief Complaint Chief Complaint Seizures Source Source: Patient History of Present Illness History of Present Illness Ms Cardenas is a 58 year old AA female w/ PMHx CKD, prediabetes, ovarian ca, seizures who was brought to the emergency department by her daughter with multiple complaints. Patient states that she has had multiple syncopal episodes 10/15/2019 during the day and has had at least 2 seizures. Patient states the first seizure happened at approximately 1300 this afternoon. She states since then every time she is tried to get up after she walks about 10 steps she passes out. Patient states she has passed out multiple times today. She reports that she had another seizure later this evening both seizures lasted less than 1 minute and were witnessed by her children. She denies any nausea, vomiting, diarrhea, chest pain, shortness of breath, sore throat, loss of smell/taste, fever, cough, abdominal pain, dysuria, or increased urinary frequency. Patient states she just finished a round of antibiotics for urinary tract infection that was diagnosed last week at this facility, she was given Macrobid and on further review the microbiology showed normal genitourinary eevrton, incidentally at that same ED visit she also had come in for a Keppra refill and had been given 1500 mg twice daily at that appointment she tells me that she filled out as well and has been taking it, and has not missed any doses. She denies any photosensitivity, she currently complains of a dull headache. She denies any dizziness. Currently she rates her pain a 8 out of 10 on the pain scale, she denies any alleviating or exacerbating factors she describes her headache as a throbbing sensation. She tells nursing staff she is having "small seizures". When asked further she is actually describing is pain along her right side where she fell. She is also noting that she is only been sleeping 1 to 2 hours a night for the past 2 nights and just cannot seem to sleep, but after be admitted last night she slept all night. EKG appears sinus rhythm rate of 99 bpm, multiple PACs with trigeminy. No ST segment or T wave abnormalities. Head CT and CXR with no acute abnormalities WBC 7.7, Hb 10, platelets 241, BNP 485, INR 1.1, albumin 3.2, calcium 8.1, NA 139, K3.8, BUN 37, CR 2.5, glucose 122. Admitted for further care. Past Medical History Cardiovascular: HTN Pulmonary: Bronchitis CENTRAL NERVOUS SYSTEM: Seizure Heme/Onc: No pertinent hx, Cancer Hepatobiliary: No pertinent hx Psych: No pertinent hx Rheumatologic: No pertinent hx Infectious disease: No pertinent hx Renal/: Other Past Surgical History Past Surgical History: Other Family History Family History: Cancer Social History Smoke: No ALCOHOL: none Drugs: None Current Problem List Problem List Problems Medical Problems: (1) Abnormal EKG Status: Acute (2) Seizure Status: Acute (3) Syncope Status: Acute Current Medications Current Medications Current Medications Heparin Sodium (Porcine) (Heparin Sodium) 5,000 unit Q8HRS SQ Last administered on 10/16/19at 06:41; Start 10/15/19 at 22:00 Hydroxyzine HCl (Atarax) 25 mg PRN QHS PRN PO INSOMNIA Last administered on 10/15/19at 23:59; Start 10/15/19 at 22:00 Levetiracetam (Keppra) 1,500 mg BID PO ; Start 10/16/19 at 09:00 Levetiracetam (Keppra) 1,500 mg 1X ONCE PO Last administered on 10/15/19at 23:59; Start 10/16/19 at 00:00; Stop 10/16/19 at 00:01; Status DC Acetaminophen (Tylenol) 650 mg PRN Q6HRS PRN PO PAIN Last administered on 10/16/19at 00:42; Start 10/16/19 at 00:30 Active Scripts Active Keppra (Levetiracetam) 500 Mg Tablet 3 Tab PO BID Reported Tylenol (Acetaminophen) 325 Mg Tablet 650 Mg PO Q6HRS PRN Allergies Allergies: Coded Allergies: Penicillins (Verified Allergy, Severe, ANAPHYLAXIS, 06/02/17) Has taken keflex before aspirin (Verified Allergy, Severe, SEIZURES, TORADOL OK, 11/03/16) ROS General: YES: Fatigue, Malaise; No: Chills, Night Sweats, Appetite, Other PSYCHOLOGICAL ROS: No: Anxiety, Behavioral Disorder, Concentration difficultie, Decreased libido, Depression, Disorientation, Hallucinations, Hostility, Irritablity, Memory difficulties, Mood Swings, Obsessive thoughts, Physical abuse, Sexual abuse, Sleep disturbances, Suicidal ideation, Other Eyes: No Blurry vision, No Decreased vision, No Double vision, No Dry eyes, No Excessive tearing, No Eye Pain, No Itchy Eyes, No Loss of vision, No Photophobia, No Scotomata, No Uses contacts, No Uses glasses, No Other HEENT: No: Heacaches, Visual Changes, Hearing change, Nasal congestion, Nasal discharge, Oral lesions, Sinus pain, Sore Throat, Epistaxis, Sneezing, Snoring, Tinnitus, Vertigo, Vocal changes, Other ALLERGY AND IMMUNOLOGY: No: Hives, Insect Bite Sensitivity, Itchy/Watery Eyes, Nasal Congestion, Post Nasal Drip, Seasonal Allergies, Other Hematological and Lymphatic: No: Bleeding Problems, Blood Clots, Blood Transfusions, Brusing, Night Sweats, Pallor, Swollen Lymph Nodes, Other ENDOCRINE: No: Breast Changes, Galactorrhea, Hair Pattern Changes, Hot Flashes, Malaise/lethargy, Mood Swings, Palpitations, Polydipsia/polyuria, Skin Changes, Temperature Intolerance, Unexpected Weight Changes, Other Breast: No New/Changing Breast Lumps, No Nipple changes, No Nipple discharge, No Other Respiratory: No: Cough, Hemoptysis, Orthopnea, Pleuritic Pain, Shortness of breath, SOB with excertion, Sputum Changes, Stridor, Tachypnea, Wheezing, Other Cardiovascular: No Chest Pain, No Palpitations, No Orthopnea, No Paroxysmal Noc. Dyspnea, No Edema, No Lt Headedness, No Other Gastrointestinal: No Nausea, No Vomiting, No Abdominal Pain, No Diarrhea, No Constipation, No Melena, No Hematochezia, No Other Genitourinary: No Dysuria, No Frequency, No Incontinence, No Hematuria, No Retention, No Discharge, No Urgency, No Pain, No Flank Pain, No Other, No , No , No , No , No , No , No Musculoskeletal: Yes Gait Disturbance; No Joint Pain, No Joint Stiffness, No Joint Swelling, No Muscle Pain, No Muscular Weakness, No Pain In:, No Swelling In:, No Other Neurological: Yes Confusion, Yes Dizziness, Yes Gait Disturbance, Yes Headaches , Yes Memory Loss, Yes Tremors; No Behavorial Changes, No Bowel/Bladder ControlChng, No Impaired Coord/balance, No Numbness/Tingling, No Seizures, No Speech Problems, No Visual Changes, No Weakness, No Other Skin: No Dry Skin, No Eczema, No Hair Changes, No Lumps, No Mole Changes, No Mottling, No Nail Changes, No Pruritus, No Rash, No Skin Lesion Changes, No Other, No Acne Physical Exam General: Alert, Cooperative, No acute distress HEENT: Atraumatic, PERRLA, EOMI, Mucous membr. moist/pink Lungs: Clear to auscultation, Normal air movement Heart: S1S2, RRR, no thrills, no rubs, no gallops, no murmurs Abdomen: Normal bowel sounds, Soft, No tenderness, No hepatosplenomegaly, No masses Rectal Exam: not examined Extremities: No clubbing, No cyanosis, No edema, Normal pulses, No tenderness/swelling Skin: No rashes, No breakdown, No significant lesion Neuro: Normal speech, Strength at 5/5 X4 ext, Normal tone, Sensation intact, Cranial nerves 3-12 NL, Reflexes 2+ Psych/Mental Status: Mental status NL, Mood NL Vitals Vitals Vital Signs Date Time Temp Pulse Resp B/P (MAP) Pulse Ox O2 Delivery O2 Flow Rate FiO2 10/16/19 03:00 98.6 95 18 135/75 (95) 97 Room Air 98.6 Labs Labs Laboratory Tests Test 10/15/19 20:40 10/15/19 21:37 10/15/19 21:45 10/16/19 05:35 Urine Collection Type Unknown Urine Color Yellow Urine Clarity Cloudy Urine pH 6.0 (<5.0-8.0) Urine Specific Gulliver 1.010 (1.000-1.030) Urine Protein 30 mg/dL (NEG-TRACE) Urine Glucose (UA) Negative mg/dL (NEG) Urine Ketones (Stick) Negative mg/dL (NEG) Urine Blood Large (NEG) Urine Nitrite Negative (NEG) Urine Bilirubin Negative (NEG) Urine Urobilinogen Dipstick 0.2 mg/dL (0.2 mg/dL) Urine Leukocyte Esterase Large (NEG) Urine RBC >40 /HPF (0-2) Urine WBC >40 /HPF (0-4) Urine Squamous Epithelial Cells Many /LPF Urine Bacteria Many /HPF (0-FEW) White Blood Count 7.6 x10^3/uL (4.0-11.0) 7.7 x10^3/uL (4.0-11.0) Red Blood Count 3.36 x10^6/uL (3.50-5.40) 3.19 x10^6/uL (3.50-5.40) Hemoglobin 10.7 g/dL (12.0-15.5) 10.0 g/dL (12.0-15.5) Hematocrit 32.1 % (36.0-47.0) 30.4 % (36.0-47.0) Mean Corpuscular Volume 95 fL (79-100) 95 fL (79-100) Mean Corpuscular Hemoglobin 32 pg (25-35) 31 pg (25-35) Mean Corpuscular Hemoglobin Concent 33 g/dL (31-37) 33 g/dL (31-37) Red Cell Distribution Width 15.1 % (11.5-14.5) 15.0 % (11.5-14.5) Platelet Count 279 x10^3/uL (140-400) 241 x10^3/uL (140-400) Neutrophils (%) (Auto) 79 % (31-73) 77 % (31-73) Lymphocytes (%) (Auto) 10 % (24-48) 11 % (24-48) Monocytes (%) (Auto) 7 % (0-9) 8 % (0-9) Eosinophils (%) (Auto) 3 % (0-3) 3 % (0-3) Basophils (%) (Auto) 1 % (0-3) 0 % (0-3) Neutrophils # (Auto) 6.0 x10^3/uL (1.8-7.7) 5.9 x10^3/uL (1.8-7.7) Lymphocytes # (Auto) 0.8 x10^3/uL (1.0-4.8) 0.9 x10^3/uL (1.0-4.8) Monocytes # (Auto) 0.5 x10^3/uL (0.0-1.1) 0.6 x10^3/uL (0.0-1.1) Eosinophils # (Auto) 0.2 x10^3/uL (0.0-0.7) 0.2 x10^3/uL (0.0-0.7) Basophils # (Auto) 0.1 x10^3/uL (0.0-0.2) 0.0 x10^3/uL (0.0-0.2) Prothrombin Time 13.8 SEC (11.7-14.0) Prothromb Time International Ratio 1.1 (0.8-1.1) Activated Partial Thromboplast Time 27 SEC (24-38) Sodium Level 143 mmol/L (136-145) 139 mmol/L (136-145) Potassium Level 3.9 mmol/L (3.5-5.1) 3.8 mmol/L (3.5-5.1) Chloride Level 108 mmol/L (98-107) 106 mmol/L (98-107) Carbon Dioxide Level 22 mmol/L (21-32) 21 mmol/L (21-32) Anion Gap 13 (6-14) 12 (6-14) Blood Urea Nitrogen 37 mg/dL (7-20) 37 mg/dL (7-20) Creatinine 2.3 mg/dL (0.6-1.0) 2.5 mg/dL (0.6-1.0) Estimated GFR (Cockcroft-Gault) 26.4 24.0 BUN/Creatinine Ratio 16 (6-20) Glucose Level 114 mg/dL (70-99) 122 mg/dL (70-99) Calcium Level 8.8 mg/dL (8.5-10.1) 8.1 mg/dL (8.5-10.1) Magnesium Level 1.7 mg/dL (1.8-2.4) Total Bilirubin 0.3 mg/dL (0.2-1.0) Aspartate Amino Transf (AST/SGOT) 19 U/L (15-37) Alanine Aminotransferase (ALT/SGPT) 36 U/L (14-59) Alkaline Phosphatase 97 U/L (46-116) Creatine Kinase 40 U/L (26-192) Creatine Kinase MB (Mass) 0.6 ng/mL (0.0-3.6) Creatine Kinase MB Relative Index % (0-4) Troponin I Quantitative < 0.017 ng/mL (0.000-0.055) TN-Tau-Y-Type Natriuretic Peptide 485 pg/mL (0-124) Total Protein 7.9 g/dL (6.4-8.2) Albumin 3.2 g/dL (3.4-5.0) Albumin/Globulin Ratio 0.7 (1.0-1.7) Urine Opiates Screen Neg (NEG) Urine Methadone Screen Neg (NEG) Urine Barbiturates Neg (NEG) Urine Phencyclidine Screen Neg (NEG) Urine Amphetamine/Methamphetamine Neg (NEG) Urine Benzodiazepines Screen Neg (NEG) Urine Cocaine Screen Neg (NEG) Urine Cannabinoids Screen Neg (NEG) Urine Ethyl Alcohol Neg (NEG) Laboratory Tests Test 10/15/19 20:40 10/15/19 21:37 10/15/19 21:45 10/16/19 05:35 Urine Collection Type Unknown Urine Color Yellow Urine Clarity Cloudy Urine pH 6.0 (<5.0-8.0) Urine Specific Gulliver 1.010 (1.000-1.030) Urine Protein 30 mg/dL (NEG-TRACE) Urine Glucose (UA) Negative mg/dL (NEG) Urine Ketones (Stick) Negative mg/dL (NEG) Urine Blood Large (NEG) Urine Nitrite Negative (NEG) Urine Bilirubin Negative (NEG) Urine Urobilinogen Dipstick 0.2 mg/dL (0.2 mg/dL) Urine Leukocyte Esterase Large (NEG) Urine RBC >40 /HPF (0-2) Urine WBC >40 /HPF (0-4) Urine Squamous Epithelial Cells Many /LPF Urine Bacteria Many /HPF (0-FEW) White Blood Count 7.6 x10^3/uL (4.0-11.0) 7.7 x10^3/uL (4.0-11.0) Red Blood Count 3.36 x10^6/uL (3.50-5.40) 3.19 x10^6/uL (3.50-5.40) Hemoglobin 10.7 g/dL (12.0-15.5) 10.0 g/dL (12.0-15.5) Hematocrit 32.1 % (36.0-47.0) 30.4 % (36.0-47.0) Mean Corpuscular Volume 95 fL (79-100) 95 fL (79-100) Mean Corpuscular Hemoglobin 32 pg (25-35) 31 pg (25-35) Mean Corpuscular Hemoglobin Concent 33 g/dL (31-37) 33 g/dL (31-37) Red Cell Distribution Width 15.1 % (11.5-14.5) 15.0 % (11.5-14.5) Platelet Count 279 x10^3/uL (140-400) 241 x10^3/uL (140-400) Neutrophils (%) (Auto) 79 % (31-73) 77 % (31-73) Lymphocytes (%) (Auto) 10 % (24-48) 11 % (24-48) Monocytes (%) (Auto) 7 % (0-9) 8 % (0-9) Eosinophils (%) (Auto) 3 % (0-3) 3 % (0-3) Basophils (%) (Auto) 1 % (0-3) 0 % (0-3) Neutrophils # (Auto) 6.0 x10^3/uL (1.8-7.7) 5.9 x10^3/uL (1.8-7.7) Lymphocytes # (Auto) 0.8 x10^3/uL (1.0-4.8) 0.9 x10^3/uL (1.0-4.8) Monocytes # (Auto) 0.5 x10^3/uL (0.0-1.1) 0.6 x10^3/uL (0.0-1.1) Eosinophils # (Auto) 0.2 x10^3/uL (0.0-0.7) 0.2 x10^3/uL (0.0-0.7) Basophils # (Auto) 0.1 x10^3/uL (0.0-0.2) 0.0 x10^3/uL (0.0-0.2) Prothrombin Time 13.8 SEC (11.7-14.0) Prothromb Time International Ratio 1.1 (0.8-1.1) Activated Partial Thromboplast Time 27 SEC (24-38) Sodium Level 143 mmol/L (136-145) 139 mmol/L (136-145) Potassium Level 3.9 mmol/L (3.5-5.1) 3.8 mmol/L (3.5-5.1) Chloride Level 108 mmol/L (98-107) 106 mmol/L (98-107) Carbon Dioxide Level 22 mmol/L (21-32) 21 mmol/L (21-32) Anion Gap 13 (6-14) 12 (6-14) Blood Urea Nitrogen 37 mg/dL (7-20) 37 mg/dL (7-20) Creatinine 2.3 mg/dL (0.6-1.0) 2.5 mg/dL (0.6-1.0) Estimated GFR (Cockcroft-Gault) 26.4 24.0 BUN/Creatinine Ratio 16 (6-20) Glucose Level 114 mg/dL (70-99) 122 mg/dL (70-99) Calcium Level 8.8 mg/dL (8.5-10.1) 8.1 mg/dL (8.5-10.1) Magnesium Level 1.7 mg/dL (1.8-2.4) Total Bilirubin 0.3 mg/dL (0.2-1.0) Aspartate Amino Transf (AST/SGOT) 19 U/L (15-37) Alanine Aminotransferase (ALT/SGPT) 36 U/L (14-59) Alkaline Phosphatase 97 U/L (46-116) Creatine Kinase 40 U/L (26-192) Creatine Kinase MB (Mass) 0.6 ng/mL (0.0-3.6) Creatine Kinase MB Relative Index % (0-4) Troponin I Quantitative < 0.017 ng/mL (0.000-0.055) CT-Jhw-S-Type Natriuretic Peptide 485 pg/mL (0-124) Total Protein 7.9 g/dL (6.4-8.2) Albumin 3.2 g/dL (3.4-5.0) Albumin/Globulin Ratio 0.7 (1.0-1.7) Urine Opiates Screen Neg (NEG) Urine Methadone Screen Neg (NEG) Urine Barbiturates Neg (NEG) Urine Phencyclidine Screen Neg (NEG) Urine Amphetamine/Methamphetamine Neg (NEG) Urine Benzodiazepines Screen Neg (NEG) Urine Cocaine Screen Neg (NEG) Urine Cannabinoids Screen Neg (NEG) Urine Ethyl Alcohol Neg (NEG) Images Images CT Head: No focal parenchymal lesion or hemorrhage is identified. There is no midline shift or sulcal effacement. Mild patchy hypodensity in the periventricular white matter, not significant changed from prior exam. No acute vascular territory infarction is identified. Mccallum-white distinction is preserved. The ventricular system is within normal limits without compression hydrocephalus. The basal cisterns are well maintained. The visualized portions of the paranasal sinuses and mastoid air cells are well- pneumatized. No acute fractures. IMPRESSION: No acute intracranial abnormality. CXR: The cardiac silhouette is mildly enlarged. The thoracic aorta is tortuous. No acute pulmonary infiltrate is seen. No pleural effusion or pneumothorax is noted. Degenerative changes are seen involving the thoracic spine. Impression: No acute abnormality is seen. VTE Prophylaxis Ordered VTE Prophylaxis Devices: No VTE Pharmacological Prophylaxi: Yes Assessment/Plan Assessment/Plan A/P: Seizures -breakthrough seizures. Likely due to antibiotic exposure and insomnia. Neurology has been consulted. No immediate indication for EEG or MRI at this time. No further seizures inpatient. Seizure like episodes -seems to be related to right-sided pain likely from her fall Fall -sounds to be more seizure related, based on telemetry and EKG this does not seem to be a cardiogenic episode. No murmurs noted. HTN -continue meds Obesity -counseled on weight management Smoking -counseled on cessation Prediabetes -we will monitor blood glucose Insomnia -likely contributing to her seizures. Will ensure that she has good sleep hygiene. Anemia - likely of chronic disease, will check iron studies SANDHYA on CKD - likely vasomotor nephropathy, baseline Cr appears to be 1.5 FEN - General diet PPX - lovenox FULL CODE Dispo - cont inpatient for an additional day Justifications for Admission Other Justification GAGAN FINNEY MD Oct 16, 2019 07:53
--- NOTE | 2019-10-16 08:02 | NUR ---
Pt claimed she felt a whole lot better this AM during rounds. Noted no seizures last night. Afterwards, this RN noted her monitor heart rate to 140's, 150's. Checked on pt. No seizure activity noted but pt claimed she just had a seizure. When asked how long it lasted. Pt claimed it lasted for 5 minutes. v/s checked. Dr Hernandez repaged. JAK Vo informed.
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
[2019-10-16] MEDS ORDERED: levETIRAcetam 500 MG TABLET PO ONE ×2 (09:00)
[2019-10-16] MEDS ORDERED: levETIRAcetam 500 MG TABLET PO SCH (09:00)
--- NOTE | 2019-10-16 15:07 | NUR ---
SW following. Spoke with RN and reviewed chart. Pt on Heparin and room air. Pt has [employer] and follows up out-patient at [facility] per chart review. SW consulted to assist pt in finding a neurologist. REYES LVM for [facility] ([phone]) with [employer] and requested she follow up with pt to see about finding her a neurologist that takes [employer]. Pt will likely discharge over the weekend to home self-care. No further SW needs identified at this time.
--- NOTE | 2019-10-16 17:19 | CARD ---
MR#: [id number] Date of Study: 10/16/2019 Ordering Physician: MINERVA COLEMAN, Referring Physician: MINERVA COLEMAN, Tech: Yaquelin Ramos APPROVED REPORT EXAM: Two-dimensional and M-mode echocardiogram with Doppler and color Doppler. Other Information Quality : AverageHR: 101bpm INDICATION Syncope 2D DIMENSIONS RVDd3.3 (2.9-3.5cm)Left Atrium(2D)3.0 (1.6-4.0cm) IVSd1.1 (0.7-1.1cm)Aortic Root(2D)3.4 (2.0-3.7cm) LVDd5.4 (3.9-5.9cm)LVOT Diameter2.1 (1.8-2.4cm) PWd1.1 (0.7-1.1cm)LVDs3.2 (2.5-4.0cm) FS (%) 40.3 %SV98.6 ml LVEF(%)70.5 (>50%) Aortic Valve AoV Peak Jose.137.7cm/sAoV VTI23.3cm AO Peak GR.7.6mmHgLVOT Peak Jose.104.9cm/s LVOT VTI 18.62cmAO Mean GR.4mmHg ALEXX (VMAX)1.91sl1IAN (VTI)2.64cm2 Mitral Valve MV E Fporjisn42.6cm/sMV DECEL [id number] MV A Kjttickr06.6cm/sMV E Mean Gr.1mmHg MV [id number] Ratio0.9 MVA (PHT)3.22cm2 TDI E/Lateral E'5.1E/Medial E'5.6 Pulmonary Valve PV Peak Pnjndspm756.2cm/sPV Peak Grad.5mmHg Tricuspid Valve RAP [id number] Pulmonary Vein S1 Gpyxbigz02.2cm/sD2 Vymhvenp94.7cm/s PVa [id number] LEFT VENTRICLE The left ventricle is normal size. There is mild concentric left ventricular hypertrophy. The left ve ntricular systolic function is normal and the ejection fraction is within normal range. The Ejection Fraction is 55-60%. There is normal LV segmental wall motion. Transmitral Doppler flow pattern is Gra de I-abnormal relaxation pattern. RIGHT VENTRICLE The right ventricle is normal size. There is normal right ventricular wall thickness. The right ventr icular systolic function is normal. ATRIA The left atrium size is normal. The right atrium size is normal. The interatrial septum is intact wit h no evidence for an atrial septal defect or patent foramen ovale as noted on 2-D or Doppler imaging. AORTIC VALVE The aortic valve is thickened but opens well. Doppler and Color Flow revealed no significant aortic r egurgitation. There is no significant aortic valvular stenosis. Calculated aortic valve area is 2.67 cm2 with maximum pressure gradient of 8 mmHg and mean pressure gradient of 4 mmHg. MITRAL VALVE The mitral valve is normal in structure and function. There is no evidence of mitral valve prolapse. There is no mitral valve stenosis. Doppler and Color Flow revealed no mitral valve regurgitation note d. TRICUSPID VALVE The tricuspid valve is normal in structure and function. Doppler and Color Flow revealed no tricuspid valve regurgitation noted. There is no tricuspid valve stenosis. PULMONIC VALVE The pulmonic valve is not well visualized. Doppler and Color Flow revealed trace pulmonic valvular re gurgitation. GREAT VESSELS The aortic root is normal in size. The ascending aorta is normal in size. The IVC is normal in size a nd collapses >50% with inspiration. PERICARDIAL EFFUSION There is no evidence of significant pericardial effusion. Critical Notification Critical Value: No <Conclusion> The left ventricular systolic function is normal and the ejection fraction is within normal range. Th e Ejection Fraction is 55-60%. There is normal LV segmental wall motion. Signed by : Brice Shen, Electronically Approved : 10/16/2019 17:19:21
[2019-10-16] MEDS: levETIRAcetam 500 MG TABLET PO SCH (21:47)
[2019-10-17 03:00] VITALS: BP 138/65
[2019-10-17 04:23] LABS: BASO % 1 % (0-3); EOS # 0.2 x10^3/uL (0.0-0.7); EOS % 3 % (0-3); HEMATOCRIT 30.2 % (36.0-47.0); HEMOGLOBIN 9.8 g/dL (12.0-15.5); LYMPH # 1.1 x10^3/uL (1.0-4.8); LYMPH % 15 % (24-48); MEAN CORPUSCULAR HEMOGLOBIN 31 pg (25-35); MEAN CORPUSCULAR HGB CONC 32 g/dL (31-37); MEAN CORPUSCULAR VOLUME 96 fL (79-100); MONO # 0.7 x10^3/uL (0.0-1.1); MONO % 10 % (0-9); NEUT # 5.2 x10^3/uL (1.8-7.7); NEUT % 72 % (31-73); PLATELET COUNT 220 x10^3/uL (140-400); RED BLOOD COUNT 3.15 x10^6/uL (3.50-5.40); RED CELL DISTRIBUTION WIDTH 15.1 % (11.5-14.5); WHITE BLOOD COUNT 7.3 x10^3/uL (4.0-11.0)
[2019-10-17 04:40] LABS: CALCIUM 8.3 mg/dL (8.5-10.1); CREATININE 2.7 mg/dL (0.6-1.0); POTASSIUM 3.8 mmol/L (3.5-5.1)
[2019-10-17] MEDS: HEPARIN for SUB-Q USE 5,000 UNIT/ML VIAL. SQ SCH ×2 (05:55→15:20)
[2019-10-17 07:59] VITALS: BP 118/71
[2019-10-17] MEDS: levETIRAcetam 500 MG TABLET PO SCH (09:14)
[2019-10-17] MEDS: ACETAMINOPHEN 325 MG TABLET. PO PRN (09:14)
[2019-10-17 11:59] VITALS: BP 119/68
--- NOTE | 2019-10-17 13:43 | PDOC ---
[facility] PROGRESS NOTE Date of Service DOS: DATE: 10/17/19 TIME: 13:42 Chief Complaint Chief Complaint Seizure History of Present Illness History of Present Illness Patient evaluated bedside. She denies any further seizure-like activity. Discussed UA results, and increasing Keppra medication. I recommended to patient that she find a new primary care doctor, as she has been currently coming to the ER every so often to refill her medications. Patient states she is in the process of finding a new PCP, and feels comfortable discharging today. Vitals/I&O Vitals/I&O: Vital Signs Date Time Temp Pulse Resp B/P (MAP) Pulse Ox O2 Delivery O2 Flow Rate FiO2 10/17/19 11:59 98.6 92 16 119/68 (85) 99 Room Air 98.6 I & O 10/16/19 10/16/19 10/17/19 15:00 23:00 07:00 Intake Total 240 ml Balance 240 ml Physical Exam General: Alert, Cooperative, No acute distress Heart: Regular rate, Normal S1, Normal S2 Lungs: Clear Abdomen: Normal bowel sounds, Soft, No tenderness, No hepatosplenomegaly, No masses Extremities: No clubbing, No cyanosis, No edema, Normal pulses, No tenderne ss/swelling Skin: No rashes, No breakdown, No significant lesion Labs Labs: Laboratory Tests Test 10/17/19 03:30 White Blood Count 7.3 x10^3/uL (4.0-11.0) Red Blood Count 3.15 x10^6/uL (3.50-5.40) Hemoglobin 9.8 g/dL (12.0-15.5) Hematocrit 30.2 % (36.0-47.0) Mean Corpuscular Volume 96 fL (79-100) Mean Corpuscular Hemoglobin 31 pg (25-35) Mean Corpuscular Hemoglobin Concent 32 g/dL (31-37) Red Cell Distribution Width 15.1 % (11.5-14.5) Platelet Count 220 x10^3/uL (140-400) Neutrophils (%) (Auto) 72 % (31-73) Lymphocytes (%) (Auto) 15 % (24-48) Monocytes (%) (Auto) 10 % (0-9) Eosinophils (%) (Auto) 3 % (0-3) Basophils (%) (Auto) 1 % (0-3) Neutrophils # (Auto) 5.2 x10^3/uL (1.8-7.7) Lymphocytes # (Auto) 1.1 x10^3/uL (1.0-4.8) Monocytes # (Auto) 0.7 x10^3/uL (0.0-1.1) Eosinophils # (Auto) 0.2 x10^3/uL (0.0-0.7) Basophils # (Auto) 0.0 x10^3/uL (0.0-0.2) Sodium Level 142 mmol/L (136-145) Potassium Level 3.8 mmol/L (3.5-5.1) Chloride Level 108 mmol/L (98-107) Carbon Dioxide Level 23 mmol/L (21-32) Anion Gap 11 (6-14) Blood Urea Nitrogen 40 mg/dL (7-20) Creatinine 2.7 mg/dL (0.6-1.0) Estimated GFR (Cockcroft-Gault) 22.0 Glucose Level 114 mg/dL (70-99) Calcium Level 8.3 mg/dL (8.5-10.1) Assessment and Plan Assessmemt and Plan Problems Medical Problems: (1) Abnormal EKG Status: Acute (2) Seizure Status: Acute (3) Syncope Status: Acute Comment Review of Relevant I have reviewed the following items emilia (where applicable) has been applied. Medications: Current Medications Medications (Trade) Dose Ordered Sig/Vania Route PRN Reason Start Time Stop Time Status Last Admin Dose Admin Levetiracetam (Keppra) 2,000 mg BID PO 10/16/19 21:00 10/17/19 09:14 Justifications for Admission Other Justification MINERVA COLEMAN MD Oct 17, 2019 13:43
[2019-10-17] MEDS ORDERED: LEVE500T56 PO (13:46)
--- NOTE | 2019-10-17 13:49 | PDOC3 ---
Discharge Summary Visit Information Date of Admission: Oct 15, 2019 Date of Discharge: Oct 17, 2019 Final Diagnosis Problems Medical Problems: (1) Abnormal EKG Status: Acute (2) Seizure Status: Acute (3) Syncope Status: Acute Brief Hospital Course Allergies Allergies Coded Allergies Type Severity Reaction Last Updated Verified Penicillins Allergy Severe ANAPHYLAXIS 06/02/17 Yes aspirin Allergy Severe SEIZURES, TORADOL OK 11/03/16 Yes Vital Signs Vital Signs Date Time Temp Pulse Resp B/P (MAP) Pulse Ox O2 Delivery O2 Flow Rate FiO2 10/17/19 11:59 98.6 92 16 119/68 (85) 99 Room Air 98.6 Lab Results Laboratory Tests Test 10/15/19 20:40 10/15/19 21:37 10/15/19 21:45 10/16/19 05:35 Urine Collection Type Unknown Urine Color Yellow Urine Clarity Cloudy Urine pH 6.0 (<5.0-8.0) Urine Specific [place] 1.010 (1.000-1.030) Urine Protein 30 mg/dL (NEG-TRACE) Urine Glucose (UA) Negative mg/dL (NEG) Urine Ketones (Stick) Negative mg/dL (NEG) Urine Blood Large (NEG) Urine Nitrite Negative (NEG) Urine Bilirubin Negative (NEG) Urine Urobilinogen Dipstick 0.2 mg/dL (0.2 mg/dL) Urine Leukocyte Esterase Large (NEG) Urine RBC >40 /HPF (0-2) Urine WBC >40 /HPF (0-4) Urine Squamous Epithelial Cells Many /LPF Urine Bacteria Many /HPF (0-FEW) White Blood Count 7.6 x10^3/uL (4.0-11.0) 7.7 x10^3/uL (4.0-11.0) Red Blood Count 3.36 x10^6/uL (3.50-5.40) 3.19 x10^6/uL (3.50-5.40) Hemoglobin 10.7 g/dL (12.0-15.5) 10.0 g/dL (12.0-15.5) Hematocrit 32.1 % (36.0-47.0) 30.4 % (36.0-47.0) Mean Corpuscular Volume 95 fL (79-100) 95 fL (79-100) Mean Corpuscular Hemoglobin 32 pg (25-35) 31 pg (25-35) Mean Corpuscular Hemoglobin Concent 33 g/dL (31-37) 33 g/dL (31-37) Red Cell Distribution Width 15.1 % (11.5-14.5) 15.0 % (11.5-14.5) Platelet Count 279 x10^3/uL (140-400) 241 x10^3/uL (140-400) Neutrophils (%) (Auto) 79 % (31-73) 77 % (31-73) Lymphocytes (%) (Auto) 10 % (24-48) 11 % (24-48) Monocytes (%) (Auto) 7 % (0-9) 8 % (0-9) Eosinophils (%) (Auto) 3 % (0-3) 3 % (0-3) Basophils (%) (Auto) 1 % (0-3) 0 % (0-3) Neutrophils # (Auto) 6.0 x10^3/uL (1.8-7.7) 5.9 x10^3/uL (1.8-7.7) Lymphocytes # (Auto) 0.8 x10^3/uL (1.0-4.8) 0.9 x10^3/uL (1.0-4.8) Monocytes # (Auto) 0.5 x10^3/uL (0.0-1.1) 0.6 x10^3/uL (0.0-1.1) Eosinophils # (Auto) 0.2 x10^3/uL (0.0-0.7) 0.2 x10^3/uL (0.0-0.7) Basophils # (Auto) 0.1 x10^3/uL (0.0-0.2) 0.0 x10^3/uL (0.0-0.2) Prothrombin Time 13.8 SEC (11.7-14.0) Prothromb Time International Ratio 1.1 (0.8-1.1) Activated Partial Thromboplast Time 27 SEC (24-38) Sodium Level 143 mmol/L (136-145) 139 mmol/L (136-145) Potassium Level 3.9 mmol/L (3.5-5.1) 3.8 mmol/L (3.5-5.1) Chloride Level 108 mmol/L (98-107) 106 mmol/L (98-107) Carbon Dioxide Level 22 mmol/L (21-32) 21 mmol/L (21-32) Anion Gap 13 (6-14) 12 (6-14) Blood Urea Nitrogen 37 mg/dL (7-20) 37 mg/dL (7-20) Creatinine 2.3 mg/dL (0.6-1.0) 2.5 mg/dL (0.6-1.0) Estimated GFR (Cockcroft-Gault) 26.4 24.0 BUN/Creatinine Ratio 16 (6-20) Glucose Level 114 mg/dL (70-99) 122 mg/dL (70-99) Calcium Level 8.8 mg/dL (8.5-10.1) 8.1 mg/dL (8.5-10.1) Magnesium Level 1.7 mg/dL (1.8-2.4) Total Bilirubin 0.3 mg/dL (0.2-1.0) Aspartate Amino Transf (AST/SGOT) 19 U/L (15-37) Alanine Aminotransferase (ALT/SGPT) 36 U/L (14-59) Alkaline Phosphatase 97 U/L (46-116) Creatine Kinase 40 U/L (26-192) Creatine Kinase MB (Mass) 0.6 ng/mL (0.0-3.6) Creatine Kinase MB Relative Index % (0-4) Troponin I Quantitative < 0.017 ng/mL (0.000-0.055) ZO-Bij-Q-Type Natriuretic Peptide 485 pg/mL (0-124) Total Protein 7.9 g/dL (6.4-8.2) Albumin 3.2 g/dL (3.4-5.0) Albumin/Globulin Ratio 0.7 (1.0-1.7) Urine Opiates Screen Neg (NEG) Urine Methadone Screen Neg (NEG) Urine Barbiturates Neg (NEG) Urine Phencyclidine Screen Neg (NEG) Urine Amphetamine/Methamphetamine Neg (NEG) Urine Benzodiazepines Screen Neg (NEG) Urine Cocaine Screen Neg (NEG) Urine Cannabinoids Screen Neg (NEG) Urine Ethyl Alcohol Neg (NEG) Test 10/17/19 03:30 White Blood Count 7.3 x10^3/uL (4.0-11.0) Red Blood Count 3.15 x10^6/uL (3.50-5.40) Hemoglobin 9.8 g/dL (12.0-15.5) Hematocrit 30.2 % (36.0-47.0) Mean Corpuscular Volume 96 fL (79-100) Mean Corpuscular Hemoglobin 31 pg (25-35) Mean Corpuscular Hemoglobin Concent 32 g/dL (31-37) Red Cell Distribution Width 15.1 % (11.5-14.5) Platelet Count 220 x10^3/uL (140-400) Neutrophils (%) (Auto) 72 % (31-73) Lymphocytes (%) (Auto) 15 % (24-48) Monocytes (%) (Auto) 10 % (0-9) Eosinophils (%) (Auto) 3 % (0-3) Basophils (%) (Auto) 1 % (0-3) Neutrophils # (Auto) 5.2 x10^3/uL (1.8-7.7) Lymphocytes # (Auto) 1.1 x10^3/uL (1.0-4.8) Monocytes # (Auto) 0.7 x10^3/uL (0.0-1.1) Eosinophils # (Auto) 0.2 x10^3/uL (0.0-0.7) Basophils # (Auto) 0.0 x10^3/uL (0.0-0.2) Sodium Level 142 mmol/L (136-145) Potassium Level 3.8 mmol/L (3.5-5.1) Chloride Level 108 mmol/L (98-107) Carbon Dioxide Level 23 mmol/L (21-32) Anion Gap 11 (6-14) Blood Urea Nitrogen 40 mg/dL (7-20) Creatinine 2.7 mg/dL (0.6-1.0) Estimated GFR (Cockcroft-Gault) 22.0 Glucose Level 114 mg/dL (70-99) Calcium Level 8.3 mg/dL (8.5-10.1) Laboratory Tests Test 10/17/19 03:30 White Blood Count 7.3 x10^3/uL (4.0-11.0) Red Blood Count 3.15 x10^6/uL (3.50-5.40) Hemoglobin 9.8 g/dL (12.0-15.5) Hematocrit 30.2 % (36.0-47.0) Mean Corpuscular Volume 96 fL (79-100) Mean Corpuscular Hemoglobin 31 pg (25-35) Mean Corpuscular Hemoglobin Concent 32 g/dL (31-37) Red Cell Distribution Width 15.1 % (11.5-14.5) Platelet Count 220 x10^3/uL (140-400) Neutrophils (%) (Auto) 72 % (31-73) Lymphocytes (%) (Auto) 15 % (24-48) Monocytes (%) (Auto) 10 % (0-9) Eosinophils (%) (Auto) 3 % (0-3) Basophils (%) (Auto) 1 % (0-3) Neutrophils # (Auto) 5.2 x10^3/uL (1.8-7.7) Lymphocytes # (Auto) 1.1 x10^3/uL (1.0-4.8) Monocytes # (Auto) 0.7 x10^3/uL (0.0-1.1) Eosinophils # (Auto) 0.2 x10^3/uL (0.0-0.7) Basophils # (Auto) 0.0 x10^3/uL (0.0-0.2) Sodium Level 142 mmol/L (136-145) Potassium Level 3.8 mmol/L (3.5-5.1) Chloride Level 108 mmol/L (98-107) Carbon Dioxide Level 23 mmol/L (21-32) Anion Gap 11 (6-14) Blood Urea Nitrogen 40 mg/dL (7-20) Creatinine 2.7 mg/dL (0.6-1.0) Estimated GFR (Cockcroft-Gault) 22.0 Glucose Level 114 mg/dL (70-99) Calcium Level 8.3 mg/dL (8.5-10.1) Brief Hospital Course Ms. Cardenas is a 58 old female who presented with breakthrough seizures. Consults were placed to neurology. Seizures likely due to antibiotic exposure and insomnia. Neurology with no immediate indication for EEG or MRI at this time. Keppra increased to 2000 mg twice daily. Recommended establishing new PCP. Discharge Information Condition at Discharge: Improved Disposition/Orders: D/C to Home Scheduled Levetiracetam (Keppra) 500 Mg Tablet, 2,000 MG PO BID for Seizures, #60 Ref 2 Prescribed by: MINERVA COLEMAN MD on 10/17/19 1346 Scheduled PRN Acetaminophen (Tylenol) 325 Mg Tablet, 650 MG PO Q6HRS PRN for PAIN, (Reported) Entered as Reported by: SARMAD SANCHEZ on 10/15/192342 Last Action: Continued on 10/16/19 0026 by SARMAD SANCHEZ Discontinued Medications Levetiracetam (Keppra) 500 Mg Tablet, 3 TAB PO BID, #90 Ref 0 Prescribed by: DANIELLE GRULLON DO on 05/05/18 0417 Last Action: Continued on 10/15/192342 by SARMAD SANCHEZ Justicifation of Admission Dx: Justifications for Admission: Justification of Admission Dx: N/A MINERVA OCLEMAN MD Oct 17, 2019 13:49
[2019-10-17 15:45] VITALS: BP 105/63
--- NOTE | 2019-10-17 17:25 | NUR ---
DISCHARGE INSTRUCTIONS GIVEN, QUESTIONS AND CONCERNS ANSWERED, ALL PERSONAL BELONGINGS GATHERED AND PLACED IN BAGS PER THE PATIENT, SALINE LOCK REMOVED.
--- NOTE | 2019-10-17 17:30 | NUR ---
PATIENT LEAVES THE UNIT ALONGSIDE HER DAUGHTER AND THIS SECURITY TESTER, FOLLOW UP APPOINTMENTS ENCOURAGED, EMOTIONAL SUPPORT GIVEN.
== END 2019-10-17 17:30 | disposition home or self-care (01) | DRG 101 ==
LOC: ER 20:27 → 5 NORTH 21:22
PROVIDERS: ADMIT Family Medicine; ATTEND Family Medicine
DX: G40.89 Other seizures (principal); N39.0 Urinary tract infection, site not specified; N17.9 Acute kidney failure, unspecified; N18.9 Chronic kidney disease, unspecified; I12.9 Hypertensive chronic kidney disease with stage 1 through stage 4 chronic kidney disease, or unspecified chronic kidney disease; G47.00 Insomnia, unspecified; E11.22 Type 2 diabetes mellitus with diabetic chronic kidney disease; E66.9 Obesity, unspecified; D63.8 Anemia in other chronic diseases classified elsewhere; Z71.9 Counseling, unspecified; Z68.33 Body mass index [BMI] 33.0-33.9, adult; Z88.0 Allergy status to penicillin; Z88.2 Allergy status to sulfonamides; Z87.891 Personal history of nicotine dependence; Z91.410 Personal history of adult physical and sexual abuse; Z85.43 Personal history of malignant neoplasm of ovary; Z85.528 Personal history of other malignant neoplasm of kidney; Z79.899 Other long term (current) drug therapy; Z80.9 Family history of malignant neoplasm, unspecified; T36.95XA Adverse effect of unspecified systemic antibiotic, initial encounter
CPT/HCPCS: 36415; 70450; 71045; 80048; 80053; 80177; 80307; 81001; 82553; 83735; 83880; 84484; 85025; 85610; 85730; 87086; 93005; 93306; 99285; J1644; 97110-GP; 97116-GP; 97530-GP; G0378

== ENCOUNTER 2019-12-28 18:01 | Inpatient (IN) | payer OTHER ==
[~2019-12-28] VITALS: Ht 172.7 cm; Wt 99.4 kg
[~2019-12-28 18:01] MED LIST changes: +ACET325T9 PO
[2019-12-28 20:04] LABS: BILIRUBIN,URINE NEGATIVE (NEG); CLARITY,URINE TURBID; COLOR,URINE YELLOW; NITRITE,URINE NEGATIVE (NEG); PROTEIN,URINE >=300 mg/dL (NEG-TRACE); UROBILINOGEN,URINE 0.2 mg/dL (0.2 mg/dL)
[2019-12-28 20:07] LABS: BACTERIA,URINE MANY /HPF (0-FEW); RBC,URINE TNTC /HPF (0-2); WBC,URINE FIELD OBSCURED /HPF (0-4)
[2019-12-28 20:43] LABS: BASO # 0.1 x10^3/uL (0.0-0.2); BASO % 1 % (0-3); EOS # 0.2 x10^3/uL (0.0-0.7); EOS % 3 % (0-3); HEMATOCRIT 32.4 % (36.0-47.0); HEMOGLOBIN 10.4 g/dL (12.0-15.5); LYMPH % 14 % (24-48); MEAN CORPUSCULAR HEMOGLOBIN 32 pg (25-35); MEAN CORPUSCULAR HGB CONC 32 g/dL (31-37); MEAN CORPUSCULAR VOLUME 99 fL (79-100); MONO # 0.8 x10^3/uL (0.0-1.1); MONO % 11 % (0-9); NEUT # 5.1 x10^3/uL (1.8-7.7); NEUT % 72 % (31-73); PLATELET COUNT 264 x10^3/uL (140-400); RED BLOOD COUNT 3.28 x10^6/uL (3.50-5.40); RED CELL DISTRIBUTION WIDTH 15.5 % (11.5-14.5); WHITE BLOOD COUNT 7.1 x10^3/uL (4.0-11.0)
[2019-12-28 20:57] LABS: CALCIUM 8.8 mg/dL (8.5-10.1); CREATININE 2.8 mg/dL (0.6-1.0); POTASSIUM 4.1 mmol/L (3.5-5.1)
[2019-12-28 21:00] LABS: ALBUMIN 3.3 g/dL (3.4-5.0); ALBUMIN/GLOBULIN RATIO 0.7 (1.0-1.7); TOTAL BILIRUBIN 0.2 mg/dL (0.2-1.0); TOTAL PROTEIN 8.1 g/dL (6.4-8.2)
[2019-12-28] MEDS ORDERED: MORPHINE SULFATE 4 MG/ML VIAL. IV ONE ×2 (21:15→23:00)
[2019-12-28] MEDS ORDERED: ONDANSETRON PF 4 MG/2 ML VIAL. IVP ONE (21:15)
--- NOTE | 2019-12-28 21:17 | PHYS DOC ---
Past Medical History Past Medical History: Renal Disease, Seizure Additional Past Medical Histor: BORDERLINE DIABETIC, OVARIAN CA Past Surgical History: Other Additional Past Surgical Histo: RENAL STENT Smoking Status: Former Smoker Alcohol Use: None Drug Use: None General Adult EDM: Chief Complaint: ABDOMINAL PAIN HPI: HPI: Patient is a 59 year old female who presented to ER today for evaluation of abdominal pain for 8 days associated with frequent urination and burning sensation. Patient denies any fever, no cough, no nausea vomiting patient de nies any chest pain, no trouble breathing Review of Systems: Review of Systems: Constitutional: Denies fever or chills. [] Eyes: Denies change in visual acuity. [] HENT: Denies nasal congestion or sore throat. [] Respiratory: Denies cough or shortness of breath. [] Cardiovascular: Denies chest pain or edema. [] GI: Positive for abdominal pain : Positive for dysuria and frequency Musculoskeletal: Denies back pain or joint pain. [] Integument: Denies rash. [] Neurologic: Denies headache, focal weakness or sensory changes. [] Endocrine: Denies polyuria or polydipsia. [] Lymphatic: Denies swollen glands. [] Psychiatric: Denies depression or anxiety. [] Heart Score: Risk Factors: Risk Factors: DM, Current or recent (<one month) smoker, HTN, HLP, family history of CAD, obesity. Risk Scores: Score 0 - 3: 2.5% MACE over next 6 weeks - Discharge Home Score 4 - 6: 20.3% MACE over next 6 weeks - Admit for Clinical Observation Score 7 - 10: 72.7% MACE over next 6 weeks - Early Invasive Strategies Current Medications: Current Medications Medications (Trade) Dose Ordered Sig/Vania Start Time Stop Time Status Last Admin Dose Admin Morphine Sulfate (Morphine Sulfate) 4 mg 1X ONCE 12/28/19 21:15 12/28/19 21:16 Ondansetron HCl (Zofran) 4 mg 1X ONCE 12/28/19 21:15 12/28/19 21:16 Allergies: Allergies: Allergies Coded Allergies Type Severity Reaction Last Updated Verified Penicillins Allergy Severe ANAPHYLAXIS 06/02/17 Yes aspirin Allergy Severe SEIZURES, TORADOL OK 11/03/16 Yes Physical Exam: PE: Constitutional: Well developed, well nourished, no acute distress, non-toxic appearance. [] HENT: Normocephalic, atraumatic, bilateral external ears normal, oropharynx moist, no oral exudates, nose normal. [] Eyes: PERRLA, EOMI, conjunctiva normal, no discharge. [] Neck: Normal range of motion, no tenderness, supple, no stridor. [] Cardiovascular:Heart rate regular rhythm, no murmur [] Lungs & Thorax: Bilateral breath sounds clear to auscultation [] Abdomen: Bowel sounds normal, soft, There is LLQ tenderness TO PALPATION, no masses, no pulsatile masses. [] Skin: Warm, dry, no erythema, no rash. [] Back: No tenderness, no CVA tenderness. [] Extremities: No tenderness, no cyanosis, no clubbing, ROM intact, no edema. [] Neurologic: Alert and oriented X 3, normal motor function, normal sensory function, no focal deficits noted. [] Psychologic: Affect normal, judgement normal, mood normal. [] Current Patient Data: Labs: Laboratory Tests Test 12/28/19 19:49 12/28/19 20:30 Urine Collection Type Unknown Urine Color Yellow Urine Clarity Turbid Urine pH 8.0 (<5.0-8.0) Urine Specific [place] 1.015 (1.000-1.030) Urine Protein >=300 mg/dL (NEG-TRACE) Urine Glucose (UA) Negative mg/dL (NEG) Urine Ketones (Stick) Negative mg/dL (NEG) Urine Blood Large (NEG) Urine Nitrite Negative (NEG) Urine Bilirubin Negative (NEG) Urine Urobilinogen Dipstick 0.2 mg/dL (0.2 mg/dL) Urine Leukocyte Esterase Large (NEG) Urine RBC Tntc /HPF (0-2) Urine WBC Field obscured /HPF (0-4) Urine Bacteria Many /HPF (0-FEW) White Blood Count 7.1 x10^3/uL (4.0-11.0) Red Blood Count 3.28 x10^6/uL (3.50-5.40) L Hemoglobin 10.4 g/dL (12.0-15.5) L Hematocrit 32.4 % (36.0-47.0) L Mean Corpuscular Volume 99 fL (79-100) Mean Corpuscular Hemoglobin 32 pg (25-35) Mean Corpuscular Hemoglobin Concent 32 g/dL (31-37) Red Cell Distribution Width 15.5 % (11.5-14.5) H Platelet Count 264 x10^3/uL (140-400) Neutrophils (%) (Auto) 72 % (31-73) Lymphocytes (%) (Auto) 14 % (24-48) L Monocytes (%) (Auto) 11 % (0-9) H Eosinophils (%) (Auto) 3 % (0-3) Basophils (%) (Auto) 1 % (0-3) Neutrophils # (Auto) 5.1 x10^3/uL (1.8-7.7) Lymphocytes # (Auto) 1.0 x10^3/uL (1.0-4.8) Monocytes # (Auto) 0.8 x10^3/uL (0.0-1.1) Eosinophils # (Auto) 0.2 x10^3/uL (0.0-0.7) Basophils # (Auto) 0.1 x10^3/uL (0.0-0.2) Sodium Level 138 mmol/L (136-145) Potassium Level 4.1 mmol/L (3.5-5.1) Chloride Level 107 mmol/L (98-107) Carbon Dioxide Level 17 mmol/L (21-32) L Anion Gap 14 (6-14) Blood Urea Nitrogen 35 mg/dL (7-20) H Creatinine 2.8 mg/dL (0.6-1.0) H Estimated GFR (Cockcroft-Gault) 21.0 BUN/Creatinine Ratio 13 (6-20) Glucose Level 102 mg/dL (70-99) H Calcium Level 8.8 mg/dL (8.5-10.1) Total Bilirubin 0.2 mg/dL (0.2-1.0) Aspartate Amino Transferase (AST) 15 U/L (15-37) Alanine Aminotransferase (ALT) 14 U/L (14-59) Alkaline Phosphatase 98 U/L (46-116) Total Protein 8.1 g/dL (6.4-8.2) Albumin 3.3 g/dL (3.4-5.0) L Albumin/Globulin Ratio 0.7 (1.0-1.7) L Lipase 62 U/L (73-393) L Laboratory Tests 12/28/19 20:30 Laboratory Tests 12/28/19 20:30 Vital Signs: Vital Signs Date Time Temp Pulse Resp B/P (MAP) Pulse Ox O2 Delivery O2 Flow Rate FiO2 12/28/19 18:44 97.4 107 22 131/81 (98) 96 Room Air 97.4 EKG: EKG: [] Radiology/Procedures: Radiology/Procedures: [][facility] [address] [place] [address] IMAGING REPORT Signed PATIENT: LILO PALACIO ACCOUNT: [id number] : 1960 LOCATION: ER AGE: 59 SEX: F EXAM STATUS: REG ER ORD. PHYSICIAN: LEANDRA CHURCH DO REASON: LEFT SIDE ABDOMINAL PAIN FOR 8 DAYS-H/O RENAL STENT PROCEDURE: CT ABDOMEN PELVIS WO CONTRAST CT abdomen and pelvis without contrast PQRS statement: CT scans at this facility use dose reduction including either automated exposure control, iterative reconstructions, and /or weight based radiation dosing via mA and kV modification when appropriate to reduce radiation dose to as low as reasonably achievable. HISTORY: Left-sided abdominal pain. History of renal stent. Abdomen findings: Lung bases unremarkable. Lower lumbar disc bulges and facet spurring may contribute to spinal canal stenoses. Subcentimeter hypodensity liver gallbladder fossa stable to prior imaging most likely small cyst or hemangioma. No follow-up necessary. Mild atrophy of the pancreas. Calcified lymph node karely hepatis. Spleen, adrenals unremarkable. Moderate to severe bilateral chronic renal hydronephrosis again demonstrated associated with bilateral ureteral stents. The degree of dilation is stable. Left renal lower pole nonobstructing calculi again demonstrated. No obstructing ureteral calculi. Very mild perinephric edema has decreased since the prior exam. Moderate volume of stool. No bowel obstruction or inflammation. Appendix not visualized may be surgically absent or obscured by surrounding bowel loops. Aortoiliac calcified plaque. No abdominal fluid. Pelvis findings: Bilateral ureteral stents coiled in the bladder. No bladder calculi or distal ureteral calculi. There is mild edema surrounding the bladder as well as there is mild edema within the presacral and perirectal space although this is stable to prior imaging. Small calcified uterine fibroids stable. Ovaries, rectum and bones are unremarkable. IMPRESSION: 1. No acute process in the abdomen. 2. Moderate to severe chronic bilateral renal hydronephrosis with bilateral ureteral stents in place. This is stable to prior imaging. 3. Nonobstructing left renal lower pole calculi are stable. No obstructive urinary calculi evident. 4. There is mild edema within the deep pelvis as well as mild edema of the bladder wall. This could be due to changes of radiation treatment. Cystitis is also a possibility. This is stable to prior exam from 2018. Electronically signed by: Moise Laboy MD (12/28/2019 9:47 PM) [facility] [place] DICTATED and SIGNED BY: MOISE LABOY MD DATE: 12/28/192146 Course & Med Decision Making: Course & Med Decision Making Pertinent Labs and Imaging studies reviewed. (See chart for details) Patient is a 59-year-old female who presented to ER for evaluation of abdominal pain, with pain with urination for 8 days. Patient had chronic hydronephrosis with ureteral stent in place her lab work show evidence of clinical infection, patient still having abdominal pain despites of pain medication. We will get her admitted to the hospital. Dragon Disclaimer: Dragon Disclaimer: This electronic medical record was generated, in whole or in part, using a voice recognition dictation system. Departure Departure Impression: Primary Impression: UTI (urinary tract infection) Additional Impressions: Abdominal pain CKD (chronic kidney disease) Disposition: ADMITTED INPT THIS HOSP Admitting Physician: DIAMOND (Dr. Sanderson) Condition: IMPROVED Referrals: UNKNOWN PCP NAME (PCP) FOLLOW UP WITH YOUR DOCTOR IN 2 DAYS FOR REEVALUATION Patient Instructions: Urinary Tract Infection Scripts Sulfamethoxazole/Trimethoprim (BACTRIM DS TABLET) 1 Each Tablet 1 TAB PO BID for 10 Days, #20 TAB 0 Refills Prov: LEANDRA CHURCH DO 12/28/19 LEANDRA CHURCH DO Dec 28, 2019 21:17
--- NOTE | 2019-12-28 21:50 | RAD ---
CT abdomen and pelvis without contrast PQRS statement: CT scans at this facility use dose reduction including either automated exposure control, iterative reconstructions, and /or weight based radiation dosing via mA and kV modification when appropriate to reduce radiation dose to as low as reasonably achievable. HISTORY: Left-sided abdominal pain. History of renal stent. Abdomen findings: Lung bases unremarkable. Lower lumbar disc bulges and facet spurring may contribute to spinal canal stenoses. Subcentimeter hypodensity liver gallbladder fossa stable to prior imaging most likely small cyst or hemangioma. No follow-up necessary. Mild atrophy of the pancreas. Calcified lymph node karely hepatis. Spleen, adrenals unremarkable. Moderate to severe bilateral chronic renal hydronephrosis again demonstrated associated with bilateral ureteral stents. The degree of dilation is stable. Left renal lower pole nonobstructing calculi again demonstrated. No obstructing ureteral calculi. Very mild perinephric edema has decreased since the prior exam. Moderate volume of stool. No bowel obstruction or inflammation. Appendix not visualized may be surgically absent or obscured by surrounding bowel loops. Aortoiliac calcified plaque. No abdominal fluid. Pelvis findings: Bilateral ureteral stents coiled in the bladder. No bladder calculi or distal ureteral calculi. There is mild edema surrounding the bladder as well as there is mild edema within the presacral and perirectal space although this is stable to prior imaging. Small calcified uterine fibroids stable. Ovaries, rectum and bones are unremarkable. IMPRESSION: 1. No acute process in the abdomen. 2. Moderate to severe chronic bilateral renal hydronephrosis with bilateral ureteral stents in place. This is stable to prior imaging. 3. Nonobstructing left renal lower pole calculi are stable. No obstructive urinary calculi evident. 4. There is mild edema within the deep pelvis as well as mild edema of the bladder wall. This could be due to changes of radiation treatment. Cystitis is also a possibility. This is stable to prior exam from 2018. Electronically signed by: Aditya Laboy MD (12/28/2019 9:47 PM) [facility]
[2019-12-28] MEDS ORDERED: SULF1TAB24 PO (22:44)
[2019-12-29] VITALS (15 sets, daily range): BP systolic 90–127; BP diastolic 55–78
[2019-12-29] MEDS ORDERED: ACET500T33 PO (00:58)
[2019-12-29] MEDS ORDERED: levETIRAcetam 500 MG TABLET PO SCH ×2 (01:00→09:00)
[2019-12-29] MEDS: levETIRAcetam 500 MG TABLET PO SCH ×3 (01:13→20:33)
[2019-12-29] MEDS: fentaNYL PF VIAL 100 MCG/2 ML VIAL IVP PRN ×4 (01:14→21:14)
[2019-12-29] MEDS ORDERED: MORPHINE SULFATE 4 MG/ML VIAL. IV PRN (04:00)
[2019-12-29] MEDS ORDERED: FLU VACC QS 2020-21(6MOS+)/PF 0.5 ML SYRINGE. VAX IM ONE (09:00)
[2019-12-29] MEDS ORDERED: METOPROLOL TARTRATE 5 MG/5 ML VIAL. IVP ONE ×2 (09:15→09:30)
[2019-12-29] MEDS ORDERED: IV NORMAL SALINE 1000ML BAG 1,000 ML IV ONE (10:00)
--- NOTE | 2019-12-29 10:21 | PDOC ---
Infectious Disease Note Vital Sign Vital Signs Vital Signs Date Time Temp Pulse Resp B/P (MAP) Pulse Ox O2 Delivery O2 Flow Rate FiO2 12/29/19 09:55 148 114/70 (85) 12/29/19 07:00 98.1 20 97 Room Air 98.1 Labs Lab Laboratory Tests Test 12/28/19 19:49 12/28/19 20:30 Urine Collection Type Unknown Urine Color Yellow Urine Clarity Turbid Urine pH 8.0 (<5.0-8.0) Urine Specific [place] 1.015 (1.000-1.030) Urine Protein >=300 mg/dL (NEG-TRACE) Urine Glucose (UA) Negative mg/dL (NEG) Urine Ketones (Stick) Negative mg/dL (NEG) Urine Blood Large (NEG) Urine Nitrite Negative (NEG) Urine Bilirubin Negative (NEG) Urine Urobilinogen Dipstick 0.2 mg/dL (0.2 mg/dL) Urine Leukocyte Esterase Large (NEG) Urine RBC Tntc /HPF (0-2) Urine WBC Field obscured /HPF (0-4) Urine Bacteria Many /HPF (0-FEW) White Blood Count 7.1 x10^3/uL (4.0-11.0) Red Blood Count 3.28 x10^6/uL (3.50-5.40) Hemoglobin 10.4 g/dL (12.0-15.5) Hematocrit 32.4 % (36.0-47.0) Mean Corpuscular Volume 99 fL (79-100) Mean Corpuscular Hemoglobin 32 pg (25-35) Mean Corpuscular Hemoglobin Concent 32 g/dL (31-37) Red Cell Distribution Width 15.5 % (11.5-14.5) Platelet Count 264 x10^3/uL (140-400) Neutrophils (%) (Auto) 72 % (31-73) Lymphocytes (%) (Auto) 14 % (24-48) Monocytes (%) (Auto) 11 % (0-9) Eosinophils (%) (Auto) 3 % (0-3) Basophils (%) (Auto) 1 % (0-3) Neutrophils # (Auto) 5.1 x10^3/uL (1.8-7.7) Lymphocytes # (Auto) 1.0 x10^3/uL (1.0-4.8) Monocytes # (Auto) 0.8 x10^3/uL (0.0-1.1) Eosinophils # (Auto) 0.2 x10^3/uL (0.0-0.7) Basophils # (Auto) 0.1 x10^3/uL (0.0-0.2) Sodium Level 138 mmol/L (136-145) Potassium Level 4.1 mmol/L (3.5-5.1) Chloride Level 107 mmol/L (98-107) Carbon Dioxide Level 17 mmol/L (21-32) Anion Gap 14 (6-14) Blood Urea Nitrogen 35 mg/dL (7-20) Creatinine 2.8 mg/dL (0.6-1.0) Estimated GFR (Cockcroft-Gault) 21.0 BUN/Creatinine Ratio 13 (6-20) Glucose Level 102 mg/dL (70-99) Calcium Level 8.8 mg/dL (8.5-10.1) Total Bilirubin 0.2 mg/dL (0.2-1.0) Aspartate Amino Transf (AST/SGOT) 15 U/L (15-37) Alanine Aminotransferase (ALT/SGPT) 14 U/L (14-59) Alkaline Phosphatase 98 U/L (46-116) Total Protein 8.1 g/dL (6.4-8.2) Albumin 3.3 g/dL (3.4-5.0) Albumin/Globulin Ratio 0.7 (1.0-1.7) Lipase 62 U/L (73-393) Objective Assessment Patient seen consult dictated Plan Plan of Care / NICOLE ROBBINS MD Dec 29, 2019 10:21
--- NOTE | 2019-12-29 10:22 | PDOC2 ---
MAGALIS TEJADA TESTING MACHINE OPERATOR 12/29/19 1022: CARDIAC CONSULT DATE OF CONSULT Date of Consult DATE: 12/29/19 TIME: 10:12 REASON FOR CONSULT Reason for Consult: Tachycardia REFERRING PHYSICIAN Referring Physician: Kin SOURCE Source: Chart review, Patient HISTORY OF PRESENT ILLNESS HISTORY OF PRESENT ILLNESS This is a pleasant 59 yo female admitted for complains of abdominal pain. This is throbbing that radiates across her lower back. Had some chills at home. She has had hydronephrosis with known recurrent UTI, calculi and ureteral stent placement but has not seen a urologist for about 6 yrs now. Has some nausea but no diarrhea. Denies any chest pain, passing out or palpitations. No hx of CV disease. She was then noted with tachycardia hence the consult. Further check revealed Atrial flutter with RVR. No prior hx of this. PResently having abd pain and just received fentanyl. No prior hx of VTE, bleeding issues. PAST MEDICAL HISTORY Cardiovascular: HTN Pulmonary: Bronchitis CENTRAL NERVOUS SYSTEM: Seizure, Other (TBI) Heme/Onc: Anemia NOS, Cancer (cervical CA with radiation) Musculoskeletal: low back pain, Osteoarthritis Renal/: Chronic renal insuff, UTI, Other (nephrolithiasis) Endocrine: Diabetes (borderline) PAST SURGICAL HISTORY Past Surgical History: Other (wisdom tooth extraction) FAMILY HISTORY Family History noncontributory to CV SOCIAL HISTORY Smoke: Quit ALCOHOL: none Drugs: None Lives: with Family CURRENT MEDICATIONS CURRENT MEDICATIONS Current Medications Medications (Trade) Dose Ordered Sig/Vania Route PRN Reason Start Time Stop Time Status Last Admin Dose Admin Morphine Sulfate (Morphine Sulfate) 4 mg 1X ONCE IV 12/28/19 21:15 12/28/19 21:16 DC 12/28/19 22:22 Ondansetron HCl (Zofran) 4 mg 1X ONCE IVP 12/28/19 21:15 12/28/19 21:16 DC 12/28/19 22:22 Levofloxacin/ Dextrose 100 ml @ 100 mls/hr 1X ONCE IV 12/28/19 21:30 12/28/19 22:29 DC 12/28/19 22:22 Morphine Sulfate (Morphine Sulfate) 4 mg 1X ONCE IV 12/28/19 23:00 12/28/19 23:01 DC 12/28/19 23:03 Fentanyl Citrate (Fentanyl 2ml Vial) 50 mcg PRN Q2HR PRN IVP PAIN 12/29/19 00:45 12/29/19 10:05 Levetiracetam (Keppra) 2,000 mg BID PO 12/29/19 01:00 12/29/19 08:51 Influenza Virus Vaccine Quadrival (Fluzone Quad Syringe) 0.5 ml ONCE ONCE VAX IM 12/29/19 09:00 12/29/19 09:01 DC 12/29/19 08:52 Metoprolol Tartrate (Lopressor Vial) 5 mg 1X ONCE IVP 12/29/19 09:15 12/29/19 09:16 DC 12/29/19 09:15 Metoprolol Tartrate (Lopressor Vial) 5 mg 1X ONCE IVP 12/29/19 09:30 12/29/19 09:32 DC 12/29/19 09:46 Sodium Chloride 1,000 ml @ 1,000 mls/hr 1X ONCE IV 12/29/19 10:00 12/29/19 10:59 12/29/19 09:57 ALLERGIES ALLERGIES: Coded Allergies: Penicillins (Verified Allergy, Severe, Swelling, 12/28/19) Has taken keflex before aspirin (Verified Allergy, Severe, SEIZURES, TORADOL OK, 11/03/16) ROS Review of System 14 point ROS evaluated with pertinent positives noted per HPI PHYSICAL EXAM General: Alert, Oriented X3, Cooperative, No acute distress HEENT: Atraumatic, Mucous membr. moist/pink Lungs: Other (diminished bases) Heart: Regular rate (Atrial flutter 2:1 with RVR) Abdomen: Other (diffuse abd tenderness) Extremities: No cyanosis, No edema Skin: No breakdown, No significant lesion Neuro: Normal speech, Sensation intact Psych/Mental Status: Mental status NL, Mood NL MUSCULOSKELETAL: Osteoarthritic changes both hands VITALS/I&O VITALS/I&O: Vital Signs Date Time Temp Pulse Resp B/P (MAP) Pulse Ox O2 Delivery O2 Flow Rate FiO2 12/29/19 09:55 148 114/70 (85) 12/29/19 07:00 98.1 20 97 Room Air 98.1 l I & O 12/28/19 12/28/19 12/29/19 15:00 23:00 07:00 Intake Total 700 ml Balance 700 ml LABS Lab: Laboratory Tests Test 12/28/19 19:49 12/28/19 20:30 Urine Collection Type Unknown Urine Color Yellow Urine Clarity Turbid Urine pH 8.0 (<5.0-8.0) Urine Specific [place] 1.015 (1.000-1.030) Urine Protein >=300 mg/dL (NEG-TRACE) Urine Glucose (UA) Negative mg/dL (NEG) Urine Ketones (Stick) Negative mg/dL (NEG) Urine Blood Large (NEG) Urine Nitrite Negative (NEG) Urine Bilirubin Negative (NEG) Urine Urobilinogen Dipstick 0.2 mg/dL (0.2 mg/dL) Urine Leukocyte Esterase Large (NEG) Urine RBC Tntc /HPF (0-2) Urine WBC Field obscured /HPF (0-4) Urine Bacteria Many /HPF (0-FEW) White Blood Count 7.1 x10^3/uL (4.0-11.0) Red Blood Count 3.28 x10^6/uL (3.50-5.40) L Hemoglobin 10.4 g/dL (12.0-15.5) L Hematocrit 32.4 % (36.0-47.0) L Mean Corpuscular Volume 99 fL (79-100) Mean Corpuscular Hemoglobin 32 pg (25-35) Mean Corpuscular Hemoglobin Concent 32 g/dL (31-37) Red Cell Distribution Width 15.5 % (11.5-14.5) H Platelet Count 264 x10^3/uL (140-400) Neutrophils (%) (Auto) 72 % (31-73) Lymphocytes (%) (Auto) 14 % (24-48) L Monocytes (%) (Auto) 11 % (0-9) H Eosinophils (%) (Auto) 3 % (0-3) Basophils (%) (Auto) 1 % (0-3) Neutrophils # (Auto) 5.1 x10^3/uL (1.8-7.7) Lymphocytes # (Auto) 1.0 x10^3/uL (1.0-4.8) Monocytes # (Auto) 0.8 x10^3/uL (0.0-1.1) Eosinophils # (Auto) 0.2 x10^3/uL (0.0-0.7) Basophils # (Auto) 0.1 x10^3/uL (0.0-0.2) Sodium Level 138 mmol/L (136-145) Potassium Level 4.1 mmol/L (3.5-5.1) Chloride Level 107 mmol/L (98-107) Carbon Dioxide Level 17 mmol/L (21-32) L Anion Gap 14 (6-14) Blood Urea Nitrogen 35 mg/dL (7-20) H Creatinine 2.8 mg/dL (0.6-1.0) H Estimated GFR (Cockcroft-Gault) 21.0 BUN/Creatinine Ratio 13 (6-20) Glucose Level 102 mg/dL (70-99) H Calcium Level 8.8 mg/dL (8.5-10.1) Total Bilirubin 0.2 mg/dL (0.2-1.0) Aspartate Amino Transferase (AST) 15 U/L (15-37) Alanine Aminotransferase (ALT) 14 U/L (14-59) Alkaline Phosphatase 98 U/L (46-116) Total Protein 8.1 g/dL (6.4-8.2) Albumin 3.3 g/dL (3.4-5.0) L Albumin/Globulin Ratio 0.7 (1.0-1.7) L Lipase 62 U/L (73-393) L Laboratory Tests 12/28/19 20:30 Laboratory Tests 12/28/19 20:30 ECHOCARDIOGRAM ECHOCARDIOGRAM <Conclusion> The left ventricular systolic function is normal and the ejection fraction is within normal range. The Ejection Fraction is 55-60%. There is normal LV segmental wall motion. DATE: 10/16/19 1105 ASSESSMENT/PLAN ASSESSMENT/PLAN 1. Atrial flutter with RVR in the setting of metabolic issues and nociceptive pain 2. 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 Abdominal pain/UTI/pyuria with left renal pole calculi with moderate to severe chronic bilateral renal hydronephrosis with bilateral ureteral stents in place. per PCP 4. Hx of seizures: on keppra Recommendations 1. Metoprolol was given IV still on RVR. Dig IV x1. Will start on cardizem drip if BP allows. 2. BMP and Mg. TTE 3. Unable to place on ASA due to hx of seizure from it. OK lovenox for VTE prophylactic dosing for now. 4. Pending TTE and if pt remains refractory then will consider for antiarrhytmic therapy. CLAUDETTE PATTERSON MD 12/29/19 1832: CARDIAC CONSULT ASSESSMENT/PLAN ASSESSMENT/PLAN Patient seen and examined. Agree with ASSEMBLER DC FIELD YOKE's assessment and plan. Atrial flutter rate not controlled with metoprolol - HR still in 150's BP marginal and hence cannot start CZM Agree with starting amiodarone infusion per protocol 2D echo showed normal LVF Thank you for your consultation Continue management of UTI per ID and chr bilat renal HN per MAGALIS PANTOJA TESTING MACHINE OPERATOR Dec 29, 2019 10:22 CLAUDETTE PATTERSON MD Dec 29, 2019 18:32
[2019-12-29] MEDS ORDERED: DIGOXIN IV 500 MCG/2 ML AMPUL. IV ONE (10:45)
--- NOTE | 2019-12-29 11:11 | PDOC1 ---
History and Physical Date of Service: DOS: DATE: 12/29/19 TIME: 10:59 Chief Complaint: Chief Complain: Lower abdominal pain History of Present Illness: HPI: Patient is a 59-year-old female with past medical history of cervical cancer and kidney cancer status post radiation about 6 years ago and bilateral ureteral stent placement subsequently who presents with 8 days of frequent urination, dysuria, burning upon urination and lower abdominal pain. Denies any fevers, chest pain, cough, bloody urine. Patient states that since her stents were placed in 2013 she has not had her stents exchanged. She has been having recurrent UTIs for the past 3 to 4 months for the last 6 years. She has always been given antibiotics for treatment but and has never had further evaluation from urology. Patient was seen and examined in her room after nurse administered flu shot vaccine and patient went into atrial tachycardia. Metoprolol 10 mg was given with no improvement. Patient was asymptomatic at this time. Telemetry monitoring revealed that patient was in atrial flutter. Cardiology was consulted at this time and they started her on digoxin and Cardizem drip and aspirin. Past Medical/Surgical History: PMH/PSH: Past Medical History: Renal Disease, BORDERLINE DIABETIC, OVARIAN CA Past Surgical History: Bilateral ureteral STENT Allergies: Allergies: Coded Allergies: Penicillins (Verified Allergy, Severe, Swelling, 12/28/19) Has taken keflex before aspirin (Verified Allergy, Severe, SEIZURES, TORADOL OK, 11/03/16) Family History: Family History: Reviewed and no relevant findings Social History: Social History: Smoking Status: Former Smoker Alcohol Use: None Drug Use: None Current Medications: Current Medications Current Medications Morphine Sulfate (Morphine Sulfate) 4 mg 1X ONCE IV Last administered on 12/28/19at 22:22; Start 12/28/19 at 21:15; Stop 12/28/19 at 21:16; Status DC Ondansetron HCl (Zofran) 4 mg 1X ONCE IVP Last administered on 12/28/19at 22:22; Start 12/28/19 at 21:15; Stop 12/28/19 at 21:16; Status DC Levofloxacin/ Dextrose 100 ml @ 100 mls/hr 1X ONCE IV Last administered on 12/28/19at 22:22; Start 12/28/19 at 21:30; Stop 12/28/19 at 22:29; Status DC Morphine Sulfate (Morphine Sulfate) 4 mg 1X ONCE IV Last administered on 12/28/19at 23:03; Start 12/28/19 at 23:00; Stop 12/28/19 at 23:01; Status DC Fentanyl Citrate (Fentanyl 2ml Vial) 50 mcg PRN Q2HR PRN IVP PAIN Last administered on 12/29/19at 10:05; Start 12/29/19 at 00:45 Levetiracetam (Keppra) 2,000 mg BID PO ; Start 12/29/19 at 09:00; Stop 12/29/19 at 00:47; Status DC Levetiracetam (Keppra) 2,000 mg BID PO Last administered on 12/29/19at 08:51; Start 12/29/19 at 01:00 Levetiracetam (Keppra) 2,000 mg BID PO ; Start 12/29/19 at 01:00; Status UNV Influenza Virus Vaccine Quadrival (Fluzone Quad Syringe) 0.5 ml ONCE ONCE VAX IM Last administered on 12/29/19at 08:52; Start 12/29/19 at 09:00; Stop 12/29/19 at 09:01; Status DC Metoprolol Tartrate (Lopressor Vial) 5 mg 1X ONCE IVP Last administered on 02/27/19at 09:15; Start 12/29/19 at 09:15; Stop 12/29/19 at 09:16; Status DC Metoprolol Tartrate (Lopressor Vial) 5 mg 1X ONCE IVP Last administered on 12/29/19at 09:46; Start 12/29/19 at 09:30; Stop 12/29/19 at 09:32; Status DC Sodium Chloride 1,000 ml @ 1,000 mls/hr 1X ONCE IV Last administered on 12/29/19at 09:57; Start 12/29/19 at 10:00; Stop 12/29/19 at 10:59 Ceftriaxone Sodium (Rocephin) 2 gm Q24H IVP ; Start 12/29/19 at 11:00 Digoxin (Lanoxin) 500 mcg 1X ONCE IV Last administered on 12/29/19at 10:52; Start 12/29/19 at 10:45; Stop 12/29/19 at 10:46; Status DC Active Scripts Active Keppra (Levetiracetam) 500 Mg Tablet 2,000 Mg PO BID Reported Tylenol Extra Strength (Acetaminophen) 500 Mg Tablet 500 Mg PO Q6HRS ROS: Review of Systems Review of System REVIEW OF SYSTEMS: GENERAL: Denies weakness SKIN: No bruising, hair changes or rashes. EYES: No blurred, double or loss of vision. NOSE AND THROAT: No history of nosebleeds, hoarseness or sore throat. HEART: No history of palpitations, chest pain or shortness of breath on exertion. LUNGS: Denies cough, hemoptysis, wheezing or shortness of breath. GASTROINTESTINAL: Denies changes in appetite, nausea, vomiting, diarrhea or constipation. GENITOURINARY: No history of frequency, urgency, hesitancy or nocturia. NEUROLOGIC: Denies history of numbness, tingling, or tremor. PSYCHIATRIC: No history of panic, anxiety or depression. ENDOCRINE: No history of heat or cold intolerance, polyuria or polydipsia. EXTREMITIES: Denies joint pain, pain on walking or stiffness. Physical Exam: Vital Signs: Vital Signs Date Time Temp Pulse Resp B/P (MAP) Pulse Ox O2 Delivery O2 Flow Rate FiO2 12/29/19 10:52 146 104/63 12/29/19 07:00 98.1 20 97 Room Air 98.1 Physcial Exam: GEN: No apparent distress. Alert and oriented HEENT: Normal cephalic, atraumatic, external auditory canals are patent EYES: Extraocular muscles are intact, pupil are equally round and reactive to light and accommodation MUSCULOSKELETAL: Well developed , well nourished, good range of motion ENDOCRINE: No thyromegaly was palpated LYMPHATICS: No cervical chain or axillary nodes were noted HEMATOPOIETIC: No bruising NECK: Supple, no JVD, no thyromegaly was noted LUNGS: Clear to auscultation in all lung duarte without rhonchi or wheezing HEART: RRR, S!, S2 present. Peripheral pulses intact, no obvious murmurs noted ABDOMEN: Soft, nontender. Positive bowel sounds, no organomegaly, normal bowel sounds EXTREMITIES: Without clubbing, cyanosis, or edema. Pedal pulses intact. Negative Homans sign NEUROLOGIC: Normal speech and tone. A&O x 3, moves all extremities, no obvious focal deficits PSYCHIATRIC: Normal affect, normal mood. Stable SKIN: No ulcerations or rashes, good skin turgor, no jaundice VASCULAR: Good capillary refill, neurovascular bundle appears to be intact Labs: Labs: Laboratory Tests Test 12/28/19 19:49 12/28/19 20:30 Urine Collection Type Unknown Urine Color Yellow Urine Clarity Turbid Urine pH 8.0 (<5.0-8.0) Urine Specific [place] 1.015 (1.000-1.030) Urine Protein >=300 mg/dL (NEG-TRACE) Urine Glucose (UA) Negative mg/dL (NEG) Urine Ketones (Stick) Negative mg/dL (NEG) Urine Blood Large (NEG) Urine Nitrite Negative (NEG) Urine Bilirubin Negative (NEG) Urine Urobilinogen Dipstick 0.2 mg/dL (0.2 mg/dL) Urine Leukocyte Esterase Large (NEG) Urine RBC Tntc /HPF (0-2) Urine WBC Field obscured /HPF (0-4) Urine Bacteria Many /HPF (0-FEW) White Blood Count 7.1 x10^3/uL (4.0-11.0) Red Blood Count 3.28 x10^6/uL (3.50-5.40) Hemoglobin 10.4 g/dL (12.0-15.5) Hematocrit 32.4 % (36.0-47.0) Mean Corpuscular Volume 99 fL (79-100) Mean Corpuscular Hemoglobin 32 pg (25-35) Mean Corpuscular Hemoglobin Concent 32 g/dL (31-37) Red Cell Distribution Width 15.5 % (11.5-14.5) Platelet Count 264 x10^3/uL (140-400) Neutrophils (%) (Auto) 72 % (31-73) Lymphocytes (%) (Auto) 14 % (24-48) Monocytes (%) (Auto) 11 % (0-9) Eosinophils (%) (Auto) 3 % (0-3) Basophils (%) (Auto) 1 % (0-3) Neutrophils # (Auto) 5.1 x10^3/uL (1.8-7.7) Lymphocytes # (Auto) 1.0 x10^3/uL (1.0-4.8) Monocytes # (Auto) 0.8 x10^3/uL (0.0-1.1) Eosinophils # (Auto) 0.2 x10^3/uL (0.0-0.7) Basophils # (Auto) 0.1 x10^3/uL (0.0-0.2) Sodium Level 138 mmol/L (136-145) Potassium Level 4.1 mmol/L (3.5-5.1) Chloride Level 107 mmol/L (98-107) Carbon Dioxide Level 17 mmol/L (21-32) Anion Gap 14 (6-14) Blood Urea Nitrogen 35 mg/dL (7-20) Creatinine 2.8 mg/dL (0.6-1.0) Estimated GFR (Cockcroft-Gault) 21.0 BUN/Creatinine Ratio 13 (6-20) Glucose Level 102 mg/dL (70-99) Calcium Level 8.8 mg/dL (8.5-10.1) Total Bilirubin 0.2 mg/dL (0.2-1.0) Aspartate Amino Transf (AST/SGOT) 15 U/L (15-37) Alanine Aminotransferase (ALT/SGPT) 14 U/L (14-59) Alkaline Phosphatase 98 U/L (46-116) Total Protein 8.1 g/dL (6.4-8.2) Albumin 3.3 g/dL (3.4-5.0) Albumin/Globulin Ratio 0.7 (1.0-1.7) Lipase 62 U/L (73-393) Thyroid Stimulating Hormone (TSH) 1.538 uIU/mL (0.358-3.74) Laboratory Tests Test 12/28/19 19:49 12/28/19 20:30 Urine Collection Type Unknown Urine Color Yellow Urine Clarity Turbid Urine pH 8.0 (<5.0-8.0) Urine Specific [place] 1.015 (1.000-1.030) Urine Protein >=300 mg/dL (NEG-TRACE) Urine Glucose (UA) Negative mg/dL (NEG) Urine Ketones (Stick) Negative mg/dL (NEG) Urine Blood Large (NEG) Urine Nitrite Negative (NEG) Urine Bilirubin Negative (NEG) Urine Urobilinogen Dipstick 0.2 mg/dL (0.2 mg/dL) Urine Leukocyte Esterase Large (NEG) Urine RBC Tntc /HPF (0-2) Urine WBC Field obscured /HPF (0-4) Urine Bacteria Many /HPF (0-FEW) White Blood Count 7.1 x10^3/uL (4.0-11.0) Red Blood Count 3.28 x10^6/uL (3.50-5.40) Hemoglobin 10.4 g/dL (12.0-15.5) Hematocrit 32.4 % (36.0-47.0) Mean Corpuscular Volume 99 fL (79-100) Mean Corpuscular Hemoglobin 32 pg (25-35) Mean Corpuscular Hemoglobin Concent 32 g/dL (31-37) Red Cell Distribution Width 15.5 % (11.5-14.5) Platelet Count 264 x10^3/uL (140-400) Neutrophils (%) (Auto) 72 % (31-73) Lymphocytes (%) (Auto) 14 % (24-48) Monocytes (%) (Auto) 11 % (0-9) Eosinophils (%) (Auto) 3 % (0-3) Basophils (%) (Auto) 1 % (0-3) Neutrophils # (Auto) 5.1 x10^3/uL (1.8-7.7) Lymphocytes # (Auto) 1.0 x10^3/uL (1.0-4.8) Monocytes # (Auto) 0.8 x10^3/uL (0.0-1.1) Eosinophils # (Auto) 0.2 x10^3/uL (0.0-0.7) Basophils # (Auto) 0.1 x10^3/uL (0.0-0.2) Sodium Level 138 mmol/L (136-145) Potassium Level 4.1 mmol/L (3.5-5.1) Chloride Level 107 mmol/L (98-107) Carbon Dioxide Level 17 mmol/L (21-32) Anion Gap 14 (6-14) Blood Urea Nitrogen 35 mg/dL (7-20) Creatinine 2.8 mg/dL (0.6-1.0) Estimated GFR (Cockcroft-Gault) 21.0 BUN/Creatinine Ratio 13 (6-20) Glucose Level 102 mg/dL (70-99) Calcium Level 8.8 mg/dL (8.5-10.1) Total Bilirubin 0.2 mg/dL (0.2-1.0) Aspartate Amino Transf (AST/SGOT) 15 U/L (15-37) Alanine Aminotransferase (ALT/SGPT) 14 U/L (14-59) Alkaline Phosphatase 98 U/L (46-116) Total Protein 8.1 g/dL (6.4-8.2) Albumin 3.3 g/dL (3.4-5.0) Albumin/Globulin Ratio 0.7 (1.0-1.7) Lipase 62 U/L (73-393) Thyroid Stimulating Hormone (TSH) 1.538 uIU/mL (0.358-3.74) Images: Images CT ABD/PELVIS IMPRESSION: 1. No acute process in the abdomen. 2. Moderate to severe chronic bilateral renal hydronephrosis with bilateral ureteral stents in place. This is stable to prior imaging. 3. Nonobstructing left renal lower pole calculi are stable. No obstructive urinary calculi evident. 4. There is mild edema within the deep pelvis as well as mild edema of the bladder wall. This could be due to changes of radiation treatment. Cystitis is also a possibility. This is stable to prior exam from 2018. Assessment/Plan Assessment/Plan Acute complicated UTI with bilateral ureteral stents Bilateral hydronephrosis Atrial flutter SANDHYA due to vasomotor nephropathy Admit to medicine for further management Infectious disease consult Cardiology consult Continue empiric IV antibiotics Patient will need outpatient urology evaluation for stents after stabilization of current hospital course Pending urine and blood cultures Heparin for DVT prophylaxis ADA diet Full code Discussed with RN and SW Disposition pending ID evaluation Surrogate decision maker is the daughter Justifications for Admission Other Justification SHITAL SARGENT MD Dec 29, 2019 11:10
[2019-12-29] MEDS ORDERED: SENNOSIDES 8.6 MG TABLET PO PRN (11:15)
[2019-12-29] MEDS ORDERED: DILTIAZEM HCL 125 MG in IV NORMAL SALINE 100ML 100 ML IV PRN (11:15)
[2019-12-29] MEDS ORDERED: DEXTROSE 50% 25 GM / 50ML DISP.SYRIN. IV PRN (11:15)
[2019-12-29] MEDS ORDERED: ONDANSETRON PF 4 MG/2 ML VIAL. IVP PRN (11:15)
[2019-12-29] MEDS: IV NORMAL SALINE 1000ML BAG 1,000 ML IV SCH ×2 (11:15→20:35)
[2019-12-29] MEDS ORDERED: MORPHINE SULFATE 2 MG/ML VIAL. IV PRN (11:15)
[2019-12-29] MEDS ORDERED: DOCUSATE SODIUM 100 MG CAPSULE. PO PRN (11:15)
[2019-12-29] MEDS: cefTRIAXone IV Push 2 GM VIAL. IVP SCH (11:25)
--- NOTE | 2019-12-29 12:11 | CONS ---
DATE OF CONSULTATION: 12/29/2019 REQUESTING PHYSICIAN: Dr. Bishnu Sanderson. REASON FOR CONSULTATION: UTI with obstruction. HISTORY OF PRESENT ILLNESS: This is a 59-year-old -[place] female with a history of ovarian cancer with radiation causing bilateral hydronephrosis, bilateral ureteral stent for a long time, since 2012 or 2013, and has not been changed. The patient came in with painful urination. The patient denies any nausea, vomiting, diarrhea. Has some abdominal pain, suprapubic pain. Denies any fever or chills. The patient had a normal white count, normal temperature. Her creatinine is 2.[address] scan showed bilateral chronic hydronephrosis, bilateral ureteral stent, unchanged from before. The patient has received Levaquin. PAST MEDICAL HISTORY: Positive for, as I mentioned: 1. Cervical cancer with radiation causing bilateral hydronephrosis, bilateral ureteral stents. She has had recurrent UTI. She goes to ____ and gets some antibiotics, but she has not seen a urologist since 2012 or 2013. 2. The patient also had seizure disorder. 3. Traumatic brain injury. 4. Peripheral neuropathy. 5. Back problem. 6. Kidney cancer. SOCIAL HISTORY: Negative for smoking, alcohol or illicit drug use. ALLERGIES: Listed as allergic to PENICILLIN. CURRENT MEDICATIONS: Reviewed. REVIEW OF SYSTEMS: As per HPI, all other systems reviewed are negative. PHYSICAL EXAMINATION: GENERAL: Alert, oriented female, not in distress. VITAL SIGNS: Stable, afebrile. HEENT: NAD. NECK: Supple. No JVP, no lymphadenopathy. LUNGS: Clear. HEART: S1, S2 regular. ABDOMEN: Benign. EXTREMITIES: No edema or cyanosis. SKIN: Unremarkable. NEUROLOGIC: The patient is alert, awake and appropriate. No focal neurologic deficit. LABORATORY DATA: White count is normal at 7.1. BUN and creatinine are 35 and 2.8. Urinalysis showed large leukocyte esterase, nitrite negative, too numerous to count RBC, and they were not able to count WBC. CT, as I mentioned. IMPRESSION: 1. Urinary tract infection. 2. Bilateral chronic obstruction with ureteral stents. 3. Bilateral hydronephrosis. 4. History of cervical cancer and/or kidney cancer with radiation. RECOMMENDATIONS: We would use Rocephin. Soon to be able to change to p.o. for discharge. The patient should go and see a urologist for stent removal and/or replacement, although it is stable. Thank you very much, Dr. Sanderson, for giving me the opportunity to participate in this patient's care. NICOLE ROBBINS MD DR: ROOSEVELT/diamond JOB#: [id number] / [id number]
[2019-12-29] MEDS ORDERED: dilTIAZem IV PUSH 25 MG/5 ML VIAL IVP ONE (13:45)
[2019-12-29 14:36] LABS: CALCIUM 8.4 mg/dL (8.5-10.1); CREATININE 2.6 mg/dL (0.6-1.0); GFR 22.9; POTASSIUM 4.2 mmol/L (3.5-5.1)
[2019-12-29] MEDS ORDERED: HEPARIN for IV BOLUS 10,000 UNIT/10 ML VIAL. IV PRN (15:00)
[2019-12-29] MEDS ORDERED: HEPARIN 25,000UTS/250ML PREMIX 250 ML IV PRN (15:00)
--- NOTE | 2019-12-29 15:03 | EKG ---
[facility] [address] [place] [address] Test Date: 2019-12-29 Test Time: 15:01:23 Pat Name: LILO PALACIO Department: Room: 209 1 Gender: F Medical Records Library Professor: HARRIET : 1960 Requested By: MAGALIS TEJADA Order Number: [id number] Reading MD: Brice Shen MD Measurements Intervals [place] Rate: 153 P: NV: QRS: 80 QRSD: 84 T: -67 QT: 292 QTc: 471 Interpretive Statements svt probable atrial flutter with 2:1 conduction NON-SPECIFIC ST/T CHANGES Electronically Signed On 12-29-2019 15:45:13 SALES PROMOTION DIRECTOR by Brice Shen MD
[2019-12-29] MEDS ORDERED: AMIODARONE 150 MG in IV DEXTROSE 5% 100ML 100 ML IV ONE (15:30)
--- NOTE | 2019-12-29 15:43 | CARD ---
MR#: [id number] Date of Study: 12/29/2019 Ordering Physician: MAGALIS TEJADA, Referring Physician: MAGALIS TEJADA, Tech: Nani Lindsay [facility] APPROVED REPORT EXAM: Two-dimensional and M-mode echocardiogram with Doppler and color Doppler. Other Information Quality : AdequateHR: 150bpm Rhythm : Aflutter/SVT INDICATION Atrial Flutter with RVR. Heart rate in the 150s during exam. 2D DIMENSIONS RVDd3.4 (2.9-3.5cm)IVSd1.3 (0.7-1.1cm) Aortic Root(2D)3.3 (2.0-3.7cm)LVDd4.2 (3.9-5.9cm) LVOT Diameter2.0 (1.8-2.4cm)PWd1.2 (0.7-1.1cm) LVDs3.1 (2.5-4.0cm)FS (%) 27.7 % SV43.1 mlLVEF(%)54.2 (>50%) Aortic Valve AoV Peak Jose.119.2cm/Albertina Peak GR.5.7mmHg LVOT Peak Jose.102.7cm/sAVA (VMAX)2.74cm2 Pulmonary Valve PV Peak Focakqal35.7cm/s Tricuspid Valve TR P. [id number]/sRAP [id number] TR Peak Gr.[id number] LEFT VENTRICLE The left ventricle is normal size. There is mild concentric left ventricular hypertrophy. The left ve ntricular systolic function is normal. The ejection fraction is estimted at 55-60%. There is normal L V segmental wall motion. Not able to assess diastology due to rapid heart rate. RIGHT VENTRICLE The right ventricle is normal size. The right ventricular systolic function is normal. ATRIA The left atrium size is normal. The right atrium size is normal. The interatrial septum is intact wit h no evidence for an atrial septal defect or patent foramen ovale as noted on 2-D or Doppler imaging. AORTIC VALVE The aortic valve is normal in structure and function. No aortic regurgitation. There is no aortic dora vular stenosis. MITRAL VALVE The mitral valve is normal in structure and function. There is no mitral valve stenosis. No mitral va lve regurgitation noted. TRICUSPID VALVE The tricuspid valve is normal in structure and function. Trace tricuspid regurgitation. Estimated PAP is 35-40mmHg. There is no tricuspid valve stenosis. PULMONIC VALVE The pulmonary valve is normal in structure and function. Mild pulmonic regugitation. GREAT VESSELS The aortic root is normal in size. The ascending aorta is normal in size. The IVC is normal in size a nd collapses >50% with inspiration. PERICARDIAL EFFUSION There is no evidence of significant pericardial effusion. Critical Notification Critical Value: No <Conclusion> The left ventricular systolic function is normal. The ejection fraction is estimted at 55-60%. There is normal LV segmental wall motion. Trace tricuspid regurgitation. Estimated PAP is 35-40mmHg. There is no evidence of significant pericardial effusion. Signed by : Dalton Kim, Electronically Approved : 12/29/2019 15:43:22
[2019-12-29] MEDS: AMIODARONE 450 MG in IV DEXTROSE 5% 250 ML IV PRN (15:49)
[2019-12-29] MEDS: METOPROLOL TARTRATE 5 MG/5 ML VIAL. IVP SCH (17:19)
[2019-12-29] MEDS: LACTOBACILLUS RHAMNOSUS GG 1 CAPSULE. PO SCH (20:33)
[2019-12-30] VITALS (13 sets, daily range): BP systolic 91–131; BP diastolic 50–79
[2019-12-30] MEDS: METOPROLOL TARTRATE 5 MG/5 ML VIAL. IVP SCH ×2 (00:41→06:00)
[2019-12-30] MEDS: fentaNYL PF VIAL 100 MCG/2 ML VIAL IVP PRN ×3 (00:50→20:37)
[2019-12-30] MEDS: AMIODARONE 450 MG in IV DEXTROSE 5% 250 ML IV PRN (03:04)
[2019-12-30] MEDS ORDERED: ASPIRIN ENTERIC COATED 81 MG TABLET.DR. PO SCH (08:00)
[2019-12-30] MEDS ORDERED: ANTI-COAG MONITOR BY PHARMACY. MC PRN (08:30)
--- NOTE | 2019-12-30 08:34 | PDOC ---
Infectious Disease Note Subjective Subjective Patient is feeling much better ROS ROS No nausea vomiting diarrhea abdominal pain has improved Vital Sign Vital Signs Vital Signs Date Time Temp Pulse Resp B/P (MAP) Pulse Ox O2 Delivery O2 Flow Rate FiO2 12/30/19 07:00 97.7 80 18 108/52 (70) 100 Room Air 97.7 Physical Exam PHYSICAL EXAM GENERAL: Alert, oriented female, not in distress. VITAL SIGNS: Stable, afebrile. HEENT: NAD. NECK: Supple. No JVP, no lymphadenopathy. LUNGS: Clear. HEART: S1, S2 regular. ABDOMEN: Benign. EXTREMITIES: No edema or cyanosis. SKIN: Unremarkable. NEUROLOGIC: The patient is alert, awake and appropriate. No focal neurologic deficit. Labs Lab Laboratory Tests Test 12/29/19 13:55 12/29/19 21:55 12/30/19 04:15 Sodium Level 140 mmol/L (136-145) Potassium Level 4.2 mmol/L (3.5-5.1) Chloride Level 112 mmol/L (98-107) Carbon Dioxide Level 17 mmol/L (21-32) Anion Gap 11 (6-14) Blood Urea Nitrogen 35 mg/dL (7-20) Creatinine 2.6 mg/dL (0.6-1.0) Estimated GFR (Cockcroft-Gault) 22.9 Glucose Level 127 mg/dL (70-99) Calcium Level 8.4 mg/dL (8.5-10.1) Magnesium Level 1.9 mg/dL (1.8-2.4) Heparin Anti-Xa Act, Unfractionated 0.70 IU/mL (0.30-0.70) 0.62 IU/mL (0.30-0.70) Micro Culture pending Objective Assessment IMPRESSION: 1. Urinary tract infection. 2. Bilateral chronic obstruction with ureteral stents. 3. Bilateral hydronephrosis. 4. History of cervical cancer and/or kidney cancer with radiation. Plan Plan of Care Continue antibiotics Patient can be discharged on a p.o. cefdinir Follow-up with urology NICOLE ROBBINS MD Dec 30, 2019 08:34
[2019-12-30] MEDS ORDERED: ENOXAPARIN 30 MG/0.3 ML SYRINGE. SQ SCH (09:00)
[2019-12-30] MEDS: LACTOBACILLUS RHAMNOSUS GG 1 CAPSULE. PO SCH ×2 (09:34→20:33)
[2019-12-30] MEDS: levETIRAcetam 500 MG TABLET PO SCH ×2 (09:34→20:33)
[2019-12-30] MEDS: IV NORMAL SALINE 1000ML BAG 1,000 ML IV SCH (09:40)
[2019-12-30] MEDS: AMIODARONE HCL 200 MG TABLET. PO SCH (10:29)
[2019-12-30] MEDS: cefTRIAXone IV Push 2 GM VIAL. IVP SCH (10:30)
[2019-12-30] MEDS: APIXABAN 2.5 MG TABLET. PO SCH ×2 (10:52→20:33)
[2019-12-30] MEDS ORDERED: ACETAMINOPHEN 325 MG TABLET. PO PRN (11:00)
--- NOTE | 2019-12-30 12:13 | PDOC ---
[employer] PROGRESS NOTE Date of Service DOS: DATE: 12/30/19 TIME: 12:10 Chief Complaint Chief Complaint Acute complicated UTI with bilateral ureteral stents Bilateral hydronephrosis Atrial flutter SANDHYA due to vasomotor nephropathy Admit to medicine for further management Infectious disease consult Appreciate cardiology recommendationswe will continue with amiodarone likely transition to p.o. and start her on low-dose Eliquis at time of discharge Continue empiric IV antibiotics Patient will need outpatient urology evaluation for stents after stabilization of current hospital course Pending urine and blood cultures Heparin for DVT prophylaxis ADA diet Full code Discussed with RN and SW Disposition pending ID evaluation Surrogate decision maker is the daughter History of Present Illness History of Present Illness 12/30/2019 No acute events overnight. Afebrile, patient seen and examined bedside. Improved abdominal pain and dysuria. No acute telemetry monitoring events. Atrial flutter has converted to NSR. Patient's chart, labs, images were reviewed and discussed with RN 59-year-old female with past medical history of cervical cancer and kidney cancer status post radiation about 6 years ago and bilateral ureteral stent placement subsequently who presents with 8 days of frequent urination, dysuria, burning upon urination and lower abdominal pain. Denies any fevers, chest pain, cough, bloody urine. Patient states that since her stents were placed in 2013 she has not had her stents exchanged. She has been having recurrent UTIs for the past 3 to 4 months for the last 6 years. She has always been given antibiotics for treatment but and has never had further evaluation from urology. Patient was seen and examined in her room after nurse administered flu shot vaccine and patient went into atrial tachycardia. Metoprolol 10 mg was given with no improvement. Patient was asymptomatic at this time. Telemetry monitoring revealed that patient was in atrial flutter. Cardiology was consulted at this time and they started her on digoxin and Cardizem drip and aspirin. Vitals/I&O Vitals/I&O: Vital Signs Date Time Temp Pulse Resp B/P (MAP) Pulse Ox O2 Delivery O2 Flow Rate FiO2 12/30/19 10:29 80 108/52 12/30/19 07:00 97.7 18 100 Room Air 97.7 I & O 12/29/19 12/29/19 12/30/19 15:00 23:00 07:00 Intake Total 0 ml 300 ml 540 ml Output Total 550 ml 200 ml Balance 0 ml -250 ml 340 ml Physical Exam Physical Exam: GENERAL: Alert, oriented female, not in distress. VITAL SIGNS: Stable, afebrile. HEENT: NAD. NECK: Supple. No JVP, no lymphadenopathy. LUNGS: Clear. HEART: S1, S2 regular. ABDOMEN: Benign. EXTREMITIES: No edema or cyanosis. SKIN: Unremarkable. NEUROLOGIC: The patient is alert, awake and appropriate. No focal neurologic deficit. General: Alert, Oriented X3, Cooperative, No acute distress Heart: Regular rate (Atrial flutter 2:1 with RVR) Lungs: Clear Abdomen: Other (diffuse abd tenderness) Extremities: No cyanosis, No edema Skin: No breakdown, No significant lesion Labs Labs: Laboratory Tests Test 12/29/19 13:55 12/29/19 21:55 12/30/19 04:15 Sodium Level 140 mmol/L (136-145) Potassium Level 4.2 mmol/L (3.5-5.1) Chloride Level 112 mmol/L (98-107) Carbon Dioxide Level 17 mmol/L (21-32) Anion Gap 11 (6-14) Blood Urea Nitrogen 35 mg/dL (7-20) Creatinine 2.6 mg/dL (0.6-1.0) Estimated GFR (Cockcroft-Gault) 22.9 Glucose Level 127 mg/dL (70-99) Calcium Level 8.4 mg/dL (8.5-10.1) Magnesium Level 1.9 mg/dL (1.8-2.4) Heparin Anti-Xa Act, Unfractionated 0.70 IU/mL (0.30-0.70) 0.62 IU/mL (0.30-0.70) Assessment and Plan Assessmemt and Plan Problems Medical Problems: (1) Abdominal pain Status: Acute (2) UTI (urinary tract infection) Status: Acute Comment Review of Relevant I have reviewed the following items emilia (where applicable) has been applied. Medications: Current Medications Medications (Trade) Dose Ordered Sig/Vania Route PRN Reason Start Time Stop Time Status Last Admin Dose Admin Diltiazem HCl (Cardizem Iv Push) 10 mg 1X ONCE IVP 12/29/19 13:45 12/29/19 13:46 DC 12/29/19 14:36 Lactobacillus Rhamnosus (Culturelle) 1 cap BID PO 12/29/19 21:00 12/30/19 09:34 Heparin Sodium/ Dextrose 250 ml @ 0 mls/hr CONT PRN IV PER PROTOCOL 12/29/19 15:00 12/30/19 10:30 DC 12/29/19 15:48 Amiodarone HCl 150 mg/Dextrose 103 ml @ 600 mls/hr 1X ONCE IV 12/29/19 15:30 12/29/19 15:40 DC 12/29/19 15:50 Amiodarone HCl 450 mg/Dextrose 259 ml @ 0 mls/hr CONT PRN IV SEE I/O RECORD 12/29/19 15:30 12/30/19 15:29 12/30/19 03:04 Metoprolol Tartrate (Lopressor Vial) 5 mg Q6HRS IVP 12/29/19 17:00 12/30/19 10:54 DC 12/30/19 00:41 Amiodarone HCl (Cordarone) 200 mg DAILY PO 12/30/19 11:00 12/30/19 10:29 Apixaban (Eliquis) 2.5 mg BID PO 12/30/19 11:00 12/30/19 10:52 Justifications for Admission Abdominal Pain Indications Hemodynamically unstable?: Yes Justification for admission: Patient is hemodynamically unstable as indicated by persistent tachycardia (of.), or hypotension (of..) or orthostatic vitalsigns (of..) despite approapriate treatment. Is patient in severe pain?: Yes Justification for admission: Patient has severe pain that requires (parenteral analgesic-please state analgesics and route) at least every 4 hours necessitating inpatient level of care. Other Justification SHITAL SARGENT MD Dec 30, 2019 12:13
--- NOTE | 2019-12-30 12:21 | PDOC ---
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 12/30/19 1221: CARDIO Progress Notes Date and Time Date of Service 12/30/2019 Time of Evaluation 1120 Subjective Subjective: No Chest Pain, No shortness of breath, No Palpitations Vitals Vitals Vital Signs Date Time Temp Pulse Resp B/P (MAP) Pulse Ox O2 Delivery O2 Flow Rate FiO2 12/30/19 10:29 80 108/52 12/30/19 07:00 97.7 18 100 Room Air 97.7 Weight Weight [ ] Input and Output Intake and Output Intake and Output 12/30/19 07:00 Intake Total 840 ml Output Total 750 ml Balance 90 ml Intake Oral 840 ml Output Urine Total 750 ml Laboratory Labs Laboratory Tests Test 12/29/19 13:55 12/29/19 21:55 12/30/19 04:15 Sodium Level 140 mmol/L (136-145) Potassium Level 4.2 mmol/L (3.5-5.1) Chloride Level 112 mmol/L (98-107) Carbon Dioxide Level 17 mmol/L (21-32) Anion Gap 11 (6-14) Blood Urea Nitrogen 35 mg/dL (7-20) Creatinine 2.6 mg/dL (0.6-1.0) Estimated GFR (Cockcroft-Gault) 22.9 Glucose Level 127 mg/dL (70-99) Calcium Level 8.4 mg/dL (8.5-10.1) Magnesium Level 1.9 mg/dL (1.8-2.4) Heparin Anti-Xa Act, Unfractionated 0.70 IU/mL (0.30-0.70) 0.62 IU/mL (0.30-0.70) Microbiology Micro Microbiology 12/28/19 Urine Culture - Final, Complete Physical Exam HEENT: Neck Supple W Full Motion Chest: Symmetric LUNGS: Clear to Auscultation Heart: S1S2, RRR (SR) Abdomen: Soft N/T Extremities: No Calf Tenderness Neurology: alert, oriented, follow commands Assessment Assessment 1. Atrial flutter with RVR: new converted to SR with amiodarone. EF and WM nml 2. 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 Abdominal pain/UTI/pyuria with left renal pole calculi with moderate to severe chronic bilateral renal hydronephrosis with bilateral ureteral stents in place. per PCP 4. Hx of seizures: on keppra 5. Allergy to ASA: causes seizure Recommendations 1. Continue with low dose metoprolol. Convert to PO amiodarone. Unable to place on other antiarrhythmics due to renal dysfunction 2. Significant discussion in regards to stroke prevention as pt would not be able to take ASA. Discussed options, risks and benefits of anticoagulation and willing to proceed. CrCl at [address] on low dose. 3. DC heparin. MCOT and note burden. Follow up in office. Justicifation of Admission Dx: Justifications for Admission: Justification of Admission Dx: N/A CLAUDETTE PATTERSON MD 12/30/192032: CARDIO Progress Notes Assessment Assessment Patient seen and examined. Agree with WEIGHT YARDAGE CHECKER's assessment and plan. Atrial flutter presently back in SR - change amiodarone to PO for rhythm maintenance and start eliquis for stroke prophylaxis 2D echo showed normal LVF Continue management of UTI per ID and chr bilat renal HN per MAGALIS PANTOJA APRN Dec 30, 2019 12:21 CLAUDETTE PATTERSON MD Dec 30, 2019 20:33
--- NOTE | 2019-12-30 13:34 | NUR ---
SS following for discharge planning. SS reviewed pt chart and discussed with pt RN. Pt is from home and is currently on room air. Pt on IV Rocephin. PT/OT ordered. PT recommending home with assistance. SS will continue to follow for discharge planning.
[2019-12-30] MEDS: METOPROLOL TART IMMED RELEASE 25 MG TABLET. PO SCH (20:34)
[2019-12-31 03:00] VITALS: BP 112/53
[2019-12-31] MEDS: HYDROcodone/APAP 5/325MG 1 TAB TABLET PO PRN ×2 (03:05→22:47)
[2019-12-31 07:40] VITALS: BP 110/71
--- NOTE | 2019-12-31 08:31 | PDOC ---
PROGRESS NOTES Date of Service: DATE: 12/31/19 TIME: 08:29 Chief Complaint Chief Complaint impression Acute complicated UTI with bilateral ureteral stents Bilateral hydronephrosis Moderate to severe chronic bilateral renal hydronephrosis with bilateral ureteral stents in place. Atrial flutter SANDHYA due to vasomotor nephropathy UTI - 2/2 chronic stent with no follow up with Urology plan Admit to medicine Infectious disease consult Appreciate cardiology recommendationswe will continue with amiodarone likely transition to p.o. and start her on low-dose Eliquis at time of discharge Continue empiric IV antibiotics Patient will need outpatient urology evaluation for stents after stabilization of current hospital course Pending urine and blood cultures Heparin for DVT prophylaxis ADA diet NEPHROLOGY CONSULT Full code Discussed with RN and SW FOLLOWING ID Surrogate decision maker is the daughter 39 min pt exam, chart review, > 50% of time spent with exam, chart review, pt care coordination History of Present Illness History of Present Illness 12/31/2019 No acute events overnight. Afebrile, patient seen and examined bedside. Improved abdominal pain and dysuria. No acute telemetry monitoring events. Atrial flutter has converted to NSR. Patient's chart, labs, images were reviewed and discussed with RN 59-year-old female with past medical history of cervical cancer and kidney cancer status post radiation about 6 years ago and bilateral ureteral stent placement subsequently who presents with 8 days of frequent urination, dysuria, burning upon urination and lower abdominal pain. Denies any fevers, chest pain, cough, bloody urine. Patient states that since her stents were placed in 2013 she has not had her stents exchanged. She has been having recurrent UTIs for the past 3 to 4 months for the last 6 years. She has always been given antibiotics for treatment but and has never had further evaluation from urology. Patient was seen and examined in her room after nurse administered flu shot vaccine and patient went into atrial tachycardia. Metoprolol 10 mg was given with no improvement. Patient was asymptomatic at this time. Telemetry monitoring revealed that patient was in atrial flutter. Cardiology was consulted at this time and they started her on digoxin and Cardizem drip and aspirin. Vitals Vitals Vital Signs Date Time Temp Pulse Resp B/P (MAP) Pulse Ox O2 Delivery O2 Flow Rate FiO2 12/31/19 07:40 98.5 85 18 110/71 (84) 98 Room Air 98.5 Physical Exam Physical Exam GENERAL: Alert, oriented female, not in distress. VITAL SIGNS: Stable, afebrile. HEENT: NAD. NECK: Supple. No JVP, no lymphadenopathy. LUNGS: Clear. HEART: S1, S2 regular. ABDOMEN: Benign. EXTREMITIES: No edema or cyanosis. SKIN: Unremarkable. NEUROLOGIC: The patient is alert, awake and appropriate. No focal neurologic deficit. General: Alert, Oriented X3, Cooperative, No acute distress Heart: Regular rate (Atrial flutter 2:1 with RVR) Lungs: Clear Abdomen: Other (diffuse abd tenderness) Extremities: No cyanosis, No edema Skin: No breakdown, No significant lesion Labs LABS SPEC #: [id number] LIDA: 12/28/19 STATUS: COMP REQ #: [id number] RECD: 12/28/[address]: LEANDRA CHURCH DO SOURCE: VOID ENTR: 12/28/[address]: UNKNOWN PCP NAME [facility]: ORDERED: URINE CULTURE Procedure Result URINE CULTURE Final Final GREATER THAN 100,000 CFU/ML Normal genitourinary [place], not indicative of infection on 12/30/19 at 0849 Testing Performed by: [address] [address] For Inquires, the Physician may contact the Microbiology department at [phone] Unless otherwise specified, Testing Performed by: [address] [id number] For Inquires, the Physician may contact the Microbiology department at [phone] CT abdomen and pelvis without contrast PQRS statement: CT scans at this facility use dose reduction including either automated exposure control, iterative reconstructions, and /or weight based radiation dosing via mA and kV modification when appropriate to reduce radiation dose to as low as reasonably achievable. HISTORY: Left-sided abdominal pain. History of renal stent. Abdomen findings: Lung bases unremarkable. Lower lumbar disc bulges and facet spurring may contribute to spinal canal stenoses. Subcentimeter hypodensity liver gallbladder fossa stable to prior imaging most likely small cyst or hemangioma. No follow-up necessary. Mild atrophy of the pancreas. Calcified lymph node karely hepatis. Spleen, adrenals unremarkable. Moderate to severe bilateral chronic renal hydronephrosis again demonstrated associated with bilateral ureteral stents. The degree of dilation is stable. Left renal lower pole nonobstructing calculi again demonstrated. No obstructing ureteral calculi. Very mild perinephric edema has decreased since the prior exam. Moderate volume of stool. No bowel obstruction or inflammation. Appendix not visualized may be surgically absent or obscured by surrounding bowel loops. Aortoiliac calcified plaque. No abdominal fluid. Pelvis findings: Bilateral ureteral stents coiled in the bladder. No bladder calculi or distal ureteral calculi. There is mild edema surrounding the bladder as well as there is mild edema within the presacral and perirectal space although this is stable to prior imaging. Small calcified uterine fibroids stable. Ovaries, rectum and bones are unremarkable. IMPRESSION: 1. No acute process in the abdomen. 2. Moderate to severe chronic bilateral renal hydronephrosis with bilateral ureteral stents in place. This is stable to prior imaging. 3. Nonobstructing left renal lower pole calculi are stable. No obstructive urinary calculi evident. 4. There is mild edema within the deep pelvis as well as mild edema of the bladder wall. This could be due to changes of radiation treatment. Cystitis is also a possibility. This is stable to prior exam from 2018. Electronically signed by: Moise Laboy MD (12/28/2019 9:47 PM) [facility] [place]CTATED and SIGNED BY: MOISE LABOY MD Assessment and Plan Assessmemt and Plan Problems Medical Problems: (1) Abdominal pain Status: Acute (2) UTI (urinary tract infection) Status: Acute Counseling About Smoking Cessation A clinician can make a significant impact on a tobacco user. Clinicians can address the social, financial, and emotional issues surrounding tobacco use, in addition to the health impacts associated with use. Find information about why it's important to counseling specialist tobacco users, as well as when and how to do so. Get the why, when, and how of helping patients quit in this infographic. Supporting Youth who are Addicted to Nicotine: Advice for Pediatricians This factsheet provides information for pediatricians about how to support adolescents who are addicted to nicotine from cigarettes, vaping, or other tobacco products. The content includes tips for screening, counseling, and helping youth with a cessation attempt. This factsheet is also available in [place] Why Should You Cyber Reverse Engineer for Smoking Cessation? Parental smoking is the main source of children's secondhand smoke exposure. When parents quit smoking, adolescents are less likely to start. Pediatric clinicians have direct contact with roughly 25% of the nation's smokers through child health visits. Parental counseling by the child's physician increases rates of parents' attempts to quit. Most parents see their child's provider more frequently than their own, with an average of 10 visits in the first two years of a child's life. While many children are covered by Medicaid, their parents may be uninsured, so pediatric clinicians may be their only available source of counseling. If adolescents and/or parents are smoking, counseling specialist them to quit tobacco use. If parents or other family members are smoking, counseling specialist them to prevent and reduce children's exposure to secondhand smoke. If a new parent is a current or former smoker, assist them in their efforts to avoid relapse following . If a pre-adolescent or adolescent patient is not a smoker, counseling specialist them to prevent initiation of tobacco use. 7 min Focus on the child as a primary beneficiary of smoking cessation. Counseling Techniques Information on the 2 As + R strategy can be found in the presentations listed on the Downloadable PowerPoint Presentations page. 5 As The [place] Agency [employer] and Quality has developed five major steps to intervention (the "5 As") for clinicians to provide counseling to tobacco users who want to quit. Don't Be Silent About Smoking is a social marketing campaign to encourage clinicians to take an active role in helping their smoking patients quit. This site includes counseling tips and advice. Comment Review of Relevant I have reviewed the following items emilia (where applicable) has been applied. Labs Laboratory Tests Test 12/29/19 13:55 12/29/19 21:55 12/30/19 04:15 Sodium Level 140 mmol/L (136-145) Potassium Level 4.2 mmol/L (3.5-5.1) Chloride Level 112 mmol/L (98-107) Carbon Dioxide Level 17 mmol/L (21-32) Anion Gap 11 (6-14) Blood Urea Nitrogen 35 mg/dL (7-20) Creatinine 2.6 mg/dL (0.6-1.0) Estimated GFR (Cockcroft-Gault) 22.9 Glucose Level 127 mg/dL (70-99) Calcium Level 8.4 mg/dL (8.5-10.1) Magnesium Level 1.9 mg/dL (1.8-2.4) Heparin Anti-Xa Act, Unfractionated 0.70 IU/mL (0.30-0.70) 0.62 IU/mL (0.30-0.70) Microbiology 12/28/19 Urine Culture - Final, Complete Medications Current Medications Morphine Sulfate (Morphine Sulfate) 4 mg 1X ONCE IV Last administered on 12/28/19at 22:22; Start 12/28/19 at 21:15; Stop 12/28/19 at 21:16; Status DC Ondansetron HCl (Zofran) 4 mg 1X ONCE IVP Last administered on 12/28/19at 22:22; Start 12/28/19 at 21:15; Stop 12/28/19 at 21:16; Status DC Levofloxacin/ Dextrose 100 ml @ 100 mls/hr 1X ONCE IV Last administered on 12/28/19at 22:22; Start 12/28/19 at 21:30; Stop 12/28/19 at 22:29; Status DC Morphine Sulfate (Morphine Sulfate) 4 mg 1X ONCE IV Last administered on 12/28/19at 23:03; Start 12/28/19 at 23:00; Stop 12/28/19 at 23:01; Status DC Fentanyl Citrate (Fentanyl 2ml Vial) 50 mcg PRN Q2HR PRN IVP MODERATE-SEVERE PAIN Last administered on 12/30/19at 20:37; Start 12/29/19 at 00:45 Levetiracetam (Keppra) 2,000 mg BID PO ; Start 12/29/19 at 09:00; Stop 12/29/19 at 00:47; Status DC Levetiracetam (Keppra) 2,000 mg BID PO Last administered on 12/30/19at 20:33; Start 12/29/19 at 01:00 Levetiracetam (Keppra) 2,000 mg BID PO ; Start 12/29/19 at 01:00; Status UNV Influenza Virus Vaccine Quadrival (Fluzone Quad Syringe) 0.5 ml ONCE ONCE VAX IM Last administered on 12/29/19at 08:52; Start 12/29/19 at 09:00; Stop 12/29/19 at 09:01; Status DC Metoprolol Tartrate (Lopressor Vial) 5 mg 1X ONCE IVP Last administered on 12/29/19at 09:15; Start 12/29/19 at 09:15; Stop 12/29/19 at 09:16; Status DC Metoprolol Tartrate (Lopressor Vial) 5 mg 1X ONCE IVP Last administered on 12/29/19at 09:46; Start 12/29/19 at 09:30; Stop 12/29/19 at 09:32; Status DC Sodium Chloride 1,000 ml @ 1,000 mls/hr 1X ONCE IV Last administered on 12/29/19at 09:57; Start 12/29/19 at 10:00; Stop 12/29/19 at 10:59; Status DC Ceftriaxone Sodium (Rocephin) 2 gm Q24H IVP Last administered on 12/30/19at 10:30; Start 12/29/19 at 11:00 Digoxin (Lanoxin) 500 mcg 1X ONCE IV Last administered on 12/29/19at 10:52; Start 12/29/19 at 10:45; Stop 12/29/19 at 10:46; Status DC Sodium Chloride 1,000 ml @ 100 mls/hr Q10H IV Last administered on 12/29/19at 20:35; Start 12/29/19 at 11:15; Stop 12/30/19 at 09:44; Status DC Diltiazem HCl 125 mg/Sodium Chloride 125 ml @ 5 mls/hr CONT PRN IV SEE I/O RECORD Last administered on 12/29/19at 12:54; Start 12/29/19 at 11:15; Stop 12/29/19 at 14:54; Status DC Sennosides (Senna) 17.2 mg PRN BID PRN PO CONSTIPATION; Start 12/29/19 at 11:15 Docusate Sodium (Colace) 100 mg PRN DAILY PRN PO HARD STOOLS; Start 12/29/19 at 11:15 Ondansetron HCl (Zofran) 4 mg PRN Q6HRS PRN IVP NAUSEA/VOMITING; Start 12/29/19 at 11:15 Dextrose (Dextrose 50%-Water Syringe) 12.5 gm PRN Q15MIN PRN IV SEE COMMENTS; Start 12/29/19 at 11:15 Enoxaparin Sodium (Lovenox 60mg Syringe) 60 mg DAILY SQ Last administered on 12/29/19at 11:29; Start 12/29/19 at 12:00; Stop 12/29/19 at 14:14; Status DC Morphine Sulfate (Morphine Sulfate) 1 mg PRN Q1HR PRN IV MILD PAIN 1-3; Start 12/29/19 at 11:15 Morphine Sulfate (Morphine Sulfate) 2 mg PRN Q2HR PRN IV SEVERE PAIN 7-10; Start 12/29/19 at 04:00; Stop 12/30/19 at 03:59; Status DC Aspirin (Ecotrin) 81 mg DAILYWBKFT PO ; Start 12/30/19 at 08:00; Stop 12/29/19 at 13:34; Status DC Diltiazem HCl (Cardizem Iv Push) 10 mg 1X ONCE IVP Last administered on 12/29/19at 14:36; Start 12/29/19 at 13:45; Stop 12/29/19 at 13:46; Status DC Enoxaparin Sodium (Lovenox 30mg Syringe) 30 mg Q24H SQ ; Start 12/30/19 at 09:00; Stop 12/29/19 at 14:50; Status DC Lactobacillus Rhamnosus (Culturelle) 1 cap BID PO Last administered on 12/30/19at 20:33; Start 12/29/19 at 21:00 Heparin Sodium/ Dextrose 250 ml @ 0 mls/hr CONT PRN IV PER PROTOCOL Last administered on 12/29/19at 15:48; Start 12/29/19 at 15:00; Stop 12/30/19 at 10:30; Status DC Heparin Sodium (Porcine) (Heparin Sodium) 2,300 unit PRN Q6HRS PRN IV FOR UFH LEVEL LESS THAN 0.2; Start 12/29/19 at 15:00; Stop 12/30/19 at 10:30; Status DC Amiodarone HCl 150 mg/Dextrose 103 ml @ 600 mls/hr 1X ONCE IV Last administered on 12/29/19at 15:50; Start 12/29/19 at 15:30; Stop 12/29/19 at 15:40; Status DC Amiodarone HCl 450 mg/Dextrose 259 ml @ 0 mls/hr CONT PRN IV SEE I/O RECORD Last administered on 12/30/19at 03:04; Start 12/29/19 at 15:30; Stop 12/30/19 at 15:29; Status DC Metoprolol Tartrate (Lopressor Vial) 5 mg Q6HRS IVP Last administered on 12/30/19at 00:41; Start 12/29/19 at 17:00; Stop 12/30/19 at 10:54; Status DC Info (Anti-Coagulation Monitoring By Pharmacy) 1 each PRN DAILY PRN MC SEE COMMENTS; Start 12/30/19 at 08:30 Amiodarone HCl (Cordarone) 200 mg DAILY PO Last administered on 12/30/19at 10:29; Start 12/30/19 at 11:00 Apixaban (Eliquis) 2.5 mg BID PO Last administered on 12/30/19at 20:33; Start 12/30/19 at 11:00 Acetaminophen (Tylenol) 650 mg PRN Q6HRS PRN PO MILD PAIN / TEMP > 100.3'F Last administered on 12/30/19at 15:16; Start 12/30/19 at 11:00 Metoprolol Tartrate (Lopressor) 12.5 mg BID PO Last administered on 12/30/19at 20:34; Start 12/30/19 at 21:00 Acetaminophen/ Hydrocodone Bitart (Lortab 5/325) 1 tab PRN Q4HRS PRN PO PAIN Last administered on 12/31/19at 03:05; Start 12/30/19 at 21:00 Active Scripts Active Keppra (Levetiracetam) 500 Mg Tablet 2,000 Mg PO BID Reported Tylenol Extra Strength (Acetaminophen) 500 Mg Tablet 500 Mg PO Q6HRS Vitals/I & O Vital Sign - Last 24 Hours 12/30/19 12/30/19 12/30/19 12/30/19 10:29 11:00 15:00 19:00 Temp 98.9 98.3 98.4 98.9 98.3 98.4 Pulse 80 89 91 94 Resp 20 20 20 B/P (MAP) 108/52 127/59 (81) 112/55 (74) 131/79 (96) Pulse Ox 99 100 100 O2 Delivery Nasal Cannula Room Air 12/30/19 12/30/19 12/30/19 12/30/19 20:00 20:34 20:37 21:07 Pulse 91 Resp 18 20 B/P (MAP) 112/55 Pulse Ox 100 98 O2 Delivery Room Air Room Air Room Air 12/30/19 12/31/19 12/31/19 12/31/19 23:00 03:00 03:05 04:05 Temp 98.1 98.6 98.1 98.6 Pulse 82 66 Resp 18 16 18 20 B/P (MAP) 120/72 (88) 112/53 (72) Pulse Ox 98 97 98 98 O2 Delivery Room Air Room Air 12/31/19 07:40 Temp 98.5 98.5 Pulse 85 Resp 18 B/P (MAP) 110/71 (84) Pulse Ox 98 O2 Delivery Room Air Intake and Output 12/30/19 12/30/19 12/31/19 15:00 23:00 07:00 Intake Total 730 ml 260 ml Output Total 250 ml Balance 480 ml 260 ml Justicifation of Admission Dx: Justifications for Admission: Justification of Admission Dx: N/A CELESTINA KRAUSE MD Dec 31, 2019 08:31
[2019-12-31] MEDS: AMIODARONE HCL 200 MG TABLET. PO SCH (08:32)
[2019-12-31] MEDS: LACTOBACILLUS RHAMNOSUS GG 1 CAPSULE. PO SCH ×2 (08:32→22:42)
[2019-12-31] MEDS: METOPROLOL TART IMMED RELEASE 25 MG TABLET. PO SCH ×2 (08:32→22:42)
[2019-12-31] MEDS: APIXABAN 2.5 MG TABLET. PO SCH ×2 (08:32→22:42)
[2019-12-31] MEDS: levETIRAcetam 500 MG TABLET PO SCH ×2 (08:34→22:41)
--- NOTE | 2019-12-31 09:36 | PDOC2 ---
CONSULT Date of Consult Date of Consult DATE: 12/31/19 TIME: 09:35 Reason for Consult Reason for Consult: CKD Identification/Chief Complaint Chief Complaint mild pain during urination Source Source: Caregiver, Chart review, Patient History of Present Illness Reason for Visit: Patient is a 59-year-old -[place] female with a history of ovarian cancer with radiation causing bilateral hydronephrosis, bilateral ureteral stent present since 2012 . Patient reports she has not seen Urology or any other specialists . Stent has not been changed . She was admitted recently to [facility] for Seizures and Dx with UTI. Nephrology was not consulted She doesnt follow with Nephrology or Oncology. She was also Dx with Renal cancer as well. She states she was going to [facility] but they dont have specialist. She is in the process of making appt with Dr. Graf at [facility] She presented to the ER with c/o painful urination , she reports its better but still has some. Denies any hematuria. Denies nausea, vomiting, diarrhea. Had mild abdominal pain, suprapubic pain, currently feels better , No Flank pain . Reports good UOP Denies any fever or chills. No CP or SOB . Denies use of NSAIDs ot any other OTC supplements. She is only on prescription med for seizures. Denies Dx of HTN, DM, CAD or Kidney stones In ER creatinine 2.[address] scan showed bilateral chronic hydronephrosis, bilateral ureteral stent, unchanged from before. Past Medical History Past Medical History 1. Cervical cancer with radiation causing bilateral hydronephrosis, bilateral ureteral stents. She has had recurrent UTI. She goes to ____ and gets some antibiotics, but she has not seen a urologist since 2012 or 2013. 2. The patient also had seizure disorder. 3. Traumatic brain injury. 4. Peripheral neuropathy. 5. Back problem. 6. Kidney cancer. Cardiovascular: HTN Pulmonary: Bronchitis CENTRAL NERVOUS SYSTEM: Seizure, Other (TBI) Heme/Onc: Anemia NOS, Cancer (cervical CA with radiation) Hepatobiliary: No pertinent hx Psych: Other Musculoskeletal: low back pain, Osteoarthritis Rheumatologic: No pertinent hx Infectious disease: No pertinent hx Renal/: Chronic renal insuff, UTI, Other (nephrolithiasis) Endocrine: Diabetes (borderline) Past Surgical History Past Surgical History Bilateral ureteral stent placement in 2013 Past Surgical History: Other (wisdom tooth extraction) Family History Family History: Cancer Social History Social History Negative for smoking, alcohol or illicit drug use. Quit ALCOHOL: none Drugs: None Lives: with Family Current Problem List Problem List Problems Medical Problems: (1) Abdominal pain Status: Acute (2) UTI (urinary tract infection) Status: Acute Current Medications Current Medications Current Medications Morphine Sulfate (Morphine Sulfate) 4 mg 1X ONCE IV Last administered on 12/28/19at 22:22; Start 12/28/19 at 21:15; Stop 12/28/19 at 21:16; Status DC Ondansetron HCl (Zofran) 4 mg 1X ONCE IVP Last administered on 12/28/19at 22:22; Start 12/28/19 at 21:15; Stop 12/28/19 at 21:16; Status DC Levofloxacin/ Dextrose 100 ml @ 100 mls/hr 1X ONCE IV Last administered on 12/28/19at 22:22; Start 12/28/19 at 21:30; Stop 12/28/19 at 22:29; Status DC Morphine Sulfate (Morphine Sulfate) 4 mg 1X ONCE IV Last administered on 12/28/19at 23:03; Start 12/28/19 at 23:00; Stop 12/28/19 at 23:01; Status DC Fentanyl Citrate (Fentanyl 2ml Vial) 50 mcg PRN Q2HR PRN IVP MODERATE-SEVERE PAIN Last administered on 12/30/19at 20:37; Start 12/29/19 at 00:45 Levetiracetam (Keppra) 2,000 mg BID PO ; Start 12/29/19 at 09:00; Stop 12/29/19 at 00:47; Status DC Levetiracetam (Keppra) 2,000 mg BID PO Last administered on 12/31/19at 08:34; Start 12/29/19 at 01:00 Levetiracetam (Keppra) 2,000 mg BID PO ; Start 12/29/19 at 01:00; Status UNV Influenza Virus Vaccine Quadrival (Fluzone Quad Syringe) 0.5 ml ONCE ONCE VAX IM Last administered on 12/29/19at 08:52; Start 12/29/19 at 09:00; Stop 12/29/19 at 09:01; Status DC Metoprolol Tartrate (Lopressor Vial) 5 mg 1X ONCE IVP Last administered on 12/29/19at 09:15; Start 12/29/19 at 09:15; Stop 12/29/19 at 09:16; Status DC Metoprolol Tartrate (Lopressor Vial) 5 mg 1X ONCE IVP Last administered on 12/29/19at 09:46; Start 12/29/19 at 09:30; Stop 12/29/19 at 09:32; Status DC Sodium Chloride 1,000 ml @ 1,000 mls/hr 1X ONCE IV Last administered on 12/29/19at 09:57; Start 12/29/19 at 10:00; Stop 12/29/19 at 10:59; Status DC Ceftriaxone Sodium (Rocephin) 2 gm Q24H IVP Last administered on 12/30/19at 10:30; Start 12/29/19 at 11:00 Digoxin (Lanoxin) 500 mcg 1X ONCE IV Last administered on 12/29/19at 10:52; Start 12/29/19 at 10:45; Stop 12/29/19 at 10:46; Status DC Sodium Chloride 1,000 ml @ 100 mls/hr Q10H IV Last administered on 12/29/19at 20:35; Start 12/29/19 at 11:15; Stop 12/30/19 at 09:44; Status DC Diltiazem HCl 125 mg/Sodium Chloride 125 ml @ 5 mls/hr CONT PRN IV SEE I/O RECORD Last administered on 12/29/19at 12:54; Start 12/29/19 at 11:15; Stop 12/29/19 at 14:54; Status DC Sennosides (Senna) 17.2 mg PRN BID PRN PO CONSTIPATION; Start 12/29/19 at 11:15 Docusate Sodium (Colace) 100 mg PRN DAILY PRN PO HARD STOOLS; Start 12/29/19 at 11:15 Ondansetron HCl (Zofran) 4 mg PRN Q6HRS PRN IVP NAUSEA/VOMITING; Start 12/29/19 at 11:15 Dextrose (Dextrose 50%-Water Syringe) 12.5 gm PRN Q15MIN PRN IV SEE COMMENTS; Start 12/29/19 at 11:15 Enoxaparin Sodium (Lovenox 60mg Syringe) 60 mg DAILY SQ Last administered on 12/29/19at 11:29; Start 12/29/19 at 12:00; Stop 12/29/19 at 14:14; Status DC Morphine Sulfate (Morphine Sulfate) 1 mg PRN Q1HR PRN IV MILD PAIN 1-3; Start 12/29/19 at 11:15 Morphine Sulfate (Morphine Sulfate) 2 mg PRN Q2HR PRN IV SEVERE PAIN 7-10; Start 12/29/19 at 04:00; Stop 12/30/19 at 03:59; Status DC Aspirin (Ecotrin) 81 mg DAILYWBKFT PO ; Start 12/30/19 at 08:00; Stop 12/29/19 at 13:34; Status DC Diltiazem HCl (Cardizem Iv Push) 10 mg 1X ONCE IVP Last administered on 12/29/19at 14:36; Start 12/29/19 at 13:45; Stop 12/29/19 at 13:46; Status DC Enoxaparin Sodium (Lovenox 30mg Syringe) 30 mg Q24H SQ ; Start 12/30/19 at 09:00; Stop 12/29/19 at 14:50; Status DC Lactobacillus Rhamnosus (Culturelle) 1 cap BID PO Last administered on 12/31/19at 08:32; Start 12/29/19 at 21:00 Heparin Sodium/ Dextrose 250 ml @ 0 mls/hr CONT PRN IV PER PROTOCOL Last administered on 12/29/19at 15:48; Start 12/29/19 at 15:00; Stop 12/30/19 at 10:30; Status DC Heparin Sodium (Porcine) (Heparin Sodium) 2,300 unit PRN Q6HRS PRN IV FOR UFH LEVEL LESS THAN 0.2; Start 12/29/19 at 15:00; Stop 12/30/19 at 10:30; Status DC Amiodarone HCl 150 mg/Dextrose 103 ml @ 600 mls/hr 1X ONCE IV Last administered on 12/29/19at 15:50; Start 12/29/19 at 15:30; Stop 12/29/19 at 15:40; Status DC Amiodarone HCl 450 mg/Dextrose 259 ml @ 0 mls/hr CONT PRN IV SEE I/O RECORD Last administered on 12/30/19at 03:04; Start 12/29/19 at 15:30; Stop 12/30/19 at 15:29; Status DC Metoprolol Tartrate (Lopressor Vial) 5 mg Q6HRS IVP Last administered on 12/30/19at 00:41; Start 12/29/19 at 17:00; Stop 12/30/19 at 10:54; Status DC Info (Anti-Coagulation Monitoring By Pharmacy) 1 each PRN DAILY PRN MC SEE COMMENTS; Start 12/30/19 at 08:30 Amiodarone HCl (Cordarone) 200 mg DAILY PO Last administered on 12/31/19at 08:32; Start 12/30/19 at 11:00 Apixaban (Eliquis) 2.5 mg BID PO Last administered on 12/31/19at 08:32; Start 12/30/19 at 11:00 Acetaminophen (Tylenol) 650 mg PRN Q6HRS PRN PO MILD PAIN / TEMP > 100.3'F Last administered on 12/30/19at 15:16; Start 12/30/19 at 11:00 Metoprolol Tartrate (Lopressor) 12.5 mg BID PO Last administered on 12/31/19at 08:32; Start 12/30/19 at 21:00 Acetaminophen/ Hydrocodone Bitart (Lortab 5/325) 1 tab PRN Q4HRS PRN PO PAIN Last administered on 12/31/19at 03:05; Start 12/30/19 at 21:00 Active Scripts Active Keppra (Levetiracetam) 500 Mg Tablet 2,000 Mg PO BID Reported Tylenol Extra Strength (Acetaminophen) 500 Mg Tablet 500 Mg PO Q6HRS Allergies Allergies: Coded Allergies: Penicillins (Verified Allergy, Severe, Swelling, 12/28/19) Has taken keflex before aspirin (Verified Allergy, Severe, SEIZURES, TORADOL [place], 11/03/16) ROS Review of System As per HPI, rest of the ROS is negative Physical Exam Physical Exam GENERAL: Alert, oriented female, not in distress. HEENT: OM moist NECK: Supple. LUNGS: Clear.Non labored HEART: S1, S2 regular. ABDOMEN: soft, Not tender EXTREMITIES: No edema or cyanosis. SKIN: Unremarkable. NEUROLOGIC: The patient is alert, awake and appropriate. No focal neurologic deficit. No duran, No SP or flank tenderness Vital Signs Vital Signs Date Time Temp Pulse Resp B/P (MAP) Pulse Ox O2 Delivery O2 Flow Rate FiO2 12/31/19 08:32 85 110/71 12/31/19 08:00 Room Air 12/31/19 07:40 98.5 18 98 98.5 Assessment & Plan CKD stage 4 - 2/2 Bilat Hydronephrosis -Chronic , recurrent UTI Gradually worsening from stage 2 in 2014 , stage 3 in 2019, Creat in 2'since June of this year . Was hospitalized at [facility] recently CT scan Moderate to severe chronic bilateral renal hydronephrosis with bilateral ureteral stents in place. This is stable to prior imaging. Recommend to see Urology for removal or Replacement of stent , has not seen Urology seen stent placement in 2013 .Currently no emergent indication for Dialysis . Supportive care, I/O, Monitor UTI - 2/2 chronic stent with no follow up with Urology . Mild edema within the deep pelvis as well as mild edema of the bladder wall. This could be due to changes of radiation treatment. Cystitis is also a possibility. This is stable to prior exam from 2018. Metabolic acidosis 2/2 all the above Bilateral chronic obstruction with ureteral stents in 2013 Bilateral hydronephrosis as above 2/2 to radiation History of cervical cancer/? Ovarian and/or kidney cancer with radiation. Nonobstructing left renal lower pole calculi are stable. No obstructive urinary calculi evident. Labs Labs Laboratory Tests Test 12/29/19 13:55 12/29/19 21:55 12/30/19 04:15 Sodium Level 140 mmol/L (136-145) Potassium Level 4.2 mmol/L (3.5-5.1) Chloride Level 112 mmol/L (98-107) Carbon Dioxide Level 17 mmol/L (21-32) Anion Gap 11 (6-14) Blood Urea Nitrogen 35 mg/dL (7-20) Creatinine 2.6 mg/dL (0.6-1.0) Estimated GFR (Cockcroft-Gault) 22.9 Glucose Level 127 mg/dL (70-99) Calcium Level 8.4 mg/dL (8.5-10.1) Magnesium Level 1.9 mg/dL (1.8-2.4) Heparin Anti-Xa Act, Unfractionated 0.70 IU/mL (0.30-0.70) 0.62 IU/mL (0.30-0.70) Review All relevant outside records, renal labs, imaging studies, telemetry/EKG's were reviewed. Images Images CT abdomen 1. No acute process in the abdomen. 2. Moderate to severe chronic bilateral renal hydronephrosis with bilateral ureteral stents in place. This is stable to prior imaging. 3. Nonobstructing left renal lower pole calculi are stable. No obstructive urinary calculi evident. 4. There is mild edema within the deep pelvis as well as mild edema of the bladder wall. This could be due to changes of radiation treatment. Cystitis is also a possibility. This is stable to prior exam from 2018. DIANE IVERSON MD Dec 31, 2019 09:36
--- NOTE | 2019-12-31 10:50 | PDOC ---
Infectious Disease Note Subjective Subjective Patient is feeling much better ROS ROS No nausea vomiting diarrhea chest pain shortness of breath Vital Sign Vital Signs Vital Signs Date Time Temp Pulse Resp B/P (MAP) Pulse Ox O2 Delivery O2 Flow Rate FiO2 12/31/19 08:32 85 110/71 12/31/19 08:00 Room Air 12/31/19 07:40 98.5 18 98 98.5 Physical Exam PHYSICAL EXAM GENERAL: Alert, oriented female, not in distress. VITAL SIGNS: Stable, afebrile. HEENT: NAD. NECK: Supple. No JVP, no lymphadenopathy. LUNGS: Clear. HEART: S1, S2 regular. ABDOMEN: Benign. EXTREMITIES: No edema or cyanosis. SKIN: Unremarkable. NEUROLOGIC: The patient is alert, awake and appropriate. No focal neurologic deficit. Labs Micro Culture negative Objective Assessment IMPRESSION: 1. Urinary tract infection. 2. Bilateral chronic obstruction with ureteral stents. 3. Bilateral hydronephrosis. 4. History of cervical cancer and/or kidney cancer with radiation. Plan Plan of Care Continue antibiotics Patient can be discharged on a p.o. cefdinir Follow-up with urology NICOLE ROBBINS MD Dec 31, 2019 10:50
[2019-12-31 11:10] VITALS: BP 134/65
[2019-12-31 11:22] LABS: ALBUMIN 2.7 g/dL (3.4-5.0); CALCIUM 8.5 mg/dL (8.5-10.1); CREATININE 2.7 mg/dL (0.6-1.0); GFR 21.9; PHOSPHORUS 3.6 mg/dL (2.6-4.7); POTASSIUM 3.6 mmol/L (3.5-5.1)
--- NOTE | 2019-12-31 12:25 | PDOC ---
MAGALIS TEJADA SOIL ANALYST 12/31/19 1225: CARDIO Progress Notes Date and Time Date of Service 12/31/2019 Time of Evaluation 1130 Subjective Subjective: No Chest Pain, No shortness of breath, No Palpitations Vitals Vitals Vital Signs Date Time Temp Pulse Resp B/P (MAP) Pulse Ox O2 Delivery O2 Flow Rate FiO2 12/31/19 11:10 98.4 75 18 134/65 (88) 99 Room Air 98.4 Weight Weight [ ] Input and Output Intake and Output Intake and Output 12/31/19 07:00 Intake Total 990 ml Output Total 250 ml Balance 740 ml Intake Oral 690 ml IV Total 300 ml Output Urine Total 250 ml # Voids 2 Laboratory Labs Laboratory Tests Test 12/31/19 10:27 Sodium Level 140 mmol/L (136-145) Potassium Level 3.6 mmol/L (3.5-5.1) Chloride Level 110 mmol/L (98-107) Carbon Dioxide Level 15 mmol/L (21-32) Anion Gap 15 (6-14) Blood Urea Nitrogen 32 mg/dL (7-20) Creatinine 2.7 mg/dL (0.6-1.0) Estimated GFR (Cockcroft-Gault) 21.9 Glucose Level 107 mg/dL (70-99) Calcium Level 8.5 mg/dL (8.5-10.1) Phosphorus Level 3.6 mg/dL (2.6-4.7) Albumin 2.7 g/dL (3.4-5.0) Microbiology Micro Microbiology 12/28/19 Urine Culture - Final, Complete Physical Exam HEENT: Neck Supple W Full Motion Chest: Symmetric LUNGS: Clear to Auscultation Heart: S1S2, RRR (SR) Abdomen: Soft N/T Extremities: No Calf Tenderness Neurology: alert, oriented, follow commands Assessment Assessment 1. Atrial flutter with RVR: maintaining SR with rare bursts EF and WM nml 2. 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 Abdominal pain/UTI/pyuria with left renal pole calculi with moderate to severe chronic bilateral renal hydronephrosis with bilateral ureteral stents in place. per PCP 4. Hx of seizures: on keppra 5. Allergy to ASA: causes seizure Recommendations 1. Continue with low dose metoprolol. Amiodarone for rhythm maintenance. Unable to place on other antiarrhythmics due to renal dysfunction 2. Significant discussion in regards to stroke prevention as pt would not be able to take ASA. Low dose eliquis, [id number]. 1 month sample given and discount card 3. MCOT and note burden. Follow up in office. May DC per cardiac standpoint Justicifation of Admission Dx: Justifications for Admission: Justification of Admission Dx: N/A CLAUDETTE PATTERSON MD 01/01/20 0716: CARDIO Progress Notes Assessment Assessment Patient seen and examined 12/31/19. Agree with HEAD OF HUMAN RESOURCES's assessment and plan. Atrial flutter presently back in SR - continue amiodarone for rhythm maintenance and eliquis for stroke prophylaxis 2D echo showed normal LVF Continue management of UTI per ID and chr bilat renal HN per IM Plan outpatient event monitor MAGALIS TEJADA APRN Dec 31, 2019 12:25 CLAUDETTE PATTERSON MD Jan 01, 2020 07:16
[2019-12-31 15:33] VITALS: BP 107/51
--- NOTE | 2019-12-31 15:37 | NUR ---
SW following for discharge planning. Spoke with RN and reviewed chart. Pt transferred to . SW met with pt. Pt from home alone. PT recommendation is home with assistance. Pt refusing HH on discharge. Pt off IV Rocephin. Pt on room air and oral medications. Pt to discharge home, self-care. Pt will likely discharge tomorrow, 12/31. No anticipated SW needs at discharge.
[2019-12-31 19:00] VITALS: BP 127/77
[2019-12-31] MEDS: CEFDINIR 300 MG CAPSULE PO SCH (22:41)
[2019-12-31 23:00] VITALS: BP 99/44
[2020-01-01 03:00] VITALS: BP 112/59
[2020-01-01] MEDS: HYDROcodone/APAP 5/325MG 1 TAB TABLET PO PRN (03:35)
[2020-01-01 05:05] LABS: CALCIUM 8.5 mg/dL (8.5-10.1); CREATININE 3.1 mg/dL (0.6-1.0); GFR 18.7; POTASSIUM 4.2 mmol/L (3.5-5.1)
[2020-01-01 07:00] VITALS: BP 115/59
--- NOTE | 2020-01-01 09:13 | PDOC ---
Infectious Disease Note Subjective Subjective Patient is feeling much better ROS ROS no n/v/d/ Vital Sign Vital Signs Vital Signs Date Time Temp Pulse Resp B/P (MAP) Pulse Ox O2 Delivery O2 Flow Rate FiO2 01/01/20 07:00 98.0 79 18 115/59 (77) 97 Room Air 98.0 Physical Exam PHYSICAL EXAM GENERAL: Alert, oriented female, not in distress. VITAL SIGNS: Stable, afebrile. HEENT: NAD. NECK: Supple. No JVP, no lymphadenopathy. LUNGS: Clear. HEART: S1, S2 regular. ABDOMEN: Benign. EXTREMITIES: No edema or cyanosis. SKIN: Unremarkable. NEUROLOGIC: The patient is alert, awake and appropriate. No focal neurologic deficit. Labs Lab Laboratory Tests Test 12/31/19 10:27 01/01/20 04:00 Sodium Level 140 mmol/L (136-145) 141 mmol/L (136-145) Potassium Level 3.6 mmol/L (3.5-5.1) 4.2 mmol/L (3.5-5.1) Chloride Level 110 mmol/L (98-107) 108 mmol/L (98-107) Carbon Dioxide Level 15 mmol/L (21-32) 17 mmol/L (21-32) Anion Gap 15 (6-14) 16 (6-14) Blood Urea Nitrogen 32 mg/dL (7-20) 35 mg/dL (7-20) Creatinine 2.7 mg/dL (0.6-1.0) 3.1 mg/dL (0.6-1.0) Estimated GFR (Cockcroft-Gault) 21.9 18.7 Glucose Level 107 mg/dL (70-99) 104 mg/dL (70-99) Calcium Level 8.5 mg/dL (8.5-10.1) 8.5 mg/dL (8.5-10.1) Phosphorus Level 3.6 mg/dL (2.6-4.7) Albumin 2.7 g/dL (3.4-5.0) Micro Culture negative Objective Assessment IMPRESSION: 1. Urinary tract infection. 2. Bilateral chronic obstruction with ureteral stents. 3. Bilateral hydronephrosis. 4. History of cervical cancer and/or kidney cancer with radiation. Plan Plan of Care Patient can be discharged on a p.o. cefdinir Follow-up with urology NICOLE ROBBINS MD Jan 01, 2020 09:13
[2020-01-01] MEDS: APIXABAN 2.5 MG TABLET. PO SCH (09:32)
[2020-01-01] MEDS: LACTOBACILLUS RHAMNOSUS GG 1 CAPSULE. PO SCH (09:32)
[2020-01-01] MEDS: levETIRAcetam 500 MG TABLET PO SCH (09:33)
[2020-01-01] MEDS: AMIODARONE HCL 200 MG TABLET. PO SCH (09:33)
[2020-01-01] MEDS: CEFDINIR 300 MG CAPSULE PO SCH (09:33)
[2020-01-01] MEDS: METOPROLOL TART IMMED RELEASE 25 MG TABLET. PO SCH (09:34)
[2020-01-01 11:00] VITALS: BP 147/73
[2020-01-01] MEDS ORDERED: METO25TA4 PO (11:27)
[2020-01-01] MEDS ORDERED: APIX2.5T PO (11:27)
[2020-01-01] MEDS ORDERED: AMIO200T6 PO (11:27)
--- NOTE | 2020-01-01 11:27 | PDOC ---
[facility] PROGRESS NOTE Date of Service DOS: DATE: 01/01/20 TIME: 11:22 Chief Complaint Chief Complaint Acute complicated UTI with bilateral ureteral stents Bilateral hydronephrosis Atrial flutter SANDHYA due to vasomotor nephropathy History of Present Illness History of Present Illness 01/01/20 Pt seen and examined DEB BOYD case management Cardiology, pulm, and ID following Per cards - okay to d/c from their perspective ID is okay with discharge when she is on PO abx - cefdinir 12/31/2019 No acute events overnight. Afebrile, patient seen and examined bedside. Improved abdominal pain and dysuria. No acute telemetry monitoring events. Atrial flutter has converted to NSR. Patient's chart, labs, images were reviewed and discussed with RN 59-year-old female with past medical history of cervical cancer and kidney cancer status post radiation about 6 years ago and bilateral ureteral stent placement subsequently who presents with 8 days of frequent urination, dysuria, burning upon urination and lower abdominal pain. Denies any fevers, chest pain, cough, bloody urine. Patient states that since her stents were placed in 2013 she has not had her stents exchanged. She has been having recurrent UTIs for the past 3 to 4 months for the last 6 years. She has always been given antibiotics for treatment but and has never had further evaluation from urology. Patient was seen and examined in her room after nurse administered flu shot vaccine and patient went into atrial tachycardia. Metoprolol 10 mg was given with no improvement. Patient was asymptomatic at this time. Telemetry monitoring revealed that patient was in atrial flutter. Cardiology was consu lted at this time and they started her on digoxin and Cardizem drip and aspirin. Vitals/I&O Vitals/I&O: Vital Signs Date Time Temp Pulse Resp B/P (MAP) Pulse Ox O2 Delivery O2 Flow Rate FiO2 01/01/20 11:00 98.7 82 18 147/73 (97) 97 Room Air 98.7 I & O 12/31/19 12/31/19 01/01/20 15:00 23:00 07:00 Intake Total 320 ml 300 ml 400 ml Output Total 600 ml 375 ml Balance 320 ml -300 ml 25 ml Physical Exam Physical Exam: GENERAL: Alert, oriented female, not in distress. VITAL SIGNS: Stable, afebrile. HEENT: NAD. NECK: Supple. No JVP, no lymphadenopathy. LUNGS: Clear. HEART: S1, S2 regular. ABDOMEN: Benign. EXTREMITIES: No edema or cyanosis. SKIN: Unremarkable. NEUROLOGIC: The patient is alert, awake and appropriate. No focal neurologic deficit. General: Alert, Oriented X3, Cooperative, No acute distress Heart: Regular rate (Atrial flutter 2:1 with RVR) Lungs: Clear Abdomen: Normal bowel sounds, No tenderness, Other (diffuse abd tenderness) Extremities: No cyanosis, No edema Skin: No rashes, No significant lesion Labs Labs: Laboratory Tests Test 01/01/20 04:00 Sodium Level 141 mmol/L (136-145) Potassium Level 4.2 mmol/L (3.5-5.1) Chloride Level 108 mmol/L (98-107) Carbon Dioxide Level 17 mmol/L (21-32) Anion Gap 16 (6-14) Blood Urea Nitrogen 35 mg/dL (7-20) Creatinine 3.1 mg/dL (0.6-1.0) Estimated GFR (Cockcroft-Gault) 18.7 Glucose Level 104 mg/dL (70-99) Calcium Level 8.5 mg/dL (8.5-10.1) Review of Systems Review of Systems: Denies chest pain Denies shortness of breath Assessment and Plan Assessmemt and Plan Problems Medical Problems: (1) Abdominal pain Status: Acute (2) UTI (urinary tract infection) Status: Acute Assessment: Acute complicated UTI with bilateral ureteral stents Bilateral hydronephrosis Atrial flutter SANDHYA due to vasomotor nephropathy Plan: BP / Afib meds per cardio DVT ppx DC disposition home health? PO abx Comment Review of Relevant I have reviewed the following items emilia (where applicable) has been applied. Medications: Current Medications Medications (Trade) Dose Ordered Sig/Vania Route PRN Reason Start Time Stop Time Status Last Admin Dose Admin Cefdinir (Omnicef) 300 mg BID PO 12/31/19 21:00 01/01/20 09:33 Justifications for Admission Abdominal Pain Indications Hemodynamically unstable?: Yes Justification for admission: Patient is hemodynamically unstable as indicated by persistent tachycardia (of.), or hypotension (of..) or orthostatic vitalsigns (of..) despite approapriate treatment. Is patient in severe pain?: Yes Justification for admission: Patient has severe pain that requires (parenteral analgesic-please state analgesics and route) at least every 4 hours necessitating inpatient level of care. Other Justification CATHERINE DE SANTIAGO III DO Jan 01, 2020 11:27
--- NOTE | 2020-01-01 11:30 | SNU/HH DC ---
DISCHARGE WITH HOME HEALTH DISCHARGE INFORMATION: Final Diagnosis: Problems Medical Problems: (1) Abdominal pain Status: Acute (2) UTI (urinary tract infection) Status: Acute Condition on Discharge: Stable HOME HEALTH: Face to Face: I certify this patient is under my care and that I, or a nurse practitioner or physician's political science research assistant working with me, had a face to face encounter that meets the physician face to face encounter requirements with this patient on []. Medical Complications: Other (Recent UTI chronic kidney disease history of arrhythmias) RN For Eval/Treatment: Yes Physical Therapy For: Evalulation/Treatment Occupational Therapy For: Evaluation/Treatment Home Health Aide For: Self-care EMPLOYEE DEVELOPMENT DIRECTOR For: Community Resources Pt Meets Homebound Status: Extreme weakness w/ amb. POST DISCHARGE ORDERS: Activity Instructions for Disc: Activity as tolerated Weight Bearing Status after Di: Full weight bearing DIET AFTER DISCHARGE: Cardiac Wound/Incision Care: No wound care needed TREATMENT/EQUIPMENT ORDERS: Adaptive Equipment Issued: None CERTIFICATION STATEMENT: Certification Statement: Certification Statement: Based on the above finding, I certify that this patient is confined to the home and needs intermittent intermediate care, physical therapy and/or speech therapy, or continues to need occupational therapy.~ This patient is under my care, and I have initiated the establishment of the plan of care.~ This patient will be followed by myself or a community physician who will periodically review the plan of care. Home Meds Active Scripts Metoprolol Tartrate (METOPROLOL TARTRATE) 25 Mg Tablet, 12.5 MG PO BID for . for 30 Days, #30 TAB Prov:CASTLE,NIAL K III DO 01/01/20 Amiodarone Hcl (AMIODARONE HCL) 200 Mg Tablet, 200 MG PO DAILY for . for 30 Days, #30 TAB Prov:CASTLE,NIAL K III DO 01/01/20 Apixaban (ELIQUIS) 2.5 Mg Tablet, 2.5 MG PO BID for . for 30 Days, #60 TAB Prov:CASTLE,NIAL K III DO 01/01/20 Levetiracetam (KEPPRA) 500 Mg Tablet, 2000 MG PO BID for Seizures, #60 TAB 2 Refills Prov:MINERVA COLEMAN MD 10/17/19 Reported Medications Acetaminophen (TYLENOL EXTRA STRENGTH) 500 Mg Tablet, 500 MG PO Q6HRS for pain, TAB 12/29/19 CASTLE,NIAL K III DO Jan 01, 2020 11:30
--- NOTE | 2020-01-01 12:07 | DS ---
DATE OF DISCHARGE: 01/01/2020 ADMISSION DIAGNOSES: Urinary tract infection and atrial fibrillation. DISCHARGE DIAGNOSES: Resolving urinary tract infection, resolving atrial fibrillation. CONSULTATIONS: Cardiology, Nephrology and Infectious Disease. PROCEDURES: None. HOSPITAL COURSE: The patient is a pleasant elderly female who presented with UTI and AFib. She was admitted. We gave her negative chronotropic agents. We put her on Eliquis. We gave her IV antibiotics and fluids. The above consults were obtained. We did physical therapy, occupational therapy and basically over the past few days, the patient has returned to her baseline. I saw her and examined her this morning, she is doing well and wants to go home. Heart tones are normal. Lungs are clear. We plan to discharge. DISPOSITION: Home. ACTIVITY: As tolerated. DIET: Cardiac. MEDICATIONS: Please see the MRAD. TOTAL TIME: 32 minutes. CATHERINE DE SANTIAGO DO DR: LIZY/diamond JOB#: [id number] / [id number]
--- NOTE | 2020-01-01 12:52 | PDOC ---
DATE OF SERVICE DATE: 01/01/20 TIME: 12:47 SUBJECTIVE ROS stable, no complaints OBJECTIVE Vital Signs Vital Signs Date Time Temp Pulse Resp B/P (MAP) Pulse Ox O2 Delivery O2 Flow Rate FiO2 01/01/20 11:00 98.7 82 18 147/73 (97) 97 Room Air 98.7 I & 0 Intake and Output 01/01/20 07:00 Intake Total 1020 ml Output Total 975 ml Balance 45 ml Intake Oral 1020 ml Output Urine Total 975 ml PHYSICAL EXAM Physical Exam GENERAL: Alert, oriented female, not in distress. HEENT: OM moist NECK: Supple. LUNGS: Clear.Non labored HEART: S1, S2 regular. ABDOMEN: soft, Not tender EXTREMITIES: No edema or cyanosis. SKIN: Unremarkable. NEUROLOGIC: The patient is alert, awake and appropriate. No focal neurologic deficit. No duran, No SP or flank tenderness Vital Signs DIAGNOSIS/ASSESSMENT Assessment & Plan SANDHYA -2/2 UTI, worsening renal function Needs follow up with UROLOGY , r/o stent blockage CKD stage 4 - 2/2 Bilat Hydronephrosis -Chronic , recurrent UTI Gradually worsening from stage 2 in 2014 , stage 3 in 2018, Creat in 2'since June of this year . Was hospitalized at [facility] recently CT scan Moderate to severe chronic bilateral renal hydronephrosis with bilateral ureteral stents in place. This is stable to prior imaging. Recommend to see Urology for removal or Replacement of stent , has not seen Urology seen stent placement in 2013 .Currently no emergent indication for Dialysis . Supportive care, I/O, Monitor UTI - 2/2 chronic stent with no follow up with Urology . Mild edema within the deep pelvis as well as mild edema of the bladder wall. This could be due to changes of radiation treatment. Cystitis is also a possibility. This is stable to prior exam from 2018. Metabolic acidosis 2/2 all the above Bilateral chronic obstruction with ureteral stents in 2013 Bilateral hydronephrosis as above 2/2 to radiation History of cervical cancer/? Ovarian and/or kidney cancer with radiation. Nonobstructing left renal lower pole calculi are stable. No obstructive urinary calculi evident. FU with urology . Follow with Nephrology after primary issue addressed by Urology Plan to dc home per Primary COMMENT/RELEVANT DATA Meds Current Medications Medications (Trade) Dose Ordered Sig/Vania Start Time Stop Time Status Last Admin Dose Admin Acetaminophen (Tylenol) 650 mg PRN Q6HRS PRN 12/30/19 11:00 12/30/19 15:16 650 MG Acetaminophen/ Hydrocodone Bitart (Lortab 5/325) 1 tab PRN Q4HRS PRN 12/30/19 21:00 01/01/20 03:35 1 TAB Amiodarone HCl (Cordarone) 200 mg DAILY 12/30/19 11:00 01/01/20 09:33 200 MG Amiodarone HCl 150 mg/Dextrose 103 ml @ 600 mls/hr 1X ONCE 12/29/19 15:30 12/29/19 15:40 DC 12/29/19 15:50 600 MLS/HR Amiodarone HCl 450 mg/Dextrose 259 ml @ 0 mls/hr CONT PRN 12/29/19 15:30 12/30/19 15:29 DC 12/30/19 03:04 16.7 MLS/HR Apixaban (Eliquis) 2.5 mg BID 12/30/19 11:00 01/01/20 09:32 2.5 MG Aspirin (Ecotrin) 81 mg [id number] 12/30/19 08:00 12/29/19 13:34 DC Cefdinir (Omnicef) 300 mg BID 12/31/19 21:00 01/01/20 09:33 300 MG Ceftriaxone Sodium (Rocephin) 2 gm Q24H 12/29/19 11:00 12/31/19 10:51 DC 12/30/19 10:30 2 GM Dextrose (Dextrose 50%-Water Syringe) 12.5 gm PRN Q15MIN PRN 12/29/19 11:15 Digoxin (Lanoxin) 500 mcg 1X ONCE 12/29/19 10:45 12/29/19 10:46 DC 12/29/19 10:52 500 MCG Diltiazem HCl (Cardizem Iv Push) 10 mg 1X ONCE 12/29/19 13:45 12/29/19 13:46 DC 12/29/19 14:36 10 MG Diltiazem HCl 125 mg/Sodium Chloride 125 ml @ 5 mls/hr CONT PRN 12/29/19 11:15 12/29/19 14:54 DC 12/29/19 12:54 5 MLS/HR Docusate Sodium (Colace) 100 mg PRN DAILY PRN 12/29/19 11:15 Enoxaparin Sodium (Lovenox 30mg Syringe) 30 mg Q24H 12/30/19 09:00 12/29/19 14:50 DC Enoxaparin Sodium (Lovenox 60mg Syringe) 60 mg DAILY 12/29/19 12:00 12/29/19 14:14 DC 12/29/19 11:29 60 MG Fentanyl Citrate (Fentanyl 2ml Vial) 50 mcg PRN Q2HR PRN 12/29/19 00:45 12/30/19 20:37 50 MCG Heparin Sodium (Porcine) (Heparin Sodium) 2,300 unit PRN Q6HRS PRN 12/29/19 15:00 12/30/19 10:30 DC Heparin Sodium/ Dextrose 250 ml @ 0 mls/hr CONT PRN 12/29/19 15:00 12/30/19 10:30 DC 12/29/19 15:48 10 MLS/HR Influenza Virus Vaccine Quadrival (Fluzone Quad [id number] Syringe) 0.5 ml ONCE ONCE 12/29/19 09:00 12/29/19 09:01 DC 12/29/19 08:52 0.5 ML Info (Anti-Coagulation Monitoring By Pharmacy) 1 each PRN DAILY PRN 12/30/19 08:30 12/31/19 12:47 1 EACH Lactobacillus Rhamnosus (Culturelle) 1 cap BID 12/29/19 21:00 01/01/20 09:32 1 CAP Levetiracetam (Keppra) 2,000 mg BID 12/29/19 01:00 UNV Levofloxacin/ Dextrose 100 ml @ 100 mls/hr 1X ONCE 12/28/19 21:30 12/28/19 22:29 DC 12/28/19 22:22 100 MLS/HR Metoprolol Tartrate (Lopressor Vial) 5 mg Q6HRS 12/29/19 17:00 12/30/19 10:54 DC 12/30/19 00:41 5 MG Metoprolol Tartrate (Lopressor) 12.5 mg BID 12/30/19 21:00 01/01/20 09:34 12.5 MG Morphine Sulfate (Morphine Sulfate) 2 mg PRN Q2HR PRN 12/29/19 04:00 12/30/19 03:59 DC Ondansetron HCl (Zofran) 4 mg PRN Q6HRS PRN 12/29/19 11:15 Sennosides (Senna) 17.2 mg PRN BID PRN 12/29/19 11:15 Sodium Chloride 1,000 ml @ 100 mls/hr Q10H 12/29/19 11:15 12/30/19 09:44 DC 12/29/19 20:35 100 MLS/HR Lab Laboratory Tests Test 01/01/20 04:00 Sodium Level 141 mmol/L (136-145) Potassium Level 4.2 mmol/L (3.5-5.1) Chloride Level 108 mmol/L (98-107) Carbon Dioxide Level 17 mmol/L (21-32) Anion Gap 16 (6-14) Blood Urea Nitrogen 35 mg/dL (7-20) Creatinine 3.1 mg/dL (0.6-1.0) Estimated GFR (Cockcroft-Gault) 18.7 Glucose Level 104 mg/dL (70-99) Calcium Level 8.5 mg/dL (8.5-10.1) Results All relevant outside records, renal labs, imaging studies, telemetry/EKG's were reviewed. Justicifation of Admission Dx: Justifications for Admission: Justification of Admission Dx: N/A DIANE IVERSON MD Jan 01, 2020 12:52
--- NOTE | 2020-01-01 14:29 | NUR ---
SW following for discharge planning. Spoke with RN and reviewed chart. SW met with pt again today as HH orders were written and per RN pt requesting HH at discharge. SW met with pt who stated she lives with her dog and that her son is available as needed. Pt again refused the need for HH to this SW. Pt to discharge home today, self-care. Dr. Reed and RN notified of pt's refusal for HH. Pt informed to call her PCP if she changes her mind about HH services. No additional SW needs at this time.
--- NOTE | 2020-01-01 15:34 | NUR ---
Discharge Note: Patient was discharged home with self care. Patient agreed to home health at first and then refused when REYES Edwards went into her room to talk to her. Patients IV's were discontinued without any complications per CORRECTIONAL OFFICER SERGEANT. Patient was given discharge summary/instructions, follow-ups, prescriptions and educational material. Patient did not have any further questions or concerns. Patient was taken down to the main entrance accompanied by US Kay, via wheelchair with all personal belongings, where her daughter was waiting for her to take her home.
== END 2020-01-01 15:15 | disposition home or self-care (01) | DRG 690 ==
LOC: ER 18:01 → 2 NORTH 23:10 → UNDODISIN 12-29 16:21 → 5 NORTH 12-30 16:32
PROVIDERS: ADMIT Internal Medicine; ATTEND Internal Medicine
DX: N13.6 Pyonephrosis (principal); I48.92 Unspecified atrial flutter; N17.0 Acute kidney failure with tubular necrosis; N18.4 Chronic kidney disease, stage 4 (severe); Z85.41 Personal history of malignant neoplasm of cervix uteri; Z85.528 Personal history of other malignant neoplasm of kidney; Z92.3 Personal history of irradiation; Z85.43 Personal history of malignant neoplasm of ovary; Z88.6 Allergy status to analgesic agent; I12.9 Hypertensive chronic kidney disease with stage 1 through stage 4 chronic kidney disease, or unspecified chronic kidney disease; F17.200 Nicotine dependence, unspecified, uncomplicated; Z88.0 Allergy status to penicillin; I48.91 Unspecified atrial fibrillation
CPT/HCPCS: 36415; 74176; 80048; 80053; 80069; 81001; 83690; 83735; 84443; 85025; 85520; 87086; 90471; 90686; 93005; 93306; 96365; 96375; 96376; J0282; J0696; J1160; J1644; J1650; J1956; J2270; J2405; J3010; J3490; J7030; J7060; 97116-GP; 97530-GP; 97535-GO; 99285-25; G0378

== ENCOUNTER 2020-01-17 20:47 | Emergency (ER) | payer OTHER ==
[~2020-01-17] VITALS: Ht 165.1 cm; Wt 110.0 kg
[~2020-01-17 20:47] MED LIST changes: +ACET500T33 PO; +AMIO200T6 PO; +APIX2.5T PO; +METO25TA4 PO
[2020-01-17 21:23] LABS: BASO # 0.1 x10^3/uL (0.0-0.2); BASO % 2 % (0-3); EOS # 0.1 x10^3/uL (0.0-0.7); EOS % 3 % (0-3); HEMATOCRIT 26.4 % (36.0-47.0); HEMOGLOBIN 8.6 g/dL (12.0-15.5); LYMPH % 17 % (24-48); MEAN CORPUSCULAR HEMOGLOBIN 32 pg (25-35); MEAN CORPUSCULAR HGB CONC 33 g/dL (31-37); MEAN CORPUSCULAR VOLUME 98 fL (79-100); MONO # 0.5 x10^3/uL (0.0-1.1); MONO % 9 % (0-9); NEUT # 4.2 x10^3/uL (1.8-7.7); NEUT % 70 % (31-73); PLATELET COUNT 173 x10^3/uL (140-400); RED BLOOD COUNT 2.71 x10^6/uL (3.50-5.40); RED CELL DISTRIBUTION WIDTH 14.8 % (11.5-14.5); WHITE BLOOD COUNT 5.9 x10^3/uL (4.0-11.0)
[2020-01-17 21:32] LABS: CALCIUM 8.4 mg/dL (8.5-10.1); CREATININE 2.8 mg/dL (0.6-1.0); POTASSIUM 3.6 mmol/L (3.5-5.1)
[2020-01-17 21:38] LABS: ALBUMIN 2.9 g/dL (3.4-5.0); ALBUMIN/GLOBULIN RATIO 0.7 (1.0-1.7); TOTAL BILIRUBIN 0.3 mg/dL (0.2-1.0); TOTAL PROTEIN 7.1 g/dL (6.4-8.2)
[2020-01-17] MEDS ORDERED: levETIRAcetam 1,000 MG in IV DEXTROSE 5% 100ML 100 ML IV ONE (22:00)
--- NOTE | 2020-01-17 22:10 | PHYS DOC ---
Past Medical History Past Medical History: Kidney Stone, Renal Disease, Seizure Additional Past Medical Histor: BORDERLINE DIABETIC, OVARIAN CA (LAKISHA EMMANUEL APRN) Past Surgical History: Other Additional Past Surgical Histo: RENAL STENT (LAKISHA EMMANUEL APRN) Smoking Status: Former Smoker Alcohol Use: None Drug Use: None (LAKISHA EMMANUEL APRN) General Adult EDM: Chief Complaint: SEIZURE HPI: HPI: Patient is a 59 year old female with history of seizures, chronic kidney disease, who presents to the ED today stating she had a seizure today. The seizure was unwitnessed. She states it lasted maybe 1 minute. Denies any injury during the seizure. She states she is on Keppra 2000 mg twice daily. (LAKISHA EMMANUEL APRN) Review of Systems: Review of Systems: Constitutional: Denies fever or chills. [] Eyes: Denies change in visual acuity. [] HENT: Denies nasal congestion or sore throat. [] Respiratory: Denies cough or shortness of breath. [] Cardiovascular: Denies chest pain or edema. [] GI: Denies abdominal pain, nausea, vomiting, bloody stools or diarrhea. [] : Denies dysuria. [] Musculoskeletal: Denies back pain or joint pain. [] Integument: Denies rash. [] Neurologic: Reports seizure. Denies headache, focal weakness or sensory changes. [] Endocrine: Denies polyuria or polydipsia. [] Lymphatic: Denies swollen glands. [] Psychiatric: Denies depression or anxiety. [] (LAKISHA EMMANUEL APRN) Heart Score: Risk Factors: Risk Factors: DM, Current or recent (<one month) smoker, HTN, HLP, family history of CAD, obesity. Risk Scores: Score 0 - 3: 2.5% MACE over next 6 weeks - Discharge Home Score 4 - 6: 20.3% MACE over next 6 weeks - Admit for Clinical Observation Score 7 - 10: 72.7% MACE over next 6 weeks - Early Invasive Strategies (LAKISHA EMMANUEL APRN) Current Medications: Current Medications Medications (Trade) Dose Ordered Sig/Vania Start Time Stop Time Status Last Admin Dose Admin Levetiracetam 1000 mg/Dextrose 110 ml @ 440 mls/hr 1X ONCE 01/17/20 22:00 01/17/20 22:14 01/17/20 21:41 440 MLS/HR (LAKISHA EMMANUEL VIDEO PRODUCTION COORDINATOR) Allergies: Allergies: Allergies Coded Allergies Type Severity Reaction Last Updated Verified Penicillins Allergy Severe Swelling 12/28/19 Yes aspirin Allergy Severe SEIZURES, TORADOL OK 11/03/16 Yes (LAKISHA EMMANUEL APRN) Physical Exam: PE: Constitutional: Well developed, well nourished, no acute distress, non-toxic appearance. [] HENT: Normocephalic, atraumatic, bilateral external ears normal, oropharynx moist, no oral exudates, nose normal. [] Eyes: PERRLA, EOMI, conjunctiva normal, no discharge. [] Neck: Normal range of motion, no tenderness, supple, no stridor. [] Cardiovascular:Heart rate regular rhythm, no murmur [] Lungs & Thorax: Bilateral breath sounds clear to auscultation [] Abdomen: Bowel sounds normal, soft, no tenderness, no masses, no pulsatile masses. [] Skin: Warm, dry, no erythema, no rash. [] Back: No tenderness, no CVA tenderness. [] Extremities: No tenderness, no cyanosis, no clubbing, ROM intact, no edema. [] Neurologic: Alert and oriented X 3, normal motor function, normal sensory function, no focal deficits noted. [] Psychologic: Affect normal, judgement normal, mood normal. [] (LAKISHA EMMANUEL VIDEO PRODUCTION COORDINATOR) Current Patient Data: Labs: Laboratory Tests Test 01/17/20 21:16 01/17/20 21:42 White Blood Count 5.9 x10^3/uL (4.0-11.0) Red Blood Count 2.71 x10^6/uL (3.50-5.40) L Hemoglobin 8.6 g/dL (12.0-15.5) L Hematocrit 26.4 % (36.0-47.0) L Mean Corpuscular Volume 98 fL (79-100) Mean Corpuscular Hemoglobin 32 pg (25-35) Mean Corpuscular Hemoglobin Concent 33 g/dL (31-37) Red Cell Distribution Width 14.8 % (11.5-14.5) H Platelet Count 173 x10^3/uL (140-400) Neutrophils (%) (Auto) 70 % (31-73) Lymphocytes (%) (Auto) 17 % (24-48) L Monocytes (%) (Auto) 9 % (0-9) Eosinophils (%) (Auto) 3 % (0-3) Basophils (%) (Auto) 2 % (0-3) Neutrophils # (Auto) 4.2 x10^3/uL (1.8-7.7) Lymphocytes # (Auto) 1.0 x10^3/uL (1.0-4.8) Monocytes # (Auto) 0.5 x10^3/uL (0.0-1.1) Eosinophils # (Auto) 0.1 x10^3/uL (0.0-0.7) Basophils # (Auto) 0.1 x10^3/uL (0.0-0.2) Sodium Level 142 mmol/L (136-145) Potassium Level 3.6 mmol/L (3.5-5.1) Chloride Level 109 mmol/L (98-107) H Carbon Dioxide Level 22 mmol/L (21-32) Anion Gap 11 (6-14) Blood Urea Nitrogen 19 mg/dL (7-20) Creatinine 2.8 mg/dL (0.6-1.0) H Estimated GFR (Cockcroft-Gault) 21.0 BUN/Creatinine Ratio 7 (6-20) Glucose Level 140 mg/dL (70-99) H Calcium Level 8.4 mg/dL (8.5-10.1) L Total Bilirubin 0.3 mg/dL (0.2-1.0) Aspartate Amino Transferase (AST) 18 U/L (15-37) Alanine Aminotransferase (ALT) 14 U/L (14-59) Alkaline Phosphatase 99 U/L (46-116) Total Protein 7.1 g/dL (6.4-8.2) Albumin 2.9 g/dL (3.4-5.0) L Albumin/Globulin Ratio 0.7 (1.0-1.7) L Ethyl Alcohol Level < 10 mg/dL (0-10) Lactic Acid Level 2.4 mmol/L (0.4-2.0) H Laboratory Tests 01/17/20 21:16 Laboratory Tests 01/17/20 21:16 Vital Signs: Vital Signs Date Time Temp Pulse Resp B/P (MAP) Pulse Ox O2 Delivery O2 Flow Rate FiO2 01/17/20 21:14 97.9 79 18 146/67 (93) 100 Room Air 97.9 (LAKISHA EMMANUEL APRN) EKG: EKG: [] (LAKISHA EMMANUEL APRN) Radiology/Procedures: Radiology/Procedures: [] (LAKISHA EMMANUEL APRN) Course & Med Decision Making: Course & Med Decision Making Pertinent Labs and Imaging studies reviewed. (See chart for details) This is a 59-year-old female patient well-known to this ED presenting today stating she had a 1 minute unwitnessed seizure at home. She has history of seizures, she is on Keppra. CBC with normal WBC, hemoglobin 8.6, hematocrit 26.4, patient has history of chronic anemia from kidney disease, she is denying any bloody stools or hematemesis, CMP with creatinine of 2.8, BUN is normal, patient has history of chronic kidney disease, her creatinine is running around her baseline, lactic 2.4 Patient was discharged to home. Instructed to follow-up with her neurologist as well as primary care doctor. (LAKISHA EMMANUEL APRN) Dragon Disclaimer: Dragon Disclaimer: This electronic medical record was generated, in whole or in part, using a voice recognition dictation system. (LAKISHA EMMANUEL APRN) Departure Departure Impression: Primary Impression: Seizure Additional Impression: CKD (chronic kidney disease) Qualified Codes: N18.9 - Chronic kidney disease, unspecified Disposition: 01 DC HOME SELF CARE/HOMELESS Condition: STABLE Referrals: UNKNOWN PCP NAME (PCP) DAVIAN WAITE MD follow up in the course of this week Patient Instructions: Kidney Failure, [id number], Seizure, Adult Additional Instructions: You were evaluated in the emergency room. Please follow-up with your neurologist as well as primary care doctor in the course of this week. Come back to the ED at any point symptoms worsen. Attending Signature Attending Signature I have reviewed the PA[employer] MANAGER's note and plan of care. I was available for consultation as needed during the patient's visit in the emergency department. I agree with the clinical impression, plan, and disposition. (BHARATH MABRY DO) LAKISHA EMMANUEL APRN Jan 17, 2020 22:10 BHARATH MABRY DO Jan 18, 2020 01:03
[2020-01-17 22:31] VITALS: BP 149/94
[2020-01-17 22:52] LABS: BILIRUBIN,URINE NEGATIVE (NEG); CLARITY,URINE CLOUDY; COLOR,URINE YELLOW; NITRITE,URINE NEGATIVE (NEG); PROTEIN,URINE 30 mg/dL (NEG-TRACE); UROBILINOGEN,URINE 0.2 mg/dL (0.2 mg/dL)
[2020-01-17 22:56] LABS: BARBITURATES NEG (NEG); BENZODIAZEPINES NEG (NEG); CANNABINOIDS NEG (NEG); COCAINE NEG (NEG); METHADONE NEG (NEG); OPIATES NEG (NEG); PHENCYCLIDINE NEG (NEG)
[2020-01-17 23:06] LABS: AMPHETAMINE/METHAMPHETAMINE NEG (NEG)
[2020-01-17 23:07] LABS: BACTERIA,URINE MOD /HPF (0-FEW); WBC,URINE >40 /HPF (0-4)
== END 2020-01-17 22:56 | disposition home or self-care (01) ==
LOC: ER 20:47
DX: R56.9 Unspecified convulsions (principal); N18.9 Chronic kidney disease, unspecified; Z87.891 Personal history of nicotine dependence; Z95.5 Presence of coronary angioplasty implant and graft; Z88.0 Allergy status to penicillin; Z88.6 Allergy status to analgesic agent
CPT/HCPCS: 36415; 80053; 80307; 81001; 83605; 85025; 96365; 99284; G0480; J1953; J7060

== ENCOUNTER 2020-07-24 01:21 | Emergency (ER) | payer OTHER ==
[~2020-07-24] VITALS: Ht 172.7 cm; Wt 90.0 kg
[~2020-07-24 01:21] MED LIST changes: +CEFTRIAXONE SODIUM IVP; +LACT1CAP19 PO
[2020-07-24] MEDS ORDERED: PROCHLORPERAZINE 10 MG/2 ML VIAL. IV ONE (01:45)
[2020-07-24] MEDS ORDERED: IV NORMAL SALINE 1000ML BAG 1,000 ML IV SCH (01:45)
[2020-07-24] MEDS ORDERED: DEXAMETHASONE SOD PHOS 20 MG/5 ML VIAL. IV ONE (01:45)
[2020-07-24 01:58] LABS: BASO % 1 % (0-3); EOS # 0.1 x10^3/uL (0.0-0.7); EOS % 2 % (0-3); HEMATOCRIT 33.2 % (36.0-47.0); HEMOGLOBIN 10.7 g/dL (12.0-15.5); LYMPH # 0.9 x10^3/uL (1.0-4.8); LYMPH % 17 % (24-48); MEAN CORPUSCULAR HEMOGLOBIN 29 pg (25-35); MEAN CORPUSCULAR HGB CONC 32 g/dL (31-37); MEAN CORPUSCULAR VOLUME 90 fL (79-100); MONO # 0.4 x10^3/uL (0.0-1.1); MONO % 7 % (0-9); NEUT # 3.9 x10^3/uL (1.8-7.7); NEUT % 74 % (31-73); PLATELET COUNT 188 x10^3/uL (140-400); RED BLOOD COUNT 3.68 x10^6/uL (3.50-5.40); RED CELL DISTRIBUTION WIDTH 14.9 % (11.5-14.5); WHITE BLOOD COUNT 5.2 x10^3/uL (4.0-11.0)
[2020-07-24 02:06] LABS: CALCIUM 8.9 mg/dL (8.5-10.1); CREATININE 1.9 mg/dL (0.6-1.0); GFR 32.9; POTASSIUM 4.3 mmol/L (3.5-5.1)
[2020-07-24 02:11] LABS: ALBUMIN 3.8 g/dL (3.4-5.0); ALBUMIN/GLOBULIN RATIO 0.9 (1.0-1.7); TOTAL BILIRUBIN 0.3 mg/dL (0.2-1.0)
--- NOTE | 2020-07-24 02:58 | RAD ---
Right forearm 2 views: Reason for examination: Forearm pain. No fracture is seen. Bone density is normal. No abnormal periosteal reaction is seen. No gross abnorm alities of seen at the wrist or elbow. IMPRESSION: No acute bony abnormality in the right forearm. CT head without contrast: Comparison is made to previous study dated 10/15/2019. Helical images were obtained through the brain with no contrast administered. Reconstruction was perf ormed in coronal plane. Examination is compromised by patient motion. Exposure: One or more of the following individualized dose reduction techniques were utilized for thi s examination: 1. Automated exposure control 2. Adjustment of the mA and/or kV according to patient size 3. Use of iterative reconstruction technique. Ventricular systems are symmetric and not dilated. No midline shift is seen. There is no evidence of intracranial hemorrhage, infarct, mass or edema. No abnormalities of seen at the orbits. The paranasa l sinuses and mastoid air cells are clear. No acute skull abnormality is seen. IMPRESSION: No acute intracranial abnormality evident. Electronically signed by: Liza Flores MD (07/24/2020 2:55 AM) [facility]
[2020-07-24 03:30] VITALS: BP 161/74
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
== END 2020-07-24 04:00 | disposition home or self-care (01) ==
LOC: ER 01:21
DX: N18.9 Chronic kidney disease, unspecified (principal); R56.9 Unspecified convulsions; Z87.442 Personal history of urinary calculi; Z87.820 Personal history of traumatic brain injury; Z88.0 Allergy status to penicillin; Z88.6 Allergy status to analgesic agent
CPT/HCPCS: 36415; 70450; 73090; 80053; 82550; 85025; 96361; 96374; 96375; 99285; J0780; J1100; J7030

== ENCOUNTER 2021-02-22 21:54 | Emergency (ER) | payer OTHER ==
[~2021-02-22] VITALS: Ht 172.7 cm; Wt 113.6 kg
[~2021-02-22 21:54] MED LIST changes: +AMIO200T53 PO; -AMIO200T6 PO; +CYCL10TA19 PO; -CYCL10TA2 PO; +POTA-121 PO; -POTA20TA4 PO
[2021-02-22 23:34] VITALS: BP 140/75
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
[2021-02-23] MEDS ORDERED: ACETAMINOPHEN 500 MG TABLET PO ONE (00:30)
[2021-02-23 01:13] LABS: BILIRUBIN,URINE NEGATIVE (NEG); CLARITY,URINE TURBID; COLOR,URINE YELLOW; NITRITE,URINE NEGATIVE (NEG); PH,URINE 7.5 (<5.0-8.0); PROTEIN,URINE >=300 mg/dL (NEG-TRACE); UROBILINOGEN,URINE 0.2 mg/dL (0.2 mg/dL)
[2021-02-23 01:19] LABS: AMORPHOUS SEDIMENT,UR PRESENT /HPF; BACTERIA,URINE MODERATE /HPF (0-FEW); WBC,URINE TNTC /HPF (0-4)
[2021-02-23] MEDS ORDERED: PHEN-318 PO (01:32)
[2021-02-23] MEDS ORDERED: CEPH500T PO (01:32)
[2021-02-23] MEDS ORDERED: PHENAZOPYRIDINE 200 MG TABLET. PO ONE (02:00)
[2021-02-23] MEDS ORDERED: CEPHALEXIN 250 MG CAPSULE. PO ONE (02:00)
== END 2021-02-23 02:00 | disposition home or self-care (01) ==
LOC: ER 21:54
DX: N30.01 Acute cystitis with hematuria (principal); Z88.0 Allergy status to penicillin; Z88.6 Allergy status to analgesic agent
CPT/HCPCS: 81001; 87077; 87086; 99284

== ENCOUNTER 2021-03-05 21:41 | Emergency (ER) | payer OTHER ==
[~2021-03-05] VITALS: Ht 172.7 cm; Wt 109.1 kg
[~2021-03-05 21:41] MED LIST changes: +CEPH500T PO; +PHEN-318 PO
[2021-03-05 21:54] VITALS: BP 147/81
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
[2021-03-05] MEDS ORDERED: HYDR-2759 PO (22:34)
[2021-03-05] MEDS ORDERED: ACYC800T88 PO (22:34)
== END 2021-03-05 22:44 | disposition home or self-care (01) ==
LOC: ER 21:41
DX: B02.9 Zoster without complications (principal); Z87.440 Personal history of urinary (tract) infections; Z87.442 Personal history of urinary calculi; Z88.0 Allergy status to penicillin; Z88.6 Allergy status to analgesic agent
CPT/HCPCS: 99283

== ENCOUNTER 2021-05-10 18:20 | Inpatient (IN) | payer OTHER ==
[~2021-05-10] VITALS: Ht 172.7 cm; Wt 102.7 kg
[~2021-05-10 18:20] MED LIST changes: +ACYC800T88 PO; +HYDR-2759 PO
[2021-05-10] MEDS ORDERED: MORPHINE SULFATE 2 MG/ML INJ. IVP ONE ×2 (18:45→21:30)
--- NOTE | 2021-05-10 19:00 | RAD ---
Examination: 3 views of the right ankle HISTORY: History of fall, pain COMPARISON: None available. Findings/ impression: There is posterior lateral subluxation/dislocation of the talus in relation to the tibia performed wi th mildly displaced fracture of the lateral malleolus at the level of the ankle joint. There is quest ionable fracture of the posterior malleolus of the tibia. Widening of the medial clear space. Moderat e soft tissue swelling about the ankle joint. Tiny avulsion bone fragments identified from the medial talus. Electronically signed by: Garrett Augustin MD (05/10/2021 6:58 PM) [id number]
[2021-05-10 19:16] LABS: BASO # 0.1 x10^3/uL (0.0-0.2); BASO % 1 % (0-3); EOS # 0.2 x10^3/uL (0.0-0.7); EOS % 3 % (0-3); HEMATOCRIT 28.8 % (36.0-47.0); HEMOGLOBIN 9.2 g/dL (12.0-15.5); LYMPH # 0.8 x10^3/uL (1.0-4.8); LYMPH % 11 % (24-48); MEAN CORPUSCULAR HEMOGLOBIN 30 pg (25-35); MEAN CORPUSCULAR HGB CONC 32 g/dL (31-37); MEAN CORPUSCULAR VOLUME 96 fL (79-100); MONO # 0.4 x10^3/uL (0.0-1.1); MONO % 6 % (0-9); NEUT # 5.6 x10^3/uL (1.8-7.7); NEUT % 79 % (31-73); PLATELET COUNT 263 x10^3/uL (140-400); RED BLOOD COUNT 3.01 x10^6/uL (3.50-5.40); RED CELL DISTRIBUTION WIDTH 13.9 % (11.5-14.5); WHITE BLOOD COUNT 7.1 x10^3/uL (4.0-11.0)
[2021-05-10] MEDS ORDERED: MORPHINE SULFATE 4 MG/ML INJ. IVP ONE (20:00)
--- NOTE | 2021-05-10 21:17 | RAD ---
XR EXAM OF ANKLE_RIGHT 3VIEWS 05/10/2021 8:59 PM INDICATION: Postreduction COMPARISON: 05/10/2021 TECHNIQUE: 3 views of the right ankle are provided. FINDINGS/ IMPRESSION: Overlapping cast material limits evaluation of fine osseous detail. Similar degree of dislocation inv olving the distal fibular fracture. Talar dome is intact. Posterior tibial fracture similar. Tibiotal ar alignment appears similar to prior examination. Regional soft tissue swelling is present. Electronically signed by: Shoshana Richmond MD (05/10/2021 9:15 PM) JOANIE
[2021-05-10] MEDS ORDERED: levETIRAcetam 500 MG TABLET PO ONE (22:00)
[2021-05-10] MEDS: LACOSAMIDE 50 MG TABLET PO SCH (22:20)
--- NOTE | 2021-05-10 22:21 | RAD ---
XR EXAM OF ANKLE_RIGHT 3VIEWS 05/10/2021 10:02 PM INDICATION: Postreduction COMPARISON: 05/10/2021 TECHNIQUE: 3 views of the right ankle are provided. FINDINGS/ IMPRESSION: There is improved alignment of the tibiotalar joint with widening of the ankle mortise medially. Ther e is improved alignment of the lateral malleolus fracture with near-anatomic alignment. There is impr filippo alignment of the posterior tibial fractures compared to prior examination. Overlapping cast mate rial limits evaluation of fine osseous detail. Electronically signed by: Shoshana Richmond MD (05/10/2021 10:18 PM) JOANIE
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
[2021-05-10] MEDS ORDERED: ONDANSETRON PF 4 MG/2 ML VIAL. IVP PRN (23:30)
[2021-05-10] MEDS ORDERED: MORPHINE SULFATE 2 MG/ML INJ. IVP PRN (23:30)
[2021-05-11] VITALS (7 sets, daily range): BP systolic 105–165; BP diastolic 58–79
[2021-05-11] MEDS ORDERED: LACO50TA PO (01:06)
[2021-05-11 03:11] LABS: CALCIUM 8.9 mg/dL (8.5-10.1); CREATININE 2.4 mg/dL (0.6-1.0); POTASSIUM 3.3 mmol/L (3.5-5.1)
[2021-05-11 03:18] LABS: ALBUMIN 2.9 g/dL (3.4-5.0); ALBUMIN/GLOBULIN RATIO 0.5 (1.0-1.7); TOTAL BILIRUBIN 0.3 mg/dL (0.2-1.0); TOTAL PROTEIN 8.2 g/dL (6.4-8.2)
[2021-05-11] MEDS ORDERED: traMADol 50 MG TABLET PO PRN (07:45)
[2021-05-11] MEDS ORDERED: ACETAMINOPHEN 325 MG TABLET. PO PRN (07:45)
[2021-05-11] MEDS ORDERED: hydrALAZINE 20 MG/ML VIAL. IVP PRN (07:45)
[2021-05-11] MEDS: LACOSAMIDE 50 MG TABLET PO SCH ×3 (08:11→20:12)
--- NOTE | 2021-05-11 09:27 | PDOC2 ---
CONSULT Date of Consult Date of Consult DATE: 05/11/21 TIME: 09:15 Reason for Consult Reason for Consult: Right ankle fracture Referring Physician Referring Physician: Dr. Kinsey Identification/Chief Complaint Chief Complaint Right ankle pain Source Source: Patient History of Present Illness Reason for Visit: Patient is nondiabetic, non-smoker, who presents with an acute pain to the right ankle. Patient sustained a rotational ground-level fall and landed on the right foot, around 5:30 PM on 05/10. Subsequent ER evaluation remarked trimalleolar ankle fracture close reduced and protected in the splint. Otherwise, patient denied injury elsewhere or pain elsewhere. At bedside, patient relates upwards to 5 out of 10 throbbing pain to the right medial ankle. Patient has been elevating the right lower extremity since admission. She denies any numbness, tingling sensation to the right lower extremity. patient denies any history of delayed healing, nonhealing of the fracture in the past. Patient lives with the son in an apartment. There are no stairs getting into the apartment. Past Medical History Cardiovascular: HTN Pulmonary: Bronchitis CENTRAL NERVOUS SYSTEM: Seizure Heme/Onc: Anemia NOS, Cancer Hepatobiliary: No pertinent hx Psych: Other Musculoskeletal: low back pain, Osteoarthritis Rheumatologic: No pertinent hx Infectious disease: No pertinent hx Renal/: Chronic renal insuff, UTI, Renal Ca., Other Endocrine: Diabetes Past Surgical History Past Surgical History: No pertinent history Family History Family History: Cancer Social History ALCOHOL: none Drugs: None Lives: with Family Current Problem List Problem List Problems Medical Problems: (1) Ankle dislocation Status: Acute (2) Ankle fracture Status: Acute Current Medications Current Medications Current Medications Morphine Sulfate (Morphine Sulfate) 6 mg 1X ONCE IVP Last administered on 05/10/21at 20:13; Start 05/10/21 at 18:45; Stop 05/10/21 at 18:46; Status DC Morphine Sulfate (Morphine Sulfate) 6 mg 1X ONCE IVP Last administered on 05/10/21at 20:30; Start 05/10/21 at 20:00; Stop 05/10/21 at 20:01; Status DC Morphine Sulfate (Morphine Sulfate) 2 mg 1X ONCE IVP Last administered on 05/10/21at 21:47; Start 05/10/21 at 21:30; Stop 05/10/21 at 21:32; Status DC Levetiracetam (Keppra) 2,000 mg ONCE ONCE PO Last administered on 05/10/21at 22:19; Start 05/10/21 at 22:00; Stop 05/10/21 at 22:01; Status DC Lacosamide (Vimpat) 50 mg BID PO Last administered on 05/11/21at 08:11; Start 05/10/21 at 22:30 Ondansetron HCl (Zofran) 4 mg PRN Q8HRS PRN IVP NAUSEA/VOMITING; Start 05/10/21 at 23:30; Stop 05/12/21 at 23:29 Morphine Sulfate (Morphine Sulfate) 2 mg PRN Q2HR PRN IVP PAIN; Start 05/10/21 at 23:30; Stop 05/12/21 at 23:29 Tramadol HCl (Ultram) 50 mg PRN Q6HRS PRN PO PAIN; Start 05/11/21 at 07:45 Acetaminophen/ Hydrocodone Bitart (Lortab 5/325) 1 tab PRN Q6HRS PRN PO PAIN; Start 05/11/21 at 07:45 Acetaminophen (Tylenol) 650 mg PRN Q6HRS PRN PO MILD PAIN / TEMP > 100.3'F; Start 05/11/21 at 07:45 Psyllium Hydrophilic Mucilloid (Metamucil Fiber Packet) 1 pkt QHS PO ; Start 05/11/21 at 21:00 Hydralazine HCl (Apresoline Inj) 10 mg PRN Q4HRS PRN IVP ELEVATED BP, SEE COMMENTS; Start 05/11/21 at 07:45 Active Scripts Active Keppra (Levetiracetam) 500 Mg Tablet 2,000 Mg PO BID Reported Vimpat (Lacosamide) 50 Mg Tablet 50 Mg PO BID Allergies Allergies: Coded Allergies: Penicillins (Verified Allergy, Severe, Swelling, 05/10/21) Has taken keflex before aspirin (Verified Allergy, Severe, SEIZURES, TORADOL OK, 05/10/21) ROS Review of System CONSTITUTIONAL: No fever. No chills. No dizziness. No weakness. CARDIOVASCULAR: No chest pain. No palpitations. No lower extremity edema. RESPIRATORY: No shortness of breath, cough, pain with respiration. No hemoptysis. No dyspnea. GASTROINTESTINAL: Normal appetite. No nausea, vomiting, diarrhea. GENITOURINARY: No frequency, urgency, nocturia. No hematuria or dysuria. MUSCULOSKELETAL: Refer to HPI INTEGUMENTARY: No abrasions, lymphangitis. NEUROLOGIC: No numbness or tingling of the extremities. No weakness. PSYCHIATRIC: No confusion. ENDOCRINE: No fatigue. No weakness. HEMATOLOGICAL: No bleeding. No petechiae. No bruising. ALLERGIES: No asthma. No urticaria Physical Exam Physical Exam General: AOx3, pleasant without distress Right lower extremity exam: VASC: - Capillary refill <5 seconds - [-] Ecchymosis to the exposed forefoot NEURO: - Gross sensation intact via light touch to digits 1 through 5 DERM: -Splint is in place -There are no fracture blisters or ecchymosis to the forefoot MUSC: - Able to move digits x 5 - Muscle strength deferred - Calf is soft and nontender Vitals VITALS Vital Signs Date Time Temp Pulse Resp B/P (MAP) Pulse Ox O2 Delivery O2 Flow Rate FiO2 05/11/21 07:00 98.9 91 18 147/77 (100) 93 Room Air 98.9 Labs Labs Laboratory Tests Test 05/10/21 18:55 05/11/21 02:40 White Blood Count 7.1 x10^3/uL (4.0-11.0) Red Blood Count 3.01 x10^6/uL (3.50-5.40) Hemoglobin 9.2 g/dL (12.0-15.5) Hematocrit 28.8 % (36.0-47.0) Mean Corpuscular Volume 96 fL (79-100) Mean Corpuscular Hemoglobin 30 pg (25-35) Mean Corpuscular Hemoglobin Concent 32 g/dL (31-37) Red Cell Distribution Width 13.9 % (11.5-14.5) Platelet Count 263 x10^3/uL (140-400) Neutrophils (%) (Auto) 79 % (31-73) Lymphocytes (%) (Auto) 11 % (24-48) Monocytes (%) (Auto) 6 % (0-9) Eosinophils (%) (Auto) 3 % (0-3) Basophils (%) (Auto) 1 % (0-3) Neutrophils # (Auto) 5.6 x10^3/uL (1.8-7.7) Lymphocytes # (Auto) 0.8 x10^3/uL (1.0-4.8) Monocytes # (Auto) 0.4 x10^3/uL (0.0-1.1) Eosinophils # (Auto) 0.2 x10^3/uL (0.0-0.7) Basophils # (Auto) 0.1 x10^3/uL (0.0-0.2) Prothrombin Time 14.0 SEC (11.7-14.0) Prothromb Time International Ratio 1.1 (0.8-1.1) Activated Partial Thromboplast Time 35 SEC (24-38) Sodium Level 145 mmol/L (136-145) Potassium Level 3.3 mmol/L (3.5-5.1) Chloride Level 110 mmol/L (98-107) Carbon Dioxide Level 25 mmol/L (21-32) Anion Gap 10 (6-14) Blood Urea Nitrogen 27 mg/dL (7-20) Creatinine 2.4 mg/dL (0.6-1.0) Estimated GFR (Cockcroft-Gault) 25.0 BUN/Creatinine Ratio 11 (6-20) Glucose Level 110 mg/dL (70-99) Calcium Level 8.9 mg/dL (8.5-10.1) Total Bilirubin 0.3 mg/dL (0.2-1.0) Aspartate Amino Transf (AST/SGOT) 9 U/L (15-37) Alanine Aminotransferase (ALT/SGPT) 12 U/L (14-59) Alkaline Phosphatase 93 U/L (46-116) Total Protein 8.2 g/dL (6.4-8.2) Albumin 2.9 g/dL (3.4-5.0) Albumin/Globulin Ratio 0.5 (1.0-1.7) Laboratory Tests Test 05/10/21 18:55 05/11/21 02:40 White Blood Count 7.1 x10^3/uL (4.0-11.0) Red Blood Count 3.01 x10^6/uL (3.50-5.40) Hemoglobin 9.2 g/dL (12.0-15.5) Hematocrit 28.8 % (36.0-47.0) Mean Corpuscular Volume 96 fL (79-100) Mean Corpuscular Hemoglobin 30 pg (25-35) Mean Corpuscular Hemoglobin Concent 32 g/dL (31-37) Red Cell Distribution Width 13.9 % (11.5-14.5) Platelet Count 263 x10^3/uL (140-400) Neutrophils (%) (Auto) 79 % (31-73) Lymphocytes (%) (Auto) 11 % (24-48) Monocytes (%) (Auto) 6 % (0-9) Eosinophils (%) (Auto) 3 % (0-3) Basophils (%) (Auto) 1 % (0-3) Neutrophils # (Auto) 5.6 x10^3/uL (1.8-7.7) Lymphocytes # (Auto) 0.8 x10^3/uL (1.0-4.8) Monocytes # (Auto) 0.4 x10^3/uL (0.0-1.1) Eosinophils # (Auto) 0.2 x10^3/uL (0.0-0.7) Basophils # (Auto) 0.1 x10^3/uL (0.0-0.2) Prothrombin Time 14.0 SEC (11.7-14.0) Prothromb Time International Ratio 1.1 (0.8-1.1) Activated Partial Thromboplast Time 35 SEC (24-38) Sodium Level 145 mmol/L (136-145) Potassium Level 3.3 mmol/L (3.5-5.1) Chloride Level 110 mmol/L (98-107) Carbon Dioxide Level 25 mmol/L (21-32) Anion Gap 10 (6-14) Blood Urea Nitrogen 27 mg/dL (7-20) Creatinine 2.4 mg/dL (0.6-1.0) Estimated GFR (Cockcroft-Gault) 25.0 BUN/Creatinine Ratio 11 (6-20) Glucose Level 110 mg/dL (70-99) Calcium Level 8.9 mg/dL (8.5-10.1) Total Bilirubin 0.3 mg/dL (0.2-1.0) Aspartate Amino Transf (AST/SGOT) 9 U/L (15-37) Alanine Aminotransferase (ALT/SGPT) 12 U/L (14-59) Alkaline Phosphatase 93 U/L (46-116) Total Protein 8.2 g/dL (6.4-8.2) Albumin 2.9 g/dL (3.4-5.0) Albumin/Globulin Ratio 0.5 (1.0-1.7) Assessment/Plan Assessment/Plan Closed right displaced trimalleolar ankle fracture -Explained to patient that the unstable nature of the tri malleolus fracture warrants surgical intervention. However given the injury has been over 8 hours old the soft tissue envelope is too swollen to have surgery this week. We have to allow soft tissue optimization for a week and then reassess to skin envelope before scheduling for surgery. Patient verbalized understanding -The splint should be kept clean, dry and intact, and not to disturb the fracture -Strict nonweightbearing to the right lower extremity -Elevate right lower extremity with toes above the nose every hour on the hour -Pain management with elevation, ice behind the knee as needed -DVT prophylaxis with 81 mg aspirin daily and sustain hydration -PT: Pending PT eval and gait training well maintained strict nonweightbearing to the right lower extremity -Pending serum vitamin D3 and calcium test -Pending CT without contrast of right ankle to further evaluate the third malleolus fracture -Our office will call patient for outpatient skin check and the surgery next week. Dispo: Please dispense [place] for outpatient pain management. Strict nonweightbearing and elevation to the surgical limb to allow adequate soft tissue optimization. Pending PT eval and possible the home discharge afterwards. ARAVIND SEGURA DPM May 11, 2021 09:27
--- NOTE | 2021-05-11 10:02 | HP ---
DATE OF SERVICE: 05/11/2021 ADMIT DATE: 05/10/2021 CHIEF COMPLAINT: Fall with ankle pain. HISTORY OF PRESENT ILLNESS: The patient is a pleasant, relatively healthy 60-year-old female who slipped on her shoe while going to the bathroom. She states that the shoe slid out and then she fell. She complains of right ankle pain. We did some imaging, it showing a fracture. We have consulted Dr. Mclean. Dr. Mclean saw the patient this morning. He wants to do surgery in a couple of weeks because she is too swollen. He would like to go ahead and get physical therapy to see her. He is ordered a vitamin D level. He is ordered a physical therapy and calcium test. I suspect the patient will be going home tomorrow. PAST MEDICAL HISTORY: Seizures. ALLERGIES: PENICILLIN AND ASPIRIN. FAMILY HISTORY: Diabetes. SOCIAL HISTORY: She does not drink, smoke or take drugs. She stays at home. MEDICATIONS: Reviewed. She is on Vimpat and Keppra. REVIEW OF SYSTEMS: GENERAL: No history of weight change, weakness or fevers. SKIN: No bruising, hair changes or rashes. EYES: No blurred, double or loss of vision. NOSE AND THROAT: No history of nosebleeds, hoarseness or sore throat. HEART: No history of palpitations, chest pain or shortness of breath on exertion. LUNGS: Denies cough, hemoptysis, wheezing or shortness of breath. GASTROINTESTINAL: Denies changes in appetite, nausea, vomiting, diarrhea or constipation. GENITOURINARY: No history of frequency, urgency, hesitancy or nocturia. NEUROLOGIC: Denies history of numbness, tingling, tremor or weakness. PSYCHIATRIC: No history of panic, anxiety or depression. ENDOCRINE: No history of heat or cold intolerance, polyuria or polydipsia. EXTREMITIES: She complains of right ankle pain. PHYSICAL EXAMINATION: VITALS: Within normal limits and are stable. GENERAL: No apparent distress. Alert and oriented. HEENT: Normal cephalic atraumatic, external auditory canals are patent. EYES: Extraocular muscles are intact, pupils are equally round and reactive to light and accommodation. MUSCULOSKELETAL: Well developed, well nourished, good range of motion. ENDOCRINE: No thyromegaly was palpated. LYMPHATICS: No cervical chain or axillary nodes were noted. HEMATOPOIETIC: No bruising. NECK: Supple, no JVD, no thyromegaly was noted. LUNGS: Clear to auscultation in all lung duarte without rhonchi or wheezing. HEART: RRR, S1, S2 present. Peripheral pulses intact, no obvious murmurs were noted. ABDOMEN: Soft, nontender. Positive bowel sounds no organomegaly, normal bowel sounds. EXTREMITIES: She has a brace on the right ankle. NEUROLOGIC: Normal speech, normal tone. A and O x3, moves all extremities, no obvious focal deficits. PSYCHIATRIC: Normal affect, normal mood. Stable. SKIN: No ulcerations or rashes, good skin turgor, no jaundice. VASCULAR: Good capillary refill, neurovascular bundle appears to be intact. LABORATORY DATA: White count 7, hemoglobin 9.2, platelets 263. Electrolytes: Sodium 145, potassium 3.3, chloride 110, bicarbonate 25, BUN 27, creatinine 2.4, glucose 110. INR is 1.1. Ankle x-ray shows improved alignment of the tibiotalar joint with widening of the ankle mortise medially with an overlying cast. ASSESSMENT AND PLAN: Fall with ankle fracture. As previously stated, we did consult Dr. Mclean. He saw the patient, feels that she is too swollen for surgery today. He would like to have her followup in his office in a week or two. For now, we are going to get a calcium level, vitamin D level, physical therapy and occupational therapy, nonweightbearing. Home meds. Deep venous thrombosis prophylaxis. Full code. P.r.n. pain meds. Hope to discharge tomorrow if stable. ROMY DR: LIZY/diamond TID: [id number]
[2021-05-11] MEDS: levETIRAcetam 500 MG TABLET PO SCH ×2 (10:36→20:12)
--- NOTE | 2021-05-11 12:09 | RAD ---
CT LOWER RIGHT EXTREMITY WITHOUT CONTRAST History: Trimalleolar ankle fracture. Comparison: Ankle radiographs 05/10/2021 Technique: Noncontrast CT of the right ankle. Rotating 3-D surface rendering also provided. Findings: There is a trimalleolar fracture right ankle. Oblique distal fibular fracture with approximately 5 mm extending to the level of the syndesmosis. Posterior tibial fracture with approximately 5 mm displac ement at the articular surface. Small cortical avulsion fracture of the medial malleolar tip. The medial clear space is widened to approximately 9 mm. Achilles insertion enthesophyte. Soft tissue swelling about the ankle. The ankle extensors, peroneal tendons, flexors and Achilles tendon are grossly intact. Impression: 1. Trimalleolar fracture of the right ankle as above. ------ Exposure: One or more of the following individualized dose reduction techniques were utilized for thi s examination: 1. Automated exposure control 2. Adjustment of the mA and/or kV according to patient size 3. Use of iterative reconstruction technique. Electronically signed by: Darrian Quiroz MD (05/11/2021 12:07 PM) [id number]
[2021-05-11] MEDS: HYDROcodone/APAP 5/325MG 1 TAB TABLET PO PRN ×2 (12:26→18:31)
[2021-05-11] MEDS: ENOXAPARIN 30 MG/0.3 ML SYRINGE. SQ SCH (15:30)
[2021-05-11] MEDS: PSYLLIUM HUSK (SUGAR FREE) 1 PKT PACKET PO SCH (20:13)
[2021-05-11 22:14] LABS: BACTERIA,URINE MANY /HPF (0-FEW); WBC,URINE TNTC /HPF (0-4)
[2021-05-12 03:00] VITALS: BP 135/64
[2021-05-12 07:00] VITALS: BP 123/64
[2021-05-12] MEDS: LACOSAMIDE 50 MG TABLET PO SCH ×2 (07:38→20:21)
[2021-05-12] MEDS: levETIRAcetam 500 MG TABLET PO SCH ×2 (07:38→20:21)
[2021-05-12] MEDS: ENOXAPARIN 30 MG/0.3 ML SYRINGE. SQ SCH (07:40)
[2021-05-12 08:04] LABS: CALCIUM 8.7 mg/dL (8.5-10.1); CREATININE 2.5 mg/dL (0.6-1.0); GFR 23.9; POTASSIUM 3.4 mmol/L (3.5-5.1)
[2021-05-12] MEDS: HYDROcodone/APAP 5/325MG 1 TAB TABLET PO PRN ×2 (10:54→16:20)
[2021-05-12 11:00] VITALS: BP 143/76
--- NOTE | 2021-05-12 11:19 | PDOC2 ---
CONSULT Date of Consult Date of Consult DATE: 05/12/21 TIME: 11:09 History of Present Illness Reason for Visit: Patient says that 2 days ago she was getting off of her couch and tried to put on some slippers and twisted her right ankle. This did cause her to fall. She had quite a bit of pain in her ankle and was taken to [facility] where she was found to have a right ankle fracture dislocation. The emergency room doctor did a closed reduction and splinted her. She was apparently admitted for some sort of social reason. Since she was still in the hospital, orthopedics initially attempted to see her yesterday but was told that podiatry had been consulted for her. Podiatry then called orthopedics requesting our involvement because the insurance would not cover his care. At this time, the patient reports pain in her right ankle with any movement. She denies any numbness or tingling or radicular symptoms. Past Medical History Past Medical History Significant for seizures, ovarian cancer that was treated with radiation and resection a couple of years ago, borderline diabetes Cardiovascular: HTN Pulmonary: Bronchitis CENTRAL NERVOUS SYSTEM: Seizure Heme/Onc: Anemia NOS, Cancer Hepatobiliary: No pertinent hx Psych: Other Musculoskeletal: low back pain, Osteoarthritis Rheumatologic: No pertinent hx Infectious disease: No pertinent hx Renal/: Chronic renal insuff, UTI, Renal Ca., Other Endocrine: Diabetes Past Surgical History Past Surgical History Significant for surgery for ovarian cancer. Past Surgical History: No pertinent history Family History Family History Noncontributory Family History: Cancer Social History Social History Patient reports that she quit smoking approximately 6 years ago. No alcohol or drug use. She does not work and lives alone. ALCOHOL: none Drugs: None Lives: with Family Current Problem List Problem List Problems Medical Problems: (1) Ankle dislocation Status: Acute (2) Ankle fracture Status: Acute Current Medications Current Medications Patient reports home medications as Keppra and Vimpat Current Medications Morphine Sulfate (Morphine Sulfate) 6 mg 1X ONCE IVP Last administered on 05/10/21at 20:13; Start 05/10/21 at 18:45; Stop 05/10/21 at 18:46; Status DC Morphine Sulfate (Morphine Sulfate) 6 mg 1X ONCE IVP Last administered on 05/10/21at 20:30; Start 05/10/21 at 20:00; Stop 05/10/21 at 20:01; Status DC Morphine Sulfate (Morphine Sulfate) 2 mg 1X ONCE IVP Last administered on 05/10/21at 21:47; Start 05/10/21 at 21:30; Stop 05/10/21 at 21:32; Status DC Levetiracetam (Keppra) 2,000 mg ONCE ONCE PO Last administered on 05/10/21at 22:19; Start 05/10/21 at 22:00; Stop 05/10/21 at 22:01; Status DC Lacosamide (Vimpat) 50 mg BID PO Last administered on 05/11/21at 08:11; Start 05/10/21 at 22:30; Stop 05/11/21 at 10:48; Status DC Ondansetron HCl (Zofran) 4 mg PRN Q8HRS PRN IVP NAUSEA/VOMITING; Start 05/10/21 at 23:30; Stop 05/12/21 at 23:29 Morphine Sulfate (Morphine Sulfate) 2 mg PRN Q2HR PRN IVP PAIN; Start 05/10/21 at 23:30; Stop 05/12/21 at 23:29 Tramadol HCl (Ultram) 50 mg PRN Q6HRS PRN PO MODERATE PAIN; Start 05/11/21 at 07:45 Acetaminophen/ Hydrocodone Bitart (Lortab 5/325) 1 tab PRN Q6HRS PRN PO SEVERE PAIN Last administered on 05/12/21at 10:54; Start 05/11/21 at 07:45 Acetaminophen (Tylenol) 650 mg PRN Q6HRS PRN PO MILD PAIN / TEMP > 100.3'F; Start 05/11/21 at 07:45 Psyllium Hydrophilic Mucilloid (Metamucil Fiber Packet) 1 pkt QHS PO Last adm inistered on 05/11/21at 20:13; Start 05/11/21 at 21:00 Hydralazine HCl (Apresoline Inj) 10 mg PRN Q4HRS PRN IVP ELEVATED BP, SEE COMMENTS; Start 05/11/21 at 07:45 Lacosamide (Vimpat) 50 mg BID PO Last administered on 05/12/21at 07:38; Start 05/11/21 at 10:00 Levetiracetam (Keppra) 2,000 mg BID PO Last administered on 05/12/21at 07:38; Start 05/11/21 at 10:00 Enoxaparin Sodium (Lovenox 30mg Syringe) 30 mg Q24H SQ Last administered on 05/12/21at 07:40; Start 05/11/21 at 14:00 Active Scripts Active Keppra (Levetiracetam) 500 Mg Tablet 2,000 Mg PO BID Reported Vimpat (Lacosamide) 50 Mg Tablet 50 Mg PO BID Allergies Allergies: Coded Allergies: Penicillins (Verified Allergy, Severe, Swelling, 05/10/21) Has taken keflex before aspirin (Verified Allergy, Severe, SEIZURES, TORADOL [place], 05/10/21) ROS Review of System Patient denies any head trauma. She says that she has a little bit of dizziness now but no headache. She does have blurry vision before having a seizure. No difficulty seeing. No difficulty hearing. No tinnitus. No difficulty swallowing. No thyroid problems. She says that she was told she was borderline diabetic a few years ago but has not been tested since. She denies chest pain or shortness of breath. No abdominal pain. No constipation or diarrhea. No blood in the stool or urine. She did just have a urinalysis which showed a UTI that she is currently being treated for. No psychiatric history. Physical Exam Physical Exam Patient is a 60-year-old female who appears well-developed, well-nourished and in no acute distress. She is seen lying comfortably in her hospital bed. She interacts with exam appropriately. She is alert and oriented x3. The right lower extremity has an intact sugar tong splint with posterior short leg splint. This is not removed for exam. She has mild to moderate swelling in the toes. Neurovascular intact in the toes. Vitals VITALS Vital Signs Date Time Temp Pulse Resp B/P (MAP) Pulse Ox O2 Delivery O2 Flow Rate FiO2 05/12/21 10:54 Room Air 05/12/21 07:00 98.3 97 16 123/64 (83) 95 98.3 Labs Labs Laboratory Tests Test 05/10/21 18:55 05/11/21 02:40 05/11/21 20:10 05/12/21 06:25 White Blood Count 7.1 x10^3/uL (4.0-11.0) Red Blood Count 3.01 x10^6/uL (3.50-5.40) Hemoglobin 9.2 g/dL (12.0-15.5) Hematocrit 28.8 % (36.0-47.0) Mean Corpuscular Volume 96 fL (79-100) Mean Corpuscular Hemoglobin 30 pg (25-35) Mean Corpuscular Hemoglobin Concent 32 g/dL (31-37) Red Cell Distribution Width 13.9 % (11.5-14.5) Platelet Count 263 x10^3/uL (140-400) Neutrophils (%) (Auto) 79 % (31-73) Lymphocytes (%) (Auto) 11 % (24-48) Monocytes (%) (Auto) 6 % (0-9) Eosinophils (%) (Auto) 3 % (0-3) Basophils (%) (Auto) 1 % (0-3) Neutrophils # (Auto) 5.6 x10^3/uL (1.8-7.7) Lymphocytes # (Auto) 0.8 x10^3/uL (1.0-4.8) Monocytes # (Auto) 0.4 x10^3/uL (0.0-1.1) Eosinophils # (Auto) 0.2 x10^3/uL (0.0-0.7) Basophils # (Auto) 0.1 x10^3/uL (0.0-0.2) Prothrombin Time 14.0 SEC (11.7-14.0) Prothromb Time International Ratio 1.1 (0.8-1.1) Activated Partial Thromboplast Time 35 SEC (24-38) Sodium Level 145 mmol/L (136-145) 144 mmol/L (136-145) Potassium Level 3.3 mmol/L (3.5-5.1) 3.4 mmol/L (3.5-5.1) Chloride Level 110 mmol/L (98-107) 108 mmol/L (98-107) Carbon Dioxide Level 25 mmol/L (21-32) 25 mmol/L (21-32) Anion Gap 10 (6-14) 11 (6-14) Blood Urea Nitrogen 27 mg/dL (7-20) 25 mg/dL (7-20) Creatinine 2.4 mg/dL (0.6-1.0) 2.5 mg/dL (0.6-1.0) Estimated GFR (Cockcroft-Gault) 25.0 23.9 BUN/Creatinine Ratio 11 (6-20) Glucose Level 110 mg/dL (70-99) 99 mg/dL (70-99) Calcium Level 8.9 mg/dL (8.5-10.1) 8.7 mg/dL (8.5-10.1) Total Bilirubin 0.3 mg/dL (0.2-1.0) Aspartate Amino Transf (AST/SGOT) 9 U/L (15-37) Alanine Aminotransferase (ALT/SGPT) 12 U/L (14-59) Alkaline Phosphatase 93 U/L (46-116) Total Protein 8.2 g/dL (6.4-8.2) Albumin 2.9 g/dL (3.4-5.0) Albumin/Globulin Ratio 0.5 (1.0-1.7) 25-Hydroxy Vitamin D Total 10.5 ng/mL (30-100) Urine Collection Type Unknown Urine Color (Auto) Yellow Urine Turbidity Turbid Urine pH (Auto) 7.5 (<5.0-8.0) Urine Specific [place] 1.013 (1.000-1.030) Urine Protein (Auto) 100 mg/dL (Negative) Urine Glucose (Auto)(UA) Negative mg/dL (Negative) Urine Ketones (Auto) Negative mg/dL (Negative) Urine Blood (Auto) Large (Negative) Urine Nitrite Negative (Negative) Urine Bilirubin (Auto) Negative (Negative) Urine Urobilinogen (Auto) Normal mg/dL (Normal) Urine Leukocyte Esterase (Auto) Large (Negative) Urine RBC 11-20 /HPF (0-2) Urine WBC Tntc /HPF (0-4) Urine Squamous Epithelial Cells Few /LPF Urine Bacteria Many /HPF (0-FEW) Urine Mucus Marked /LPF Laboratory Tests Test 05/11/21 20:10 05/12/21 06:25 Urine Collection Type Unknown Urine Color (Auto) Yellow Urine Turbidity Turbid Urine pH (Auto) 7.5 (<5.0-8.0) Urine Specific [place] 1.013 (1.000-1.030) Urine Protein (Auto) 100 mg/dL (Negative) Urine Glucose (Auto)(UA) Negative mg/dL (Negative) Urine Ketones (Auto) Negative mg/dL (Negative) Urine Blood (Auto) Large (Negative) Urine Nitrite Negative (Negative) Urine Bilirubin (Auto) Negative (Negative) Urine Urobilinogen (Auto) Normal mg/dL (Normal) Urine Leukocyte Esterase (Auto) Large (Negative) Urine RBC 11-20 /HPF (0-2) Urine WBC Tntc /HPF (0-4) Urine Squamous Epithelial Cells Few /LPF Urine Bacteria Many /HPF (0-FEW) Urine Mucus Marked /LPF Sodium Level 144 mmol/L (136-145) Potassium Level 3.4 mmol/L (3.5-5.1) Chloride Level 108 mmol/L (98-107) Carbon Dioxide Level 25 mmol/L (21-32) Anion Gap 11 (6-14) Blood Urea Nitrogen 25 mg/dL (7-20) Creatinine 2.5 mg/dL (0.6-1.0) Estimated GFR (Cockcroft-Gault) 23.9 Glucose Level 99 mg/dL (70-99) Calcium Level 8.7 mg/dL (8.5-10.1) Assessment/Plan Assessment/Plan Right ankle trimalleolar fracture/dislocation status post closed reduction in the emergency room Seizure history Borderline diabetes Plan: Since the patient is still at the hospital, we will plan to take her for external fixation of the right ankle tomorrow morning. We would take her now but she is not n.p.o. We will keep her n.p.o. after midnight tonight. She is a fall risk given her seizure history. She says she has several seizures a year and her last one was around [place]. The external fixator will give better stability than the splint, especially if she has a fall. If the soft tissue is ready for ORIF tomorrow, we will plan on doing that but that is doubtful. We will hold her Lovenox tomorrow morning. She cannot have aspirin since it causes seizures. I discussed extreme elevation with the nurse at the patient's bedside today. Radiology studies that were available were reviewed. ALANA PARADA May 12, 2021 11:19
[2021-05-12] MEDS ORDERED: HYDROcodone/APAP 5/325MG 1 TAB TABLET PO PRN (12:30)
--- NOTE | 2021-05-12 12:48 | PDOC ---
[employer] PROGRESS NOTE Date of Service DOS: DATE: 05/12/21 TIME: 12:40 Chief Complaint Chief Complaint Fall with ankle fracture UTI History of Present Illness History of Present Illness 05/12: Per orthopedic surgery, plan is for external fixation of the right ankle tomorrow. Patient does report burning on urination, with positive UA. Due to stated anaphylaxis to penicillin, will treat with oral Bactrim for 3 days. Vitals/I&O Vitals/I&O: Vital Signs Date Time Temp Pulse Resp B/P (MAP) Pulse Ox O2 Delivery O2 Flow Rate FiO2 05/12/21 11:00 98.2 98 16 143/76 (98) 94 Room Air 98.2 I & O 05/11/21 05/11/21 05/12/21 15:00 23:00 07:00 Intake Total 280 ml Output Total 800 ml Balance -800 ml 280 ml Physical Exam General: Alert, Oriented X3, Cooperative, mild distress Heart: Regular rate Lungs: Clear Abdomen: Soft, No masses Extremities: No cyanosis Skin: No rashes, No breakdown Labs Labs: Laboratory Tests Test 05/11/21 20:10 05/12/21 06:25 Urine Collection Type Unknown Urine Color (Auto) Yellow Urine Turbidity Turbid Urine pH (Auto) 7.5 (<5.0-8.0) Urine Specific [place] 1.013 (1.000-1.030) Urine Protein (Auto) 100 mg/dL (Negative) Urine Glucose (Auto)(UA) Negative mg/dL (Negative) Urine Ketones (Auto) Negative mg/dL (Negative) Urine Blood (Auto) Large (Negative) Urine Nitrite Negative (Negative) Urine Bilirubin (Auto) Negative (Negative) Urine Urobilinogen (Auto) Normal mg/dL (Normal) Urine Leukocyte Esterase (Auto) Large (Negative) Urine RBC 11-20 /HPF (0-2) Urine WBC Tntc /HPF (0-4) Urine Squamous Epithelial Cells Few /LPF Urine Bacteria Many /HPF (0-FEW) Urine Mucus Marked /LPF Sodium Level 144 mmol/L (136-145) Potassium Level 3.4 mmol/L (3.5-5.1) Chloride Level 108 mmol/L (98-107) Carbon Dioxide Level 25 mmol/L (21-32) Anion Gap 11 (6-14) Blood Urea Nitrogen 25 mg/dL (7-20) Creatinine 2.5 mg/dL (0.6-1.0) Estimated GFR (Cockcroft-Gault) 23.9 Glucose Level 99 mg/dL (70-99) Calcium Level 8.7 mg/dL (8.5-10.1) Assessment and Plan Assessmemt and Plan Problems Medical Problems: (1) Ankle dislocation Status: Acute (2) Ankle fracture Status: Acute Comment Review of Relevant I have reviewed the following items emilia (where applicable) has been applied. Medications: Current Medications Medications (Trade) Dose Ordered Sig/Vania Route PRN Reason Start Time Stop Time Status Last Admin Dose Admin Psyllium Hydrophilic Mucilloid (Metamucil Fiber Packet) 1 pkt QHS PO 05/11/21 21:00 05/11/21 20:13 Enoxaparin Sodium (Lovenox 30mg Syringe) 30 mg Q24H SQ 05/11/21 14:00 Hold 05/12/21 07:40 Justifications for Admission Other Justification MINERVA COLEMAN MD May 12, 2021 12:48
[2021-05-12] MEDS: SMZ/TMP 800/160MG TABLET. PO SCH ×2 (13:55→20:21)
[2021-05-12 15:00] VITALS: BP 115/71
[2021-05-12 19:00] VITALS: BP 108/64
[2021-05-12] MEDS: PSYLLIUM HUSK (SUGAR FREE) 1 PKT PACKET PO SCH (20:21)
[2021-05-12 23:00] VITALS: BP 112/63
[2021-05-13] VITALS (13 sets, daily range): BP systolic 97–168; BP diastolic 52–85
[2021-05-13 05:49] LABS: CALCIUM 8.9 mg/dL (8.5-10.1); CREATININE 2.5 mg/dL (0.6-1.0); GFR 23.9; POTASSIUM 3.4 mmol/L (3.5-5.1)
[2021-05-13 05:58] LABS: BASO % 1 % (0-3); EOS # 0.2 x10^3/uL (0.0-0.7); EOS % 4 % (0-3); HEMATOCRIT 25.3 % (36.0-47.0); HEMOGLOBIN 8.2 g/dL (12.0-15.5); LYMPH # 0.8 x10^3/uL (1.0-4.8); LYMPH % 13 % (24-48); MEAN CORPUSCULAR HEMOGLOBIN 31 pg (25-35); MEAN CORPUSCULAR HGB CONC 33 g/dL (31-37); MEAN CORPUSCULAR VOLUME 96 fL (79-100); MONO # 0.6 x10^3/uL (0.0-1.1); MONO % 9 % (0-9); NEUT # 4.7 x10^3/uL (1.8-7.7); NEUT % 74 % (31-73); PLATELET COUNT 229 x10^3/uL (140-400); RED BLOOD COUNT 2.63 x10^6/uL (3.50-5.40); RED CELL DISTRIBUTION WIDTH 13.8 % (11.5-14.5); WHITE BLOOD COUNT 6.3 x10^3/uL (4.0-11.0)
[2021-05-13] MEDS ORDERED: BUPIVACAINE-EPI 0.25% 30 ML VIAL KIT. ONE (07:02)
[2021-05-13] MEDS ORDERED: PROPOFOL 10 MG/ML (20ML) VIAL. IV ONE (07:15)
[2021-05-13] MEDS ORDERED: LIDOCAINE 2% PF 5 ML VIAL. ONE (07:15)
[2021-05-13] MEDS ORDERED: SUCCINYLCHOLINE 200 MG/10 ML VIAL. ONE (07:16)
[2021-05-13] MEDS ORDERED: fentaNYL PF VIAL 100 MCG/2 ML VIAL ONE (07:16)
[2021-05-13] MEDS ORDERED: DEXAMETHASONE SOD PHOS 4 MG/ML VIAL ONE (07:16)
[2021-05-13] MEDS ORDERED: ONDANSETRON PF 4 MG/2 ML VIAL. ONE (07:16)
[2021-05-13] MEDS ORDERED: MIDAZOLAM HCL/PF 2 MG/2 ML VIAL. ONE (07:47)
[2021-05-13] MEDS ORDERED: ceFAZolin SODIUM IV Push 1 GM VIAL. IVP ONE (08:08)
[2021-05-13] MEDS ORDERED: MORPHINE SULFATE 2 MG/ML INJ. IVP PRN (09:30)
[2021-05-13] MEDS ORDERED: fentaNYL PF VIAL 100 MCG/2 ML VIAL IVP PRN ×2 (09:30)
[2021-05-13] MEDS ORDERED: PROCHLORPERAZINE 10 MG/2 ML VIAL. IVP PRN (09:30)
[2021-05-13] MEDS ORDERED: IV RINGERS,LACTATED 1000ML 1,000 ML IV SCH (09:30)
[2021-05-13] MEDS ORDERED: HYDROmorphone 2 MG/ML INJ. IVP PRN (09:30)
[2021-05-13] MEDS: HYDROcodone/APAP 5/325MG 1 TAB TABLET PO PRN ×2 (09:34→20:05)
--- NOTE | 2021-05-13 09:45 | PDOC4 ---
BRIEF OPERATIVE NOTE Pre-Op Diagnosis Right ankle trimalleolar fracture dislocation s/p closed reduction Post-Op Diagnosis same Procedure Performed Right ankle open reduction with internal fixation Surgeon Jennifer Bojorquez MD Glass Cut [employer] Supervisor Alana Parada PA-C Anesthesia Type: General Blood Loss 50cc Findings R ankle fracture Complications none Operative Note full op note to follow [facility] variax ankle implants ALANA PARADA May 13, 2021 09:45
[2021-05-13] MEDS ORDERED: CHOLECALCIFEROL (VITAMIN D3) 5,000 UNIT CAPSULE PO SCH (10:00)
[2021-05-13] MEDS: LACOSAMIDE 50 MG TABLET PO SCH ×2 (10:56→21:02)
[2021-05-13] MEDS: levETIRAcetam 500 MG TABLET PO SCH ×2 (10:56→21:02)
[2021-05-13] MEDS: SMZ/TMP 800/160MG TABLET. PO SCH ×2 (10:57→21:02)
--- NOTE | 2021-05-13 12:40 | PDOC ---
[employer] PROGRESS NOTE Date of Service DOS: DATE: 05/13/21 TIME: 12:18 Chief Complaint Chief Complaint Fall with ankle fracture UTI Vitamin D deficiency History of Present Illness History of Present Illness 05/12: Per orthopedic surgery, plan is for external fixation of the right ankle tomorrow. Patient does report burning on urination, with positive UA. Due to stated anaphylaxis to penicillin, will treat with oral Bactrim for 3 days. 05/13: Patient had external fixation of right ankle today. She reports some improvement in her pain. Vitamin D noted to be 10.5; vitamin D deficiency, will place with ergocalciferol 50,000 units weekly, as this is the only prescription we have in pharmacy. Will consult nephrology for management of CKD 4, and initiate losartan. Will have patient work with PT/OT starting tomorrow. Vitals/I&O Vitals/I&O: Vital Signs Date Time Temp Pulse Resp B/P (MAP) Pulse Ox O2 Delivery O2 Flow Rate FiO2 05/13/21 09:54 20 96 Room Air 05/13/21 09:31 82 167/80 05/13/21 03:00 98.2 98.2 Physical Exam General: Alert, Oriented X3, Cooperative, No acute distress Heart: Regular rate Lungs: Clear Abdomen: Soft, No masses Extremities: No cyanosis Skin: No rashes, No breakdown Labs Labs: Laboratory Tests Test 05/12/21 17:20 05/13/21 04:45 SARS-CoV-2 Antigen (Rapid) Negative (NEGATIVE) White Blood Count 6.3 x10^3/uL (4.0-11.0) Red Blood Count 2.63 x10^6/uL (3.50-5.40) Hemoglobin 8.2 g/dL (12.0-15.5) Hematocrit 25.3 % (36.0-47.0) Mean Corpuscular Volume 96 fL (79-100) Mean Corpuscular Hemoglobin 31 pg (25-35) Mean Corpuscular Hemoglobin Concent 33 g/dL (31-37) Red Cell Distribution Width 13.8 % (11.5-14.5) Platelet Count 229 x10^3/uL (140-400) Neutrophils (%) (Auto) 74 % (31-73) Lymphocytes (%) (Auto) 13 % (24-48) Monocytes (%) (Auto) 9 % (0-9) Eosinophils (%) (Auto) 4 % (0-3) Basophils (%) (Auto) 1 % (0-3) Neutrophils # (Auto) 4.7 x10^3/uL (1.8-7.7) Lymphocytes # (Auto) 0.8 x10^3/uL (1.0-4.8) Monocytes # (Auto) 0.6 x10^3/uL (0.0-1.1) Eosinophils # (Auto) 0.2 x10^3/uL (0.0-0.7) Basophils # (Auto) 0.0 x10^3/uL (0.0-0.2) Sodium Level 140 mmol/L (136-145) Potassium Level 3.4 mmol/L (3.5-5.1) Chloride Level 105 mmol/L (98-107) Carbon Dioxide Level 24 mmol/L (21-32) Anion Gap 11 (6-14) Blood Urea Nitrogen 28 mg/dL (7-20) Creatinine 2.5 mg/dL (0.6-1.0) Estimated GFR (Cockcroft-Gault) 23.9 Glucose Level 106 mg/dL (70-99) Calcium Level 8.9 mg/dL (8.5-10.1) Assessment and Plan Assessmemt and Plan Problems Medical Problems: (1) Ankle dislocation Status: Acute (2) Ankle fracture Status: Acute Comment Review of Relevant I have reviewed the following items emilia (where applicable) has been applied. Medications: Current Medications Medications (Trade) Dose Ordered Sig/Vania Route PRN Reason Start Time Stop Time Status Last Admin Dose Admin Acetaminophen/ Hydrocodone Bitart (Lortab 5/325) 2 tab PRN Q6HRS PRN PO SEVERE PAIN (1st Choice) 05/12/21 12:30 05/13/21 09:34 Trimethoprim/ Sulfamethoxazole (Bactrim Ds) 1 tab BID PO 05/12/21 14:00 05/15/21 13:59 05/13/21 10:57 Bupivacaine HCl/ Epinephrine Bitart (Sensorcain-Epi 0.25% Kit) 30 ml STK-MED ONCE .ROUTE 05/13/21 07:02 05/13/21 07:02 DC 05/13/21 09:08 Vitamin D (Vitamin D3) 20,000 unit WEEKLY PO 05/13/21 10:00 05/13/21 10:57 Justifications for Admission Other Justification MINERVA COLEMAN MD May 13, 2021 12:40
[2021-05-13] MEDS ORDERED: LOSARTAN POTASSIUM 25 MG TABLET. PO SCH (13:00)
--- NOTE | 2021-05-13 14:37 | PDOC2 ---
CONSULT Date of Consult Date of Consult DATE: 05/13/21 TIME: 14:34 Reason for Consult Reason for Consult: CKD 4 Identification/Chief Complaint Chief Complaint Pain in her ankle History of Present Illness Reason for Visit: Patient is a 60 year old AA female states she was putting on her shoe, twisted her right foot and ankle awkwardly, and felt a pop. She has not been able to put any weight on it since. No other injuries or complaints. Denies any Lightheadedness or dizziness. Denies CP or SOB. No F/C. Denies N/V/D . States she was having Mild dysuria, reports Good UOP . No Gross hematuria. She knows she had stent in her kidneys but doesnt recall any details Denies use of NSAID's . No LE edema Past Medical History Cardiovascular: HTN Pulmonary: Bronchitis CENTRAL NERVOUS SYSTEM: Seizure Heme/Onc: Anemia NOS, Cancer Hepatobiliary: No pertinent hx Psych: Other Musculoskeletal: low back pain, Osteoarthritis Rheumatologic: No pertinent hx Infectious disease: No pertinent hx Renal/: Chronic renal insuff, UTI, Renal Ca., Other Endocrine: Diabetes Past Surgical History Past Surgical History: No pertinent history Family History Family History: Cancer Social History ALCOHOL: none Drugs: None Lives: with Family Current Problem List Problem List Problems Medical Problems: (1) Ankle dislocation Status: Acute (2) Ankle fracture Status: Acute Current Medications Current Medications Current Medications Morphine Sulfate (Morphine Sulfate) 6 mg 1X ONCE IVP Last administered on 05/10/21at 20:13; Start 05/10/21 at 18:45; Stop 05/10/21 at 18:46; Status DC Morphine Sulfate (Morphine Sulfate) 6 mg 1X ONCE IVP Last administered on 05/10/21at 20:30; Start 05/10/21 at 20:00; Stop 05/10/21 at 20:01; Status DC Morphine Sulfate (Morphine Sulfate) 2 mg 1X ONCE IVP Last administered on 05/10/21at 21:47; Start 05/10/21 at 21:30; Stop 05/10/21 at 21:32; Status DC Levetiracetam (Keppra) 2,000 mg ONCE ONCE PO Last administered on 05/10/21at 22:19; Start 05/10/21 at 22:00; Stop 05/10/21 at 22:01; Status DC Lacosamide (Vimpat) 50 mg BID PO Last administered on 05/11/21at 08:11; Start 05/10/21 at 22:30; Stop 05/11/21 at 10:48; Status DC Ondansetron HCl (Zofran) 4 mg PRN Q8HRS PRN IVP NAUSEA/VOMITING; Start 05/10/21 at 23:30; Stop 05/12/21 at 23:29; Status DC Morphine Sulfate (Morphine Sulfate) 2 mg PRN Q2HR PRN IVP PAIN; Start 05/10/21 at 23:30; Stop 05/12/21 at 23:29; Status DC Tramadol HCl (Ultram) 50 mg PRN Q6HRS PRN PO MODERATE PAIN; Start 05/11/21 at 07:45; Stop 05/12/21 at 12:51; Status DC Acetaminophen/ Hydrocodone Bitart (Lortab 5/325) 1 tab PRN Q6HRS PRN PO SEVERE PAIN Last administered on 05/12/21at 10:54; Start 05/11/21 at 07:45; Stop 05/12/21 at 12:20; Status DC Acetaminophen (Tylenol) 650 mg PRN Q6HRS PRN PO MILD PAIN / TEMP > 100.3'F Last administered on 05/13/21at 10:58; Start 05/11/21 at 07:45 Psyllium Hydrophilic Mucilloid (Metamucil Fiber Packet) 1 pkt QHS PO Last administered on 05/12/21at 20:21; Start 05/11/21 at 21:00 Hydralazine HCl (Apresoline Inj) 10 mg PRN Q4HRS PRN IVP ELEVATED BP, SEE COMMENTS; Start 05/11/21 at 07:45 Lacosamide (Vimpat) 50 mg BID PO Last administered on 05/13/21at 10:56; Start 05/11/21 at 10:00 Levetiracetam (Keppra) 2,000 mg BID PO Last administered on 05/13/21at 10:56; Start 05/11/21 at 10:00 Enoxaparin Sodium (Lovenox 30mg Syringe) 30 mg Q24H SQ Last administered on 05/12/21at 07:40; Start 05/11/21 at 14:00; Status Hold Acetaminophen/ Hydrocodone Bitart (Lortab 5/325) 1 tab PRN Q6HRS PRN PO SEVERE PAIN (1st Choice); Start 05/12/21 at 12:30 Acetaminophen/ Hydrocodone Bitart (Lortab 7.5/325) 1 tab PRN Q4HRS PRN PO SEVERE PAIN (2nd Choice); Start 05/12/21 at 12:30 Acetaminophen/ Hydrocodone Bitart (Lortab 5/325) 2 tab PRN Q6HRS PRN PO SEVERE PAIN (1st Choice) Last administered on 05/13/21at 09:34; Start 05/12/21 at 12:30 Trimethoprim/ Sulfamethoxazole (Bactrim Ds) 1 tab BID PO Last administered on 05/13/21at 10:57; Start 05/12/21 at 14:00; Stop 05/15/21 at 13:59 Bupivacaine HCl/ Epinephrine Bitart (Sensorcain-Epi 0.25% Kit) 30 ml STK-MED ONCE .ROUTE Last administered on 05/13/21at 09:08; Start 05/13/21 at 07:02; Stop 05/13/21 at 07:02; Status DC Propofol (Diprivan) 200 mg STK-MED ONCE IV ; Start 05/13/21 at 07:15; Stop 05/13/21 at 07:16; Status DC Lidocaine HCl (Lidocaine Pf 2% Vial) 5 ml STK-MED ONCE .ROUTE ; Start 05/13/21 at 07:15; Stop 05/13/21 at 07:16; Status DC Succinylcholine Chloride (Anectine) 200 mg STK-MED ONCE .ROUTE ; Start 05/13/21 at 07:16; Stop 05/13/21 at 07:16; Status DC Fentanyl Citrate (Fentanyl 2ml Vial) 100 mcg STK-MED ONCE .ROUTE ; Start 05/13/21 at 07:16; Stop 05/13/21 at 07:16; Status DC Dexamethasone Sodium Phosphate (Decadron) 4 mg STK-MED ONCE .ROUTE ; Start 05/13/21 at 07:16; Stop 05/13/21 at 07:16; Status DC Ondansetron HCl (Zofran) 4 mg STK-MED ONCE .ROUTE ; Start 05/13/21 at 07:16; Stop 05/13/21 at 07:17; Status DC Midazolam HCl (Versed) 2 mg STK-MED ONCE .ROUTE ; Start 05/13/21 at 07:47; Stop 05/13/21 at 07:48; Status DC Cefazolin Sodium (Ancef) 1 gm STK-MED ONCE IVP ; Start 05/13/21 at 08:08; Stop 05/13/21 at 08:08; Status DC Fentanyl Citrate (Fentanyl 2ml Vial) 25 mcg PRN Q5MIN PRN IVP MILD PAIN 1-3; Start 05/13/21 at 09:30; Stop 05/14/21 at 09:29 Fentanyl Citrate (Fentanyl 2ml Vial) 50 mcg PRN Q5MIN PRN IVP MODERATE PAIN 4- 6; Start 05/13/21 at 09:30; Stop 05/14/21 at 09:29 Morphine Sulfate (Morphine Sulfate) 1 mg PRN Q10MIN PRN IVP SEVERE PAIN 7-10; Start 05/13/21 at 09:30; Stop 05/14/21 at 09:29 Ringer's Solution 1,000 ml @ 30 mls/hr Q24H IV ; Start 05/13/21 at 09:30; Stop 05/13/21 at 21:29 Hydromorphone HCl (Dilaudid) 0.5 mg PRN Q10MIN PRN IVP SEVERE PAIN 7-10, 2nd CHOICE; Start 05/13/21 at 09:30; Stop 05/14/21 at 09:29 Prochlorperazine Edisylate (Compazine) 5 mg PACU PRN PRN IVP NAUSEA, MRX1; Start 05/13/21 at 09:30; Stop 05/14/21 at 09:29 Cefazolin Sodium (Ancef) 1 gm Q8H IVP ; Start 05/13/21 at 16:00; Stop 05/14/21 at 00:01 Vitamin D (Vitamin D3) 20,000 unit WEEKLY PO Last administered on 05/13/21at 10:57; Start 05/13/21 at 10:00; Stop 05/13/21 at 12:32; Status DC Ergocalciferol (Vitamin D2) 50,000 unit WEEKLY PO ; Start 05/20/21 at 09:00; Stop 05/13/21 at 12:34; Status DC Ergocalciferol (Vitamin D2) 50,000 unit WEEKLY PO ; Start 05/14/21 at 09:00 Losartan Potassium (Cozaar) 25 mg DAILY PO ; Start 05/13/21 at 13:00 Active Scripts Active Keppra (Levetiracetam) 500 Mg Tablet 2,000 Mg PO BID Reported Vimpat (Lacosamide) 50 Mg Tablet 50 Mg PO BID Allergies Allergies: Coded Allergies: Penicillins (Verified Allergy, Severe, Swelling, 05/10/21) Has taken keflex before aspirin (Verified Allergy, Severe, SEIZURES, TORADOL [place], 05/10/21) ROS Review of System As per HPI, rest of the ROS is negative Physical Exam Physical Exam General: NAD , sitting in bed HEEN OM moist, Anicteric Neck Supple Heart: Regular rate, No murmur Lungs: CTA, Non labored Abdomen: Soft, No masses, NT Extremities: No cyanosis, No edema.. S/P Rt Ankle Fx external fixation Skin: No rashes No Marks, No CVA or SP tenderness Psych Cooperative Neuro Grossly Normal, No focal deficit Vital Signs Vital Signs Date Time Temp Pulse Resp B/P (MAP) Pulse Ox O2 Delivery O2 Flow Rate FiO2 05/13/21 09:54 20 96 Room Air 05/13/21 09:31 82 167/80 05/13/21 03:00 98.2 98.2 Assessment & Plan CKD stage 4 - stable for last few years per [facility] records, Baseline Creat 2.2-2.5 , prior to that stage 3 at least since 2016 . She has not seen Nephrology in OP setting . Stable renal function. E-Lytes stable. Avoid Nephrotoxins, supportive care, Maintain fluid balance HypoKalemia- Mild, replace as indicated UTI- On Bactrim per PCP . Monitor Renal function and K closely Bilateral Hydronephrosis Seen by us in May 2020 - Stent at [facility] approx 5 years ago . She cannot recall any details . - US in 05/2020- US Bilateral ureteral stents in place with severe right and moderate left hydronephrosis. Right ankle trimalleolar fracture/dislocation status post closed reduction in the emergency room. S/P external fixation of right ankle earlier today. Hx of Cervical cancer and Radiation HTN- Antihypertensives resumed Vit D deficiency- Severe .Agree with Ergocalciferol Labs Labs Laboratory Tests Test 05/11/21 20:10 05/12/21 06:25 05/12/21 17:20 05/13/21 04:45 Urine Collection Type Unknown Urine Color (Auto) Yellow Urine Turbidity Turbid Urine pH (Auto) 7.5 (<5.0-8.0) Urine Specific [place] 1.013 (1.000-1.030) Urine Protein (Auto) 100 mg/dL (Negative) Urine Glucose (Auto)(UA) Negative mg/dL (Negative) Urine Ketones (Auto) Negative mg/dL (Negative) Urine Blood (Auto) Large (Negative) Urine Nitrite Negative (Negative) Urine Bilirubin (Auto) Negative (Negative) Urine Urobilinogen (Auto) Normal mg/dL (Normal) Urine Leukocyte Esterase (Auto) Large (Negative) Urine RBC 11-20 /HPF (0-2) Urine WBC Tntc /HPF (0-4) Urine Squamous Epithelial Cells Few /LPF Urine Bacteria Many /HPF (0-FEW) Urine Mucus Marked /LPF Sodium Level 144 mmol/L (136-145) 140 mmol/L (136-145) Potassium Level 3.4 mmol/L (3.5-5.1) 3.4 mmol/L (3.5-5.1) Chloride Level 108 mmol/L (98-107) 105 mmol/L (98-107) Carbon Dioxide Level 25 mmol/L (21-32) 24 mmol/L (21-32) Anion Gap 11 (6-14) 11 (6-14) Blood Urea Nitrogen 25 mg/dL (7-20) 28 mg/dL (7-20) Creatinine 2.5 mg/dL (0.6-1.0) 2.5 mg/dL (0.6-1.0) Estimated GFR (Cockcroft-Gault) 23.9 23.9 Glucose Level 99 mg/dL (70-99) 106 mg/dL (70-99) Calcium Level 8.7 mg/dL (8.5-10.1) 8.9 mg/dL (8.5-10.1) SARS-CoV-2 Antigen (Rapid) Negative (NEGATIVE) White Blood Count 6.3 x10^3/uL (4.0-11.0) Red Blood Count 2.63 x10^6/uL (3.50-5.40) Hemoglobin 8.2 g/dL (12.0-15.5) Hematocrit 25.3 % (36.0-47.0) Mean Corpuscular Volume 96 fL (79-100) Mean Corpuscular Hemoglobin 31 pg (25-35) Mean Corpuscular Hemoglobin Concent 33 g/dL (31-37) Red Cell Distribution Width 13.8 % (11.5-14.5) Platelet Count 229 x10^3/uL (140-400) Neutrophils (%) (Auto) 74 % (31-73) Lymphocytes (%) (Auto) 13 % (24-48) Monocytes (%) (Auto) 9 % (0-9) Eosinophils (%) (Auto) 4 % (0-3) Basophils (%) (Auto) 1 % (0-3) Neutrophils # (Auto) 4.7 x10^3/uL (1.8-7.7) Lymphocytes # (Auto) 0.8 x10^3/uL (1.0-4.8) Monocytes # (Auto) 0.6 x10^3/uL (0.0-1.1) Eosinophils # (Auto) 0.2 x10^3/uL (0.0-0.7) Basophils # (Auto) 0.0 x10^3/uL (0.0-0.2) Laboratory Tests Test 05/12/21 17:20 05/13/21 04:45 SARS-CoV-2 Antigen (Rapid) Negative (NEGATIVE) White Blood Count 6.3 x10^3/uL (4.0-11.0) Red Blood Count 2.63 x10^6/uL (3.50-5.40) Hemoglobin 8.2 g/dL (12.0-15.5) Hematocrit 25.3 % (36.0-47.0) Mean Corpuscular Volume 96 fL (79-100) Mean Corpuscular Hemoglobin 31 pg (25-35) Mean Corpuscular Hemoglobin Concent 33 g/dL (31-37) Red Cell Distribution Width 13.8 % (11.5-14.5) Platelet Count 229 x10^3/uL (140-400) Neutrophils (%) (Auto) 74 % (31-73) Lymphocytes (%) (Auto) 13 % (24-48) Monocytes (%) (Auto) 9 % (0-9) Eosinophils (%) (Auto) 4 % (0-3) Basophils (%) (Auto) 1 % (0-3) Neutrophils # (Auto) 4.7 x10^3/uL (1.8-7.7) Lymphocytes # (Auto) 0.8 x10^3/uL (1.0-4.8) Monocytes # (Auto) 0.6 x10^3/uL (0.0-1.1) Eosinophils # (Auto) 0.2 x10^3/uL (0.0-0.7) Basophils # (Auto) 0.0 x10^3/uL (0.0-0.2) Sodium Level 140 mmol/L (136-145) Potassium Level 3.4 mmol/L (3.5-5.1) Chloride Level 105 mmol/L (98-107) Carbon Dioxide Level 24 mmol/L (21-32) Anion Gap 11 (6-14) Blood Urea Nitrogen 28 mg/dL (7-20) Creatinine 2.5 mg/dL (0.6-1.0) Estimated GFR (Cockcroft-Gault) 23.9 Glucose Level 106 mg/dL (70-99) Calcium Level 8.9 mg/dL (8.5-10.1) Review All relevant outside records, renal labs, imaging studies, telemetry/EKG's were reviewed. Images Images CT LOWER RIGHT EXTREMITY WITHOUT CONTRAST History: Trimalleolar ankle fracture. Comparison: Ankle radiographs 05/10/2021 Technique: Noncontrast CT of the right ankle. Rotating 3-D surface rendering a lso provided. Findings: There is a trimalleolar fracture right ankle. Oblique distal fibular fracture with approximately 5 mm extending to the level of the syndesmosis. Posterior tibial fracture with approximately 5 mm displacement at the articular surface. Small cortical avulsion fracture of the medial malleolar tip. The medial clear space is widened to approximately 9 mm. Achilles insertion enthesophyte. Soft tissue swelling about the ankle. The ankle extensors, peroneal tendons, flexors and Achilles tendon are grossly intact. Impression: 1. Trimalleolar fracture of the right ankle as above. DIANE IVERSON MD May 13, 2021 14:37
[2021-05-13] MEDS: ceFAZolin SODIUM IV Push 1 GM VIAL. IVP SCH (17:35)
[2021-05-13] MEDS: PSYLLIUM HUSK (SUGAR FREE) 1 PKT PACKET PO SCH (21:02)
[2021-05-13] MEDS: LACTOBACILLUS RHAMNOSUS GG 1 CAPSULE. PO SCH (21:02)
[2021-05-14] MEDS: ceFAZolin SODIUM IV Push 1 GM VIAL. IVP SCH (00:03)
[2021-05-14 02:09] LABS: HEMOGLOBIN A1C 5.5 % (4.8-5.6)
[2021-05-14 03:00] VITALS: BP 120/82
[2021-05-14] MEDS: HYDROcodone/APAP 5/325MG 1 TAB TABLET PO PRN ×2 (03:06→10:45)
[2021-05-14 07:00] VITALS: BP 93/60
[2021-05-14 07:32] LABS: HEMATOCRIT 24.6 % (36.0-47.0); RED BLOOD COUNT 2.55 x10^6/uL (3.50-5.40); RED CELL DISTRIBUTION WIDTH 13.8 % (11.5-14.5); WHITE BLOOD COUNT 8.5 x10^3/uL (4.0-11.0)
[2021-05-14 07:53] LABS: CALCIUM 8.6 mg/dL (8.5-10.1); CREATININE 2.7 mg/dL (0.6-1.0); GFR 21.8; POTASSIUM 3.6 mmol/L (3.5-5.1)
[2021-05-14] MEDS: LACTOBACILLUS RHAMNOSUS GG 1 CAPSULE. PO SCH ×2 (08:16→21:04)
[2021-05-14] MEDS: SMZ/TMP 800/160MG TABLET. PO SCH ×2 (08:16→21:04)
[2021-05-14] MEDS: LACOSAMIDE 50 MG TABLET PO SCH ×2 (08:17→21:04)
[2021-05-14] MEDS: levETIRAcetam 500 MG TABLET PO SCH ×2 (08:18→21:04)
[2021-05-14] MEDS ORDERED: ERGOCALCIFEROL (VITAMIN D2) 50,000 UNIT CAPSULE. PO SCH (09:00)
[2021-05-14 10:54] VITALS: BP 96/47
--- NOTE | 2021-05-14 12:45 | PDOC ---
DATE OF SERVICE DATE: 05/14/21 TIME: 12:40 SUBJECTIVE ROS States feeling mildly dizzy on standing . No N/V. Denies SOB. States had Mild dysuria, resolved. Reports Good UOP OBJECTIVE Vital Signs Vital Signs Date Time Temp Pulse Resp B/P (MAP) Pulse Ox O2 Delivery O2 Flow Rate FiO2 05/14/21 10:54 97.7 90 16 96/47 (63) 94 Room Air 97.7 I & 0 Intake and Output 05/14/21 07:00 Intake Total 580 ml Output Total 50 ml Balance 530 ml Intake Oral 180 ml IV Total 400 ml Estimated Blood Loss 50 ml # Voids 3 PHYSICAL EXAM Physical Exam General: NAD , sitting in bed HEEN OM moist, Anicteric Neck Supple Heart: Regular rate, No murmur Lungs: CTA, Non labored Abdomen: Soft, No masses, NT Extremities: No cyanosis, No edema.. S/P Rt Ankle Fx external fixation Skin: No rashes No Marks, No CVA or SP tenderness Psych Cooperative Neuro Grossly Normal, No focal deficit DIAGNOSIS/ASSESSMENT Assessment & Plan SANDHYA - vs Pseudoelevation of Creat 2/2 Bactrim as mentioned in my consult yesterday . Monitor . UOP not recorded CKD stage 4 - stable for last few years per [facility] records, Baseline Creat 2.2-2.5 , prior to that stage 3 at least since 2016 . She has not seen Nephrology in OP setting . Stable renal function. E-Lytes stable. Avoid Nephrotoxins, supportive care, Maintain fluid balance HypoKalemia- Normal K Hypotension - Hold antihypertensives . Stop Losartan UTI- On Bactrim per PCP . Monitor Renal function and K closely . Recommend switching Abx / Defer to primary Bilateral Hydronephrosis Seen by us in May 2020 - Stent at [facility] approx 5 years ago . She cannot recall any details . - US in 05/2020- US Bilateral ureteral stents in place with severe right and moderate left hydronephrosis. Right ankle trimalleolar fracture/dislocation status post closed reduction in the emergency room. S/P external fixation of right ankle earlier today. Hx of Cervical cancer and Radiation HTN- Antihypertensives resumed Vit D deficiency- Severe .Agree with Ergocalciferol COMMENT/RELEVANT DATA Meds Current Medications Medications (Trade) Dose Ordered Sig/Vania Start Time Stop Time Status Last Admin Dose Admin Acetaminophen (Tylenol) 650 mg PRN Q6HRS PRN 05/11/21 07:45 05/13/21 10:58 650 MG Acetaminophen/ Hydrocodone Bitart (Lortab 5/325) 2 tab PRN Q6HRS PRN 05/12/21 12:30 05/14/21 10:45 2 TAB Acetaminophen/ Hydrocodone Bitart (Lortab 7.5/325) 1 tab PRN Q4HRS PRN 05/12/21 12:30 Bupivacaine HCl/ Epinephrine Bitart (Sensorcain-Epi 0.25% Kit) 30 ml STK-MED ONCE 05/13/21 07:02 05/13/21 07:02 DC 05/13/21 09:08 10 ML Cefazolin Sodium (Ancef) 1 gm Q8H 05/13/21 16:00 05/14/21 00:01 DC 05/14/21 00:03 1 GM Dexamethasone Sodium Phosphate (Decadron) 4 mg STK-MED ONCE 05/13/21 07:16 05/13/21 07:16 DC Enoxaparin Sodium (Lovenox 30mg Syringe) 30 mg Q24H 05/11/21 14:00 05/13/21 15:48 DC 05/12/21 07:40 30 MG Ergocalciferol (Vitamin D2) 50,000 unit WEEKLY 05/14/21 09:00 05/14/21 08:16 50,000 UNIT Fentanyl Citrate (Fentanyl 2ml Vial) 50 mcg PRN Q5MIN PRN 05/13/21 09:30 05/14/21 09:29 DC Hydralazine HCl (Apresoline Inj) 10 mg PRN Q4HRS PRN 05/11/21 07:45 Hydromorphone HCl (Dilaudid) 0.5 mg PRN Q10MIN PRN 05/13/21 09:30 05/14/21 09:29 DC Lacosamide (Vimpat) 50 mg BID 05/11/21 10:00 05/14/21 08:17 50 MG Lactobacillus Rhamnosus (Culturelle) 1 cap BID 05/13/21 21:00 05/14/21 08:16 1 CAP Levetiracetam (Keppra) 2,000 mg BID 05/11/21 10:00 05/14/21 08:18 2,000 MG Lidocaine HCl (Lidocaine Pf 2% Vial) 5 ml STK-MED ONCE 05/13/21 07:15 05/13/21 07:16 DC Losartan Potassium (Cozaar) 25 mg DAILY 05/13/21 13:00 05/13/21 17:35 25 MG Midazolam HCl (Versed) 2 mg STK-MED ONCE 05/13/21 07:47 05/13/21 07:48 DC Morphine Sulfate (Morphine Sulfate) 1 mg PRN Q10MIN PRN 05/13/21 09:30 05/14/21 09:29 DC Ondansetron HCl (Zofran) 4 mg STK-MED ONCE 05/13/21 07:16 05/13/21 07:17 DC Prochlorperazine Edisylate (Compazine) 5 mg PACU PRN PRN 05/13/21 09:30 05/14/21 09:29 DC Propofol (Diprivan) 200 mg STK-MED ONCE 05/13/21 07:15 05/13/21 07:16 DC Psyllium Hydrophilic Mucilloid (Metamucil Fiber Packet) 1 pkt QHS 05/11/21 21:00 05/13/21 21:02 1 PKT Ringer's Solution 1,000 ml @ 30 mls/hr Q24H 05/13/21 09:30 05/13/21 21:29 DC Succinylcholine Chloride (Anectine) 200 mg STK-MED ONCE 05/13/21 07:16 05/13/21 07:16 DC Tramadol HCl (Ultram) 50 mg PRN Q6HRS PRN 05/11/21 07:45 05/12/21 12:51 DC Trimethoprim/ Sulfamethoxazole (Bactrim Ds) 1 tab BID 05/12/21 14:00 05/15/21 13:59 05/14/21 08:16 1 TAB Vitamin D (Vitamin D3) 20,000 unit WEEKLY 05/13/21 10:00 05/13/21 12:32 DC 05/13/21 10:57 20,000 UNIT Lab Laboratory Tests Test 05/14/21 06:00 05/14/21 06:15 Sodium Level 139 mmol/L (136-145) Potassium Level 3.6 mmol/L (3.5-5.1) Chloride Level 104 mmol/L (98-107) Carbon Dioxide Level 22 mmol/L (21-32) Anion Gap 13 (6-14) Blood Urea Nitrogen 29 mg/dL (7-20) Creatinine 2.7 mg/dL (0.6-1.0) Estimated GFR (Cockcroft-Gault) 21.8 Glucose Level 108 mg/dL (70-99) Calcium Level 8.6 mg/dL (8.5-10.1) White Blood Count 8.5 x10^3/uL (4.0-11.0) Red Blood Count 2.55 x10^6/uL (3.50-5.40) Hemoglobin 8.0 g/dL (12.0-15.5) Hematocrit 24.6 % (36.0-47.0) Mean Corpuscular Volume 97 fL (79-100) Mean Corpuscular Hemoglobin 31 pg (25-35) Mean Corpuscular Hemoglobin Concent 32 g/dL (31-37) Red Cell Distribution Width 13.8 % (11.5-14.5) Platelet Count 252 x10^3/uL (140-400) Results All relevant outside records, renal labs, imaging studies, telemetry/EKG's were reviewed. Justicifation of Admission Dx: Justifications for Admission: Justification of Admission Dx: N/A DIANE IVERSON MD May 14, 2021 12:45
--- NOTE | 2021-05-14 14:03 | PDOC ---
[employer] PROGRESS NOTE Date of Service DOS: DATE: 05/14/21 TIME: 13:58 Chief Complaint Chief Complaint Fall with ankle fracture UTI Vitamin D deficiency History of Present Illness History of Present Illness 05/12: Per orthopedic surgery, plan is for external fixation of the right ankle tomorrow. Patient does report burning on urination, with positive UA. Due to stated anaphylaxis to penicillin, will treat with oral Bactrim for 3 days. 05/13: Patient had external fixation of right ankle today. She reports some improvement in her pain. Vitamin D noted to be 10.5; vitamin D deficiency, will place with ergocalciferol 50,000 units weekly, as this is the only prescription we have in pharmacy. Will consult nephrology for management of CKD 4, and initiate losartan. Will have patient work with PT/OT starting tomorrow. 05/14: Patient evaluated bedside, s/p right ankle open reduction with internal fixation. States her pain is controlled with medication. I have consulted nephrology for CKD 4, and initiated patient on ergocalciferol. PT recommending home with home health, and wheelchair/rolling walker. She is on Bactrim day 3 for UTI and initiated on losartan for blood pressure. We will keep inpatient to monitor for hyperkalemia continued PT. Anticipate discharge home with home health tomorrow. Vitals/I&O Vitals/I&O: Vital Signs Date Time Temp Pulse Resp B/P (MAP) Pulse Ox O2 Delivery O2 Flow Rate FiO2 05/14/21 10:54 97.7 90 16 96/47 (63) 94 Room Air 97.7 I & O 05/13/21 05/13/21 05/14/21 15:00 23:00 07:00 Intake Total 520 ml 60 ml Output Total 50 ml Balance 470 ml 60 ml Physical Exam General: Alert, Oriented X3, Cooperative, No acute distress Heart: Regular rate Lungs: Clear Abdomen: Soft, No masses Extremities: No cyanosis Skin: No rashes, No breakdown Labs Labs: Laboratory Tests Test 05/14/21 06:00 05/14/21 06:15 Sodium Level 139 mmol/L (136-145) Potassium Level 3.6 mmol/L (3.5-5.1) Chloride Level 104 mmol/L (98-107) Carbon Dioxide Level 22 mmol/L (21-32) Anion Gap 13 (6-14) Blood Urea Nitrogen 29 mg/dL (7-20) Creatinine 2.7 mg/dL (0.6-1.0) Estimated GFR (Cockcroft-Gault) 21.8 Glucose Level 108 mg/dL (70-99) Calcium Level 8.6 mg/dL (8.5-10.1) White Blood Count 8.5 x10^3/uL (4.0-11.0) Red Blood Count 2.55 x10^6/uL (3.50-5.40) Hemoglobin 8.0 g/dL (12.0-15.5) Hematocrit 24.6 % (36.0-47.0) Mean Corpuscular Volume 97 fL (79-100) Mean Corpuscular Hemoglobin 31 pg (25-35) Mean Corpuscular Hemoglobin Concent 32 g/dL (31-37) Red Cell Distribution Width 13.8 % (11.5-14.5) Platelet Count 252 x10^3/uL (140-400) Assessment and Plan Assessmemt and Plan Problems Medical Problems: (1) Ankle dislocation Status: Acute (2) Ankle fracture Status: Acute Comment Review of Relevant I have reviewed the following items emilia (where applicable) has been applied. Medications: Current Medications Medications (Trade) Dose Ordered Sig/Vania Route PRN Reason Start Time Stop Time Status Last Admin Dose Admin Cefazolin Sodium (Ancef) 1 gm Q8H IVP 05/13/21 16:00 05/14/21 00:01 DC 05/14/21 00:03 Ergocalciferol (Vitamin D2) 50,000 unit WEEKLY PO 05/14/21 09:00 05/14/21 08:16 Lactobacillus Rhamnosus (Culturelle) 1 cap BID PO 05/13/21 21:00 05/14/21 08:16 Justifications for Admission Other Justification MINERVA COLEMAN MD May 14, 2021 14:03
[2021-05-14] MEDS ORDERED: ERGO500089 PO (14:07)
[2021-05-14 15:00] VITALS: BP 88/45
--- NOTE | 2021-05-14 16:49 | OP ---
DATE OF SURGERY: 05/13/2021 PREOPERATIVE DIAGNOSES: 1. Prediabetes. 2. Closed right trimalleolar ankle fracture equivalent. POSTOPERATIVE DIAGNOSES: 1. Prediabetes. 2. Closed right trimalleolar ankle fracture equivalent. PROCEDURE: ORIF right trimalleolar ankle fracture without fixation of the posterior malleolus. SURGEON: Jennifer Bojorquez MD AUTOMATION SOFTWARE ENGINEER: JOHNNA Paul ANESTHESIA: General. COMPLICATIONS: None. ESTIMATED BLOOD LOSS: 50 mL. IMPLANTS USED: Reynaldo 8 hole 1/3 tubular plate with locking and nonlocking screws. INDICATIONS FOR PROCEDURE: The patient is a 60-year-old female who sustained the aforementioned injury on 05/10. She was admitted for social reasons. Initially, Dr. Mclean was going to take care of her, but he asked me to assume care. The patient was given risks, benefits, complications and alternatives and wanted to undergo the procedure on an urgent basis. DESCRIPTION OF PROCEDURE: Once the correct operative site was identified and informed consent was obtained, the patient was taken back to the operating suite in supine position. General anesthesia was administered and a time-out was done. The patient was identified as the patient and the right side was identified as the correct operative site. She was given preoperative antibiotic prophylaxis and the right lower extremity was prepped and draped in a sterile fashion after a pre-prep was done. Fluoroscopy was brought in to help guide the 6-inch incision. An incision then began at the distal fibula and procedure proximally was made. Sharp dissection was carried through skin and further dissection was taken down to fascia using cautery and tenotomies. The fracture was cleaned of hematoma and reduced anatomically with bone clamps. The aforementioned Reynaldo plate was applied to the posterolateral surface of the fibula. It was brought down to bone with a nonlocking screw. The 1-2 locking screws were placed in the distal plate. Following fracture fixation, the 2 syndesmotic screws were placed. These were drilled under fluoroscopic guidance, taking care to stay parallel to the tibial plafond. At least 3 points of fixation were obtained proximal to the fracture site. The entire case was guided with fluoroscopy. Once final fixation was in place, final AP, lateral and mortise images were taken and saved into the PACS. The wound was thoroughly irrigated and closed in a layered fashion with 2-0 Monocryl followed by 2-0 nylon. Sterile dressings were applied. The patient tolerated procedure well. She was taken in stable condition to the postoperative care unit under care of Anesthesia. POSTOPERATIVE PLAN: Nonweightbearing right lower extremity for 2 months. Follow up in 2 weeks for new x-rays and suture removal. She will need at least aspirin for DVT prophylaxis upon discharge for as long as she is nonweightbearing. She will have 24 hours prophylactic antibiotics. JOHNNA Paul, was present for patient positioning, helped with limb pre-prep, helped with soft tissue retraction and closure. Her presence made the case go more efficiently, therefore more safely. TERESE/CHERISE/DAMON DR: Cristina TID: [id number]
[2021-05-14 19:00] VITALS: BP 146/78
--- NOTE | 2021-05-14 19:06 | PDOC ---
PROGRESS NOTES Date of Service DATE: 05/14/21 TIME: 19:04 Subjective Subjective Problems overnight: Objective Vital Signs Vital Signs Date Time Temp Pulse Resp B/P (MAP) Pulse Ox O2 Delivery O2 Flow Rate FiO2 05/14/21 15:00 97.7 87 16 88/45 (59) 100 Room Air 97.7 Labs Laboratory Tests Test 05/13/21 04:45 05/14/21 06:00 05/14/21 06:15 White Blood Count 6.3 x10^3/uL (4.0-11.0) 8.5 x10^3/uL (4.0-11.0) Red Blood Count 2.63 x10^6/uL (3.50-5.40) 2.55 x10^6/uL (3.50-5.40) Hemoglobin 8.2 g/dL (12.0-15.5) 8.0 g/dL (12.0-15.5) Hematocrit 25.3 % (36.0-47.0) 24.6 % (36.0-47.0) Mean Corpuscular Volume 96 fL (79-100) 97 fL (79-100) Mean Corpuscular Hemoglobin 31 pg (25-35) 31 pg (25-35) Mean Corpuscular Hemoglobin Concent 33 g/dL (31-37) 32 g/dL (31-37) Red Cell Distribution Width 13.8 % (11.5-14.5) 13.8 % (11.5-14.5) Platelet Count 229 x10^3/uL (140-400) 252 x10^3/uL (140-400) Neutrophils (%) (Auto) 74 % (31-73) Lymphocytes (%) (Auto) 13 % (24-48) Monocytes (%) (Auto) 9 % (0-9) Eosinophils (%) (Auto) 4 % (0-3) Basophils (%) (Auto) 1 % (0-3) Neutrophils # (Auto) 4.7 x10^3/uL (1.8-7.7) Lymphocytes # (Auto) 0.8 x10^3/uL (1.0-4.8) Monocytes # (Auto) 0.6 x10^3/uL (0.0-1.1) Eosinophils # (Auto) 0.2 x10^3/uL (0.0-0.7) Basophils # (Auto) 0.0 x10^3/uL (0.0-0.2) Sodium Level 140 mmol/L (136-145) 139 mmol/L (136-145) Potassium Level 3.4 mmol/L (3.5-5.1) 3.6 mmol/L (3.5-5.1) Chloride Level 105 mmol/L (98-107) 104 mmol/L (98-107) Carbon Dioxide Level 24 mmol/L (21-32) 22 mmol/L (21-32) Anion Gap 11 (6-14) 13 (6-14) Blood Urea Nitrogen 28 mg/dL (7-20) 29 mg/dL (7-20) Creatinine 2.5 mg/dL (0.6-1.0) 2.7 mg/dL (0.6-1.0) Estimated GFR (Cockcroft-Gault) 23.9 21.8 Glucose Level 106 mg/dL (70-99) 108 mg/dL (70-99) Hemoglobin A1c 5.5 % (4.8-5.6) Calcium Level 8.9 mg/dL (8.5-10.1) 8.6 mg/dL (8.5-10.1) Laboratory Tests Test 05/14/21 06:00 05/14/21 06:15 Sodium Level 139 mmol/L (136-145) Potassium Level 3.6 mmol/L (3.5-5.1) Chloride Level 104 mmol/L (98-107) Carbon Dioxide Level 22 mmol/L (21-32) Anion Gap 13 (6-14) Blood Urea Nitrogen 29 mg/dL (7-20) Creatinine 2.7 mg/dL (0.6-1.0) Estimated GFR (Cockcroft-Gault) 21.8 Glucose Level 108 mg/dL (70-99) Calcium Level 8.6 mg/dL (8.5-10.1) White Blood Count 8.5 x10^3/uL (4.0-11.0) Red Blood Count 2.55 x10^6/uL (3.50-5.40) Hemoglobin 8.0 g/dL (12.0-15.5) Hematocrit 24.6 % (36.0-47.0) Mean Corpuscular Volume 97 fL (79-100) Mean Corpuscular Hemoglobin 31 pg (25-35) Mean Corpuscular Hemoglobin Concent 32 g/dL (31-37) Red Cell Distribution Width 13.8 % (11.5-14.5) Platelet Count 252 x10^3/uL (140-400) Assessment Assessment POD# 1 Plan Plan of Care Patient seen, she is sitting up in the chair. She says that she has not been putting any weight on the right leg. She says that she called an hour ago to have someone help her to the bathroom but no one came and she has had an accident in the chair and is now sitting in it. No concerns with her right ankle. She denies any numbness or tingling or radicular symptoms. The right ankle surgical dressing is clean dry and intact. Calf is soft. Neurovascularly intact in the foot. Discussed the patient's need for help to the bathroom with the charge nurse. Her right ankle dressings can be removed and she can shower over those, no soaking. Follow-up in our orthopedic clinic in 2 weeks, sooner if any problems. Patient agrees with this plan. Justicifation of Admission Dx: Justifications for Admission: Justification of Admission Dx: N/A ALANA PARADA May 14, 2021 19:06
[2021-05-14] MEDS: PSYLLIUM HUSK (SUGAR FREE) 1 PKT PACKET PO SCH (21:00)
[2021-05-14 23:00] VITALS: BP 112/62
[2021-05-15 03:00] VITALS: BP 96/57
[2021-05-15] MEDS: HYDROcodone/APAP 7.5/325MG 1 TAB TABLET PO PRN ×3 (03:04→16:15)
[2021-05-15 07:00] VITALS: BP 98/55
[2021-05-15 07:28] LABS: CALCIUM 8.9 mg/dL (8.5-10.1); CREATININE 2.3 mg/dL (0.6-1.0); GFR 26.3; POTASSIUM 3.8 mmol/L (3.5-5.1)
[2021-05-15] MEDS: LACTOBACILLUS RHAMNOSUS GG 1 CAPSULE. PO SCH (08:43)
[2021-05-15] MEDS: LACOSAMIDE 50 MG TABLET PO SCH (08:44)
[2021-05-15] MEDS: levETIRAcetam 500 MG TABLET PO SCH (08:45)
[2021-05-15] MEDS: SMZ/TMP 800/160MG TABLET. PO SCH (09:00)
--- NOTE | 2021-05-15 09:21 | PDOC ---
DATE OF SERVICE DATE: 05/15/21 TIME: 09:19 SUBJECTIVE ROS stable .No complaints States swelling in Rt leg better OBJECTIVE Vital Signs Vital Signs Date Time Temp Pulse Resp B/P (MAP) Pulse Ox O2 Delivery O2 Flow Rate FiO2 05/15/21 08:44 Room Air 05/15/21 03:34 20 05/15/21 03:00 98.2 85 96/57 (70) 97 98.2 I & 0 Intake and Output 05/15/21 07:00 Intake Total 500 ml Output Total 300 ml Balance 200 ml Intake Oral 500 ml Output Urine Total 300 ml # Voids 8 PHYSICAL EXAM Physical Exam General: NAD HEEN OM moist, Anicteric Neck Supple Heart: Regular rate, No murmur Lungs: CTA, Non labored Abdomen: Soft, No masses, NT Extremities: No cyanosis, No edema.. S/P Rt Ankle Fx external fixation . Rt LE/ankle with swelling and ?Erythema/Discoloration 2/2 CVI Skin: No rashes No Marks, No CVA or SP tenderness Psych Cooperative Neuro Grossly Normal, No focal deficit DIAGNOSIS/ASSESSMENT Assessment & Plan SANDHYA -resolved , Cr back to her baseline . Monitor . UOP not recorded . E- Lytes stable. Avoid Nephrotoxins, supportive care, Maintain fluid balance CKD stage 4 - stable for last few years per [facility] records, Baseline Creat 2.2-2.5 , prior to that stage 3 at least since 2016 . She has not seen Nephrology in OP setting . Recommend routine fu after dc HypoKalemia- Normal K Hypotension - Holding Losartan UTI- On Bactrim per PCP . Monitor Renal function and K closely Bilateral Hydronephrosis Seen by us in May 2020 - Stent at [facility] approx 5 years ago . She cannot recall any details . - US in 05/2020- US Bilateral ureteral stents in place with severe right and moderate left hydronephrosis. Right ankle trimalleolar fracture/dislocation status post closed reduction in the emergency room. S/P external fixation of right ankle earlier today. Hx of Cervical cancer and Radiation HTN- Antihypertensives resumed Vit D deficiency- Severe .Agree with Ergocalciferol COMMENT/RELEVANT DATA Meds Current Medications Medications (Trade) Dose Ordered Sig/Vania Start Time Stop Time Status Last Admin Dose Admin Acetaminophen (Tylenol) 650 mg PRN Q6HRS PRN 05/11/21 07:45 05/13/21 10:58 650 MG Acetaminophen/ Hydrocodone Bitart (Lortab 5/325) 2 tab PRN Q6HRS PRN 05/12/21 12:30 05/14/21 17:13 DC 05/14/21 10:45 2 TAB Acetaminophen/ Hydrocodone Bitart (Lortab 7.5/325) 1 tab PRN Q4HRS PRN 05/12/21 12:30 05/15/21 08:44 1 TAB Bupivacaine HCl/ Epinephrine Bitart (Sensorcain-Epi 0.25% Kit) 30 ml STK-MED ONCE 05/13/21 07:02 05/13/21 07:02 DC 05/13/21 09:08 10 ML Cefazolin Sodium (Ancef) 1 gm Q8H 05/13/21 16:00 05/14/21 00:01 DC 05/14/21 00:03 1 GM Dexamethasone Sodium Phosphate (Decadron) 4 mg STK-MED ONCE 05/13/21 07:16 05/13/21 07:16 DC Enoxaparin Sodium (Lovenox 30mg Syringe) 30 mg Q24H 05/11/21 14:00 05/13/21 15:48 DC 05/12/21 07:40 30 MG Ergocalciferol (Vitamin D2) 50,000 unit WEEKLY 05/14/21 09:00 05/14/21 08:16 50,000 UNIT Fentanyl Citrate (Fentanyl 2ml Vial) 50 mcg PRN Q5MIN PRN 05/13/21 09:30 05/14/21 09:29 DC Hydralazine HCl (Apresoline Inj) 10 mg PRN Q4HRS PRN 05/11/21 07:45 Hydromorphone HCl (Dilaudid) 0.5 mg PRN Q10MIN PRN 05/13/21 09:30 05/14/21 09:29 DC Lacosamide (Vimpat) 50 mg BID 05/11/21 10:00 05/15/21 08:44 50 MG Lactobacillus Rhamnosus (Culturelle) 1 cap BID 05/13/21 21:00 05/15/21 08:43 1 CAP Levetiracetam (Keppra) 2,000 mg BID 05/11/21 10:00 05/15/21 08:45 2,000 MG Lidocaine HCl (Lidocaine Pf 2% Vial) 5 ml STK-MED ONCE 05/13/21 07:15 05/13/21 07:16 DC Losartan Potassium (Cozaar) 25 mg DAILY 05/13/21 13:00 05/14/21 12:46 DC 05/13/21 17:35 25 MG Midazolam HCl (Versed) 2 mg STK-MED ONCE 05/13/21 07:47 05/13/21 07:48 DC Morphine Sulfate (Morphine Sulfate) 1 mg PRN Q10MIN PRN 05/13/21 09:30 05/14/21 09:29 DC Ondansetron HCl (Zofran) 4 mg STK-MED ONCE 05/13/21 07:16 05/13/21 07:17 DC Prochlorperazine Edisylate (Compazine) 5 mg PACU PRN PRN 05/13/21 09:30 05/14/21 09:29 DC Propofol (Diprivan) 200 mg STK-MED ONCE 05/13/21 07:15 05/13/21 07:16 DC Psyllium Hydrophilic Mucilloid (Metamucil Fiber Packet) 1 pkt QHS 05/11/21 21:00 05/13/21 21:02 1 PKT Ringer's Solution 1,000 ml @ 30 mls/hr Q24H 05/13/21 09:30 05/13/21 21:29 DC Succinylcholine Chloride (Anectine) 200 mg STK-MED ONCE 05/13/21 07:16 05/13/21 07:16 DC Tramadol HCl (Ultram) 50 mg PRN Q6HRS PRN 05/11/21 07:45 05/12/21 12:51 DC Trimethoprim/ Sulfamethoxazole (Bactrim Ds) 1 tab BID 05/12/21 14:00 05/15/21 13:59 05/15/21 09:00 1 TAB Vitamin D (Vitamin D3) 20,000 unit WEEKLY 05/13/21 10:00 05/13/21 12:32 DC 05/13/21 10:57 20,000 UNIT Lab Laboratory Tests Test 05/15/21 06:25 Sodium Level 138 mmol/L (136-145) Potassium Level 3.8 mmol/L (3.5-5.1) Chloride Level 105 mmol/L (98-107) Carbon Dioxide Level 22 mmol/L (21-32) Anion Gap 11 (6-14) Blood Urea Nitrogen 27 mg/dL (7-20) Creatinine 2.3 mg/dL (0.6-1.0) Estimated GFR (Cockcroft-Gault) 26.3 Glucose Level 110 mg/dL (70-99) Calcium Level 8.9 mg/dL (8.5-10.1) Results All relevant outside records, renal labs, imaging studies, telemetry/EKG's were reviewed. Justicifation of Admission Dx: Justifications for Admission: Justification of Admission Dx: N/A DIANE IVERSON MD May 15, 2021 09:21
[2021-05-15 11:00] VITALS: BP 113/67
[2021-05-15] MEDS ORDERED: HYDR-2761 PO (11:48)
--- NOTE | 2021-05-15 11:49 | SNU/HH DC ---
DISCHARGE WITH HOME HEALTH DISCHARGE INFORMATION: Final Diagnosis: Problems Medical Problems: (1) Ankle dislocation Status: Acute (2) Ankle fracture Status: Acute Condition on Discharge: Stable CODE STATUS: Code Status: Full HOME HEALTH: Face to Face: I certify this patient is under my care and that I, or a nurse practitioner or physician's patient clerical assistant working with me, had a face to face encounter that meets the physician face to face encounter requirements with this patient on []. Medical Complications: Other (Ankle fracture) Intermediate For: Assess & Educate Safety RN For Eval/Treatment: Yes Physical Therapy For: Evalulation/Treatment Occupational Therapy For: Evaluation/Treatment Home Health Aide For: Self-care RN OBSERVATION For: Community Resources Pt Meets Homebound Status: Poor coordination w/ amb. POST DISCHARGE ORDERS: Activity Instructions for Disc: Activity as tolerated, Bedrest today Weight Bearing Status after Di: Full weight bearing DIET AFTER DISCHARGE: Cardiac Wound/Incision Care: No wound care needed CHECKS AFTER DISCHARGE: Checks after discharge: Check blood press - daily, Check your Temp as needed, Weigh Yourself Daily TREATMENT/EQUIPMENT ORDERS: Adaptive Equipment Issued: None, Front wheeled walker CERTIFICATION STATEMENT: Certification Statement: Certification Statement: Based on the above finding, I certify that this patient is confined to the home and needs intermittent fdc care, physical therapy and/or speech therapy, or continues to need occupational therapy.~ This patient is under my care, and I have initiated the establishment of the plan of care.~ This patient will be followed by myself or a community physician who will periodically review the plan of care. Home Meds Active Scripts Hydrocodone Bit/Acetaminophen (HYDROCODONE-APAP 5-325 ) 1 Tab Tablet, 1 TAB PO PRN Q6HRS PRN for SEVERE PAIN (1st Choice) for 10 Days, #20 TAB Prov:CASTLENIAL K III DO 05/15/21 Ergocalciferol (Vitamin D2) (Vitamin D2) 1,250 Mcg Capsule, 72139 UNIT PO WEEKLY for Low Vit D for 8 Days, #8 CAP Prov:MINERVA COLEMAN MD 05/14/21 Levetiracetam (KEPPRA) 500 Mg Tablet, 2000 MG PO BID for Seizures, #60 TAB 2 Refills Prov:MINERVA OCLEMAN MD 10/17/19 Reported Medications Lacosamide (VIMPAT) 50 Mg Tablet, 50 MG PO BID for seizures, TAB 05/11/21 CATHERINE DE SANTIAGO III DO May 15, 2021 11:49
[2021-05-15 15:00] VITALS: BP 142/69
--- NOTE | 2021-05-15 16:38 | PDOC ---
PROGRESS NOTES Date of Service DATE: 05/15/21 TIME: 16:37 Subjective Subjective Problems overnight: Objective Vital Signs Vital Signs Date Time Temp Pulse Resp B/P (MAP) Pulse Ox O2 Delivery O2 Flow Rate FiO2 05/15/21 15:00 97.6 89 16 142/69 (93) 100 Room Air 97.6 Labs Laboratory Tests Test 05/14/21 06:00 05/14/21 06:15 05/15/21 06:25 Sodium Level 139 mmol/L (136-145) 138 mmol/L (136-145) Potassium Level 3.6 mmol/L (3.5-5.1) 3.8 mmol/L (3.5-5.1) Chloride Level 104 mmol/L (98-107) 105 mmol/L (98-107) Carbon Dioxide Level 22 mmol/L (21-32) 22 mmol/L (21-32) Anion Gap 13 (6-14) 11 (6-14) Blood Urea Nitrogen 29 mg/dL (7-20) 27 mg/dL (7-20) Creatinine 2.7 mg/dL (0.6-1.0) 2.3 mg/dL (0.6-1.0) Estimated GFR (Cockcroft-Gault) 21.8 26.3 Glucose Level 108 mg/dL (70-99) 110 mg/dL (70-99) Calcium Level 8.6 mg/dL (8.5-10.1) 8.9 mg/dL (8.5-10.1) White Blood Count 8.5 x10^3/uL (4.0-11.0) Red Blood Count 2.55 x10^6/uL (3.50-5.40) Hemoglobin 8.0 g/dL (12.0-15.5) Hematocrit 24.6 % (36.0-47.0) Mean Corpuscular Volume 97 fL (79-100) Mean Corpuscular Hemoglobin 31 pg (25-35) Mean Corpuscular Hemoglobin Concent 32 g/dL (31-37) Red Cell Distribution Width 13.8 % (11.5-14.5) Platelet Count 252 x10^3/uL (140-400) Laboratory Tests Test 05/15/21 06:25 Sodium Level 138 mmol/L (136-145) Potassium Level 3.8 mmol/L (3.5-5.1) Chloride Level 105 mmol/L (98-107) Carbon Dioxide Level 22 mmol/L (21-32) Anion Gap 11 (6-14) Blood Urea Nitrogen 27 mg/dL (7-20) Creatinine 2.3 mg/dL (0.6-1.0) Estimated GFR (Cockcroft-Gault) 26.3 Glucose Level 110 mg/dL (70-99) Calcium Level 8.9 mg/dL (8.5-10.1) Assessment Assessment POD# Plan Plan of Care Patient seen in the day as she is being wheeled out, going home. Pt says that she called our office this morning to make post op appointment. She was advised to call if any problems/concerns before her follow up appt and to continue NWB. Justicifation of Admission Dx: Justifications for Admission: Justification of Admission Dx: N/A ALANA PARADA May 15, 2021 16:38
--- NOTE | 2021-05-15 16:45 | NUR ---
Discharge: Patient AOx4; complained of pain prior to discharge. Pain medication administered as ordered. Discharge instructions reviewed with the patient. Patient verbalized understanding. Patient left the unit at 16:35. Patient driven home by her son and daughter.
--- NOTE | 2021-05-16 00:30 | DS ---
DATE OF DISCHARGE: 05/15/2021 ADMITTING DIAGNOSIS: Fall with right ankle fracture and dislocation. DISCHARGE DIAGNOSIS: Postop right ankle fracture open reduction and internal fixation. HOSPITAL COURSE: The patient is a pleasant 60-year-old female who fell. She was admitted. We have consulted Orthopedics. She was taken for ORIF. Today, I saw and examined her. She is at her baseline and wants to go home. We plan to discharge. DISPOSITION: Home. ACTIVITY: As tolerated. DIET: Low sodium. DISCHARGE MEDICATIONS: Please see the MRAD. TOTAL TIME: 34 minutes. LIZY/TOMAS DR: Lilia TID: [id number]
[2021-05-16] MEDS ORDERED: POLYETHYLENE GLYCOL 3350 17 GM PACKET. PO SCH (09:00)
[2021-05-20] MEDS ORDERED: ERGOCALCIFEROL (VITAMIN D2) 50,000 UNIT CAPSULE. PO SCH (09:00)
== END 2021-05-15 16:55 | disposition home health service (06) | DRG 493 ==
LOC: ER 18:20 → OBSVTOIN 23:10 → 4 NORTH 23:10
PROVIDERS: ADMIT Internal Medicine; ATTEND Internal Medicine
PROC: 0QSG04Z Reposition Right Tibia with Internal Fixation Device, Open Approach (ICD-10-PCS; principal; 2021-05-14)
DX: S82.851A Displaced trimalleolar fracture of right lower leg, initial encounter for closed fracture (principal); N17.9 Acute kidney failure, unspecified; N18.4 Chronic kidney disease, stage 4 (severe); N39.0 Urinary tract infection, site not specified; T88.6XXA Anaphylactic reaction due to adverse effect of correct drug or medicament properly administered, initial encounter; E87.6 Hypokalemia; E11.22 Type 2 diabetes mellitus with diabetic chronic kidney disease; E55.9 Vitamin D deficiency, unspecified; I12.9 Hypertensive chronic kidney disease with stage 1 through stage 4 chronic kidney disease, or unspecified chronic kidney disease; R56.9 Unspecified convulsions; T36.0X5A Adverse effect of penicillins, initial encounter; X50.1XXA Overexertion from prolonged static or awkward postures, initial encounter; Z79.82 Long term (current) use of aspirin; Z83.3 Family history of diabetes mellitus; Z85.43 Personal history of malignant neoplasm of ovary; Z85.528 Personal history of other malignant neoplasm of kidney; Z87.442 Personal history of urinary calculi; Z87.891 Personal history of nicotine dependence; Z92.3 Personal history of irradiation; M19.90 Unspecified osteoarthritis, unspecified site; W18.39XA Other fall on same level, initial encounter; Y93.89 Activity, other specified; Y92.89 Other specified places as the place of occurrence of the external cause; Y99.8 Other external cause status; Z87.440 Personal history of urinary (tract) infections
CPT/HCPCS: 27810; 36415; 73610; 73700; 80048; 80053; 81001; 82306; 83036; 85025; 85027; 85610; 85730; 87086; 87147; 87426; 96372; 96374; 96376; A4209; A4930; A6402; A6449; C1713; J0330; J0690; J1100; J1650; J2250; J2270; J2405; J2704; J3010; 97110-GP; 97116-GP; 97530-GO; 97530-GP; 97535-GO; 99285-25; G0378